=== PATIENT | female | born 1995 | race Caucasian/White ===

== ENCOUNTER 2018-07-06 22:17 | Emergency (ER) | payer OTHER ==
--- OUTSIDE RECORDS SUMMARY | 2018-07-06 22:19 | XMS REPORT ---
:1995 Author Organization [facility] Address [address] [place] [address] [address] [place] [address] Care Team Providers Name Role Phone Unavailable Unavailable Unavailable Payers Payer Name Policy Type Policy Number Effective Date Expiration Date Problems This patient has no known problems. Allergies, Adverse Reactions, Alerts Allergy Name Allergy Status Severity Reaction(s) Onset Inactive Treating Comments Type Date Date Clinician Penicillins DA Active SV 2017-12 00:00:0 0 Sulfa DA Active VT 2017-11 (Sulfonamide -12 Antibiotics) 00:00:0 0 Medications This patient has no known medications.
--- NOTE | 2018-07-07 00:24 | EDPHYS ---
Physician Documentation [facility] Name: Caitlin Sloan Age: 23 yrs Sex: Female : 1995 Arrival Date: 07/06/2018 Time: 22:22 Bed 26 Private MD: ED Physician Danilo Moralez HPI: 07/06 23:41 This 23 yrs old Female presents to ER via Ambulatory with complaints of Ear kb Pain. 23:41 The patient presents with The patient presents with pain, moderate. The complaints kb affect the right ear and left ear. Onset: The symptoms/episode began/occurred 1 week(s) ago. Modifying factors: The symptoms are alleviated by nothing, the symptoms are aggravated by nothing. Associated signs and symptoms: Pertinent positives: sore throat, rhinorrhea. Severity of symptoms: At their worst the symptoms were moderate in the emergency department the symptoms are unchanged. The patient has not experienced similar symptoms in the past. Pt reports ear pain, sinus drainage, swelling behind left ear, and sore throat. . 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 - Social history:: Smoking status: Patient/guardian denies using tobacco. - Ebola Screening: : Patient denies exposure to infectious person Patient denies travel to an Ebola-affected area in the 21 days before illness onset. ROS: 23:41 Constitutional: Negative for fever, chills, and weight loss, Neck: Negative for injury, kb pain, and swelling, Cardiovascular: Negative for chest pain, palpitations, and edema, Respiratory: Negative for shortness of breath, cough, wheezing, and pleuritic chest pain, Abdomen/GI: Negative for abdominal pain, nausea, vomiting, diarrhea, and constipation, Back: Negative for injury and pain, : Negative for injury, bleeding, discharge, and swelling, MS/Extremity: Negative for injury and deformity, Skin: Negative for injury, rash, and discoloration, Neuro: Negative for headache, weakness, numbness, tingling, and seizure. 23:41 ENT: Positive for ear pain, rhinorrhea, sinus congestion. Exam: 23:41 Constitutional: This is a well developed, well nourished patient who is awake, alert, kb and in no acute distress. Head/Face: Normocephalic, atraumatic. Chest/axilla: Normal chest wall appearance and motion. Nontender with no deformity. No lesions are appreciated. Cardiovascular: Regular rate and rhythm with a normal S1 and S2. No gallops, murmurs, or rubs. Normal PMI, no JVD. No pulse deficits. Respiratory: Lungs have equal breath sounds bilaterally, clear to auscultation and percussion. No rales, rhonchi or wheezes noted. No increased work of breathing, no retractions or nasal flaring. Abdomen/GI: Soft, non-tender, with normal bowel sounds. No distension or tympany. No guarding or rebound. No evidence of tenderness throughout. Skin: Warm, dry with normal turgor. Normal color with no rashes, no lesions, and no evidence of cellulitis. MS/ Extremity: Pulses equal, no cyanosis. Neurovascular intact. Full, normal range of motion. Neuro: Awake and alert, GCS 15, oriented to person, place, time, and situation. Cranial nerves II-XII grossly intact. Motor strength 5/5 in all extremities. Sensory grossly intact. Cerebellar exam normal. Normal gait. 23:41 ENT: External ear(s): swelling, that is moderate, of the left mastoid area, Ear canal(s): are normal, TM's: are normal, Nose: is normal, Mouth: is normal, Posterior pharynx: is normal. Vital Signs: 22:33 BP 134 / 84; Pulse 105; Resp 18; Temp 98.6; Pulse Ox 100% on R/A; Weight 110.68 kg; aa1 Height 5 ft. 5 in. (165.10 cm); Pain 7/10; 23:59 BP 90 / 54; Pulse 107; Resp 18; Pulse Ox 99% on R/A; tl3 22:33 Body Mass Index 40.60 (110.68 kg, 165.10 cm) aa1 MDM: 22:57 Patient medically screened. kb 23:43 Data reviewed: vital signs, nurses notes. Data interpreted: Pulse oximetry: on room air kb is 100 %. Interpretation: normal. 07/07 00:22 Counseling: I had a detailed discussion with the patient and/or guardian regarding: the kb historical points, exam findings, and any diagnostic results supporting the discharge/admit diagnosis, radiology results, the need for outpatient follow up, a family practitioner, to return to the emergency department if symptoms worsen or persist or if there are any questions or concerns that arise at home. 07/06 23:07 Order name: CT Head Brain wo Cont kb Administered Medications: No medications were administered Disposition: 07/07/18 00:22 Discharged to Home. Impression: Allergic rhinitis, unspecified. - Condition is Stable. - Discharge Instructions: Allergic Rhinitis, Allergies, [id number]. - Prescriptions for Prednisone 20 mg Oral Tablet - take 1 tablet by ORAL route once daily for 5 days; 5 tablet. - Medication Reconciliation Form, Thank You Letter, Antibiotic Education, Prescription Opioid Use form. - Follow up: Emergency Department; When: As needed; Reason: Worsening of condition. Follow up: Private Physician; When: 2 - 3 days; Reason: Recheck today's complaints, Continuance of care, Re-evaluation by your physician. Addendum: 07/10/2018 06:53 Co-signature as Attending Physician, Danilo Moralez MD I agree with the assessment and c ramirez plan of care. Signatures: Dispatcher [employer] EDMS Windy Torre, RENTAL CAR FERRY DRIVER-C RENTAL CAR FERRY DRIVER-Ckb Chelle Monet, RN RN aa1 Danilo Moralez MD MD cha Vicente, Ronaldo, RN RN rv Corrections: (The following items were deleted from the chart) 07/07 00:39 00:22 07/07/2018 00:22 Discharged to Home. Impression: Allergic rhinitis, unspecified. rv Condition is Stable. Forms are Medication Reconciliation Form, Thank You Letter, Antibiotic Education, Prescription Opioid Use. Follow up: Emergency Department; When: As needed; Reason: Worsening of condition. Follow up: Private Physician; When: 2 - 3 days; Reason: Recheck today's complaints, Continuance of care, Re-evaluation by your physician. kb
--- NOTE | 2018-07-07 00:24 | ER ---
Nurse's Notes [facility] Name: Caitlin Sloan Age: 23 yrs Sex: Female : 1995 Arrival Date: 07/06/2018 Time: 22:22 Bed 26 Private MD: Diagnosis: Allergic rhinitis, unspecified Presentation: 07/06 22:32 Presenting complaint: Patient states: robinson ear pain, swollen lymph nodes, and sinus aa1 drainage x 1.5 weeks. Transition of care: patient was not received from another setting of care. Onset of symptoms was June 26, 2018. Risk Assessment: Do you want to hurt yourself or someone else? Patient reports no desire to harm self or others. Initial Sepsis Screen: Does the patient meet any 2 criteria? HR > 90 bpm. Does the patient have a suspected source of infection? No. Patient's initial sepsis screen is negative. Care prior to arrival: None. 22:32 Method Of Arrival: Ambulatory aa1 22:32 Acuity: TANESHA 4 aa1 Triage Assessment: 22:33 General: Appears in no apparent distress. comfortable, Behavior is calm, cooperative, aa1 appropriate for age. 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 - Social history:: Smoking status: Patient/guardian denies using tobacco. - Ebola Screening: : Patient denies exposure to infectious person Patient denies travel to an Ebola-affected area in the 21 days before illness onset. Screenin:59 Abuse screen: Denies threats or abuse. Nutritional screening: No deficits noted. tl3 Tuberculosis screening: No symptoms or risk factors identified. Fall Risk None identified. Assessment: 23:59 General: Appears comfortable, well groomed, well developed, well nourished, Behavior is tl3 calm, cooperative, appropriate for age. Pain: Complains of pain in left mastoid area and left ear and right ear. Neuro: Level of Consciousness is awake, alert, obeys commands, Oriented to person, place, time, situation, Appropriate for age. Cardiovascular: Patient's skin is warm and dry. Respiratory: Airway is patent Respiratory effort is even, unlabored, Respiratory pattern is regular, symmetrical. GI: No signs and/or symptoms were reported involving the gastrointestinal system. : No signs and/or symptoms were reported regarding the genitourinary system. EENT: Reports pain in right ear and left ear. Derm: No signs and/or symptoms reported regarding the dermatologic system. Vital Signs: 22:33 BP 134 / 84; Pulse 105; Resp 18; Temp 98.6; Pulse Ox 100% on R/A; Weight 110.68 kg; aa1 Height 5 ft. 5 in. (165.10 cm); Pain 7/10; 23:59 BP 90 / 54; Pulse 107; Resp 18; Pulse Ox 99% on R/A; tl3 22:33 Body Mass Index 40.60 (110.68 kg, 165.10 cm) aa1 ED Course: 22:22 Patient arrived in ED. ds1 22:33 Triage completed. aa1 22:33 Arm band placed on left wrist. Patient placed in waiting room, Patient notified of wait aa1 time. 22:57 Windy Torre FNP-C is [facility]. kb 22:57 Danilo Moralez MD is Attending Physician. kb 23:[address] via wheelchair. kw1 23:39 CT Head Brain wo Cont In Process Unspecified. EDMS 23:40 CT completed. Patient tolerated procedure well. Patient moved back from CT. kw1 23:58 Araceli Proctor, RN is Primary Nurse. tl3 23:59 Patient has correct armband on for positive identification. Bed in low position. Pulse tl3 ox on. NIBP on. 23:59 No provider procedures requiring assistance completed. Patient did not have IV access tl3 during this emergency room visit. Administered Medications: No medications were administered Outcome: 07/07 00:22 Discharge ordered by . kb 00:39 Discharged to home ambulatory. rv 00:39 Condition: good 00:39 Discharge instructions given to patient, Instructed on discharge instructions, follow up and referral plans. medication usage, Demonstrated understanding of instructions, follow-up care, medications, Prescriptions given X 1. 00:39 Patient left the ED. rv Signatures: Dispatcher [employer] EDMD Windy Torre FNP-C FNP-Ckb Chelle Monet, RN RN aa1 Helena Melendez ds1 Nella Crawley kw1 Araceli Proctor, RN RN tl3 Michael Duncan, RN RN rv
--- NOTE | 2018-07-07 08:19 | RAD REPORT ---
EXAM DESCRIPTION: CT - Head Brain Wo Cont - 07/07/2018 5:48 am CLINICAL HISTORY: r/o mastroiditis Fever, headache COMPARISON: No comparisons TECHNIQUE: All CT scans are performed using dose optimization technique as appropriate and may inclu de automated exposure control or mA/KV adjustment according to patient size. FINDINGS: No intracranial hemorrhage, hydrocephalus or extra-axial fluid collection.No areas of brai n edema or evidence of midline shift. The paranasal sinuses and mastoids are clear. The calvarium is intact. IMPRESSION: No acute intracranial abnormality.
== END 2018-07-07 00:39 | disposition home or self-care (01) ==
LOC: ER 22:17
DX: J30.9 Allergic rhinitis, unspecified (principal); H92.03 Otalgia, bilateral
CPT/HCPCS: 70450; 99284

== ENCOUNTER 2018-08-21 14:25 | Emergency (ER) | payer OTHER ==
--- OUTSIDE RECORDS SUMMARY | 2018-08-21 14:27 | XMS REPORT ---
:1995 [facility] Address [address] [place] [address] [address] [place] [address] Care Team Providers Name Role Phone Unavailable Unavailable Unavailable Payers Payer Name Policy Type Policy Number Effective Date Expiration Date Problems This patient has no known problems. Allergies, Adverse Reactions, Alerts Allergy Name Allergy Status Severity Reaction(s) Onset Inactive Treating Comments Type Date Date Clinician Penicillins DA Active SV 2017-12 00:00:0 0 Sulfa DA Active [place] 2017-11 (Sulfonamide -12 Antibiotics) 00:00:0 0 Medications This patient has no known medications.
--- NOTE | 2018-08-21 15:29 | ER ---
Nurse's Notes [facility] Name: Caitlin Sloan Age: 23 yrs Sex: Female : 1995 Arrival Date: 08/21/2018 Time: 14:29 Bed 11 Private MD: Diagnosis: Acute sinusitis Presentation: 08/21 15:07 Presenting complaint: Patient states: headaches, sinus infection, fever of 101 hj yesterday, cough, pain when breathes, symptoms started at the beginning of july. Transition of care: patient was not received from another setting of care. Onset of symptoms was August 21, 2018. Risk Assessment: Do you want to hurt yourself or someone else? Patient reports no desire to harm self or others. Initial Sepsis Screen: Does the patient meet any 2 criteria? No. Patient's initial sepsis screen is negative. Does the patient have a suspected source of infection? No. Patient's initial sepsis screen is negative. Care prior to arrival: None. 15:07 Method Of Arrival: Ambulatory 15:07 Acuity: TANESHA 4 hj Triage Assessment: 15:30 General: Appears in no apparent distress. comfortable, Behavior is calm, cooperative. mg2 Pain: Complains of pain in head Pain does not radiate. Pain currently is 5 out of 10 on a pain scale. Quality of pain is described as aching, Pain began gradually, Is intermittent. EENT: Reports pain in right eye, nose and left eye. Neuro: Level of Consciousness is awake, alert, obeys commands, Oriented to person, place, time, situation. Cardiovascular: Capillary refill < 3 seconds Patient's skin is warm and dry. Respiratory: Reports cough that is non-productive, Airway is patent Respiratory effort is even, unlabored, Respiratory pattern is regular, symmetrical. GI: No signs and/or symptoms were reported involving the gastrointestinal system. : No signs and/or symptoms were reported regarding the genitourinary system. Derm: Skin is intact, is healthy with good turgor, Skin is pink, warm \T\ dry. normal. 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 - Social history:: Smoking status: Patient/guardian denies using tobacco. - Ebola Screening: : Patient negative for fever greater than or equal to 101.5 degrees Fahrenheit, and additional compatible Ebola Virus Disease symptoms Patient denies exposure to infectious person Patient denies travel to an Ebola-affected area in the 21 days before illness onset No symptoms or risks identified at this time. Screenin:53 Abuse screen: Denies threats or abuse. Denies injuries from another. Nutritional mg2 screening: No deficits noted. Tuberculosis screening: No symptoms or risk factors identified. Fall Risk None identified. Assessment: 15:35 Reassessment: No changes from previously documented assessment. mg2 Vital Signs: 15:08 BP 119 / 80; Pulse 95; Resp 18; Temp 97.5(TE); Pulse Ox 100% on R/A; Weight 108.86 kg; hj Height 5 ft. 6 in. (167.64 cm); Pain 7/10; 15:08 Body Mass Index 38.74 (108.86 kg, 167.64 cm) ED Course: 14:29 Patient arrived in ED. mr 15:08 Triage completed. hj 15:10 Arm band placed on. hj 15:11 Orville Rashid, JOSE MARIA is Primary Nurse. mg2 15:15 Primo Kennedy PA is PHCP. jr8 15:15 Mitchell Cabrera MD is Attending Physician. jr8 15:30 Patient has correct armband on for positive identification. mg2 15:52 No provider procedures requiring assistance completed. Patient did not have IV access mg2 during this emergency room visit. Administered Medications: No medications were administered Outcome: 15:29 Discharge ordered by . jr8 15:52 Discharged to home ambulatory, with family. mg2 15:52 Condition: stable 15:52 Discharge instructions given to patient, family, Instructed on discharge instructions, follow up and referral plans. medication usage, Demonstrated understanding of instructions, follow-up care, medications, Prescriptions given X 3. 15:53 Patient left the ED. mg2 Signatures: Angélica Tang mr Primo Kennedy PA PA jr8 Joel Mcgovern RN RN Gardose, Orville, RN RN mg2 Corrections: (The following items were deleted from the chart) 15:10 15:07 Presenting complaint: Patient states: headaches, sinus infection, fever of 101 hj yesterday, cough, pain when breathes hj
--- NOTE | 2018-08-21 15:29 | EDPHYS ---
Physician Documentation [facility] Name: Caitlin Sloan Age: 23 yrs Sex: Female : 1995 Arrival Date: 08/21/2018 Time: 14:29 Bed 11 Private MD: ED Physician Mitchell Cabrera HPI: 08/21 16:20 This 23 yrs old Female presents to ER via Ambulatory with complaints of Sinus jr8 Congestion. 16:20 The patient or guardian reports cough, that is intermittent, described as moderate, jr8 with no sputum, sinus congestion and pain. Onset: The symptoms/episode began/occurred gradually, 3 week(s) ago, and became persistent. Severity of symptoms: At their worst the symptoms were moderate, in the emergency department the symptoms are unchanged. Modifying factors: The symptoms are alleviated by nothing, the symptoms are aggravated by nothing. The patient has not experienced similar symptoms in the past. The patient has been recently seen by a physician:. Patient seen by provider about 3 weeks ago and was given steroids. Helped for a while but continues to have cough, sinus pressure, and sinus pain . 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 - Social history:: Smoking status: Patient/guardian denies using tobacco. - Ebola Screening: : Patient negative for fever greater than or equal to 101.5 degrees Fahrenheit, and additional compatible Ebola Virus Disease symptoms Patient denies exposure to infectious person Patient denies travel to an Ebola-affected area in the 21 days before illness onset No symptoms or risks identified at this time. ROS: 16:20 Eyes: Negative for injury, pain, redness, and discharge, Neck: Negative for injury, jr8 pain, and swelling, Cardiovascular: Negative for chest pain, palpitations, and edema, Abdomen/GI: Negative for abdominal pain, nausea, vomiting, diarrhea, and constipation, Back: Negative for injury and pain, MS/Extremity: Negative for injury and deformity, Skin: Negative for injury, rash, and discoloration, Neuro: Negative for headache, weakness, numbness, tingling, and seizure. 16:20 Constitutional: Positive for body aches, fever. 16:20 ENT: Positive for rhinorrhea, sinus congestion, sinus pain. 16:20 Respiratory: Positive for cough, Negative for dyspnea on exertion, pleurisy, shortness of breath, sputum production, wheezing. Exam: 16:20 Eyes: Pupils equal round and reactive to light, extra-ocular motions intact. Lids and jr8 lashes normal. Conjunctiva and sclera are non-icteric and not injected. Cornea within normal limits. Periorbital areas with no swelling, redness, or edema. Neck: Trachea midline, no thyromegaly or masses palpated, and no cervical lymphadenopathy. Supple, full range of motion without nuchal rigidity, or vertebral point tenderness. No Meningismus. Cardiovascular: Regular rate and rhythm with a normal S1 and S2. No gallops, murmurs, or rubs. Normal PMI, no JVD. No pulse deficits. Respiratory: Lungs have equal breath sounds bilaterally, clear to auscultation and percussion. No rales, rhonchi or wheezes noted. No increased work of breathing, no retractions or nasal flaring. Abdomen/GI: Soft, non-tender, with normal bowel sounds. No distension or tympany. No guarding or rebound. No evidence of tenderness throughout. Back: No spinal tenderness. No costovertebral tenderness. Full range of motion. Skin: Warm, dry with normal turgor. Normal color with no rashes, no lesions, and no evidence of cellulitis. MS/ Extremity: Pulses equal, no cyanosis. Neurovascular intact. Full, normal range of motion. Neuro: Awake and alert, GCS 15, oriented to person, place, time, and situation. Cranial nerves II-XII grossly intact. Motor strength 5/5 in all extremities. Sensory grossly intact. Cerebellar exam normal. Normal gait. 16:20 Head/face: Sinus tenderness, that is moderate, is located over the right frontal sinus, left frontal sinus, right ethmoid sinus, left ethmoid sinus, right maxillary sinus and left maxillary sinus. 16:20 ENT: Exam is negative for earache, ear discharge, hemotympanum, nasal discharge, pharyngitis, exudate. Vital Signs: 15:08 BP 119 / 80; Pulse 95; Resp 18; Temp 97.5(TE); Pulse Ox 100% on R/A; Weight 108.86 kg; hj Height 5 ft. 6 in. (167.64 cm); Pain 7/10; 15:08 Body Mass Index 38.74 (108.86 kg, 167.64 cm) MDM: 15:16 Patient medically screened. jr8 15:28 Data reviewed: vital signs, nurses notes, and as a result, I will discharge patient. jr8 Data interpreted: Pulse oximetry: on room air is 100 %. Interpretation: normal. Counseling: I had a detailed discussion with the patient and/or guardian regarding: the historical points, exam findings, and any diagnostic results supporting the discharge/admit diagnosis, the need for outpatient follow up, a family practitioner, to return to the emergency department if symptoms worsen or persist or if there are any questions or concerns that arise at home. Administered Medications: No medications were administered Disposition: 08/22 15:51 Co-signature as Attending Physician, Mitchell Cabrera MD I agree with the assessment and kdr plan of care. Disposition: 08/21/18 15:29 Discharged to Home. Impression: Acute sinusitis. - Condition is Stable. - Discharge Instructions: Sinusitis, Adult. - Prescriptions for Claritin- D 12 Hour 5-120 mg Oral Tablet Sustained Release 12 hr - take 1 tablet by ORAL route every 12 hours As needed to take for 7-10 days; 30 tablet. Zithromax Z- [place] 250 mg Oral Tablet - take 1 tablet by ORAL route as directed for 5 days Day 1 - take two (2) tablets one time. Day 2, 3, 4 , 5 take one (1) tablet once daily.; 6 tablet. Guaifenesin AC 10- 100 mg/5 mL Oral Liquid - take 10 milliliter by ORAL route every 4 hours As needed; 240 milliliter. - Medication Reconciliation Form, Thank You Letter, Antibiotic Education, Prescription Opioid Use form. - Follow up: Private Physician; When: 1 week; Reason: Recheck today's complaints, Continuance of care, Re-evaluation by your physician. - Problem is new. - Symptoms have improved. Signatures: Mitchell Cabrera MD MD [facility] Primo Kennedy PA PA jr8 Joel Mcgovern RN RN Gard[place], Orville, RN RN mg2 Corrections: (The following items were deleted from the chart) 08/21 15:53 15:29 08/21/2018 15:29 Discharged to Home. Impression: Acute sinusitis. Condition is mg2 Stable. Forms are Medication Reconciliation Form, Thank You Letter, Antibiotic Education, Prescription Opioid Use. Follow up: Private Physician; When: 1 week; Reason: Recheck today's complaints, Continuance of care, Re-evaluation by your physician. Problem is new. Symptoms have improved. jr8
== END 2018-08-21 15:53 | disposition home or self-care (01) ==
LOC: ER 14:25
DX: J01.90 Acute sinusitis, unspecified (principal); Z88.0 Allergy status to penicillin; Z88.2 Allergy status to sulfonamides
CPT/HCPCS: 99282

== ENCOUNTER 2018-11-17 14:31 | Emergency (ER) | payer OTHER ==
--- OUTSIDE RECORDS SUMMARY | 2018-11-17 14:35 | XMS REPORT ---
:1995 [facility] Address [address] [place] [address] [address] [place] [address] Care Team Providers Name Role Phone Unavailable Unavailable Unavailable Payers Payer Name Policy Type Policy Number Effective Date Expiration Date Problems This patient has no known problems. Allergies, Adverse Reactions, Alerts Allergy Name Allergy Status Severity Reaction(s) Onset Inactive Treating Comments Type Date Date Clinician Penicillins DA Active SV 2017-12 00:00:0 0 Sulfa DA Active [place] 2017-11 (Sulfonamide -12 Antibiotics) 00:00:0 0 Medications This patient has no known medications. Results Test Description Test Time Test Comments Text Results Atomic Results Result Comments COMPREHENSIVE METABOLIC PANEL 2018-10-14 17:15:00 Test Item Value Reference Range Comments SODIUM (test code=NA) 139 mEq/L 135-145 POTASSIUM (test code=K) 3.8 mEq/L 3.5-5.0 CHLORIDE (test code=CL) 104 mEq/L 100-115 CARBON DIOXIDE (test code=CO2) 27 mEq/L 22-31 ANION GAP (test code=GAP) 12.10 10-20 GLUCOSE (test code=GLU) 83 mg/dL 65-110 BLOOD UREA NITROGEN (test code=BUN) 15 mg/dL 7-18 GLOMERULAR FILTRATION RATE (test code=GFR) 68 ml/min >60 CREATININE (test code=CREAT) 1.0 mg/dL 0.5-1.0 TOTAL PROTEIN (test code=PROT) 7.2 gm/dL 6.3-8.2 ALBUMIN (test code=ALB) 3.2 gm/dL 3.4-4.8 CALCIUM (test code=CA) 9.1 mg/dL 8.4-10.2 BILIRUBIN TOTAL (test code=BILT) 0.2 mg/dL 0.2-1.0 SGOT/AST (test code=AST) 13 units/L 15-37 SGPT/ALT (test code=ALT) 18 units/L 12-78 ALKALINE PHOSPHATASE TOTAL (test code=ALKP) 68 units/L 46-116 [id number] 17:13:00 Test Item Value Reference Range Comments AMYLASE (test code=IVETTE) 34 units/L 30-110 [id number] 17:13:00 Test Item Value Reference Range Comments LIPASE (test code=LIP) 88 units/L 73-393 - US ABDOMEN [id number] 17:09:00 Patient Name: SIMONE MARTÍNEZ Unit No: [id number] EXAMS: CPT CODE: [id number] US ABDOMEN LTD 75904 EXAM: Right upper quadrant ultrasound. EXAM DATE: October 14, 2018. CLINICAL HISTORY: Right upper quadrant pain. Real-time imaging of the abdomen demonstrated a normal appearing liver, gallbladder, biliary ductal system and right kidney. The pancreas was obscured by overlying bowel gas. The common bile duct measures 0.1 cm. The right kidney measures 11.7 x 5.2 x 5.1 cm. The visualized portions of the IVC and aorta are within normal limits. Specifically, thereis no evidence of ascites, cholelithiasis or right hydronephrosis. IMPRESSION: No significantabnormalities identified ( nonvisualization of pancreas secondary to overlying bowel gas). at 170 Reported and signed by: Tia Boateng MD CC: Sharifa Bassett MD; Twin Flanagan Technologist: Lisbeth Calles RDMS Probe: Trnscrbd D/ ([id number])BrittnyCER Orig Print D/T: S: 10/14/2018 (4897) [facility] NAME: SIMONE MARTÍNEZ Radiology Department PHYS: WILFRED - Twin Bocanegra MD [address] : 1995 AGE: 23 SEX: F [place], [place] [address] LOC: CARRIE PHONE #: [phone] EXAM DATE: 10/14/2018 STATUS: REG ER FAX #: [phone] RAD NO: Page 1 Signed Report Patient Name: SIMONE MARTÍNEZ Unit No: [id number] EXAMS: CPT CODE: [id number] US ABDOMEN LTD 24252 <Continued> [facility] NAME: SIMONE MARTÍNEZ Radiology Department PHYS: Twin Garcia PMD [address] : 1995 AGE: 23 SEX: F [place], [place] [address] LOC: CARRIE PHONE #: [phone] EXAM DATE: 10/14/2018 STATUS: REG ER FAX #: [phone] RAD NO: Page 2 Signed ReportUA RFLX MICR CULT IF [id number] 16:48:00 Test Item Value Reference Range Comments UA COLOR (test code=COLU) YELLOW YELLOW UA APPEARANCE (test code=APPU) CLEAR CLEAR UA GLUCOSE DIPSTICK (test NEGATIVE NEGATIVE code=DGLUU) UA BILIRUBIN DIPSTICK (test NEGATIVE NEGATIVE code=BILU) UA KETONE DIPSTICK (test NEGATIVE NEGATIVE code=KETU) UA SPECIFIC GRAVITY (test 1.025 1.001-1.035 code=SGU) UA BLOOD DIPSTICK (test code=IVONNE) 3+ NEGATIVE UA PH DIPSTICK (test code=GEREMIAS) 6.0 5-9 UA PROTEIN DIPSTICK (test NEGATIVE NEGATIVE code=PROU) UA UROBILINIOGEN DIPSTICK (test 0.2 EU/dL <=1.0 code=URO) UA NITRITE DIPSTICK (test NEGATIVE NEGATIVE code=ELBA) UA LEUKOCYTE ESTERASE DIPSTICK NEG NEGATIVE (test code=LEUU) UA WBC (test code=WBCU) 0-2 #/hpf NONE SEEN UA RBC (test code=RBCU) TOO NUMEROUS TO CNT #/hpf NONE SEEN UA EPITHELIAL CELLS (test RARE #/hpf NONE SEEN code=EPIU) UA BACTERIA (test code=BACU) RARE #/hpf NONE SEEN CBC W/AUTO [id number] 16:44:00 Test Item Value Reference Range Comments WHITE BLOOD CELL (test code=WBC) 11.3 K/mm3 6.6-12.1 RED BLOOD CELL (test code=RBC) 4.57 M/mm3 3.45-5.01 HEMOGLOBIN (test code=HGB) 12.1 g/dL 10.7-13.9 HEMATOCRIT (test code=HCT) 39.3 % 32.1-42.1 MEAN CELL VOLUME (test code=MCV) 86 fL 84.1-94.8 MEAN CELL HGB (test code=MCH) 26.5 pg 27-35 MEAN CELL HGB CONCETRATION (test code=MCHC) 30.8 gm/dL 32.2-34.1 RED CELL DISTRIBUTION WIDTH (test code=RDW) 14.8 % 12.4-16.5 PLATELET COUNT (test code=PLT) 339 K/mm3 133-385 IMMATURE PLATELET FRACTION (test code=IPF) 0.0 % 0.0-10.8 MEAN PLATELET VOLUME (test code=MPV) 9.3 fl 9.1-12.7 NEUTROPHIL % (test code=NT%) 68.3 % 56.5-79.4 LYMPHOCYTE % (test code=LY%) 25.3 % 14.3-34.3 MONOCYTE % (test code=MO%) 4.5 % 5.1-10.4 EOSINOPHIL % (test code=EO%) 1.2 % 0.1-3.0 BASOPHIL % (test code=BA%) 0.3 % 0.1-1.0 NEUTROPHIL # (test code=NT#) 7.7 K/mm3 LYMPHOCYTE # (test code=LY#) 2.9 K/mm3 MONOCYTE # (test code=MO#) 0.5 K/mm3 EOSINOPHIL # (test code=EO#) 0.13 K/mm3 BASOPHIL # (test code=BA#) 0.0 K/mm3 RBC MORPHOLOGY REQUIRED (test code=RBCM) NORMAL NORMAL PLATELET MORPHOLOGY REQUIRED (test code=PLTMR) NORMAL NORMAL
[2018-11-17 15:39] LABS: Absolute Lymphocytes (CBC) 2.1 K/uL (0.7-4.9); Absolute Monocytes 0.4 K/uL (0.1-1.3); Absolute Neutrophil 2.7 K/uL (1.8-8.0); Basophils % 0.6 % (0-1.3); Eosinophils % 3.4 % (0-4.4); Hematocrit 39.4 % (36.0-45.0); Lymphocytes % 38.6 % (15.3-44.8); MPV 7.7 fL (7.6-11.3); Monocytes % 7.8 % (3.3-12.3); RBC Red Blood Cell Count 4.84 M/uL (3.86-4.86)
[2018-11-17 16:02] LABS: ALT/SGPT 47 U/L (12-78); AST/SGOT 22 U/L (15-37); Albumin 3.5 g/dL (3.4-5.0); Alkaline Phosphatase 91 U/L (45-117); BUN Blood Urea Nitrogen 12 mg/dL (7-18); Bicarbonate 26 mmol/L (21-32); Bilirubin Direct < 0.1 mg/dL (0-0.2); Bilirubin Total 0.3 mg/dL (0.2-1.0); Glucose Level 83 mg/dL (74-106); Lipase 103 U/L (73-393); Potassium 3.6 mmol/L (3.5-5.1); Protein, Total 7.3 g/dL (6.4-8.2); Sodium Level 144 mmol/L (136-145)
--- NOTE | 2018-11-17 16:54 | ER ---
Nurse's Notes [facility] Name: Caitlin Sloan Age: 23 yrs Sex: Female : 1995 Arrival Date: 11/17/2018 Time: 14:35 Bed 28 Private MD: Diagnosis: Acute sinusitis Presentation: 11/17 14:41 Presenting complaint: Patient states: Chest heaviness with a dry cough for several day, sg reports having shortness of breath with activity. Transition of care: patient was not received from another setting of care. Onset of symptoms was November 17, 2018. Risk Assessment: Do you want to hurt yourself or someone else? Patient reports no desire to harm self or others. Initial Sepsis Screen: Does the patient meet any 2 criteria? No. Patient's initial sepsis screen is negative. Does the patient have a suspected source of infection? No. Patient's initial sepsis screen is negative. Care prior to arrival: None. 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 - Social history:: Smoking status: Patient/guardian denies using tobacco. - Ebola Screening: : Patient negative for fever greater than or equal to 101.5 degrees Fahrenheit, and additional compatible Ebola Virus Disease symptoms Patient denies exposure to infectious person Patient denies travel to an Ebola-affected area in the 21 days before illness onset No symptoms or risks identified at this time. Screenin:02 Abuse screen: Denies threats or abuse. Denies injuries from another. Nutritional mg2 screening: No deficits noted. Tuberculosis screening: No symptoms or risk factors identified. Fall Risk None identified. Assessment: 15:11 General: Appears in no apparent distress. comfortable, Behavior is calm, cooperative. mg2 Pain: Complains of pain in chest, upper abdomen Pain does not radiate. Pain currently is 3 out of 10 on a pain scale. Quality of pain is described as aching, Pain began gradually, almost a week now. Neuro: Level of Consciousness is awake, alert, obeys commands, Oriented to person, place, time, situation. Cardiovascular: Capillary refill < 3 seconds Patient's skin is warm and dry. Respiratory: Airway is patent Respiratory effort is even, unlabored, Respiratory pattern is regular, symmetrical. GI: Reports nausea, bright yellowish stool. : No signs and/or symptoms were reported regarding the genitourinary system. EENT: No signs and/or symptoms were reported regarding the EENT system. Derm: Skin is intact, is healthy with good turgor, Skin is pink, warm \T\ dry. normal. Musculoskeletal: Circulation, motion, and sensation intact. Capillary refill < 3 seconds. 17:03 Reassessment: Patient states feeling better. mg2 Vital Signs: 14:40 Pulse 115; Resp 17; Temp 98.6; Pulse Ox 100% on R/A; Pain 6/10; sg 14:42 BP 136 / 76; sg 15:46 BP 104 / 75; Pulse 82; Resp 18; Pulse Ox 99% on R/A; Pain 3/10; mg2 ED Course: 14:35 Patient arrived in ED. mr 14:40 Arm band placed on. sg 14:42 Triage completed. sg 14:56 Windy Torre FNP-C [facility]. kb 14:56 Sebas Day MD is Attending Physician. kb 15:02 Orville Rashid, JOSE MARIA is Primary Nurse. mg2 15:06 EKG done, by geospatial technician. reviewed by Windy AMADOR. sm3 15:14 Patient has correct armband on for positive identification. Pulse ox on. NIBP on. Door mg2 closed. Warm blanket given. 15:14 No provider procedures requiring assistance completed. Patient maintains SpO2 mg2 saturation greater than 95% on room air. 15:32 Inserted saline lock: 22 gauge in left antecubital area, using aseptic technique. Blood mg2 collected. 16:11 X-ray completed. Patient tolerated procedure well. az 16:12 Chest Pa And Lat (2 Views) XRAY In Process Unspecified. EDMS 16:53 Basic Metabolic Panel Sent. jp3 17:03 IV discontinued, intact, bleeding controlled, No redness/swelling at site. Pressure mg2 dressing applied. Administered Medications: 17:00 Drug: predniSONE 40 mg Route: PO; mg2 17:00 Follow up: Response: No adverse reaction; Medication administered at discharge. mg2 Outcome: 16:54 Discharge ordered by . rosita 17:04 Discharged to home ambulatory. mg2 17:04 Condition: stable 17:04 Discharge instructions given to patient, Instructed on discharge instructions, follow up and referral plans. medication usage, Demonstrated understanding of instructions, follow-up care, medications, Prescriptions given X 2. 17:09 Patient left the ED. mg2 Signatures: Dispatcher [employer] EDMS Windy Torre, CHARGE COORDINATOR-C CHARGE COORDINATOR-Adebayo Mota, RN RN Angélica Tang Michele, RN RN mg2 Sydni Win 3 Lan Williamson jp3 Tawanna Duran
--- NOTE | 2018-11-17 16:54 | EDPHYS ---
Physician Documentation [facility] Name: Caitlin Sloan Age: 23 yrs Sex: Female : 1995 Arrival Date: 11/17/2018 Time: 14:35 Bed 28 Private MD: ED Physician Sebas Day HPI: 11/17 16:32 This 23 yrs old Female presents to ER via Ambulatory with complaints of Chest kb Pain, Cough, Headache. 16:33 The patient or guardian reports cough, that is intermittent, described as moderate, kb with no sputum, difficulty breathing, flu symptoms, low-grade fever, myalgias. Onset: The symptoms/episode began/occurred 6 day(s) ago. Severity of symptoms: At their worst the symptoms were moderate, in the emergency department the symptoms are unchanged. Modifying factors: The symptoms are alleviated by nothing, the symptoms are aggravated by nothing. Associated signs and symptoms: Pertinent positives: fever, Pertinent negatives: chest pain, diarrhea, ear ache, nausea, sore throat, vomiting. The patient has not experienced similar symptoms in the past. The patient has not recently seen a physician. 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 - Social history:: Smoking status: Patient/guardian denies using tobacco. - Ebola Screening: : Patient negative for fever greater than or equal to 101.5 degrees Fahrenheit, and additional compatible Ebola Virus Disease symptoms Patient denies exposure to infectious person Patient denies travel to an Ebola-affected area in the 21 days before illness onset No symptoms or risks identified at this time. ROS: 16:30 Neck: Negative for injury, pain, and swelling, Cardiovascular: Negative for chest pain, kb palpitations, and edema, Back: Negative for injury and pain, : Negative for injury, bleeding, discharge, and swelling, MS/Extremity: Negative for injury and deformity, Skin: Negative for injury, rash, and discoloration, Neuro: Negative for headache, weakness, numbness, tingling, and seizure. 16:30 Constitutional: Positive for body aches, chills, fatigue, malaise, Negative for poor PO intake, weight loss. 16:30 ENT: Positive for sinus congestion. 16:30 Respiratory: Positive for cough, Negative for dyspnea on exertion, hemoptysis, orthopnea, pleurisy, sputum production, wheezing. 16:30 Abdomen/GI: Positive for abdominal pain, diarrhea, yellow stool. Exam: 16:02 ECG was reviewed by the Attending Physician. kb 16:31 Constitutional: This is a well developed, well nourished patient who is awake, alert, kb and in no acute distress. Head/Face: Normocephalic, atraumatic. Neck: Trachea midline, no thyromegaly or masses palpated, and no cervical lymphadenopathy. Supple, full range of motion without nuchal rigidity, or vertebral point tenderness. No Meningismus. Chest/axilla: Normal chest wall appearance and motion. Nontender with no deformity. No lesions are appreciated. Cardiovascular: Regular rate and rhythm with a normal S1 and S2. No gallops, murmurs, or rubs. Normal PMI, no JVD. No pulse deficits. Respiratory: Lungs have equal breath sounds bilaterally, clear to auscultation and percussion. No rales, rhonchi or wheezes noted. No increased work of breathing, no retractions or nasal flaring. Skin: Warm, dry with normal turgor. Normal color with no rashes, no lesions, and no evidence of cellulitis. MS/ Extremity: Pulses equal, no cyanosis. Neurovascular intact. Full, normal range of motion. Neuro: Awake and alert, GCS 15, oriented to person, place, time, and situation. Cranial nerves II-XII grossly intact. Motor strength 5/5 in all extremities. Sensory grossly intact. Cerebellar exam normal. Normal gait. 16:31 ENT: External ear(s): are unremarkable, Ear canal(s): are normal, TM's: fluid levels, bilaterally, Nose: is normal, Mouth: is normal, Posterior pharynx: drainage. Vital Signs: 14:40 Pulse 115; Resp 17; Temp 98.6; Pulse Ox 100% on R/A; Pain 6/10; sg 14:42 BP 136 / 76; sg 15:46 BP 104 / 75; Pulse 82; Resp 18; Pulse Ox 99% on R/A; Pain 3/10; mg2 MDM: 14:56 Patient medically screened. kb 16:29 Data reviewed: vital signs, nurses notes. Data interpreted: Pulse oximetry: on room air kb is 99 %. Interpretation: normal. Counseling: I had a detailed discussion with the patient and/or guardian regarding: the historical points, exam findings, and any diagnostic results supporting the discharge/admit diagnosis, lab results, radiology results, the need for outpatient follow up, a family practitioner, to return to the emergency department if symptoms worsen or persist or if there are any questions or concerns that arise at home. 11/17 15:19 Order name: Basic Metabolic Panel kb 11/17 15:19 Order name: CBC with Diff; Complete Time: 15:42 kb 11/17 15:19 Order name: Hepatic Function; Complete Time: 16:03 kb 11/17 15:19 Order name: Lipase; Complete Time: 16:03 kb 11/17 15:20 Order name: Flu; Complete Time: 16:14 kb 11/17 15:20 Order name: Basic Metabolic Panel; Complete Time: 16:03 EDMS 11/17 15:19 Order name: IV Saline Lock; Complete Time: 15:31 kb 11/17 15:19 Order name: Labs collected and sent; Complete Time: 15:31 kb 11/17 15:19 Order name: Chest Pa And Lat (2 Views) XRAY; Complete Time: 17:04 kb EC:02 Rate is 74 beats/min. Rhythm is regular, Normal Sinus Rhythm with No ectopy. QRS [place] kb is Normal. LA interval is normal at 140 msec. QRS interval is normal at 92 msec. QT interval is normal at 392 msec. Clinical impression: Normal ECG. Interpreted by me. Reviewed by me. Administered Medications: 17:00 Drug: predniSONE 40 mg Route: PO; mg2 17:00 Follow up: Response: No adverse reaction; Medication administered at discharge. mg2 Disposition: 17:59 Co-signature as Attending Physician, Sebas Day MD. rn Disposition: 11/17/18 16:54 Discharged to Home. Impression: Acute sinusitis. - Condition is Stable. - Discharge Instructions: Sinusitis, Adult, Fcey-ov-Gjaj. - Prescriptions for Prednisone 20 mg Oral Tablet - take 1 tablet by ORAL route once daily for 5 days; 5 tablet. Albuterol Sulfate 90 mcg/actuation - inhale 1-2 puff by INHALATION route every 4-6 hours; 1 Inhaler. Tessalon Perles 100 mg Oral Capsule - take 1 capsule by ORAL route every 8 hours As needed; 15 capsule. - Medication Reconciliation Form, Thank You Letter, Antibiotic Education, Prescription Opioid Use form. - Follow up: Emergency Department; When: As needed; Reason: Worsening of condition. Follow up: Private Physician; When: 2 - 3 days; Reason: Recheck today's complaints, Continuance of care, Re-evaluation by your physician. Signatures: Dispatcher [employer] EDMS Windy Torre, ABDIRAHMAN-C SHOP ROUTER-Adebayo Mota RN RN sg Sebas Day MD MD rn Gardose, Michele, RN RN mg2 Corrections: (The following items were deleted from the chart) 17:09 16:54 11/17/2018 16:54 Discharged to Home. Impression: Acute sinusitis. Condition is mg2 Stable. Forms are Medication Reconciliation Form, Thank You Letter, Antibiotic Education, Prescription Opioid Use. Follow up: Emergency Department; When: As needed; Reason: Worsening of condition. Follow up: Private Physician; When: 2 - 3 days; Reason: Recheck today's complaints, Continuance of care, Re-evaluation by your physician. kb
--- NOTE | 2018-11-17 17:00 | RAD REPORT ---
EXAM DESCRIPTION: RAD - Chest Pa And Lat (2 Views) - 11/17/2018 4:18 pm CLINICAL HISTORY: Cough and congestion COMPARISON: None. TECHNIQUE: PA and lateral views of the chest were obtained. FINDINGS: The lungs are clear. Heart size is normal and central vasculature is within normal limit s. No pleural effusion or pneumothorax seen. No acute bony finding noted. No aortic abnormality. IMPRESSION: No acute cardiopulmonary process.
[2018-11-17] MEDS ORDERED: predniSONE 20 MG TAB ONE (17:07)
== END 2018-11-17 17:09 | disposition home or self-care (01) ==
LOC: ER 14:31
DX: J01.90 Acute sinusitis, unspecified (principal); Z88.0 Allergy status to penicillin; Z88.2 Allergy status to sulfonamides
CPT/HCPCS: 36415; 71046; 80048; 80076; 83690; 85025; 87804; 93005; 99284; J7512

== ENCOUNTER 2018-12-18 22:19 | Emergency (ER) | payer OTHER ==
--- OUTSIDE RECORDS SUMMARY | 2018-12-18 22:21 | XMS REPORT ---
:1995 [facility] Address [address] [place] [address] Care Team Providers Name Role Phone Unavailable Unavailable Unavailable Payers Payer Name Policy Type Policy Number Effective Date Expiration Date Problems This patient has no known problems. Allergies, Adverse Reactions, Alerts Allergy Name Allergy Status Severity Reaction(s) Onset Inactive Treating Comments Type Date Date Clinician Penicillins DA Active SV 2017-12 00:00:0 0 Sulfa DA Active [place] 2017-11 (Sulfonamide -12 Antibiotics) 00:00:0 0 Medications [...] PHOSPHATASE TOTAL (test code=ALKP) 68 units/L 46-116 [id number] 17:13:00 Test Item Value Reference Range Comments AMYLASE (test code=IVETTE) 34 units/L 30-110 [id number] 17:13:00 Test Item Value Reference Range Comments LIPASE (test code=LIP) 88 units/L 73-393 - US ABDOMEN [id number] 17:09:00 Patient Name: SIMONE MARTÍNEZ Unit No: [id number] EXAMS: CPT CODE: [id number] US ABDOMEN LTD 50310 EXAM: Right upper quadrant ultrasound. EXAM DATE: [...] pancreas secondary to overlying bowel gas). at 1708 Reported and signed by: Tia Boateng MD CC: Sharifa Bassett MD; Twin Flanagan Technologist: Libseth Calles RDMS Probe: Trnscrbd D/ ([id number])BrittnyCER Orig Print D/T: S: 10/14/2018 ([id number]) [facility] NAME: SIMONE MARTÍNEZ Radiology Department PHYS: PATSH.14 - Twin Bocanegra MD [address] : 1995 AGE: 23 SEX: F [place], [place] [address] LOC: CARRIE PHONE #: [phone] EXAM DATE: 10/14/2018 STATUS: REG ER FAX #: [phone] RAD NO: Page 1 Signed Report Patient Name: SIMONE MARTÍNEZ Unit No: [id number] EXAMS: CPT CODE: [id number] US ABDOMEN LTD 03690 <Continued> [facility] NAME: SIMONE MARTÍNEZ Radiology Department PHYS: Twin Garcia PMD [address] : 1995 AGE: 23 SEX: [place], [place] [address] LOC: CARRIE PHONE #: [phone] EXAM DATE: 10/14/2018 STATUS: REG ER FAX #: [phone] RAD NO: Page 2 Signed ReportUA RFLX MICR CULT IF [id number] 16:48:00 Test Item Value Reference Range Comments [...] code=BACU) RARE #/hpf NONE SEEN CBC W/AUTO [id number] 16:44:00 Test Item Value Reference Range Comments [...]
--- NOTE | 2018-12-18 23:26 | ER ---
Nurse's Notes [facility] Name: Caitlin Sloan Age: 23 yrs Sex: Female : 1995 Arrival Date: 12/18/2018 Time: 22:22 Bed 8 Private MD: Diagnosis: Paresthesia of skin Presentation: 12/18 22:35 Presenting complaint: Patient states: starting approx 1430 this afternoon she began aa1 having tingling in her RLE she describes as "pins \\T\\ needles" which then traveled to her LLE and then spread all over. Reports the tingling is intermittent and no relief with aspirin and Benadryl. CMS intact. Amb with steady gait. Reports she is also 4 days late on her menstrual cycle and is concerned these symptoms might be referred symptoms from an ectopic . Denies vaginal bleeding, abd pain, cramping, or suprapubic pain. Transition of care: patient was not received from another setting of care. Onset of symptoms was December 18, 2018 at 14:30. Risk Assessment: Do you want to hurt yourself or someone else? Patient reports no desire to harm self or others. Initial Sepsis Screen: Does the patient meet any 2 criteria? No. Patient's initial sepsis screen is negative. Does the patient have a suspected source of infection? No. Patient's initial sepsis screen is negative. Care prior to arrival: None. 22:35 Method Of Arrival: Ambulatory aa1 22:35 Acuity: TANESHA 3 aa1 22:35 Note Pt also reports 4 negative tests at home but she usually does not test aa1 positive until she is at least 1-2 weeks late on her menstrual cycle. 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 - Social history:: Smoking status: Patient/guardian denies using tobacco. - Ebola Screening: : Patient denies exposure to infectious person Patient denies travel to an Ebola-affected area in the 21 days before illness onset. Screenin:40 Abuse screen: Denies threats or abuse. Denies injuries from another. Nutritional aa1 screening: No deficits noted. Tuberculosis screening: No symptoms or risk factors identified. Fall Risk None identified. Assessment: 22:40 General: Appears in no apparent distress. comfortable, unkempt, Behavior is calm, aa1 cooperative, appropriate for age. Pain: Denies pain. 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 Full function Gait is steady, Speech is normal, Facial symmetry appears normal, Pupils are PERRLA, paresthesias in scalp, back, chest, right leg and left leg Denies weakness blurred vision dizziness, difficulty swallowing. Cardiovascular: Heart tones S1 S2 present. Respiratory: Airway is patent Respiratory effort is even, unlabored, Respiratory pattern is regular, symmetrical. GI: No signs and/or symptoms were reported involving the gastrointestinal system. : No signs and/or symptoms were reported regarding the genitourinary system. EENT: No signs and/or symptoms were reported regarding the EENT system. Derm: Skin is intact, is healthy with good turgor, Skin is pink, warm \\T\\ dry. Musculoskeletal: Circulation, motion, and sensation intact. Capillary refill < 3 seconds, Range of motion: intact in all extremities. 23:45 Reassessment: Patient appears in no apparent distress at this time. Patient is alert, aa1 oriented x 3, equal unlabored respirations, skin warm/dry/pink. Discussed d/c \\T\\ f/u instructions with pt \\T\\ spouse; denies questions or concerns at this time. Amb to lobby with steady gait. Vital Signs: 22:35 BP 140 / 67; Pulse 83; Resp 16; Temp 98.3; Pulse Ox 100% on R/A; Weight 106.59 kg; aa1 Height 5 ft. 6 in. (167.64 cm); Pain 0/10; 23:45 BP 125 / 73; Pulse 91; Resp 16; Temp 98.1; Pulse Ox 98% on R/A; Pain 0/10; aa1 22:35 Body Mass Index 37.93 (106.59 kg, 167.64 cm) aa1 ED Course: 22:22 Patient arrived in ED. es 22:35 Arm band placed on right wrist. aa1 22:40 Patient has correct armband on for positive identification. Bed in low position. Call aa1 light in reach. Pulse ox on. NIBP on. 22:46 Chelle Dumont, RN is Primary Nurse. aa1 22:50 Triage completed. aa1 22:59 [facility] 22:59 Vazquez Madrigal MD is Attending Physician. [facility] 23:16 Urine collected: clean catch specimen. aa1 23:45 No provider procedures requiring assistance completed. Patient did not have IV access aa1 during this emergency room visit. Administered Medications: No medications were administered Outcome: 23:25 Discharge ordered by . [facility] 23:45 Discharged to home ambulatory, with significant other. aa1 23:45 Condition: good 23:45 Discharge instructions given to patient, significant other, Instructed on discharge instructions, follow up and referral plans. Demonstrated understanding of instructions, follow-up care. 23:48 Patient left the ED. aa1 Signatures: Chelle Dumont, JOSE MARIA RN aa1 Aadm Anderson PA PA [facility] Dee Lang
--- NOTE | 2018-12-18 23:26 | EDPHYS ---
Physician Documentation [facility] Name: Caitlin Sloan Age: 23 yrs Sex: Female : 1995 Arrival Date: 12/18/2018 Time: 22:22 Bed 8 Private MD: ED Physician Vazquez Madrigal HPI: 12/18 23:00 This 23 yrs old Female presents to ER via Ambulatory with complaints of jmm Tingling All Over. 23:00 The complaints affect the left leg, right leg. Onset: The symptoms/episode jmm began/occurred gradually, today. This is a 23 year old female with a history of ADD/ADHD that presents to the ED with complaints of tingling and pins and needles sensations beginning earlier today on the way back from [place] today. patient denies swelling, denies shortness of breath, denies abdominal pain, denies chest pain. Patient states she is concerned she may be . States she is currently 4 days late on cycle. Patient also complains of tingling on the fingertips. . 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 - Social history:: Smoking status: Patient/guardian denies using tobacco. - Ebola Screening: : Patient denies exposure to infectious person Patient denies travel to an Ebola-affected area in the 21 days before illness onset. ROS: 23:00 Constitutional: Negative for fever, chills, and weight loss, Cardiovascular: Negative jmm for chest pain, palpitations, and edema, Respiratory: Negative for shortness of breath, cough, wheezing, and pleuritic chest pain, Abdomen/GI: Negative for abdominal pain, nausea, vomiting, diarrhea, and constipation. 23:00 MS/extremity: Positive for tingling. 23:00 Neuro: Positive for tingling. 23:00 All other systems are negative. Exam: 23:00 Constitutional: This is a well developed, well nourished patient who is awake, alert, jmm and in no acute distress. Head/Face: atraumatic. Eyes: EOMI, no conjunctival erythema appreciated ENT: Moist Mucus Membranes Neck: Trachea midline, Supple Chest/axilla: Normal chest wall appearance and motion. 23:00 Cardiovascular: Rate: normal, Rhythm: regular. 23:00 Respiratory: the patient does not display signs of respiratory distress, Respirations: normal, Breath sounds: are clear throughout. 23:00 Abdomen/GI: Inspection: abdomen appears normal, Bowel sounds: normal, Palpation: abdomen is soft and non-tender, in all quadrants. 23:00 Musculoskeletal/extremity: ROM: intact in all extremities, Circulation is intact in all extremities. Sensation intact. Calves: are non-tender, have equal circumference. 23:00 Skin: Appearance: Color: normal in color. 23:00 Neuro: Orientation: is normal, Mentation: is normal, Memory: is normal. 23:00 Neuro: Cerebellar function: is grossly normal, normal finger to nose testing, heel to yanes testing is normal, Motor: is normal, Sensation: is normal, Gait: is steady. 23:00 Psych: Behavior/mood is pleasant, cooperative. Vital Signs: 22:35 BP 140 / 67; Pulse 83; Resp 16; Temp 98.3; Pulse Ox 100% on R/A; Weight 106.59 kg; aa1 Height 5 ft. 6 in. (167.64 cm); Pain 0/10; 23:45 BP 125 / 73; Pulse 91; Resp 16; Temp 98.1; Pulse Ox 98% on R/A; Pain 0/10; aa1 22:35 Body Mass Index 37.93 (106.59 kg, 167.64 cm) aa1 MDM: 23:04 Patient medically screened. [facility] 23:25 Data reviewed: vital signs, nurses notes. Counseling: I had a detailed discussion with [facility] the patient and/or guardian regarding: the historical points, exam findings, and any diagnostic results supporting the discharge/admit diagnosis, the need for outpatient follow up, to return to the emergency department if symptoms worsen or persist or if there are any questions or concerns that arise at home. 23:33 ED course: No neuro deficits are appreciated on PE. Patient has concerns for ectopic. [facility] UPT negative. Patient has no abdominal pain. patient has no chest pain. I do not currently suspect DVT. No swelling is appreciated to the lower extremities. Patient is advised of the need to follow up with neuro for further evaluation of paresthesias. I do not currently suspect CVA. Patient is otherwise given strict return precautions. patient understood and agrees with the plan of care. . 12/18 23:30 Order name: Urine Dipstick--Ancillary (enter results) [facility] 12/18 23:30 Order name: Urine --Ancillary (enter results) [facility] 12/18 23:02 Order name: Urine Test (obtain specimen); Complete Time: 23:16 [facility] 12/18 23:03 Order name: Urine Dipstick-Ancillary (obtain specimen); Complete Time: 23:16 [facility] Administered Medications: No medications were administered Disposition: 12/18/18 23:25 Discharged to Home. Impression: Paresthesia of skin. - Condition is Stable. - Discharge Instructions: Paresthesia. - Medication Reconciliation Form, Thank You Letter, Antibiotic Education, Prescription Opioid Use form. - Follow up: Private Physician; When: 2 - 3 days; Reason: Recheck today's complaints, Continuance of care, Re-evaluation by your physician. Addendum: 12/20/2018 07:19 Co-signature as Attending Physician, Vazquez Madrigal MD I agree with the assessment and t w4 plan of care. Signatures: Dispatcher [employer] Chelle Medina, RN RN aa1 Adam Anderson PA PA jmm Wadley, Terrence, MD MD tw4 Corrections: (The following items were deleted from the chart) 12/18 23:48 23:25 12/18/2018 23:25 Discharged to Home. Impression: Paresthesia of skin. Condition aa1 is Stable. Forms are Medication Reconciliation Form, Thank You Letter, Antibiotic Education, Prescription Opioid Use. Follow up: Private Physician; When: 2 - 3 days; Reason: Recheck today's complaints, Continuance of care, Re-evaluation by your physician. marlen
[2018-12-19 00:04] LABS: Urine Blood TRACE (NEG); Urine Glucose NEGATIVE (NEG); Urine Protein TRACE (NEG); Urine Specific Gravity 1.025 (1.005-1.030); Urine pH 6.5 (5.0-7.0)
== END 2018-12-18 23:48 | disposition home or self-care (01) ==
LOC: ER 22:19
DX: R20.2 Paresthesia of skin (principal); F90.9 Attention-deficit hyperactivity disorder, unspecified type; Z88.0 Allergy status to penicillin; Z88.2 Allergy status to sulfonamides
CPT/HCPCS: 81003; 81025

== ENCOUNTER 2019-11-14 22:12 | Observation (INO) | payer OTHER ==
--- OUTSIDE RECORDS SUMMARY | 2019-11-14 22:16 | XMS REPORT ---
:1995 [facility] [address] [place] [address] Care Team Providers Name Role Phone Unavailable Unavailable Unavailable Payers Payer Name Policy Type Policy Number Effective Date Expiration Date Problems This patient has no known problems. Allergies, Adverse Reactions, Alerts Allergy Name Allergy Status Severity Reaction(s) Onset Inactive Treating Comments Type Date Date Clinician Penicillins DA Active 2019-10 00:00:0 0 Sulfa DA Active NE 2019-10 (Sulfonamide - Antibiotics) 00:00:0 0 morphine DA Active NE 2019-10 00:00:0 0 Penicillins DA Active 2019-10 00:00:0 0 Sulfa DA Active NE 2019-10 (Sulfonamide - Antibiotics) 00:00:0 0 morphine DA Active NE 2019-10 00:00:0 0 Penicillins DA Active 2019-07 00:00:0 0 Sulfa DA Active NE 2019-07 (Sulfonamide - Antibiotics) 00:00:0 0 morphine DA Active NE 2019-07 00:00:0 0 Penicillins DA Active 2019-06 00:00:0 0 Sulfa DA Active NE 2019-06 (Sulfonamide - Antibiotics) 00:00:0 0 morphine DA Active NE 2019-06 00:00:0 0 morphine DA Active NE 2019-06 00:00:0 0 Penicillins DA Active 2019-03 00:00:0 0 Sulfa DA Active NE 2019-03 (Sulfonamide -08 Antibiotics) 00:00:0 0 Penicillins DA Active 2019-03 00:00:0 0 Sulfa DA Active NE 2019-03 (Sulfonamide -01 Antibiotics) 00:00:0 0 Penicillins DA Active 2017-12 00:00:0 0 Sulfa DA Active NE 2017-11 (Sulfonamide -12 Antibiotics) 00:00:0 0 Medications This patient has no known medications. Results Test Description Test Time Test Comments Text Results Atomic Results Result Comments URINALYSIS COMPLETE 2019-11-11 02:43:00 Test Item Value Reference Range Comments UA COLOR (test code=COLU) YELLOW YELLOW UA APPEARANCE (test code=APPU) Slightly-Cloudy CLEAR UA GLUCOSE DIPSTICK (test code=DGLUU) NEGATIVE NEG UA BILIRUBIN DIPSTICK (test code=BILU) NEGATIVE NEG UA KETONE DIPSTICK (test code=KETU) NEGATIVE NEG UA SPECIFIC GRAVITY (test code=SGU) 1.027 1.001-1.035 UA BLOOD DIPSTICK (test code=IVONNE) 3+ NEG UA PH DIPSTICK (test code=GEREMIAS) 5.0 5-9 UA PROTEIN DIPSTICK (test code=PROU) NEGATIVE NEG UA UROBILINIOGEN DIPSTICK (test code=URO) NEGATIVE mg/dL NEG UA NITRITE DIPSTICK (test code=ELBA) NEG NEG UA LEUKOCYTE ESTERASE DIPSTICK (test 2+ NEG code=LEUU) UA WBC (test code=WBCU) TOO NUMEROUS TO CNT #/hpf NONE SEEN UA RBC (test code=RBCU) TOO NUMEROUS TO CNT #/hpf NONE SEEN UA EPITHELIAL CELLS (test code=EPIU) FEW #/HPF RARE-FEW UA CALCIUM OXALATE CRYSTALS (test code=CAOXU) 6-10 #/LPF UA MUCUS (test code=MUCU) RARE NONE SEEN URINE SAMPLE: CLEAN CATCHAG HEPATITIS B [id number] 20:05:00 Test Item Value Reference Range Comments AG HEPATITIS B SURFACE (test code=HBSAG) NONREACTIVE NONREACTIVE AB HEPATITIS C [id number] 20:05:00 Test Item Value Reference Range Comments AB HEPATITIS C (test code=HCVAB) NONREACTIVE NONREACTIVE SIGNAL TO CUTOFF (test code=CUTOFF) 0.05 <0.80 AB [id number] 20:05:00 Test Item Value Reference Range Comments AB TREPONEMA (test code=TREPAB) NONREACTIVE NONREACTIVE AG HEPATITIS B [id number] 19:45:00 Test Item Value Reference Range Comments AG HEPATITIS B SURFACE (test code=HBSAG) NONREACTIVE NONREACTIVE AB HEPATITIS C [id number] 19:45:00 Test Item Value Reference Range Comments AB HEPATITIS C (test code=HCVAB) NONREACTIVE SIGNAL TO CUTOFF (test code=CUTOFF) <0.80 AB [id number] 19:45:00 Test Item Value Reference Range Comments AB TREPONEMA (test code=TREPAB) NONREACTIVE NONREACTIVE PIH [id number] 19:03:00 Test Item Value Reference Range Comments CREATININE (test code=CREAT) 0.4 mg/dL 0.5-1.0 SGOT/AST (test code=AST) 60 units/L 15-37 SGPT/ALT (test code=ALT) 38 units/L 12-78 LACTIC DEHYDROGENASE(LDH) (test code=LDH) 537 units/L 81-234 : *CBC W/AUTO [id number] 18:45:00 Test Item Value Reference Range Comments WHITE BLOOD CELL (test code=WBC) 10.2 K/mm3 6.6-12.1 RED BLOOD CELL (test code=RBC) 3.79 M/mm3 3.45-5.01 HEMOGLOBIN (test code=HGB) 10.2 g/dL 10.7-13.9 HEMATOCRIT (test code=HCT) 32.9 % 32.1-42.1 MEAN CELL VOLUME (test code=MCV) 87 fL 84.1-94.8 MEAN CELL HGB (test code=MCH) 26.9 pg 27-35 MEAN CELL HGB CONCETRATION (test code=MCHC) 31.0 gm/dL 32.2-34.1 RED CELL DISTRIBUTION WIDTH (test code=RDW) 14.3 % 12.4-16.5 PLATELET COUNT (test code=PLT) 302 K/mm3 133-385 MEAN PLATELET VOLUME (test code=MPV) 10.4 fl 9.1-12.7 NEUTROPHIL % (test code=NT%) 73.5 % 56.5-79.4 LYMPHOCYTE % (test code=LY%) 19.9 % 14.3-34.3 MONOCYTE % (test code=MO%) 5.3 % 5.1-10.4 EOSINOPHIL % (test code=EO%) 0.8 % 0.1-3.0 BASOPHIL % (test code=BA%) 0.2 % 0.1-1.0 NEUTROPHIL # (test code=NT#) 7.5 K/mm3 LYMPHOCYTE # (test code=LY#) 2.0 K/mm3 MONOCYTE # (test code=MO#) 0.5 K/mm3 EOSINOPHIL # (test code=EO#) 0.08 K/mm3 BASOPHIL # (test code=BA#) 0.0 K/mm3 RBC MORPHOLOGY REQUIRED (test code=RBCM) NORMAL NORMAL PLATELET MORPHOLOGY REQUIRED (test code=PLTMR) NORMAL NORMAL AMNISURE (ROM) [id number] 03:20:00 Test Item Value Reference Range Comments AMNISURE (ROM) TEST (test code=AMNI) NON-RUPTURED NON-RUPTURE : *Comments to Racebook Writer: LUISA Kennedy QC OK? YES- DUP VEIN UNI [id number] 15:19:00 Patient Name: SIMONE MARTÍNEZ Unit No: [id number] EXAMS: CPT CODE: [id number] [place] [address] RIGHT LEG DUPLEX VENOUS DOPPLER ULTRASOUND, 10/09/2019 COMPARISON: None CLINICAL HISTORY: 35WKS, ASSESS FOR DVT RT LEG FINDINGS: Sonographic evaluation of the deep venous system of the right leg was performed to the level of the ankle. There is normal Doppler flow and venous compressibility throughout. No sonographic evidence of deep venous thrombosis. Incidental note is made of a few small right inguinal lymph nodes, measuring up to 2.7 cm in size. CONCLUSION: No sonographic evidence of deep venous thrombosis in the right leg. * * at 1519 Reported and signed by: Sy Conti MD CC: Olga Mora MD Technologist: Ifeanyi Parekh RDMS, RVT Probe: Trnscrbd D/ (1519) [id number] Orig Print D/T: S: 10/09/2019 (1522) [facility] NAME: SIMONE MARTÍNEZ Radiology Department PHYS: OHLOlga Queen [address] : 1994 AGE: 24 SEX: F [place], [place] [address] LOC: [facility] PHONE #: [phone] EXAM DATE: STATUS: REG CLI FAX #: [phone] RAD NO: Page 1 Signed Report Patient Name : SIMONE MARTÍNEZ Unit No: [id number] EXAMS: CPT CODE: [id number] [place] [address] <Continued> [facility] NAME: SIMONE MARTÍNEZ Radiology Department PHYS: Olga Mejía [address] : 1995 AGE: 24 SEX: F [place], [place] [address] LOC: [facility] PHONE #: [phone] EXAM DATE: 10/09/2019 STATUS: REG CLI FAX #: [phone] RAD NO: Page 2 Signed ReportURINALYSIS [id number] 03:02:00 Test Item Value Reference Range Comments UA COLOR (test code=COLU) YELLOW YELLOW UA APPEARANCE (test code=APPU) Slightly-Cloudy CLEAR UA GLUCOSE DIPSTICK (test code=DGLUU) NEGATIVE NEG UA BILIRUBIN DIPSTICK (test code=BILU) NEGATIVE NEG UA KETONE DIPSTICK (test code=KETU) NEGATIVE NEG UA SPECIFIC GRAVITY (test code=SGU) 1.031 1.001-1.035 UA BLOOD DIPSTICK (test code=IVONNE) NEG NEG UA PH DIPSTICK (test code=GEREMIAS) 5.0 5-9 UA PROTEIN DIPSTICK (test code=PROU) NEGATIVE NEG UA UROBILINIOGEN DIPSTICK (test code=URO) 2.0 mg/dL NEG UA NITRITE DIPSTICK (test code=ELBA) NEG NEG UA LEUKOCYTE ESTERASE DIPSTICK (test TRACE NEG code=LEUU) UA WBC (test code=WBCU) 6-10 #/hpf NONE SEEN UA RBC (test code=RBCU) 6-10 #/hpf NONE SEEN UA EPITHELIAL CELLS (test code=EPIU) FEW #/HPF RARE-FEW UA BACTERIA (test code=BACU) RARE /HPF RARE-FEW UA MUCUS (test code=MUCU) 4+ NONE SEEN URINE SAMPLE: CLEAN CATCHUR PROTEIN/CREATININE [id number] 03:02:00 Test Item Value Reference Range Comments UR PROTEIN RANDOM (test code=PROTU) 33.3 mg/dL UR CREATININE RANDOM (test code=CREATU) 300.2 mg/dL PROTEIN/CREATININE RATIO (test code=P/CRATIO) 110.0 mg/gcrea <200 URINE SAMPLE: CLEAN CATCHCOMPREHENSIVE METABOLIC [id number] 03:02:00 Test Item Value Reference Range Comments SODIUM (test code=NA) 140 mEq/L 135-145 POTASSIUM (test code=K) 4.1 mEq/L 3.5-5.0 CHLORIDE (test code=CL) 105 mEq/L 100-115 CARBON DIOXIDE (test code=CO2) 26 mEq/L 22-31 ANION GAP (test code=GAP) 13.50 10-20 GLUCOSE (test code=GLU) 86 mg/dL 65-110 BLOOD UREA NITROGEN (test code=BUN) 11 mg/dL 7-18 GLOMERULAR FILTRATION RATE (test code=GFR) 122 ml/min >60 CREATININE (test code=CREAT) 0.6 mg/dL 0.5-1.0 TOTAL PROTEIN (test code=PROT) 6.5 gm/dL 6.3-8.2 ALBUMIN (test code=ALB) 2.9 gm/dL 3.4-4.8 CALCIUM (test code=CA) 8.8 mg/dL 8.4-10.2 BILIRUBIN TOTAL (test code=BILT) 0.2 mg/dL 0.2-1.0 SGOT/AST (test code=AST) 42 units/L 15-37 SGPT/ALT (test code=ALT) 73 units/L 12-78 ALKALINE PHOSPHATASE TOTAL (test code=ALKP) 101 units/L 46-116 URIC [id number] 03:02:00 Test Item Value Reference Range Comments URIC ACID (test code=URIC) 3.2 mg/dL 2.6-6.0 LACTIC DEHYDROGENASE(LDH)2019-09-08 03:02:00 Test Item Value Reference Range Comments LACTIC DEHYDROGENASE(LDH) (test code=LDH) 170 units/L 81-234 URINALYSIS [id number] 02:30:00 Test Item Value Reference Range Comments UA COLOR (test code=COLU) YELLOW YELLOW UA APPEARANCE (test code=APPU) Slightly-Cloudy CLEAR UA GLUCOSE DIPSTICK (test code=DGLUU) NEGATIVE NEG UA BILIRUBIN DIPSTICK (test code=BILU) NEGATIVE NEG UA KETONE DIPSTICK (test code=KETU) NEGATIVE NEG UA SPECIFIC GRAVITY (test code=SGU) 1.031 1.001-1.035 UA BLOOD DIPSTICK (test code=IVONNE) NEG NEG UA PH DIPSTICK (test code=GEREMIAS) 5.0 5-9 UA PROTEIN DIPSTICK (test code=PROU) NEGATIVE NEG UA UROBILINIOGEN DIPSTICK (test code=URO) 2.0 mg/dL NEG UA NITRITE DIPSTICK (test code=ELBA) NEG NEG UA LEUKOCYTE ESTERASE DIPSTICK (test TRACE NEG code=LEUU) UA WBC (test code=WBCU) 6-10 #/hpf NONE SEEN UA RBC (test code=RBCU) 6-10 #/hpf NONE SEEN UA EPITHELIAL CELLS (test code=EPIU) FEW #/HPF RARE-FEW UA BACTERIA (test code=BACU) RARE /HPF RARE-FEW UA MUCUS (test code=MUCU) 4+ NONE SEEN URINE SAMPLE: CLEAN CATCHUR PROTEIN/CREATININE [id number] 02:30:00 Test Item Value Reference Range Comments UR PROTEIN RANDOM (test code=PROTU) mg/dL UR CREATININE RANDOM (test code=CREATU) mg/dL PROTEIN/CREATININE RATIO (test code=P/CRATIO) mg/gcrea <200 URINE SAMPLE: CLEAN CATCHCBC W/AUTO [id number] 02:27:00 Test Item Value Reference Range Comments WHITE BLOOD CELL (test code=WBC) 10.9 K/mm3 6.6-12.1 RED BLOOD CELL (test code=RBC) 4.03 M/mm3 3.45-5.01 HEMOGLOBIN (test code=HGB) 11.1 g/dL 10.7-13.9 HEMATOCRIT (test code=HCT) 35.8 % 32.1-42.1 MEAN CELL VOLUME (test code=MCV) 89 fL 84.1-94.8 MEAN CELL HGB (test code=MCH) 27.5 pg 27-35 MEAN CELL HGB CONCETRATION (test code=MCHC) 31.0 gm/dL 32.2-34.1 RED CELL DISTRIBUTION WIDTH (test code=RDW) 13.6 % 12.4-16.5 PLATELET COUNT (test code=PLT) 302 K/mm3 133-385 MEAN PLATELET VOLUME (test code=MPV) 9.4 fl 9.1-12.7 NEUTROPHIL % (test code=NT%) 69.8 % 56.5-79.4 LYMPHOCYTE % (test code=LY%) 23.3 % 14.3-34.3 MONOCYTE % (test code=MO%) 5.2 % 5.1-10.4 EOSINOPHIL % (test code=EO%) 1.0 % 0.1-3.0 BASOPHIL % (test code=BA%) 0.2 % 0.1-1.0 NEUTROPHIL # (test code=NT#) 7.6 K/mm3 LYMPHOCYTE # (test code=LY#) 2.5 K/mm3 MONOCYTE # (test code=MO#) 0.6 K/mm3 EOSINOPHIL # (test code=EO#) 0.11 K/mm3 BASOPHIL # (test code=BA#) 0.0 K/mm3 RBC MORPHOLOGY REQUIRED (test code=RBCM) NORMAL NORMAL PLATELET MORPHOLOGY REQUIRED (test code=PLTMR) NORMAL NORMAL [id number] 13:43:00 Test Item Value Reference Range Comments FIBRONECTIN (test NEGATIVE Among symptomatic women, code=FFN) elevated levels (>0.05 ug/mL) offFN between 24 weeks and 34 weeks, 6 days indicate increasedrisk of delivery in <=7 or <=14 days from samplecollection. Similarly, among asymptomatic women, elevated levels of fFNbetween 22 weeks and 30 weeks, 6 days indicate increasedrisk of delivery in <=34 weeks, 6 days of gestation. URINALYSIS [id number] 13:32:00 Test Item Value Reference Range Comments UA COLOR (test code=COLU) YELLOW YELLOW UA APPEARANCE (test code=APPU) Slightly-Cloudy CLEAR UA GLUCOSE DIPSTICK (test code=DGLUU) NEGATIVE NEG UA BILIRUBIN DIPSTICK (test code=BILU) NEGATIVE NEG UA KETONE DIPSTICK (test code=KETU) NEGATIVE NEG UA SPECIFIC GRAVITY (test code=SGU) 1.028 1.001-1.035 UA BLOOD DIPSTICK (test code=IVONNE) NEG NEG UA PH DIPSTICK (test code=GEREMIAS) 6.0 5-9 UA PROTEIN DIPSTICK (test code=PROU) 1+ NEG UA UROBILINIOGEN DIPSTICK (test code=URO) NEGATIVE mg/dL NEG UA NITRITE DIPSTICK (test code=ELBA) NEG NEG UA LEUKOCYTE ESTERASE DIPSTICK (test NEG NEG code=LEUU) UA WBC (test code=WBCU) 3-5 #/hpf NONE SEEN UA RBC (test code=RBCU) 3-5 #/hpf NONE SEEN UA EPITHELIAL CELLS (test code=EPIU) FEW #/HPF RARE-FEW UA BACTERIA (test code=BACU) FEW /HPF RARE-FEW UA MUCUS (test code=MUCU) 3+ NONE SEEN - NM PULM PERF [id number] 04:29:00 Patient Name: SIMONE MARTÍNEZ Unit No: [id number] EXAMS: CPT CODE: [id number] NM PULM PERF PARTIC 95348 Nuclear medicine pulmonary perfusion scan dated 07/08/2019. HISTORY: 21 weeks . Shortness of breath. After the intravenous administration of 3.5 mCi of technetium 99m MAA images of the chest were obtained in 8 projections and correlated with a chest radiograph dated 07/08/2019. The images demonstrate homogeneous distribution of the perfusion agent. No significantperfusion defects are detected. IMPRESSION: 1. Normal pulmonary perfusion. The examination is very low probability for pulmonary embolism. SL: 131 at 0429 Reported and signed by: Bernardino Wilkins MD CC: Kristen Maldonado MD ; Olga Mora MD Technologist: Matt Pearce Trnscrbd D/ (0429) Haider Orig Print D/T: S: 07/08/2019 (0433) [facility] NAME: SIMONE MARTÍNEZ Radiology Department PHYS: REGINA - Kristen Maldonado [address] : 1995 AGE: 24 SEX: F [place], [place] [address] LOC: F.ERS PHONE #: [phone] EXAM DATE: 07/08/2019 STATUS: REG ER FAX #: [phone] RAD NO: Page 1 Signed Report- XR CHEST 1 [id number] 00:45:00 Patient Name: SIMONE MARTÍNEZ Unit No: [id number] EXAMS: CPT CODE: [id number] XR CHEST 1 V 66867 Chest, single view dated 07/08/2019. HISTORY: 21 weeks . Shortness of breath. No prior studies are available for comparison. The heart is normal in size. The cardiomediastinal shadow appears within normal limits. The lungs appear clear. The pulmonary vasculature is normal in caliber. No acute pleural space abnormalities are detected. IMPRESSION: 1. No radiographic evidence of acute cardiopulmonary disease. SL: 131 at 0045 Reported and signed by: Bernardino Wilkins MD CC: Kristen Maldonado MD; Olga Mora MD Technologist: RT Janeth Trnscrbd D / (0045) t.DMM Orig Print D/T: S: (0048) [facility] NAME: SIMONE MARTÍNEZ Radiology Department PHYS: YANETHJOLANTAKristen Salazar [address] : 1994 AGE: 24 SEX: F [place], [place] [address] LOC: CARRIE PHONE#: [phone] EXAM DATE: STATUS: REG ER FAX #: [phone] RAD NO: Page 1 Signed ReportCOMPREHENSIVE METABOLIC [id number] 00:24:00 Test Item Value Reference Range Comments SODIUM (test code=NA) 138 mEq/L 135-145 POTASSIUM (test code=K) 3.5 mEq/L 3.5-5.0 CHLORIDE (test code=CL) 102 mEq/L 100-115 CARBON DIOXIDE (test code=CO2) 25 mEq/L 22-31 ANION GAP (test code=GAP) 14.80 10-20 GLUCOSE (test code=GLU) 116 mg/dL 65-110 BLOOD UREA NITROGEN (test code=BUN) 11 mg/dL 7-18 GLOMERULAR FILTRATION RATE (test code=GFR) 122 ml/min >60 CREATININE (test code=CREAT) 0.6 mg/dL 0.5-1.0 TOTAL PROTEIN (test code=PROT) 7.6 gm/dL 6.3-8.2 ALBUMIN (test code=ALB) 3.1 gm/dL 3.4-4.8 CALCIUM (test code=CA) 9.5 mg/dL 8.4-10.2 BILIRUBIN TOTAL (test code=BILT) 0.3 mg/dL 0.2-1.0 SGOT/AST (test code=AST) 142 units/L 15-37 SGPT/ALT (test code=ALT) 194 units/L 12-78 ALKALINE PHOSPHATASE TOTAL (test code=ALKP) 156 units/L 46-116 [id number] 00:24:00 Test Item Value Reference Range Comments TROPONIN-I (test code=TROPI) <0.017 ng/mL <0.056 CBC W/AUTO [id number] 00:14:00 Test Item Value Reference Range Comments WHITE BLOOD CELL (test code=WBC) 12.0 K/mm3 6.6-12.1 RED BLOOD CELL (test code=RBC) 4.14 M/mm3 3.45-5.01 HEMOGLOBIN (test code=HGB) 11.6 g/dL 10.7-13.9 HEMATOCRIT (test code=HCT) 36.7 % 32.1-42.1 MEAN CELL VOLUME (test code=MCV) 89 fL 84.1-94.8 MEAN CELL HGB (test code=MCH) 28.0 pg 27-35 MEAN CELL HGB CONCETRATION (test code=MCHC) 31.6 gm/dL 32.2-34.1 RED CELL DISTRIBUTION WIDTH (test code=RDW) 14.5 % 12.4-16.5 PLATELET COUNT (test code=PLT) 316 K/mm3 133-385 IMMATURE PLATELET FRACTION (test code=IPF) 0.0 % 0.0-10.8 MEAN PLATELET VOLUME (test code=MPV) 9.4 fl 9.1-12.7 NEUTROPHIL % (test code=NT%) 76.9 % 56.5-79.4 LYMPHOCYTE % (test code=LY%) 18.2 % 14.3-34.3 MONOCYTE % (test code=MO%) 3.5 % 5.1-10.4 EOSINOPHIL % (test code=EO%) 0.7 % 0.1-3.0 BASOPHIL % (test code=BA%) 0.3 % 0.1-1.0 NEUTROPHIL # (test code=NT#) 9.2 K/mm3 LYMPHOCYTE # (test code=LY#) 2.2 K/mm3 MONOCYTE # (test code=MO#) 0.4 K/mm3 EOSINOPHIL # (test code=EO#) 0.08 K/mm3 BASOPHIL # (test code=BA#) 0.0 K/mm3 RBC MORPHOLOGY REQUIRED (test code=RBCM) NORMAL NORMAL PLATELET MORPHOLOGY REQUIRED (test code=PLTMR) NORMAL NORMAL GALL [id number] 13:29:00 RUN DATE: 07/03/19 [facility] PAGE 1 RUN TIME: 0 Specimen Inquiry RUN USER: INTERFACE PATIENT: SIMONE MARTÍNEZ LOC: BRYCE U #: [id number] AGE/SX: 24/F ROOM: [facility] RE06/28/19KIRSTIE DR: Olga Mora : [birth year] BED: A DIS: 07/01/19 STATUS: DIS IN TLOC: SPEC #: [id number] RECD: 07/02/19 STATUS: FERNANDO AGUILAR # : [id number] JOCELYNE: 06/29/19- SUBM DR: Olga Mora MD ENTERED: 07/02/19 SP TYPE: AMMY WEAVER DR: Izaiah Rodarte MD ORDERED: LEVEL III SURGI CODES: [id number] - GALLBLADDER, NO COPIES TO: Izaiah Rodarte MD [address] [place] [address] [email or web address] Olga Mora MD [address] [place] [address] [email or web address] PROCEDURES: LEVEL III SURGI (Incomplete) TISSUES: GALLBLADDER, NOS - GALLBLADDER CLINICAL HISTORY 24 year old, biliary dyskinesia (kr) FINAL DIAGNOSIS Gallbladder, cholecystectomy: - cholesterolosis - chronic cholecystitis, mild CPT code(s): 63248 cds/kr dt: 07/03/19 GROSS DESCRIPTION ANATOMIC SOURCE OF TISSUE (per Requisition): Gallbladder The specimen is received in formalin, labeled with the patient 's name and designated "gallbladder". The specimen consists of a 6.5 x 4.0 x 2.5 cm gallbladder with an attached 0.3 cm cystic duct. The serosa is pink- purple and hyperemic. The lumen contains viscous bile. There are no choleliths within the lumen or in the CONTINUED ON NEXT PAGE RUNDATE: 07/03/19 [facility] PAGE 2 RUN TIME: 1810 Specimen Inquiry RUN USER: INTERFACE SPEC #: [id number] PATIENT: SIMONE MARTÍNEZ #[id number] (Continued) GROSS DESCRIPTION (Continued) container. The mucosa is velvety gongora , and green with diffuse bright yellow stippling. Ceramic Painter sections are submitted labeled A1. zohra 07/02/19 @ 1106 Signed Lambert Jacobsen 07/03/19 1329 END OF REPORT CBC W/AUTO [id number] 07:14:00 Test Item Value Reference Range Comments WHITE BLOOD CELL (test code=WBC) 14.0 K/mm3 6.6-12.1 RED BLOOD CELL (test code=RBC) 3.57 M/mm3 3.45-5.01 HEMOGLOBIN (test code=HGB) 10.0 g/dL 10.7-13.9 HEMATOCRIT (test code=HCT) 31.4 % 32.1-42.1 MEAN CELL VOLUME (test code=MCV) 88 fL 84.1-94.8 MEAN CELL HGB (test code=MCH) 28.0 pg 27-35 MEAN CELL HGB CONCETRATION (test code=MCHC) 31.8 gm/dL 32.2-34.1 RED CELL DISTRIBUTION WIDTH (test code=RDW) 14.1 % 12.4-16.5 PLATELET COUNT (test code=PLT) 266 K/mm3 133-385 IMMATURE PLATELET FRACTION (test code=IPF) 0.0 % 0.0-10.8 MEAN PLATELET VOLUME (test code=MPV) 10.3 fl 9.1-12.7 NEUTROPHIL % (test code=NT%) 81.1 % 56.5-79.4 LYMPHOCYTE % (test code=LY%) 14.0 % 14.3-34.3 MONOCYTE % (test code=MO%) 4.3 % 5.1-10.4 EOSINOPHIL % (test code=EO%) 0.1 % 0.1-3.0 BASOPHIL % (test code=BA%) 0.1 % 0.1-1.0 NEUTROPHIL # (test code=NT#) 11.3 K/mm3 LYMPHOCYTE # (test code=LY#) 2.0 K/mm3 MONOCYTE # (test code=MO#) 0.6 K/mm3 EOSINOPHIL # (test code=EO#) 0.01 K/mm3 BASOPHIL # (test code=BA#) 0.0 K/mm3 RBC MORPHOLOGY REQUIRED (test code=RBCM) NORMAL NORMAL PLATELET MORPHOLOGY REQUIRED (test code=PLTMR) NORMAL NORMAL COMPREHENSIVE METABOLIC [id number] 01:05:00 Test Item Value Reference Range Comments SODIUM (test code=NA) 138 mEq/L 135-145 POTASSIUM (test code=K) 3.9 mEq/L 3.5-5.0 CHLORIDE (test code=CL) 106 mEq/L 100-115 CARBON DIOXIDE (test code=CO2) 22 mEq/L 22-31 ANION GAP (test code=GAP) 13.50 10-20 GLUCOSE (test code=GLU) 89 mg/dL 65-110 BLOOD UREA NITROGEN (test code=BUN) 13 mg/dL 7-18 GLOMERULAR FILTRATION RATE (test code=GFR) 122 ml/min >60 CREATININE (test code=CREAT) 0.6 mg/dL 0.5-1.0 TOTAL PROTEIN (test code=PROT) 6.9 gm/dL 6.3-8.2 ALBUMIN (test code=ALB) 2.9 gm/dL 3.4-4.8 CALCIUM (test code=CA) 8.6 mg/dL 8.4-10.2 BILIRUBIN TOTAL (test code=BILT) 0.2 mg/dL 0.2-1.0 SGOT/AST (test code=AST) 15 units/L 15-37 SGPT/ALT (test code=ALT) 35 units/L 12-78 ALKALINE PHOSPHATASE TOTAL (test code=ALKP) 67 units/L 46-116 CBC W/AUTO [id number] 00:37:00 Test Item Value Reference Range Comments WHITE BLOOD CELL (test code=WBC) 11.4 K/mm3 6.6-12.1 RED BLOOD CELL (test code=RBC) 3.86 M/mm3 3.45-5.01 HEMOGLOBIN (test code=HGB) 10.6 g/dL 10.7-13.9 HEMATOCRIT (test code=HCT) 34.5 % 32.1-42.1 MEAN CELL VOLUME (test code=MCV) 89 fL 84.1-94.8 MEAN CELL HGB (test code=MCH) 27.5 pg 27-35 MEAN CELL HGB CONCETRATION (test code=MCHC) 30.7 gm/dL 32.2-34.1 RED CELL DISTRIBUTION WIDTH (test code=RDW) 14.3 % 12.4-16.5 PLATELET COUNT (test code=PLT) 268 K/mm3 133-385 IMMATURE PLATELET FRACTION (test code=IPF) 0.0 % 0.0-10.8 MEAN PLATELET VOLUME (test code=MPV) 9.6 fl 9.1-12.7 NEUTROPHIL % (test code=NT%) 70.9 % 56.5-79.4 LYMPHOCYTE % (test code=LY%) 22.6 % 14.3-34.3 MONOCYTE % (test code=MO%) 4.1 % 5.1-10.4 EOSINOPHIL % (test code=EO%) 1.6 % 0.1-3.0 BASOPHIL % (test code=BA%) 0.4 % 0.1-1.0 NEUTROPHIL # (test code=NT#) 8.0 K/mm3 LYMPHOCYTE # (test code=LY#) 2.6 K/mm3 MONOCYTE # (test code=MO#) 0.5 K/mm3 EOSINOPHIL # (test code=EO#) 0.18 K/mm3 BASOPHIL # (test code=BA#) 0.0 K/mm3 RBC MORPHOLOGY REQUIRED (test code=RBCM) NORMAL NORMAL PLATELET MORPHOLOGY REQUIRED (test code=PLTMR) NORMAL NORMAL UA RFLX MICR CULT IF [id number] 00:08:00 Test Item Value Reference Range Comments UA COLOR (test code=COLU) YELLOW YELLOW UA APPEARANCE (test code=APPU) CLOUDY CLEAR UA GLUCOSE DIPSTICK (test code=DGLUU) NEGATIVE NEG UA BILIRUBIN DIPSTICK (test code=BILU) NEGATIVE NEG UA KETONE DIPSTICK (test code=KETU) NEGATIVE NEG UA SPECIFIC GRAVITY (test code=SGU) 1.030 1.001-1.035 UA BLOOD DIPSTICK (test code=IVONNE) NEG NEG UA PH DIPSTICK (test code=GEREMIAS) 5.0 5-9 UA PROTEIN DIPSTICK (test code=PROU) NEGATIVE NEG UA UROBILINIOGEN DIPSTICK (test code=URO) NEGATIVE mg/dL NEG UA NITRITE DIPSTICK (test code=ELBA) NEG NEG UA LEUKOCYTE ESTERASE DIPSTICK (test NEG NEG code=LEUU) UA WBC (test code=WBCU) 0-2 #/hpf NONE SEEN UA RBC (test code=RBCU) 11-15 #/hpf NONE SEEN UA EPITHELIAL CELLS (test code=EPIU) FEW #/HPF RARE-FEW UA BACTERIA (test code=BACU) MODERATE /HPF RARE-FEW UA CALCIUM OXALATE CRYSTALS (test code=CAOXU) 15-20 #/LPF UA HYALINE CAST (test code=HYALU) 0-2 #/hpf UA MUCUS (test code=MUCU) RARE NONE SEEN UA YEAST (test code=YEASTU) RARE #/hpf NONE SEEN Indication for culture: Dysuria/Frequency- US ABDOMEN [id number] 15: 01:00 Patient Name: SIMONE MARTÍNEZ Unit No: [id number] EXAMS: CPT CODE: [id number] US ABDOMEN COMPLETE [id number] ABDOMEN ULTRASOUND COMPLETE 2018: COMPARISON: Right upper quadrant ultrasound dated March 29, 2019 CLINICAL HISTORY: RUQ PAIN FINDINGS: The liver has a normal sonographic appearance. No focal lesions are seen. The liver measures 16.8 cm in length. The gallbladder contains no calculi and the gallbladder wall is normal in thickness. The common bile duct measures 4 mm in diameter. The visualized portions of the pancreas are unremarkable. The kidneys demonstrate a normal appearance and are of normal size. No hydronephrosis, mass, or cyst is seen Theright kidney measures 11.9cm. The left kidney measures 11.7 cm. The spleen is unremarkable. It measures 12.4 cm The visualized portions of the abdominal aorta and IVC are normal in caliber. Urinary bladder appeared unremarkable. Bilateral ureteral jets were demonstrated within the urinary bladder. No free fluid noted in the abdomen. IMPRESSION: Negative abdominal sonogram. at 1501 Reported and signed by: Sy Conti MD CC: Olga Mora MD; Yuri Hewitt MD Technologist: Daya Kulkarni RDMS, KELLY; Tasha Probe: Trnscrbd D/ ( 4753) [email or web address] Orig Print D/T: S: 06/07/2019 (0604) [facility] NAME: SIMONE MARTÍNEZ Radiology Department PHYS: Yuri Ignacio MD [address] : 1995 AGE: 24 SEX: F [place], [place] [address] LOC: SASKIA PHONE #: [phone] EXAM DATE: 06/07/2019 STATUS: REG CLI FAX #: [phone] RAD NO: Page 1 Signed Report Patient Name: SIMONE MARTÍNEZ Unit No: [id number] EXAMS: CPT CODE: [id number] US ABDOMEN COMPLETE 09831 <Continued> [facility] NAME: SIMONE MARTÍNEZ Radiology Department PHYS: Yuri Ignacio MD [address] : 1995 AGE: 24 SEX: F [place], [place] [address] LOC: F.RAD PHONE #: [phone] EXAM DATE: 06/07/2019 STATUS: REG CLI FAX #: [phone] RAD NO: Page 2 Signed Report- US ABDOMEN [id number] 23:03:00 Patient Name: SIMONE MARTÍNEZ Unit No: [id number] EXAMS: CPT CODE: [id number] US ABDOMEN LTD 05985 PROCEDURE: RIGHT UPPER QUADRANT ULTRASOUND DATED 03/29/2019 INDICATION: Abdominal pain. Nausea. Diarrhea. COMPARISON: None TECHNIQUE: Sonographic evaluation of the right upper quadrant was performed with supplemental color and pulsed Doppler. FINDINGS: LIVER: The liver is normal in contour and morphology with normal parenchymal echogenicity. GALLBLADDER: The gallbladder is normally distended without evidence of gallstones. There is no evidence of gallbladder wall thickening or pericholecystic fluid to suggest acute inflammation. BILE DUCTS: The common duct is normal in caliber measuring 3 mm. PANCREAS: The pancreas is poorly visualized. RIGHT KIDNEY: The right kidney measures 13.2 cm in length. Normal renal contour and morphology with normal echogenicity. There is no hydronephrosis. Additional comments: No free intraperitoneal fluid is identified in the right upper quadrant. The inferior vena cava appears patent. The visualized abdominal aorta is normal in caliber. IMPRESSION: 1. No sonographic evidence of cholelithiasis or acute cholecystitis. SL:131 at 2303 Reported and signed by: Bernardino Wilkins MD CC: Tayla Rubi MD; Olga Mora MD Technologist: Daya Kulkarni RDMS, RVT Probe: Trnscrbd D/ (6863) CristopherM Orig Print D/T: S: 03/29/2019 (2306) [facility] NAME: SIMONE MARTÍNEZ Radiology Department PHYS: Tayla Ace MD [address] : 1995 AGE: 23 SEX: F [place] [address] LOC: VirginieERS PHONE #: [phone] EXAM DATE: 03/29/2019 STATUS: REG ER FAX #: [phone] RAD NO: Page 1 Signed Report Patient Name: SIMONE MARTÍNEZ Unit No: [id number] EXAMS: CPT CODE: [id number] US ABDOMEN LTD 93550 <Continued> [facility] NAME: SIMONE MARTÍNEZ Radiology Department PHYS: Tayla Ace MD [address] : 1995 AGE: 23 SEX: F [place] [address] LOC: VirginieERS PHONE #: [phone] EXAM DATE: 03/29/2019 STATUS: REG ER FAX #: [phone] RAD NO: Page 2 Signed ReportHCG [id number] 23:01:00 Test Item Value Reference Range Comments HCG SERUM (test code=HCG) 07665 INTERPRETATION:VALUES BETWEEN 15-20 milliInternational units/mL NEED TO BERETESTED WITHIN 48 HOURS. All units for these ranges are in milliInternationalunits/mL0-1 WK AFTER CONCEPTION 0-50 1-2 WKS AFTER CONCEPTION 40-3002-3 WKS AFTER CONCEPTION 100-1,0003-4 WKS AFTER CONCEPTION 500-6,0001-2 MONTHS AFTER CONCEPTION 5,000-200,0002-3 MONTHS AFTER CONCEPTION 10,000-100,0002ND TRIMESTER 3,000-50,0003RD TRIMESTER 1,000-50,000 SPECIMENS WITH AN HCG LEVEL FROM 0-6 milliInternationalunits/mL SHOULD BE CONSIDERED NEGATIVE CHEMISTRY 7 [id number] 22:27:00 Test Item Value Reference Range Comments SODIUM (test code=NA) 138 mEq/L 135-145 POTASSIUM (test code=K) 4.2 mEq/L 3.5-5.0 CHLORIDE (test code=CL) 104 mEq/L 100-115 CARBON DIOXIDE (test code=CO2) 27 mEq/L 22-31 ANION GAP (test code=GAP) 11.10 10-20 GLUCOSE (test code=GLU) 114 mg/dL 65-110 BLOOD UREA NITROGEN (test code=BUN) 12 mg/dL 7-18 GLOMERULAR FILTRATION RATE (test code=GFR) 88 ml/min >60 CREATININE (test code=CREAT) 0.8 mg/dL 0.5-1.0 CALCIUM (test code=CA) 9.5 mg/dL 8.4-10.2 LIVER [id number] 22:27:00 Test Item Value Reference Range Comments TOTAL PROTEIN (test code=PROT) 7.8 gm/dL 6.3-8.2 ALBUMIN (test code=ALB) 3.6 gm/dL 3.4-4.8 BILIRUBIN TOTAL (test code=BILT) 0.3 mg/dL 0.2-1.0 BILIRUBIN DIRECT (test code=BILD) <0.1 mg/dL <0.2 SGOT/AST (test code=AST) 19 units/L 15-37 SGPT/ALT (test code=ALT) 30 units/L 12-78 ALKALINE PHOSPHATASE TOTAL (test code=ALKP) 74 units/L 46-116 [id number] 22:27:00 Test Item Value Reference Range Comments LIPASE (test code=LIP) 92 units/L 73-393 UA RFLX MICR CULT IF [id number] 22:21:00 Test Item Value Reference Range Comments UA COLOR (test code=COLU) YELLOW YELLOW UA APPEARANCE (test code=APPU) TURBID CLEAR UA GLUCOSE DIPSTICK (test code=DGLUU) NEGATIVE NEG UA BILIRUBIN DIPSTICK (test code=BILU) NEGATIVE NEG UA KETONE DIPSTICK (test code=KETU) NEGATIVE NEG UA SPECIFIC GRAVITY (test code=SGU) 1.034 1.001-1.035 UA BLOOD DIPSTICK (test code=IVONNE) NEG NEG UA PH DIPSTICK (test code=GEREMIAS) 5.0 5-9 UA PROTEIN DIPSTICK (test code=PROU) 1+ NEG UA UROBILINIOGEN DIPSTICK (test code=URO) NEGATIVE mg/dL NEG UA NITRITE DIPSTICK (test code=ELBA) NEG NEG UA LEUKOCYTE ESTERASE DIPSTICK (test NEG NEG code=LEUU) UA WBC (test code=WBCU) 11-15 #/hpf NONE SEEN UA EPITHELIAL CELLS (test code=EPIU) FEW #/HPF RARE-FEW UA MUCUS (test code=MUCU) 1+ NONE SEEN UA AMORPHOUS SEDIMENT (test code=AMORU) 2+ Indication for culture: Dysuria/FrequencyUR HCG [id number] 22:21:00 Test Item Value Reference Range Comments UR HCG QUAL (test code=HCGQLU) POSITIVE Indication for culture: Dysuria/FrequencyUA RFLX MICR CULT IF [id number] 22:12:00 Test Item Value Reference Range Comments UA COLOR (test code=COLU) YELLOW YELLOW UA APPEARANCE (test code=APPU) TURBID CLEAR UA GLUCOSE DIPSTICK (test code=DGLUU) NEGATIVE NEG UA BILIRUBIN DIPSTICK (test code=BILU) NEGATIVE NEG UA KETONE DIPSTICK (test code=KETU) NEGATIVE NEG UA SPECIFIC GRAVITY (test code=SGU) 1.034 1.001-1.035 UA BLOOD DIPSTICK (test code=IVONNE) NEG NEG UA PH DIPSTICK (test code=GEREMIAS) 5.0 5-9 UA PROTEIN DIPSTICK (test code=PROU) 1+ NEG UA UROBILINIOGEN DIPSTICK (test code=URO) NEGATIVE mg/dL NEG UA NITRITE DIPSTICK (test code=ELBA) NEG NEG UA LEUKOCYTE ESTERASE DIPSTICK (test NEG NEG code=LEUU) UA WBC (test code=WBCU) 11-15 #/hpf NONE SEEN UA EPITHELIAL CELLS (test code=EPIU) FEW #/HPF RARE-FEW UA MUCUS (test code=MUCU) 1+ NONE SEEN UA AMORPHOUS SEDIMENT (test code=AMORU) 2+ Indication for culture: Dysuria/FrequencyUR HCG [id number] 22:12:00 Test Item Value Reference Range Comments UR HCG QUAL (test code=HCGQLU) Indication for culture: Dysuria/FrequencyCBC W/AUTO [id number] 22:09:00 Test Item Value Reference Range Comments WHITE BLOOD CELL (test code=WBC) 10.0 K/mm3 6.6-12.1 RED BLOOD CELL (test code=RBC) 4.63 M/mm3 3.45-5.01 HEMOGLOBIN (test code=HGB) 12.6 g/dL 10.7-13.9 HEMATOCRIT (test code=HCT) 40.5 % 32.1-42.1 MEAN CELL VOLUME (test code=MCV) 88 fL 84.1-94.8 MEAN CELL HGB (test code=MCH) 27.2 pg 27-35 MEAN CELL HGB CONCETRATION (test code=MCHC) 31.1 gm/dL 32.2-34.1 RED CELL DISTRIBUTION WIDTH (test code=RDW) 14.5 % 12.4-16.5 PLATELET COUNT (test code=PLT) 317 K/mm3 133-385 IMMATURE PLATELET FRACTION (test code=IPF) 0.0 % 0.0-10.8 MEAN PLATELET VOLUME (test code=MPV) 10.0 fl 9.1-12.7 NEUTROPHIL % (test code=NT%) 70.6 % 56.5-79.4 LYMPHOCYTE % (test code=LY%) 22.3 % 14.3-34.3 MONOCYTE % (test code=MO%) 4.8 % 5.1-10.4 EOSINOPHIL % (test code=EO%) 1.8 % 0.1-3.0 BASOPHIL % (test code=BA%) 0.3 % 0.1-1.0 NEUTROPHIL # (test code=NT#) 7.0 K/mm3 LYMPHOCYTE # (test code=LY#) 2.2 K/mm3 MONOCYTE # (test code=MO#) 0.5 K/mm3 EOSINOPHIL # (test code=EO#) 0.18 K/mm3 BASOPHIL # (test code=BA#) 0.0 K/mm3 RBC MORPHOLOGY REQUIRED (test code=RBCM) NORMAL NORMAL PLATELET MORPHOLOGY REQUIRED (test code=PLTMR) NORMAL NORMAL PROTHROMBIN [id number] 22:54:00 Test Item Value Reference Range Comments PROTHROMBIN TIME PATIENT (test code=PTP) 10.3 secs 10.4-12.4 THROMBOPLASTIN TIME [id number] 22:54:00 Test Item Value Reference Range Comments THROMBOPLASTIN TIME PARTIAL (test code=PTT) 28.3 secs 22-38 [id number] 22:54:00 Test Item Value Reference Range Comments FIBRINOGEN (test code=FIB) 332 mg/dL 309-518 - US PREG UT [id number] 21:14:00 Patient Name: SIMONE MARTÍNEZ Unit No: [id number] EXAMS: CPT CODE: [id number] US PREG UT TRANSVAGINAL 46915 PROCEDURE: FIRST TRIMESTER ULTRASOUND INDICATION: , headache, dizziness COMPARISON: No relevant comparison. TECHNIQUE: Grayscale, color and Doppler transabdominal and transvaginal imaging of the pelvis was performed with standard technique. Transvaginal ultrasound is obtained for further evaluation of the endometrium and adnexal regions. FINDINGS: UTERUS: 9.7 cm in length. There is a single intrauterine gestation. Approximate gestational age based on a 0.44 cm crown-rump length is 6 weeks 1 day. heart rate is estimated at 163bpm. No significant subchorionic blood products demonstrated. RIGHT OVARY: 3.6 x 1.9 x 2.6 cm. Normal sonographic appearance and documented arterial and venous flow by Doppler. LEFT OVARY: 3.2 x 2.0 x 2.4 cm with normal sonographic appearance and documented arterial flow by Doppler. BLADDER: Unremarkable. Comments: No adnexal masses. No free intraperitoneal fluid. IMPRESSION: 1. Single viable intrauterine gestation, approximate gestational age by crown-rump length measurement is 6 weeks 1 day. 2. Normal sonographic appearance of the ovaries. No free pelvic fluid. SL: JANINE Electronically Signed by Kendal Colón MD on 2018 at 2114 Reported and signed by: Kendal Colón MD CC: Olga Mora MD Technologist: Luisa Santoyo RDMS, T Probe: [id number] Trnscrbd D/ ( 2113) Boo Orig Print D/T: S: 03/22/2019 (2117) [facility] NAME: SIMONE MARTÍNEZ Radiology Department PHYS: NORAH Pan Izaiah Reyes [address] : 1995 AGE: 23 SEX: F [place], [place] [address] LOC: CARRIE PHONE #: EXAM DATE: 03/22/2019 STATUS: REG ER FAX #: [phone] RAD NO: Page 1 Signed Report Patient Name: SIMONE MARTÍNEZ Unit No: [id number] EXAMS : CPT CODE: [id number] US PREG UT TRANSVAGINAL 12165 <Continued> [facility] NAME: SIMONE MARTÍNEZ Radiology Department PHYS: Izaiah Zeng [address] : 1995 AGE: 23 [place]EX:[place] [address] LOC: CARRIE PHONE #: [phone] EXAM DATE: 03/22/2019 STATUS: REG ER FAX #: [phone] RAD NO: Page 2 Signed Report- US PREG EVAL 1ST [id number] 21:14:00 Patient Name : SIMONE MARTÍNEZ Unit No: [id number] EXAMS: CPT CODE: [id number] US PREG EVAL 1ST TRIMTR 64408 PROCEDURE: FIRST TRIMESTER ULTRASOUND INDICATION: , headache, dizziness COMPARISON: No relevant comparison. TECHNIQUE: Grayscale, color and Doppler transabdominal and transvaginal imaging of the pelvis was performed with standard technique. Transvaginal ultrasound is obtained for further evaluation of the endometrium and adnexal regions. FINDINGS: UTERUS: 9.7 cm in length. There is a single intrauterine gestation. Approximate gestational age based on a 0.44 cm crown-rump length is 6 weeks 1 day. heart rate is estimated at 163bpm. No significant subchorionic blood products demonstrated. RIGHT OVARY: 3.6 x 1.9 x 2.6 cm. Normal sonographic appearance and documented arterial and venous flow by Doppler. LEFT OVARY: 3.2 x 2.0 x 2.4 cm with normal sonographic appearance and documented arterial flow by Doppler. BLADDER: Unremarkable. Comments: No adnexal masses. No free intraperitoneal fluid. IMPRESSION: 1. Single viable intrauterine gestation, approximate gestational age by crown-rump length measurement is 6 weeks 1 day. 2. Normal sonographic appearance of the ovaries. No free pelvic fluid. SL: JANINE at 2114 Reported and signed by: Kendal Colón MD CC: Olga Mora MD Technologist: Luisa Santoyo RDMS, RVT Probe: Trnscrbd D/ (2113) Boo Orig Print D /T: S: 03/22/2019 (2117) [facility] NAME: SIMONE MARTÍNEZ Radiology Department PHYS: Izaiah Zeng [address] : 1995 AGE: 23 SEX: F [place] [address] LOC: CARRIE PHONE #: [phone] EXAM DATE: 03/22/2019 STATUS: REG ER FAX #: [phone] RAD NO: Page 1 Signed Report Patient Name: SIMONE MARTÍNEZ Unit No: [id number] EXAMS: CPT CODE: [id number] PREG EVAL 1ST TRIMTR 48661 <Continued&gt ; [facility] NAME: SIMONE MARTÍNEZ Radiology Department PHYS: Izaiah Zeng [address] : 1995 AGE: 23 SEX:F [place] [address] LOC: CARRIE PHONE #: [phone] EXAM DATE: 03/22/2019 STATUS: REG ER FAX #: [phone] RAD NO: Page 2 Signed ReportHCG [id number] 20:45:00 Test Item Value Reference Range Comments HCG SERUM (test code=HCG) 61414 INTERPRETATION:VALUES BETWEEN 15-20 milliInternational units/mL NEED TO BERETESTED WITHIN 48 HOURS. All units for these ranges are in milliInternationalunits/mL0-1 WK AFTER CONCEPTION 0-50 1-2 WKS AFTER CONCEPTION 40-3002-3 WKS AFTER CONCEPTION 100-1,0003-4 WKS AFTER CONCEPTION 500-6,0001-2 MONTHS AFTER CONCEPTION 5,000-200,0002-3 MONTHS AFTER CONCEPTION 10,000-100,0002ND TRIMESTER 3,000-50,0003RD TRIMESTER 1,000-50,000 SPECIMENS WITH AN HCG LEVEL FROM 0-6 milliInternationalunits/mL SHOULD BE CONSIDERED NEGATIVE COMPREHENSIVE METABOLIC [id number] 20:23:00 Test Item Value Reference Range Comments SODIUM (test code=NA) 142 mEq/L 135-145 POTASSIUM (test code=K) 3.9 mEq/L 3.5-5.0 CHLORIDE (test code=CL) 105 mEq/L 100-115 CARBON DIOXIDE (test code=CO2) 28 mEq/L 22-31 ANION GAP (test code=GAP) 12.90 10-20 GLUCOSE (test code=GLU) 97 mg/dL 65-110 BLOOD UREA NITROGEN (test code=BUN) 14 mg/dL 7-18 GLOMERULAR FILTRATION RATE (test code=GFR) 103 ml/min >60 CREATININE (test code=CREAT) 0.7 mg/dL 0.5-1.0 TOTAL PROTEIN (test code=PROT) 7.0 gm/dL 6.3-8.2 ALBUMIN (test code=ALB) 3.3 gm/dL 3.4-4.8 CALCIUM (test code=CA) 9.0 mg/dL 8.4-10.2 BILIRUBIN TOTAL (test code=BILT) 0.2 mg/dL 0.2-1.0 SGOT/AST (test code=AST) 22 units/L 15-37 SGPT/ALT (test code=ALT) 36 units/L 12-78 ALKALINE PHOSPHATASE TOTAL (test code=ALKP) 69 units/L 46-116 CBC W/AUTO [id number] 20:04:00 Test Item Value Reference Range Comments WHITE BLOOD CELL (test code=WBC) 11.1 K/mm3 6.6-12.1 RED BLOOD CELL (test code=RBC) 4.38 M/mm3 3.45-5.01 HEMOGLOBIN (test code=HGB) 11.9 g/dL 10.7-13.9 HEMATOCRIT (test code=HCT) 38.4 % 32.1-42.1 MEAN CELL VOLUME (test code=MCV) 88 fL 84.1-94.8 MEAN CELL HGB (test code=MCH) 27.2 pg 27-35 MEAN CELL HGB CONCETRATION (test code=MCHC) 31.0 gm/dL 32.2-34.1 RED CELL DISTRIBUTION WIDTH (test code=RDW) 14.7 % 12.4-16.5 PLATELET COUNT (test code=PLT) 314 K/mm3 133-385 IMMATURE PLATELET FRACTION (test code=IPF) 0.0 % 0.0-10.8 MEAN PLATELET VOLUME (test code=MPV) 9.6 fl 9.1-12.7 NEUTROPHIL % (test code=NT%) 63.7 % 56.5-79.4 LYMPHOCYTE % (test code=LY%) 27.3 % 14.3-34.3 MONOCYTE % (test code=MO%) 5.9 % 5.1-10.4 EOSINOPHIL % (test code=EO%) 2.4 % 0.1-3.0 BASOPHIL % (test code=BA%) 0.4 % 0.1-1.0 NEUTROPHIL # (test code=NT#) 7.1 K/mm3 LYMPHOCYTE # (test code=LY#) 3.0 K/mm3 MONOCYTE # (test code=MO#) 0.7 K/mm3 EOSINOPHIL # (test code=EO#) 0.27 K/mm3 BASOPHIL # (test code=BA#) 0.0 K/mm3 RBC MORPHOLOGY REQUIRED (test code=RBCM) NORMAL NORMAL PLATELET MORPHOLOGY REQUIRED (test code=PLTMR) NORMAL NORMAL UA RFLX MICR CULT IF [id number] 20:01:00 Test Item Value Reference Range Comments UA COLOR (test code=COLU) YELLOW YELLOW UA APPEARANCE (test code=APPU) Slightly-Cloudy CLEAR UA GLUCOSE DIPSTICK (test code=DGLUU) NEGATIVE NEG UA BILIRUBIN DIPSTICK (test code=BILU) NEGATIVE NEG UA KETONE DIPSTICK (test code=KETU) NEGATIVE NEG UA SPECIFIC GRAVITY (test code=SGU) 1.030 1.001-1.035 UA BLOOD DIPSTICK (test code=IVONNE) NEG NEG UA PH DIPSTICK (test code=GEREMIAS) 6.0 5-9 UA PROTEIN DIPSTICK (test code=PROU) NEGATIVE NEG UA UROBILINIOGEN DIPSTICK (test code=URO) 4.0 mg/dL NEG UA NITRITE DIPSTICK (test code=ELBA) NEG NEG UA LEUKOCYTE ESTERASE DIPSTICK (test NEG NEG code=LEUU) UA WBC (test code=WBCU) 0-2 #/hpf NONE SEEN UA RBC (test code=RBCU) NONE SEEN #/hpf NONE SEEN UA EPITHELIAL CELLS (test code=EPIU) RARE #/HPF RARE-FEW UA BACTERIA (test code=BACU) NEGATIVE /HPF RARE-FEW UA MUCUS (test code=MUCU) RARE NONE SEEN Indication for culture: Flank PainCOMPREHENSIVE METABOLIC [id number] 17 :15:00 Test Item Value Reference Range Comments SODIUM [...] PHOSPHATASE TOTAL (test code=ALKP) 68 units/L 46-116 [id number] 17:13:00 Test Item Value Reference Range Comments AMYLASE (test code=IVETTE) 34 units/L 30-110 [id number] 17:13:00 Test Item Value Reference Range Comments LIPASE (test code=LIP) 88 units/L 73-393 - US ABDOMEN [id number] 17:09:00 Patient Name: SIMONE MARTÍNEZ Unit No: [id number] EXAMS: CPT CODE: [id number] ABDOMEN LTD 47711 EXAM: Right upper quadrant ultrasound. EXAM DATE: [...] pancreas secondary to overlying bowel gas). at 1709 Reported and signed by: Tia Boateng MD CC: Sharifa Bassett MD; Twin Flanagan Technologist: Lisbeth Calles RDMS Probe: Trnscrbd D/ (5075)t.SDR.CER Orig Print D/T: S: 10/14/2018 (6766) [facility] NAME: MAURICIOEZEQUIEL ZAIDISIMONE Radiology Department PHYS: Twin Garcia MD [address] : 1995 AGE: 23 SEX: F [place] [address] LOC: VirginieERS PHONE #: [phone] EXAM DATE: 10/14/2018 STATUS: REG ER FAX #: [phone] RAD NO: Page 1 Signed Report Patient Name: SIMONE MARTÍNEZ Unit No: [id number] EXAMS: CPT CODE: [id number] ABDOMEN LTD 79754 <Continued> [facility] NAME: MAURICIOEZEQUIEL ZAIDISIMONE Radiology Department PHYS: Twin Garcia PMAziza [address] : 1995 AGE: 23 SEX: F [place] [address] LOC: VirginieERS PHONE #: [phone] EXAM DATE: 10/14/2018 STATUS: REG ER FAX #: [phone] RAD NO: Page 2 Signed ReportUA RFLX MICR CULT IF [id number] 16:48:00 Test Item Value Reference Range Comments [...] code=BACU) RARE #/hpf NONE SEEN CBC W/AUTO [id number] 16:44:00 Test Item Value Reference Range Comments [...]
[2019-11-14] MEDS ORDERED: NA CHLORIDE 0.9% 1,000 ML ONE (23:08)
[2019-11-14 23:15] LABS: Absolute Lymphocytes (CBC) 2.9 K/uL (0.7-4.9); Basophils % 0.7 % (0-1.3); Hematocrit 32.3 % (36.0-45.0); Lymphocytes % 33.3 % (15.3-44.8)
[2019-11-14 23:16] LABS: Protime INR 0.92
[2019-11-14] MEDS ORDERED: FENTANYL CITR 100 MCG/2 ML ONE (23:30)
[2019-11-14 23:33] LABS: ALT/SGPT 71 U/L (12-78); AST/SGOT 33 U/L (15-37); Albumin 2.7 g/dL (3.4-5.0); Alkaline Phosphatase 174 U/L (45-117); BUN Blood Urea Nitrogen 13 mg/dL (7-18); Bicarbonate 24 mmol/L (21-32); Bilirubin Direct < 0.1 mg/dL (0-0.2); Bilirubin Total 0.1 mg/dL (0.2-1.0); Glucose Level 80 mg/dL (74-106); Lipase 95 U/L (73-393); Magnesium 1.9 mg/dL (1.8-2.4); NT PRO-BNP 448 pg/mL (<125); Potassium 4.2 mmol/L (3.5-5.1); Protein, Total 7.3 g/dL (6.4-8.2); Sodium Level 141 mmol/L (136-145); Troponin (Emerg Dept Use Only) < 0.02 ng/mL (0.0-0.045)
[2019-11-15] MEDS ORDERED: ONDANSETRON 4 MG/2 ML VIAL ONE (00:37)
--- NOTE | 2019-11-15 00:50 | ER ---
Nurse's Notes [facility] Name: Caitlin Sloan Age: 24 yrs Sex: Female : 1995 Arrival Date: 11/14/2019 Time: 22:15 Bed 6 Private MD: Diagnosis: Dyspnea-post ;Essential (primary) hypertension;Edema, unspecified;Atelectasis;Pleural effusion in conditions classified elsewhere Presentation: 11/13 22:22 Chief complaint: Patient states: I HAVE GIVEN LAST TUESDAY AND I AM JUST MAKING rv SURE I DON'T HAVE POST ECLAMPSIA. MY BLOOD PRESSURE YESTERDAY WAS 149/84. I AM HAVING SOME CHEST PAIN WHENEVER I BREATH IN. AND II FEELS LIKE I CAN'T FILL MY LUNGS ALL THE WAY. DESCRIBED THE PAIN SHARP. Coronavirus screen: Patient denies fever greater than 100.4F, cough, shortness of breath, or difficulty breathing. Proceed with normal triage process. Ebola Screen: No symptoms or risks identified at this time. Initial Sepsis Screen: Does the patient meet any 2 criteria? No. Patient's initial sepsis screen is negative. Does the patient have a suspected source of infection? No. Patient's initial sepsis screen is negative. Risk Assessment: Do you want to hurt yourself or someone else? Patient reports no desire to harm self or others. 22:22 Method Of Arrival: Ambulatory rv 22:22 Acuity: TANESHA 3 rv 22:27 Onset of symptoms was November 14, 2019 at 19:00. rv Triage Assessment: 22:27 Respiratory: Reports shortness of breath at rest Onset: The symptoms/episode rv began/occurred 3 HOURS AGO, the patient has mild shortness of breath. 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 - Social history:: Smoking status: Patient denies any tobacco usage or history of. Screenin: Abuse screen: Denies threats or abuse. Denies injuries from another. Nutritional rv screening: No deficits noted. Tuberculosis screening: No symptoms or risk factors identified. Fall Risk None identified. Assessment: 22:26 General: Appears in no apparent distress. Behavior is calm, cooperative. Pain: rv Complains of pain in chest. Pain: Quality of pain is described as sharp. Neuro: Level of Consciousness is awake, alert, obeys commands, Oriented to person, place, time, situation. Cardiovascular: Patient's skin is warm and dry. Respiratory: Airway is patent Respiratory effort is labored. GI: No signs and/or symptoms were reported involving the gastrointestinal system. : No signs and/or symptoms were reported regarding the genitourinary system. EENT: No signs and/or symptoms were reported regarding the EENT system. Derm: Skin is intact. Musculoskeletal: No signs and/or symptoms reported regarding the musculoskeletal system. 22:30 Respiratory: Breath sounds are clear bilaterally. rv 11/14 00:08 Reassessment: Patient appears in no apparent distress at this time. Patient and/or rv family updated on plan of care and expected duration. Pain level reassessed. Patient is alert, oriented x 3, equal unlabored respirations, skin warm/dry/pink. PATIENT TAKEN TO CT SCAN. 00:36 Reassessment: PATIENT BACK FROM CT SCAN. COMPLAINING OF NAUSEA AND PAIN. rv 00:37 Cardiovascular: Rhythm is sinus bradycardia. rv 01:40 Reassessment: DR BOSCH TALKED TO THE PATIENT AND EXPLAINED THE TEST RESULTS AND PLAN rv OF CARE. PATIENT UNDERSTOOD AND AGREED. 07:25 Reassessment: Patient appears in no apparent distress at this time. Patient and/or em family updated on plan of care and expected duration. Pain level reassessed. Patient is alert, oriented x 3, equal unlabored respirations, skin warm/dry/pink. Vital Signs: 11/13 22:22 BP 147 / 92; Pulse 67; Resp 16; Temp 98.4; Pulse Ox 100% on R/A; Weight 115.67 kg; rv Height 5 ft. 5 in. (165.10 cm); 23:00 BP 136 / 84; Pulse 56; Resp 18; Pulse Ox 100% on R/A; rv 23:30 BP 115 / 79; Pulse 61; Resp 17; Pulse Ox 99% on R/A; rv 23:49 Pain 2/10; rv 11/14 00:00 BP 134 / 80; Pulse 52; Resp 21; Pulse Ox 100% on R/A; rv 00:37 BP 133 / 70; Pulse 56; Resp 16; Pulse Ox 100% on R/A; rv 08:00 BP 112 / 76; Pulse 53; Resp 16; Pulse Ox 98% on R/A; Pain 5/10; em 11/13 22:22 Body Mass Index 42.43 (115.67 kg, 165.10 cm) rv ED Course: 11/13 22:15 Patient arrived in ED. do 22:22 Michael Duncan, JOSE MARIA is Primary Nurse. rv 22:24 Danilo Bosch MD is Attending Physician. usdhir 22:25 Triage completed. rv 22:25 Arm band placed on Patient placed in the treatment room, on a stretcher, Patient rv notified of wait time. 22:27 Patient has correct armband on for positive identification. night monitor on. Pulse rv ox on. NIBP on. 22:40 Missed attempt(s): 20 gauge in right forearm. 22 gauge in left forearm. Bleeding ds4 controlled, band aid applied, catheter tip intact. 23:18 XRAY Chest (1 view) In Process Unspecified. EDMS 23:19 Basic Metabolic Panel Sent. ds4 23:19 LFT's Sent. ds4 23:19 Magnesium Sent. ds4 23:19 NT PRO-BNP Sent. ds4 23:19 Lipase Sent. ds4 23:19 Troponin (emerg Dept Use Only) Sent. ds4 11/14 00:39 Urine Culture Sent. ds4 00:42 Maria Antonia Huynh MD is Hospitalizing Provider. sudhir 01:40 No provider procedures requiring assistance completed. IV is patent, with fluids rv infusing freely, with good blood return, Patient admitted, IV remains in place. Administered Medications: 11/13 23:05 Drug: NS 0.9% 1000 ml Route: IV; Rate: 125 ml/hr; Site: left antecubital; rv 11/14 01:41 Follow up: IV Status: Infusion continued upon admission rv 11/13 23:30 Drug: fentaNYL (PF) 25 mcg {Note: RASS 0.} Route: IVP; Site: left antecubital; rv 23:49 Follow up: Pain 2/10 Adult; Response: Marked relief of symptoms; Pain is decreased rv 23:49 Follow up: Response: RASS: Alert and Calm (0) rv 03 00:36 Drug: fentaNYL (PF) 25 mcg {Note: RASS 0.} Route: IVP; Site: right antecubital; rv 01:39 Follow up: Response: No adverse reaction; Marked relief of symptoms; Pain is decreased; rv RASS: Alert and Calm (0) 00:36 Drug: Zofran (Ondansetron) 4 mg Route: IVP; Site: right antecubital; rv 01:39 Follow up: Response: No adverse reaction rv 01:39 Drug: Rocephin 1 grams Route: IV; Rate: per protocol; Site: right antecubital; rv 01:39 Follow up: IV Status: Completed infusion rv 08:27 Drug: Phenergan 12.5 mg Route: PO; em 08:31 Follow up: Response: Medication administered at discharge. em Outcome: 00:45 Decision to Hospitalize by Provider. sudhir 01:40 Admitted to ER Hold. Please see [facility] for further documentation. rv 01:40 Condition: good 01:40 Instructed on the need for admit, Demonstrated understanding of instructions. 08:50 Patient left the ED. bp Signatures: Dispatcher [employer] Danilo Rogers MD MD cha Munoz, Edgar RN RN Rock Pritchett ds4 Becca Red Brian, RN RN bp Michael Duncan RN RN rv [facility] RN RN rr5
--- NOTE | 2019-11-15 00:52 | EDPHYS ---
Physician Documentation [facility] Name: Caitlin Sloan Age: 24 yrs Sex: Female : 1995 Arrival Date: 11/14/2019 Time: 22:15 Bed 6 Private MD: ED Physician Danilo Moralez HPI: 11/13 23:01 This 24 yrs old Female presents to ER via Ambulatory with complaints of sudhir Shortness Of Breath, Edema, Headache, High Blood Pressure. 23:01 The patient has shortness of breath at rest, with light activity. Onset: The sudhir symptoms/episode began/occurred 1 day(s) ago. Duration: The symptoms are continuous, and are unchanged since they started. The patient's shortness of breath has no apparent modifying factors. Associated signs and symptoms: The patient has no apparent associated signs or symptoms. Severity of symptoms: At their worst the symptoms were mild in the emergency department the symptoms are unchanged. The patient has not experienced similar symptoms in the past. 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 - Social history:: Smoking status: Patient denies any tobacco usage or history of. ROS: 23:02 Constitutional: Negative for fever, chills, and weight loss, Eyes: Negative for injury, sudhir pain, redness, and discharge, ENT: Negative for injury, pain, and discharge, Neck: Negative for injury, pain, and swelling, Cardiovascular: Negative for chest pain, palpitations, and edema, Abdomen/GI: Negative for abdominal pain, nausea, vomiting, diarrhea, and constipation, Back: Negative for injury and pain, : Negative for injury, bleeding, discharge, and swelling, Skin: Negative for injury, rash, and discoloration, Neuro: Negative for headache, weakness, numbness, tingling, and seizure, Psych: Negative for depression, anxiety, suicide ideation, homicidal ideation, and hallucinations, Allergy/Immunology: Negative for hives, rash, and allergies, Endocrine: Negative for neck swelling, polydipsia, polyuria, polyphagia, and marked weight changes, Hematologic/Lymphatic: Negative for swollen nodes, abnormal bleeding, and unusual bruising. 23:02 Respiratory: Positive for cough, with no reported sputum, shortness of breath, at rest. 23:02 MS/extremity: Positive for swelling, tenderness, of the right leg and left leg. Exam: 23:02 Constitutional: This is a well developed, well nourished patient who is awake, alert, sudhir and in no acute distress. Head/Face: Normocephalic, atraumatic. Eyes: Pupils equal round and reactive to light, extra-ocular motions intact. Lids and lashes normal. Conjunctiva and sclera are non-icteric and not injected. Cornea within normal limits. Periorbital areas with no swelling, redness, or edema. ENT: Nares patent. No nasal discharge, no septal abnormalities noted. Tympanic membranes are normal and external auditory canals are clear. Oropharynx with no redness, swelling, or masses, exudates, or evidence of obstruction, uvula midline. Mucous membranes moist. Neck: Trachea midline, no thyromegaly or masses palpated, and no cervical lymphadenopathy. Supple, full range of motion without nuchal rigidity, or vertebral point tenderness. No Meningismus. Chest/axilla: Normal chest wall appearance and motion. Nontender with no deformity. No lesions are appreciated. Cardiovascular: Regular rate and rhythm with a normal S1 and S2. No gallops, murmurs, or rubs. Normal PMI, no JVD. No pulse deficits. Respiratory: Lungs have equal breath sounds bilaterally, clear to auscultation and percussion. No rales, rhonchi or wheezes noted. No increased work of breathing, no retractions or nasal flaring. Abdomen/GI: Soft, non-tender, with normal bowel sounds. No distension or tympany. No guarding or rebound. No evidence of tenderness throughout. Back: No spinal tenderness. No costovertebral tenderness. Full range of motion. Skin: Warm, dry with normal turgor. Normal color with no rashes, no lesions, and no evidence of cellulitis. Neuro: Awake and alert, GCS 15, oriented to person, place, time, and situation. Cranial nerves II-XII grossly intact. Motor strength 5/5 in all extremities. Sensory grossly intact. Cerebellar exam normal. Normal gait. Psych: Awake, alert, with orientation to person, place and time. Behavior, mood, and affect are within normal limits. 23:02 Musculoskeletal/extremity: Extremities: swelling, ROM: intact in all extremities, full active range of motion, full passive range of motion, Circulation is intact in all extremities. Sensation intact. Compartment Syndrome exam of affected extremity: is normal. DVT Exam: negative Homans' sign noted on exam, no appreciated bluish discoloration, no erythema, no increased warmth, pain, swelling, tenderness. 23:27 Neck: ROM/movement: limited range of motion, is not appreciated, Meningeal signs: are sudhir not present, Kernig's sign is negative, Brudzinski's sign is negative, nuchal rigidity, is not appreciated. Vital Signs: 22:22 BP 147 / 92; Pulse 67; Resp 16; Temp 98.4; Pulse Ox 100% on R/A; Weight 115.67 kg; rv Height 5 ft. 5 in. (165.10 cm); 23:00 BP 136 / 84; Pulse 56; Resp 18; Pulse Ox 100% on R/A; rv 23:30 BP 115 / 79; Pulse 61; Resp 17; Pulse Ox 99% on R/A; rv 23:49 Pain 2/10; rv 11/14 00:00 BP 134 / 80; Pulse 52; Resp 21; Pulse Ox 100% on R/A; rv 00:37 BP 133 / 70; Pulse 56; Resp 16; Pulse Ox 100% on R/A; rv 08:00 BP 112 / 76; Pulse 53; Resp 16; Pulse Ox 98% on R/A; Pain 5/10; em 11/13 22:22 Body Mass Index 42.43 (115.67 kg, 165.10 cm) rv MDM: 11/13 22:24 Patient medically screened. [facility] 23:04 Data reviewed: vital signs, nurses notes, lab test result(s), EKG, radiologic studies, sudhir plain films. 11/13 22:53 Order name: Basic Metabolic Panel; Complete Time: 23:37 11/13 22:53 Order name: CBC with Diff; Complete Time: 23:37 11/13 22:53 Order name: LFT's; Complete Time: 23:37 11/13 22:53 Order name: Magnesium; Complete Time: 23:37 11/13 22:53 Order name: NT PRO-BNP; Complete Time: 23:37 11/13 22:53 Order name: PT-INR; Complete Time: 23:37 11/13 22:53 Order name: Troponin (emerg Dept Use Only); Complete Time: 23:37 11/13 23:00 Order name: Urine Culture [facility] 11/13 23:12 Order name: Lipase; Complete Time: 23:37 [facility] 11/14 00:41 Order name: Urine Microscopic Only [facility] 11/14 00:51 Order name: Urine Dipstick--Ancillary (enter results) [facility] 11/14 01:04 Order name: Urine Dipstick-Ancillary; Complete Time: 01:28 [facility] 11/14 01:19 Order name: Urine Microscopic Only; Complete Time: 01:28 [facility] 11/13 22:53 Order name: XRAY Chest (1 view) 11/13 22:53 Order name: EKG; Complete Time: 22:54 11/13 22:53 Order name: Cardiac monitoring; Complete Time: 23:19 11/13 22:53 Order name: EKG - Nurse/Tech; Complete Time: 23:18 11/13 22:53 Order name: IV Saline Lock; Complete Time: 23:14 11/13 22:53 Order name: Labs collected and sent; Complete Time: 23:18 11/13 22:53 Order name: O2 Per Protocol; Complete Time: 23:18 11/13 23:40 Order name: CT Chest For PE Angio [facility] 11/14 01:29 Order name: INCENTIVE SPIROMETRY [facility] 11/14 06:18 Order name: Lipid Profile [facility] 11/13 22:53 Order name: O2 Sat Monitoring; Complete Time: 23:18 11/13 23:00 Order name: Urine Dipstick-Ancillary (obtain specimen); Complete Time: 00:36 [facility] Administered Medications: 23:05 Drug: NS 0.9% 1000 ml Route: IV; Rate: 125 ml/hr; Site: left antecubital; 11/14 01:41 Follow up: IV Status: Infusion continued upon admission 11/13 23:30 Drug: fentaNYL (PF) 25 mcg {Note: RASS 0.} Route: IVP; Site: left antecubital; rv 23:49 Follow up: Pain 2/10 Adult; Response: Marked relief of symptoms; Pain is decreased rv 23:49 Follow up: Response: RASS: Alert and Calm (0) rv 11/14 00:36 Drug: fentaNYL (PF) 25 mcg {Note: RASS 0.} Route: IVP; Site: right antecubital; rv 01:39 Follow up: Response: No adverse reaction; Marked relief of symptoms; Pain is decreased; rv RASS: Alert and Calm (0) 00:36 Drug: Zofran (Ondansetron) 4 mg Route: IVP; Site: right antecubital; rv 01:39 Follow up: Response: No adverse reaction rv 01:39 Drug: Rocephin 1 grams Route: IV; Rate: per protocol; Site: right antecubital; rv 01:39 Follow up: IV Status: Completed infusion rv 08:27 Drug: Phenergan 12.5 mg Route: PO; em 08:31 Follow up: Response: Medication administered at discharge. em Disposition: 11/15/19 00:45 Hospitalization ordered by Maria Antonia Huynh for Observation. Preliminary diagnosis are Dyspnea - post , Essential (primary) hypertension, Edema, unspecified, Atelectasis, Pleural effusion in conditions classified elsewhere. - Bed requested for Telemetry/MedSurg (observation). - Status is Observation. bp - Condition is Stable. - Problem is new. - Symptoms have improved. Signatures: Dispatcher [employer] [facility] Danilo Moralez MD MD cha Munoz, Edgar, RN RN em Bernice Hernandez, RN RN tl1 Rocco Braswell RN Michael Cheek, RN RN rv [facility], RN RN rr5 Corrections: (The following items were deleted from the chart) 11/13 23:12 23:02 LIPASE+C.LAB.BRZ ordered. [facility] 11/14 00:46 00:45 Hospitalization Ordered by Maria Antonia Huynh MD for Observation. Preliminary sudhir diagnosis is Dyspnea - post ; Essential (primary) hypertension. Bed requested for Telemetry/MedSurg (observation). Status is Observation. Condition is Stable. Problem is new. Symptoms have improved. sudhir 00:57 00:46 11/15/2019 00:45 Hospitalization Ordered by Maria Antonia Huynh MD for Observation. tl1 Preliminary diagnosis is Dyspnea - post ; Essential (primary) hypertension; Edema, unspecified. Bed requested for Telemetry/MedSurg (observation). Status is Observation. Condition is Stable. Problem is new. Symptoms have improved. sudhir 01:30 00:57 11/15/2019 00:45 Hospitalization Ordered by Maria Antonia Huynh MD for Observation. sudhir Preliminary diagnosis is Dyspnea - post ; Essential (primary) hypertension. Bed requested for [facility] ER HOLD. Status is Observation. Condition is Stable. Problem is new. Symptoms have improved. tl1 05:52 01:30 11/15/2019 00:45 Hospitalization Ordered by Maria Antonia Huynh MD for Observation. tl1 Preliminary diagnosis is Dyspnea - post ; Essential (primary) hypertension; Edema, unspecified; Atelectasis; Pleural effusion in conditions classified elsewhere. Bed requested for [facility] ER HOLD. Status is Observation. Condition is Stable. Problem is new. Symptoms have improved. sudhir 08:50 05:52 11/15/2019 00:45 Hospitalization Ordered by Maria Antonia Huynh MD for Observation. bp Preliminary diagnosis is Dyspnea - post ; Essential (primary) hypertension; Edema, unspecified; Atelectasis; Pleural effusion in conditions classified elsewhere. Bed requested for Telemetry/MedSurg (observation). Status is Observation. Condition is Stable. Problem is new. Symptoms have improved. tl1
[2019-11-15 01:03] LABS: Urine Blood 2+ (NEG); Urine Glucose NEGATIVE (NEG); Urine Protein TRACE (NEG); Urine pH 6.5 (5.0-7.0)
[2019-11-15 01:17] LABS: Urine Culture Reflex Order NOT NEEDED
[2019-11-15 01:19] LABS: Urine Bacteria <20 /HPF (<20); Urine RBC >50 /HPF (NONE SEEN); Urine Urothelial Cells <5 /HPF (NONE SEEN)
[2019-11-15] MEDS ORDERED: CEFTRIAXONE/SWI 1gm 1 GM/10 ML SYR ONE (01:37)
[2019-11-15 01:55] VITALS: O2SAT 100; BMI 41.5
[2019-11-15] MEDS ORDERED: FENTANYL CITR 100 MCG/2 ML IV ONE (03:11)
[2019-11-15] MEDS ORDERED: ONDANSETRON 4 MG/2 ML VIAL IV ONE (03:13)
[2019-11-15] MEDS ORDERED: FENTANYL CITR 100 MCG/2 ML ONE (05:24)
--- NOTE | 2019-11-15 07:01 | RAD REPORT ---
EXAM DESCRIPTION: RAD - Chest Single View - 11/14/2019 11:17 pm CLINICAL HISTORY: SOB COMPARISON: Two view chest October 2018 TECHNIQUE: AP portable chest image was obtained 11/14/2019 11:17 pm . FINDINGS: Lungs are underinflated. No pulmonary edema identified. Hilar regions are within normal li mits for the body habitus and shallow inspiration affects. Heart and vasculature are normal. No measu rable pleural effusion and no pneumothorax. No acute bony abnormality seen. No acute aortic findings suspected. IMPRESSION: No acute cardiopulmonary process. Heart, vasculature and lung markings are all accentuated by affects of portable imaging, body habitus and shallow inspiration.
[2019-11-15] MEDS ORDERED: ACETAMIN/CAFFEINE/BUTALB TAB PO ONE (07:54)
--- NOTE | 2019-11-15 07:59 | P.HP ---
Certification for Inpatient Patient admitted to: Observation With expected LOS: <2 Midnights Patient will require the following post-hospital care: None Practitioner: I am a practitioner with admitting privileges, knowledge of patient current condition, hospital course, and medical plan of care. Services: Services provided to patient in accordance with Admission requirements found in Title 42 Section 412.3 of the Code of Federal Regulations Patient History Date of Service: 11/15/19 Reason for admission: Shortness of breath History of Present Illness: Patient is a 24-year-old female came to the hospital with shortness of breath. Patient apparently was given penicillin for mastitis. She has been taking it for the last couple of days. She did not realize it was a penicillin. She does have a history of reactive airway disease as well. She says when she was 5 years old she had bronchospasms and she almost had anaphylactic shock. She has never taken penicillin since that time. In the ER the the emergency room physician was worried about cardiomyopathy. Patient's BNP is mildly elevated. Will get an echocardiogram but most likely this is related to a penicillin allergy. Patient is asymptomatic at this time. Will continue to monitor her. 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 If her echo is negative she should be able to go home. Allergies morphine Allergy (Verified 11/15/19 01:59) Hives/Rash Penicillins Allergy (Verified 11/15/19 01:59) Hives/Rash Sulfa (Sulfonamide Antibiotics) Allergy (Verified 11/15/19 01:59) Hives/Rash Home Medications: NK [No Home Meds] 11/15/19 - Past Medical/Surgical History Diabetic: No Past Medical History: Patient denies medical history Past Surgical History: Patient denies surgical history - Family History Father Family History: Reviewed- Non-Contributory - Social History Smoking Status: Never smoker Place of Residence: Home Review of Systems 10-point ROS is otherwise unremarkable Physical Examination - Vital Signs Temperature: 98.5 F Blood Pressure: 133/70 Pulse: 56 Respirations: 14 Pulse Ox (%): 98 - Physical Exam General: Alert, In no apparent distress, Oriented x3 HEENT: Atraumatic, PERRLA, Mucous membr. moist/pink, EOMI, Sclerae nonicteric Neck: Supple, 2+ carotid pulse no bruit, No LAD, Without JVD or thyroid abnormality Respiratory: Clear to auscultation bilaterally, Normal air movement Cardiovascular: Regular rate/rhythm, Normal S1 S2, No murmurs Gastrointestinal: Normal bowel sounds, Soft and benign, Non-distended, No tenderness Musculoskeletal: No clubbing, No swelling, No tenderness Integumentary: No rashes Neurological: Normal gait, Normal speech, Normal strength at 5/5 x4 extr, Normal tone, Sensation intact, Cranial nerves 3-12 intact, Normal affect Lymphatics: No axilla or inguinal lymphadenopathy - Studies Laboratory Data (last 24 hrs) 11/14/19 23:03: PT 10.9, INR 0.92 11/14/19 23:03: WBC 8.6, Hgb 10.6 L, Hct 32.3 L, Plt Count 331 11/14/19 23:03: Sodium 141, Potassium 4.2, BUN 13, Creatinine 0.79, Glucose 80, Magnesium 1.9, Total Bilirubin 0.1 L, AST 33, ALT 71, Alkaline Phosphatase 174 H , Lipase 95 11/14/19 23:00: Lipase Cancelled Assessment & Plan - Problems (Diagnosis) (1) Shortness of breath Current Visit: Yes Status: Acute (2) Penicillin allergy Current Visit: Yes Status: Acute (3) cardiomyopathy Current Visit: Yes Status: Acute - Plan Plan: 1. Monitor volume status closely 2. Echocardiogram 3. Pain control as needed 4. Advice to pump her breast milk for the next 24-48 hr to clear the narcotics that were given to her in the ER. She normally takes Fioricet for headache which she is advised to continue as needed. She has talked or Ob at discharge. We will wait for echocardiogram results and if this is negative she should be able to go home. She will take Benadryl if she starts feeling like she is having shortness of breath and she is advised to refrain from the penicillin medication. Discharge Plan: Home Plan to discharge in: 24 Hours - Advance Directives Does patient have a Living Will: No Does patient have a Durable POA for Healthcare: No - Code Status/Comfort Care Code Status Assessed: Yes Code Status: Full Code Critical Care: No Time Spent Managing PTS Care (In Minutes): 40
[2019-11-15] MEDS ORDERED: PROMETHAZINE 25 MG TABLET ONE (08:24)
[2019-11-15] MEDS ORDERED: ENOXAPARIN 40 MG/0.4 ML SQ SCH (09:00)
--- NOTE | 2019-11-15 10:03 | EKG ---
Test Date: 2019-11-14 Test Time: 23:10:36 Scientific Photographer: CARROL MEASUREMENT RESULTS: Intervals: Rate: 57 VT: 128 QRSD: 86 QT: 424 QTc: 412 [place]: P: 46 VT: 128 QRS: 31 T: 17 INTERPRETIVE STATEMENTS: Sinus bradycardia Otherwise normal ECG Compared to ECG 11/17/2018 15:01:08 Sinus rhythm no longer present Electronically Signed On 11-15-19 10:02:53 CDT by Shree Camacho
--- NOTE | 2019-11-15 10:28 | RAD REPORT ---
EXAM DESCRIPTION: CT - Chest For Pe Angio - 11/15/2019 6:34 am CLINICAL HISTORY: The patient is 24 years old and is Female; DYSPNEA TECHNIQUE: Axial computed tomographic angiography images of the chest with intravenous contrast. S agittal and coronal reformatted images were created and reviewed. This CT exam was performed using one or more of the following dose reduction techniques: automated exposure control, adjustment of t he mA and/or kV according to patient size, and/or use of iterative reconstruction technique. MIP reconstructed images were created and reviewed. COMPARISON: No relevant prior studies available. FINDINGS: ARTIFACTS: The exam is suboptimal secondary to motion artifact. PULMONARY ARTERIES: There are no obvious filling defects identified within the pulmonary arterie s to suggest pulmonary embolism. AORTA: No acute findings. No thoracic aortic aneurysm. LUNGS: Minimal linear atelectasis within the right lung base is present. The lungs are otherwise clear. No mass. PLEURAL SPACE: Trace pleural effusions are present. No pneumothorax. HEART: Unremarkable. No cardiomegaly. No significant pericardial effusion. No evidence of RV dysfunction. BONES/JOINTS: No acute fracture. No dislocation. SOFT TISSUES: Unremarkable. LYMPH NODES: Unremarkable. No enlarged lymph nodes. IMPRESSION: 1. No evidence of pulmonary embolism. 2. Trace pleural effusions with right basilar atelectasis. Electronically signed by: Estefanía Hale MD 11/15/2019 12:37 AM CDT Due to temporary technical issues with the PACS/Fluency reporting system, reports are being signed by the in house radiologist as a courtesy to ensure prompt reporting. The interpreting radiologist is f ully responsible for the content of the report.
--- NOTE | 2019-11-15 11:44 | ECHO ---
HEIGHT: 5 ft 5 in WEIGHT: 250 lb 0 oz DATE OF STUDY: 11/15/[address]: Maria Antonia Huynh MD 2-DIMENSIONAL: YES M.MODE: YES DOPPLER: YES COLOR FLOW: YES TDS: NO PORTABLE: NO DEFINITY: NO BUBBLE STUDY: NO DIAGNOSIS: CARDIAC HISTORY: CATHERIZATION: NO SURGERY: NO PROSTHETIC VALVE: NO PACEMAKER: NO MEASUREMENTS (cm) DIASTOLIC (NORMALS) SYSTOLIC (NORMALS) IVSd 1.0 (0.6-1.2) LA Diam 3.2 (1.9-4.0) LVEF 77% LVIDd 3.9 (3.5-5.7) LVIDs 2.1 (2.0-3.5) %FS 45% LVPWd 1.0 (0.6-1.2) Ao Diam 2.2 (2.0-3.7) 2 DIMENSIONAL ASSESSMENT: RIGHT ATRIUM: NORMAL LEFT ATRIUM: NORMAL RIGHT VENTRICLE: NORMAL LEFT VENTRICLE: NORMAL TRICUSPID VALVE: NORMAL MITRAL VALVE: NORMAL PULMONIC VALVE: NORMAL AORTIC VALVE: NORMAL PERICARDIAL EFFUSION: NONE AORTIC ROOT: NORMAL LEFT VENTRICULAR WALL MOTION: NORMAL. DOPPLER/COLOR FLOW: MILD TRICUSPID REGURGITATION NORMAL RIGHT VENTRICULAR SYSTOLIC PRESSURE. COMMENTS: NORMAL 2D ECHO. MILD TRICUSPID REGURGITATION NORMAL RIGHT VENTRICULAR SYSTOLIC PRESSURE. NO WALL MOTION ABNORMALITY. NO CARDIOMYOPATHY. TECHNOLOGIST: MANUEL GARCIA
--- NOTE | 2019-11-15 12:38 | P.DS ---
Discharge Date: 11/15/19 Disposition: ROUTINE DISCHARGE Discharge Condition: GOOD Reason for Admission: Shortness of breath - Problems (1) Shortness of breath Current Visit: Yes Status: Acute (2) Penicillin allergy Current Visit: Yes Status: Acute (3) cardiomyopathy Current Visit: Yes Status: Acute Brief History of Present Illness: Patient is a 24-year-old female came to the hospital with shortness of breath. Patient apparently was given penicillin for mastitis. She has been taking it for the last couple of days. She did not realize it was a penicillin. She does have a history of reactive airway disease as well. She says when she was 5 years old she had bronchospasms and she almost had anaphylactic shock. She has never taken penicillin since that time. In the ER the the emergency room physician was worried about cardiomyopathy. Patient's BNP is mildly elevated. Will get an echocardiogram but most likely this is related to a penicillin allergy. Patient is asymptomatic at this time. Will continue to monitor her. Will consultant luxury and auto. 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 If her echo is negative she should be able to go home. Hospital Course: patient's echocardiogram was negative. Patient was having a migraine headache and she was getting a lot of pain medication. In the ER to give her 2 doses of 25 micro g of fentanyl. She also got an additional 12.5 micro around the fentanyl when she was on my service. She wanted medication for migraine as well. She takes Fioricet. I did talk to her that because she is he needs to be really cautious about taking the narcotics. And she also needs to be careful taking any oral medications. But we did rule out for cardiomyopathy. She still has mastitis and a possible UTI. She received Kef[facility] from [facility] which I have advised her to keep taking for 10 days. Follow up with her digital media analyst in 1 week. Vital Signs/Physical Exam: Temp Pulse Resp BP Pulse Ox 97.4 F 52 18 135/68 96 11/15/19 09:20 11/15/19 09:20 11/15/19 09:20 11/15/19 09:20 11/15/19 09:20 General: Alert, In no apparent distress, Oriented x3 Laboratory Data at Discharge: WBC 8.6 K/uL (4.3-10.9) 11/14/19 23:03 Hgb 10.6 g/dL (12.0-15.0) L 11/14/19 23:03 Hct 32.3 % (36.0-45.0) L 11/14/19 23:03 Plt Count 331 K/uL (152-406) 11/14/19 23:03 PT 10.9 SECONDS (9.5-12.5) 11/14/19 23:03 INR 0.92 11/14/19 23:03 Sodium 141 mmol/L (136-145) 11/14/19 23:03 Potassium 4.2 mmol/L (3.5-5.1) 11/14/19 23:03 BUN 13 mg/dL (7-18) 11/14/19 23:03 Creatinine 0.79 mg/dL (0.55-1.3) 11/14/19 23:03 Glucose 80 mg/dL (74-106) 11/14/19 23:03 Magnesium 1.9 mg/dL (1.8-2.4) 11/14/19 23:03 Total Bilirubin 0.1 mg/dL (0.2-1.0) L 11/14/19 23:03 AST 33 U/L (15-37) 11/14/19 23:03 ALT 71 U/L (12-78) 11/14/19 23:03 Alkaline Phosphatase 174 U/L (45-117) H 11/14/19 23:03 Triglycerides 128 mg/dL (<150) 11/15/19 05:44 Cholesterol 188 mg/dL (<200) 11/15/19 05:44 HDL Cholesterol 47 mg/dL (40-60) 11/15/19 05:44 Cholesterol/HDL Ratio 4.00 11/15/19 05:44 Lipase 95 U/L (73-393) 11/14/19 23:03 Home Medications: NK [No Home Meds] 11/15/19 Patient Discharge Instructions: OK TO DC IV AND DC HOME. FOLLOW-UP WITH PRIMARY CARE PROVIDER IN 1-2 WEEKS. FOLLOW-UP WITH DENTAL EQUIPMENT INSTALLER AND SERVICER IN 1-2 WEEKS. RETURN TO THE ER IF symptoms worsen. CALL or TEXT DR. GAYTAN AT [phone] IF ANY QUESTIONS REGARDING HOSPITAL STAY. PLEASE CALL THE FLOOR AT [phone] IF ANY MEDICATION OR NURSING QUESTIONS. Refrain from using penicillin. Continue Keflex x 7-10 days Diet: Regular Activity: Fall precautions Time spent managing pt's care (in minutes): 20
[2019-11-15] MEDS ORDERED: ACETAMIN/CAFFEINE/BUTALB TAB PO PRN (14:00)
[2019-11-15 15:30] VITALS: BP 149/73; TEMP 98.7
== END 2019-11-15 15:03 | disposition home or self-care (01) ==
LOC: ER 22:12 → ERHOLD 11-15 00:48 → 2ND 11-15 08:15
PROVIDERS: ADMIT Hospitalist; ATTEND Hospitalist
DX: O99.89 Other specified diseases and conditions complicating pregnancy, childbirth and the puerperium (principal); R06.02 Shortness of breath; N61.0 Mastitis without abscess; G43.909 Migraine, unspecified, not intractable, without status migrainosus; T36.0X5A Adverse effect of penicillins, initial encounter; X58.XXXA Exposure to other specified factors, initial encounter; J90 Pleural effusion, not elsewhere classified; J98.11 Atelectasis; R00.1 Bradycardia, unspecified; I07.1 Rheumatic tricuspid insufficiency; O16.5 Unspecified maternal hypertension, complicating the puerperium
CPT/HCPCS: 96361; 93005; 93306; 87088; 85025; 87086; 80048; 36415; 83735; 85610; 80061; 80076; 87077; 87186; 84484; 83690; 83880; 71275; 71045; 96375; 96374; 99285; Q9967; Q0169; J1650; J3010 ×2; J0696; J7030; J2405 ×2; G0378 ×2; 81003; 81015

== ENCOUNTER 2021-06-03 13:12 | Emergency (ER) | payer OTHER ==
[2021-06-03] MEDS ORDERED: HYDROCODONE/APAP 10/325 TAB ONE (14:52)
[2021-06-03] MEDS ORDERED: BUPIVACAINE 0.5% PF 10 ML VIAL ONE (14:52)
--- NOTE | 2021-06-03 16:32 | ER ---
Nurse's Notes [facility] Name: Caitlin Sloan Age: 26 yrs Sex: Female : 1995 Arrival Date: 06/03/2021 Time: 13:16 Bed 16 Private MD: Diagnosis: Pilonidal cyst with abscess Presentation: 06/03 13:41 Chief complaint: Patient states: i have a pilonidal cyst. this one started on Tuesday. tw2 i have had them before in 2014. at first i thought i had bruised my tailbone. it just gradually got worse and worse to where now i cant sleep. i also had one in 2016. Coronavirus screen: At this time, the client does not indicate any symptoms associated with coronavirus-19. Ebola Screen: Patient denies travel to an Ebola-affected area in the 21 days before illness onset. Initial Sepsis Screen: Does the patient meet any 2 criteria? No. Patient's initial sepsis screen is negative. Does the patient have a suspected source of infection? No. Patient's initial sepsis screen is negative. Risk Assessment: Do you want to hurt yourself or someone else? Patient reports no desire to harm self or others. Onset of symptoms was June 03, 2021. 13:41 Method Of Arrival: Ambulatory tw2 13:41 Acuity: TANESHA 4 tw2 Triage Assessment: 13:43 General: Appears in no apparent distress. uncomfortable, obese, well groomed, Behavior tw2 is calm, cooperative, appropriate for age. Pain: Complains of pain in coccyx. Historical: - Allergies: 13:44 Morphine; tw2 13:44 PENICILLINS; tw2 13:44 Sulfa (Sulfonamide Antibiotics); tw2 - Home Meds: 13:44 Zoloft 25 mg Oral tab 1 tab once daily [Active]; tw2 - PMHx: 13:44 ADD/ADHD; Asthma; tw2 - PSHx: 13:44 Cholecystectomy; D\T\C; tw2 - Immunization history:: Adult Immunizations up to date. - Social history:: Smoking status: Patient denies any tobacco usage or history of. Screenin:24 Abuse screen: Denies threats or abuse. Denies injuries from another. Nutritional es2 screening: No deficits noted. Nutritional screening: No deficits noted. Tuberculosis screening: No symptoms or risk factors identified. Fall Risk Gait- Normal/Bed Rest/Wheelchair (0 pts) Mental Status- Oriented to own ability (0 pts). Assessment: 14:23 General: Appears obese, well developed, Behavior is calm, cooperative, appropriate for es2 age. Pain: Complains of pain in buttocks Pain currently is 9 out of 10 on a pain scale. Neuro: Level of Consciousness is awake, alert, obeys commands, Oriented to person, place, time, situation, Appropriate for age Gait is steady, Speech is normal. Cardiovascular: Capillary refill < 3 seconds Patient's skin is warm and dry. Respiratory: Airway is patent Trachea midline Respiratory effort is even, Respiratory pattern is regular. GI: No signs and/or symptoms were reported involving the gastrointestinal system. : No signs and/or symptoms were reported regarding the genitourinary system. EENT: No signs and/or symptoms were reported regarding the EENT system. Vital Signs: 13:41 BP 142 / 86; Pulse 84; Resp 17; Temp 98.0(TE); Pulse Ox 100% on R/A; Weight 117.93 kg; tw2 Height 5 ft. 5 in. (165.10 cm) (R); Pain 7/10; 13:41 Body Mass Index 43.27 (117.93 kg, 165.10 cm) tw2 ED Course: 13:16 Patient arrived in ED. mr 13:43 Triage completed. tw2 13:43 Arm band placed on. tw2 13:47 [facility] 13:47 Mitchell Cabrera MD is Attending Physician. [facility] 13:47 Tiffany Corea, JOSE MARIA is Primary Nurse. es2 14:24 Patient has correct armband on for positive identification. Call light in reach. es2 16:31 Joel De Souza MD is Referral Physician. [facility] Administered Medications: 14:28 Drug: [place] (HYDROcodone-acetaminophen) 10 mg-325 mg 1 tabs {Note: Rass 0.} Route: PO; es2 14:29 Follow up: Response: No adverse reaction es2 15:47 Drug: Marcaine (bupivacaine) (0.5 %) 20 ml Volume: 10 ml; Route: Infiltration; es2 15:47 Follow up: Response: No adverse reaction es2 Outcome: 16:31 Discharge ordered by . marlen 16:57 Patient left the ED. es2 Signatures: Adam Anedrson PA PA jmm Rivera, Mary mr Ghazala Lucas, RN RN tw2 Tiffany Corea RN RN es2
--- NOTE | 2021-06-03 16:32 | EDPHYS ---
Physician Documentation [facility] Name: Ciatlin Sloan Age: 26 yrs Sex: Female : 1995 Arrival Date: 06/03/2021 Time: 13:16 Bed 16 Private MD: ED Physician Mitchell Cabrera HPI: 06/03 14:25 This 26 yrs old Female presents to ER via Ambulatory with complaints of Cyst. jmm 14:25 the patient presents with a swollen area of the buttocks. Onset: The symptoms/episode jmm began/occurred gradually, 4 day(s) ago. Possible cause(s): unknown. Associated signs and symptoms: Pertinent positives: swelling. Is a 26-year-old female with a history of asthma, ADHD that presents emerged part with complaints of pain in her buttocks. This is similar to a previous pilonidal cyst she had had in 2014. Denies fever but states she has had increased pain that also radiates down the right leg.. Historical: - Allergies: 13:44 Morphine; tw2 13:44 PENICILLINS; tw2 13:44 Sulfa (Sulfonamide Antibiotics); tw2 - Home Meds: 13:44 Zoloft 25 mg Oral tab 1 tab once daily [Active]; tw2 - PMHx: 13:44 ADD/ADHD; Asthma; tw2 - PSHx: 13:44 Cholecystectomy; D\T\C; tw2 - Immunization history:: Adult Immunizations up to date. - Social history:: Smoking status: Patient denies any tobacco usage or history of. ROS: 14:25 Constitutional: Negative for fever, chills, and weight loss, Cardiovascular: Negative jmm for chest pain, palpitations, and edema, Respiratory: Negative for shortness of breath, cough, wheezing, and pleuritic chest pain. 14:25 Skin: Positive for swelling. 14:25 All other systems are negative. Exam: 14:25 Constitutional: This is a well developed, well nourished patient who is awake, alert, jmm and in no acute distress. Head/Face: atraumatic. Eyes: EOMI, no conjunctival erythema appreciated ENT: Moist Mucus Membranes Neck: Trachea midline, Supple Chest/axilla: Normal chest wall appearance and motion. Cardiovascular: Regular rate and rhythm. No edema appreciated Respiratory: Normal respirations, no respiratory distress appreciated Abdomen/GI: Non distended, soft Back: Normal ROM 14:25 Skin: Induration noted to the superior portion of the gluteal cleft more so right midline.. 14:25 Neuro: Orientation: is normal, Mentation: is normal, Memory: is normal. 14:25 Psych: Behavior/mood is pleasant, cooperative. Vital Signs: 13:41 BP 142 / 86; Pulse 84; Resp 17; Temp 98.0(TE); Pulse Ox 100% on R/A; Weight 117.93 kg; tw2 Height 5 ft. 5 in. (165.10 cm) (R); Pain 7/10; 13:41 Body Mass Index 43.27 (117.93 kg, 165.10 cm) tw2 Procedures: 16:27 I \T\ D: Incision and drainage was performed for an abscess of the buttocks Prepped with [facility] Betadine, Anesthetized with 0.5% marcaine. Incised with #11 blade. Drained moderate amount purulent fluid. Packed with iodoform gauze, Dressing: sterile 4x4 gauze, the patient tolerated the procedure well. MDM: 14:19 Patient medically screened. [facility] 16:28 Data reviewed: vital signs, nurses notes. Counseling: I had a detailed discussion with [facility] the patient and/or guardian regarding: the historical points, exam findings, and any diagnostic results supporting the discharge/admit diagnosis, the need for outpatient follow up, to return to the emergency department if symptoms worsen or persist or if there are any questions or concerns that arise at home. Administered Medications: 14:28 Drug: [place] (HYDROcodone-acetaminophen) 10 mg-325 mg 1 tabs {Note: Rass 0.} Route: PO; es2 14:29 Follow up: Response: No adverse reaction es2 15:47 Drug: Marcaine (bupivacaine) (0.5 %) 20 ml Volume: 10 ml; Route: Infiltration; es2 15:47 Follow up: Response: No adverse reaction es2 Disposition: 23:46 Co-signature as Attending Physician, Mitchell Cabrera MD I agree with the assessment and kdr plan of care. Disposition Summary: 06/03/21 16:31 Discharge Ordered Location: Home [facility] Condition: Stable [facility] Diagnosis - Pilonidal cyst with abscess [facility] Followup: [facility] - With: Joel De Souza MD - When: 2 - 3 days - Reason: Recheck today's complaints, Continuance of care, Re-evaluation by your physician Discharge Instructions: - Discharge Summary Sheet jmm - Incision and Drainage jmm - Pilonidal Cyst jmm - Incision and Drainage, Care After jmm Forms: - Medication Reconciliation Form jmm - Thank You Letter jmm - Antibiotic Education jmm - Prescription Opioid Use jmm - Work release form es2 Prescriptions: - Clindamycin HCl 300 mg Oral Capsule - take 1 capsule by ORAL route every 6 hours for 10 days; 40 capsule; Refills: 0, jmm Product Selection Permitted - Ultracet 37.5-325 mg Oral Tablet - take 1 tablet by ORAL route every 6 hours - for up to 5 days; do not exceed 8 jmm tablets per day.; 12 tablet; Refills: 0, Product Selection Permitted Signatures: Mitchell Cabrera MD MD [facility] Adam Anderson PA PA jmm Wise, Tara, RN RN tw2 Tiffany Corea RN RN es2
[2021-06-03 17:09] VITALS: BP 142/86; TEMP 98; O2SAT 100
== END 2021-06-03 16:57 | disposition home or self-care (01) ==
LOC: ER 13:12
PROC: 0H98XZZ Drainage of Buttock Skin, External Approach (ICD-10-PCS; principal; 2021-06-03)
DX: L05.01 Pilonidal cyst with abscess (principal); Z88.0 Allergy status to penicillin; Z88.2 Allergy status to sulfonamides; Z88.5 Allergy status to narcotic agent
CPT/HCPCS: 99282

== ENCOUNTER 2021-07-04 03:15 | Emergency (ER) | payer OTHER ==
[2021-07-04] MEDS ORDERED: HYDROCODONE/APAP 7.5/325 MG TAB ONE (03:45)
--- NOTE | 2021-07-04 03:52 | EDPHYS ---
Physician Documentation [facility] [place] [place] Name: Caitlin Sloan Age: 26 yrs Sex: Female : 1995 Arrival Date: 07/04/2021 Time: 03:20 Bed 12 Private MD: ED Physician Irvin Short HPI: 07/04 03:45 This 26 yrs old Female presents to ER via Ambulatory with complaints of pkl Toothache. 03:45 The patient presents with pain. The problem is located in the . Onset: The pkl symptoms/episode began/occurred 3 week(s) ago, and became worse today. Associated signs and symptoms: Pertinent positives: swelling, mandibular. 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 - Social history:: Smoking status: Patient denies any tobacco usage or history of. ROS: 03:45 Eyes: Negative for injury, pain, redness, and discharge. pkl 03:45 ENT: Positive for dental pain, Teeth pain 03:45 Neck: Negative for stiffness. 03:45 Cardiovascular: Negative for chest pain. 03:45 Respiratory: Negative for cough, shortness of breath. 03:45 Abdomen/GI: Negative for abdominal pain, nausea, vomiting, and diarrhea. 03:45 Back: Negative for acute changes. 03:45 : Negative for urinary symptoms. 03:45 MS/extremity: Negative for acute changes. 03:45 Skin: Negative for rash. 03:45 Neuro: Negative for altered mental status, loss of consciousness. Exam: 03:45 Eyes: Pupils equal round and reactive to light, extra-ocular motions intact. Lids and pkl lashes normal. Conjunctiva and sclera are non-icteric and not injected. Cornea within normal limits. Periorbital areas with no swelling, redness, or edema. 03:45 Head/face: Noted is swelling, that is mild, of the right jaw. 03:45 ENT: Dental exam: dental caries, that is moderate, gum swelling, specifically in the right jaw. 03:45 Neck: Exam negative for nuchal rigidity. 03:45 Chest/axilla: Exam negative for acute changes. 03:45 Cardiovascular: Rate: normal, Rhythm: regular. 03:45 Respiratory: Exam negative for acute changes, the patient does not display signs of respiratory distress, Respirations: normal, Breath sounds: are clear throughout. 03:45 Abdomen/GI: Bowel sounds: normal, Palpation: abdomen is soft and non-tender, in all quadrants. 03:45 Back: Exam negative for acute changes. 03:45 : Exam negative for acute changes. 03:45 Musculoskeletal/extremity: Exam is negative for acute changes. 03:45 Skin: Exam negative for rash. 03:45 Neuro: Orientation: is normal, Mentation: is normal, Cranial nerves: grossly normal, Motor: is normal. Vital Signs: 03:31 Weight 115.67 kg (R); Height 5 ft. 5 in. (165.10 cm); Pain 9/10; lp1 03:33 BP 128 / 63; Pulse 78; Resp 20; Temp 98.1(O); Pulse Ox 100% on R/A; cc4 03:31 Body Mass Index 42.43 (115.67 kg, 165.10 cm) lp1 MDM: 03:22 Patient medically screened. pkl 03:50 Data reviewed: vital signs, nurses notes. ED course: Advised to see Dentist in 2 to 3 pkl days. Patient understood instruction. Administered Medications: 03:44 Drug: [place] (HYDROcodone-acetaminophen) (7.5 mg-325 mg) 1 tabs Route: PO; cc4 03:55 Follow up: Response: No adverse reaction cc4 03:44 Drug: Clindamycin 300 mg Route: PO; cc4 03:55 Follow up: Response: No adverse reaction cc4 Disposition Summary: 07/04/21 03:52 Discharge Ordered Location: Home pkl Problem: new pkl Symptoms: are unchanged pkl Condition: Stable pkl Diagnosis - Dental abscess pkl Followup: pkl - With: Private Physician - When: 2 - 3 days - Reason: Re-evaluation by your physician Discharge Instructions: - Discharge Summary Sheet pkl Forms: - Medication Reconciliation Form pkl - Thank You Letter pkl - Antibiotic Education pkl - Prescription Opioid Use pkl Prescriptions: - Clindamycin HCl 300 mg Oral Capsule - take 1 capsule by ORAL route every 6 hours for 7 days; 28 capsule; Refills: 0, pkl Product Selection Permitted - Diclofenac Sodium 75 mg Oral tablet,delayed release (DR/EC) - take 1 tablet by ORAL route 2 times per day; 20 tablet; Refills: 0, Product pkl Selection Permitted Signatures: Irvin Short MD MD pkl Marisela Hernandez RN RN lp1 Polly Morrison RN RN cc4
--- NOTE | 2021-07-04 03:52 | ER ---
Nurse's Notes [facility] Name: Caitlin Sloan Age: 26 yrs Sex: Female : 1995 Arrival Date: 07/04/2021 Time: 03:20 Bed 12 Private MD: Diagnosis: Dental abscess Presentation: 07/04 03:31 Chief complaint: Patient states: Pain to right upper and lower jaw that has been lp1 progressing over 3 weeks, reports multiple dental caries; pain is radiating to right ear and right side of neck. Coronavirus screen: At this time, the client does not indicate any symptoms associated with coronavirus-19. Ebola Screen: No symptoms or risks identified at this time. Initial Sepsis Screen: Does the patient meet any 2 criteria? No. Patient's initial sepsis screen is negative. Does the patient have a suspected source of infection? No. Patient's initial sepsis screen is negative. Risk Assessment: Do you want to hurt yourself or someone else? Patient reports no desire to harm self or others. Onset of symptoms was July 04, 2021. 03:31 Method Of Arrival: Ambulatory lp1 03:31 Acuity: TANESHA 4 lp1 Triage Assessment: 03:33 EENT: Reports right tooth pain with radiation into right jaw.. 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 - Social history:: Smoking status: Patient denies any tobacco usage or history of. Screenin:35 Abuse screen: Denies threats or abuse. Denies injuries from another. Nutritional lp1 screening: No deficits noted. Tuberculosis screening: No symptoms or risk factors identified. Fall Risk None identified. Assessment: 03:33 General: Appears uncomfortable, Behavior is calm, cooperative. Pain: Complains of pain cc4 in toothache multiple right upper molars \T\ 1 right lower molar pain radiating into right jaw. Pain: Pain currently is 9 out of 10 on a pain scale. Quality of pain is described as throbbing, Pain began 3 weeks ago; reports pain increasing. Is continuous, Alleviated by nothing. Aggravated by eating, drinking. Neuro: No deficits noted. Level of Consciousness is awake, alert, obeys commands, Oriented to person, place, time, situation. Cardiovascular: No deficits noted. Heart tones S1 S2. Respiratory: No deficits noted. Airway is patent. GI: No signs and/or symptoms were reported involving the gastrointestinal system. : No signs and/or symptoms were reported regarding the genitourinary system. EENT: No signs and/or symptoms were reported regarding the EENT system. Derm: No deficits noted. Skin is intact. Musculoskeletal: No signs and/or symptoms reported regarding the musculoskeletal system. Capillary refill < 3 seconds, Range of motion: intact in all extremities. 03:40 Reassessment: No changes from previously documented assessment. Dr. Short in to see. cc4 03:44 Reassessment: medicated as ordered, boyd. well. cc4 Vital Signs: 03:31 Weight 115.67 kg (R); Height 5 ft. 5 in. (165.10 cm); Pain 9/10; lp1 03:33 BP 128 / 63; Pulse 78; Resp 20; Temp 98.1(O); Pulse Ox 100% on R/A; cc4 03:31 Body Mass Index 42.43 (115.67 kg, 165.10 cm) lp1 ED Course: 03:20 Patient arrived in ED. bp1 03:22 Irvin Short MD is Attending Physician. pkl 03:26 Polly Morrison, RN is Primary Nurse. cc4 03:33 Triage completed. lp1 03:33 Arm band placed on. lp1 03:35 Patient has correct armband on for positive identification. lp1 03:55 No provider procedures requiring assistance completed. cc4 03:55 Patient did not have IV access during this emergency room visit. cc4 Administered Medications: 03:44 Drug: [place] (HYDROcodone-acetaminophen) (7.5 mg-325 mg) 1 tabs Route: PO; cc4 03:55 Follow up: Response: No adverse reaction cc4 03:44 Drug: Clindamycin 300 mg Route: PO; cc4 03:55 Follow up: Response: No adverse reaction cc4 Outcome: 03:52 Discharge ordered by . franco 03:55 Discharged to home ambulatory. cc4 03:55 Condition: stable 03:55 Discharge instructions given to patient, Instructed on discharge instructions, follow up and referral plans. medication usage, Demonstrated understanding of instructions, follow-up care, medications, Prescriptions given X 2. Signatures: Irvin Short MD MD pkl Pena, Laura RN RN lp1 Caitlin Thompson Christie, RN RN cc4 Corrections: (The following items were deleted from the chart) 04:01 03:59 Patient left the ED. cc4 cc4
[2021-07-04 05:05] VITALS: BP 128/63; TEMP 98.1; O2SAT 100
--- OUTSIDE RECORDS SUMMARY | 2021-07-04 23:30 | XMS REPORT | Continuity of Care Document ---
:1995 Author Organization [facility] t Address [address] [place] [address] Care Team Providers Name Role Phone Catherine Mora Attending Clinician Unavailable Silvano Motneiro Attending Clinician Unavailable Catherine Mora Admitting Clinician Unavailable Payers Payer Name Policy Type Policy Number Effective Date Expiration Date S ource Problems This patient has no known problems. Allergies, Adverse Reactions, Alerts Allergy Allergy Status Severity Reaction(s) Onset Inactive Treating Comm ents Source Name Type Date Date Clinician Penicill DA Active SV 2020-0 [facility] [place] S[facility] DA Active SD 2020-0 [facility] (Sulfona 3 [facility] 00:[facility]: [facility] Antibiot [facility] [facility] [place] morphine DA Active SD 2020-0 [facility] 3-19 [facility] [place] Penic[facility] DA Active SV ANAPHYLACTIC 2020-0 HC A ins SHOCK 3- [facility]: [facility] [place] Sulf[facility] DA Active SD RASH 2020-0 [facility] (Sulfona - [facility] 00:[facility]: [facility] Antibiot 00 l of ics[facility] [place] morphine DA Active SD Redness near 2020-0 HC A injection 3- [facility] site. 00:[facility]: [facility] [place] Penicill DA Active SV 2020-0 [facility] ins [facility]- [facility] [place] Sulf[facility] DA Active SD 2020-0 [facility] (Sulfona 3- [facility] 00:00: [facility] Antibiot 00 l of ics[facility] [place] morphine DA Active SD 2020-0 [facility] 3- [facility] [place] Penicill DA Active SV ANAPHYLACTIC 2020-0 HC A ins SHOCK 3- [facility] 00:[facility]: [facility] [place] Sulf[facility] DA Active SD RASH 2020-0 [facility] (Sulfona 3 [facility] 00:00: [facility] Antibiot 00 l of ics) [place] morphine DA Active SD Redness near 2020-0 HC A injection - [facility] site. 00:00: [facility] [place] Penicill DA Active SV 2019-1 [facility] ins 2 [facility] 00:[facility]: [facility] [place] Sulfa DA Active SD 2019-1 [facility] (Sulfona - [facility] 00:00: [facility] Antibiot 00 l of ics) [place] morphine DA Active SD 2019-1 [facility] 2- [facility]: [facility] [place] Penicill DA Active SV ANAPHYLACTIC 2019- HC A ins SHOCK 10-12 [facility] 00:[facility]: [facility] [place] Sulfa DA Active SD RASH 2019-1 [facility] (Sulfona 10-12 [facility] 00:00: [facility] Antibiot 00 l of ics) [place] morphine DA Active SD Redness near 2019-1 HC A injection - [facility] site. 00:00: [facility] [place] Penicill DA Active SV 2019-1 [facility] ins 1- [facility] 00:[facility]: [facility] [place] Sulfa DA Active SD 2019-1 [facility] (Sulfona 09-07 [facility] 00[facility]00: [facility] Antibiot 00 l of ics) [place] morphine DA Active SD 2019-1 [facility] 1-17 [facility] 00:[facility]: [facility] [place] morphine DA Active SD 2019-1 [facility] 1-07 [facility]: [facility] [place] Penicill DA Active SV 2019-0 [facility] ins 8 [facility]: [facility] [place] Sulfa DA Active SD 2019-0 [facility] (Sulfona 03-29 [facility] 00:00: [facility] Antibiot 00 l of ics) [place] Penicill DA Active SV 2019-0 [facility] ins 8-01 [facility] 00[facility]: [facility] [place] Sulfa DA Active SD 2018-0 [facility] (Sulfona 8-01 [facility] 00:00: [facility] Antibiot 00 l of ics) [place] Penicill DA Active SV 2018-0 [facility] ins 5-17 [facility] 00:[facility]: [facility] [place] Sulfa DA Active SD 2017-0 [facility] (Sulfona 4-12 [facility] 00:00: [facility] Antibiot 00 l of ics) [place] Medications This patient has no known medications. Procedures Procedure Date / Time Performed Performing Clinician [facility] e [id number] 2020-10-03 00:00:[address] [facility] [id number] 2020-10-03 00:00:[address] [id number] 2019-11-09 00:00:00 [facility] [id number] 2019-11-08 00:00:00 [facility] [id number] 2019-11-08 00:00:00 [facility] Encounters Start End Encounter Admission Attending Care Care Encounter Source Date/Time Date/Time Type Type Clinicians Facility Department ID 2020-10-15 Inpatient EL Ohlemacher, [facility] LD [id number] [facility] 11:43:00 Olga [id number] [facility] [place] 2020-10-07 Inpatient EL Ohlemacher, [facility] LD [id number] -20 [facility] 11:30:00 Olga [id number] [facility] [place] 2020-10-02 Inpatient Ohlemacher, [facility] BERNIE [id number] -20 [facility] 11:50:00 Olga [id number] [facility] [place] 2020-09-29 Inpatient Ohlemacher, [facility] BERNIE [id number] [facility] 11:10:00 [facility] [place] 2020-08-15 Inpatient Ohlemacher, [facility] BERNIE [id number] -20 [facility] 19:40:00 Olga [id number] [facility] [place] 2020-04-22 Inpatient [facility] LARRY [id number] [facility] 21:42:00 [facility] [place] 2019-11-14 Inpatient EL Ohlemacher, [facility] LD [id number] [facility] 12:51:00 Olga [id number] [facility] [place] 2019-11-08 Inpatient EL Ohlemacher, [facility] LD [id number] -20 [facility] 18:09:00 Olga [id number] [facility] [place] 2019-10-22 Inpatient Ohlemacher, [facility] BERNIE [id number] -20 [facility] 22:39:00 [facility] [place] 2019-09-08 Inpatient Ohlemacher, [facility] BERNIE [id number] [facility] 01:48:00 Olga [id number] [facility] [place] 2019-10-09 2019-10-09 Outpatient EL Ohlemacher, [facility] RADI [id number] [facility] 13:51:00 13:51:00 Olga [id number] [facility] [place] 2019-09-06 2019-09-06 Outpatient Monteiro, [facility] [id number] -20 [facility] 13:32:00 13:32:00 Kamila [id number] [facility] Results Test Description Test Time Test Comments Results Result [facility] e Comments - DUP VEIN UNI RT 2020-10-05 14:06:00 [facility] : 1995 Sex: F Patient Name: SIMONE MARTÍNEZ Unit No: [id number] EXAMS: CPT CODE: [id number] [address] Exam: RIGHT lower extremity venous Doppler ultrasound, unilateral Indication: Right lower extremity swelling. Comparison: Right lower extremity venous Doppler 10/09/2019. Technique: Sonographic evaluation of the right lower extremity veins was performed using high resolution B-mode, pulse and color Doppler imaging. FINDINGS: The common femoral, femoral, popliteal and visualized calf veins are patent. Normal venous waveforms. The saphenofemoral junction is unremarkable. IMPRESSION: No right lower extremity deep venous thrombus. at 1406 Reported and signed by: Hadley Anthony MD CC: Olga Mora MD; Duane Carey MD Technologist: Lisbeth Calles RDMS Probe: Trnscrbd D/ (1406) [id number] Orig Print D/T: S: 10/05/2020 (1416) [facility] NAME: SIMONE MARTÍNEZ Radiology Department PHYS: Duane Klein [address] : 1995 AGE: 25 SEX: F [place] [address] LOC: F.4668 A PHONE #: [phone] EXAM DATE: 10/05/2020 STATUS: ADM IN FAX #: [phone] RAD NO: Page 1 Signed Report Patient Name: SIMONE MARTÍNEZ Unit No: [id number] EXAMS: CPT CODE: [id number] [id number] <Continued> [facility] NAME: [facility] Radiology Department PHYS: RICARDO Maxim Duane Carey [address] : 1995 AGE: 25 SEX: F [place], [place] [address] LOC: F.4668 A PHONE #: [phone] EXAM DATE: 10/05/2020 STATUS: ADM IN FAX #: [phone] RAD NO: Page 2 Signed Report URINALYSIS COMPLETE 2020-10-02 18:42:00 Test Item Value Reference Range Interpretation Comme nts UA COLOR (test code = COLU) YELLOW YELLOW UA APPEARANCE (test code = APPU) Slightly-Cloudy CLEAR UA GLUCOSE DIPSTICK (test code = DGLUU) NEGATIVE NEG UA BILIRUBIN DIPSTICK (test code = BILU) NEGATIVE NEG UA KETONE DIPSTICK (test code = KETU) TRACE NEG A UA SPECIFIC GRAVITY (test code = SGU) 1.026 1.001-1.035 N UA BLOOD DIPSTICK (test code = IVONNE) NEG NEG UA PH DIPSTICK (test code = GEREMIAS) 6.0 5-9 UA PROTEIN DIPSTICK (test code = PROU) NEGATIVE NEG UA UROBILINIOGEN DIPSTICK (test code = URO) 4.0 mg/dL NEG A UA NITRITE DIPSTICK (test code = ELBA) NEG NEG UA LEUKOCYTE ESTERASE DIPSTICK (test code = LEUU) TRACE NEG A UA WBC (test code = WBCU) 3-5 #/hpf NONE SEEN A UA RBC (test code = RBCU) 0-2 #/hpf NONE SEEN UA EPITHELIAL CELLS (test code = EPIU) FEW #/HPF RARE-FEW UA BACTERIA (test code = BACU) FEW /HPF RARE-FEW UA MUCUS (test code = MUCU) 1+ NONE SEEN URINE SAMPLE: CLEAN CATCHAG HEPATITIS B [id number] 17:08:00 Test Item Value Reference Range Interpretation Comments AG HEPATITIS B SURFACE (test code NONREACTIVE NONREACTIVE = HBSAG) IS CONSENT FORM SIGNED FOR HIV TESTING? YAB HEPATITIS C [id number] 17:08:00 Test Item Value Reference Range Interpretation Comments AB HEPATITIS C (test code = NONREACTIVE NONREACTIVE HCVAB) SIGNAL TO CUTOFF (test code = <0.02 <0.80 N CUTOFF) IS CONSENT FORM SIGNED FOR HIV TESTING? YAB [id number] 17:08:00 Test Item Value Reference Range Interpretation Comments AB TREPONEMA (test code = TREPAB) NONREACTIVE NONREACTIVE IS CONSENT FORM SIGNED FOR HIV TESTING? YAB HIV 1 17:08:00 Test Item Value Reference Range Interpretation Comments AB HIV 1 2 (test NONREACTIVE NONREACTIVE Done by Hilda Strickland code = [id number]) 4th Gen HIV Ag/Ab Combo Screen IS CONSENT FORM SIGNED FOR HIV TESTING? YAG HEPATITIS B [id number] 15:58:00 Test Item Value Reference Range Interpretation Comments AG HEPATITIS B SURFACE (test code NONREACTIVE NONREACTIVE = HBSAG) IS CONSENT FORM SIGNED FOR HIV TESTING? YAB HEPATITIS C [id number] 15:58:00 Test Item Value Reference Range Interpretation Comments AB HEPATITIS C (test code = HCVAB) NONREACTIVE SIGNAL TO CUTOFF (test code = CUTOFF) <0.80 IS CONSENT FORM SIGNED FOR HIV TESTING? YAB [id number] 15:58:00 Test Item Value Reference Range Interpretation Comments AB TREPONEMA (test code = TREPAB) NONREACTIVE NONREACTIVE IS CONSENT FORM SIGNED FOR HIV TESTING? YAB HIV 1 15:58:00 Test Item Value Reference Range Interpretation Comments AB HIV 1 2 (test code = [id number]) NONREACTIVE IS CONSENT FORM SIGNED FOR HIV TESTING? YCBC W/AUTO [id number] 15:34:00 Test Item Value Reference Range Interpretation Comments WHITE BLOOD CELL (test code = WBC) 10.5 K/mm3 6.5-12.3 N RED BLOOD CELL (test code = RBC) 3.93 M/mm3 3.51-4.69 N HEMOGLOBIN (test code = HGB) 10.5 g/dL 10.1-13.8 N HEMATOCRIT (test code = HCT) 33.7 % 32.5-41.8 N MEAN CELL VOLUME (test code = MCV) 85.8 fL 84.6-96.6 N MEAN CELL HGB (test code = MCH) 26.7 pg 27.3-33.9 L MEAN CELL HGB CONCETRATION (test 31.2 gm/dL 32.0-34.2 L code = MCHC) RED CELL DISTRIBUTION WIDTH (test 13.8 % 12.2-16.3 N code = RDW) PLATELET COUNT (test code = PLT) 325 K/mm3 134-363 N MEAN PLATELET VOLUME (test code = 10.1 fL 9.2-12.7 N MPV) NEUTROPHIL % (test code = NT%) 76.8 % 57.9-77.3 N LYMPHOCYTE % (test code = LY%) 17.3 % 14.5-29.7 N MONOCYTE % (test code = MO%) 4.5 % 3.6-10.2 N EOSINOPHIL % (test code = EO%) 0.7 % 0.0-3.0 N BASOPHIL % (test code = BA%) 0.3 % 0.1-0.9 N NEUTROPHIL # (test code = NT#) 8.0 K/mm3 LYMPHOCYTE # (test code = LY#) 1.8 K/mm3 MONOCYTE # (test code = MO#) 0.5 K/mm3 EOSINOPHIL # (test code = EO#) 0.07 K/mm3 BASOPHIL # (test code = BA#) 0.0 K/mm3 RBC MORPHOLOGY REQUIRED (test code NORMAL NORMAL = RBCM) PLATELET MORPHOLOGY REQUIRED (test NORMAL NORMAL code = PLTMR) COVID 19 Asymptomatic IH [id number] 14:42:00 Test Item Value Reference Range Interpretation Comments COVID 19 NEGATIVE NEGATIVE This test has b een Asymptomatic IH AG authorize d only for the (test code = detection ofpro teins from COVNONPUIAG) SARS-CoV-2, not for any other viruses orpathogens. N egative results should be treated as presumptive andconfirmed wi th a molecular assay , if necessary for patientmanageme nt. Negative result s do not rule out COVID- 19 andshould not b e used as the sole basis for treatment orpat ient management deci sions, including infec tion controldecision s. Negative result s should be considered i n thecontext of a patient's recent exposure s, history and thepresence of clinical signs and symptoms consis tent withCOVID-19. T his test has not been FD A cleared or approved; th e test hasbeen authori zed by FDA under an Emerge ncy Use Authorization(E UA) for use by laborato poly certified under the CLIA thatmeet the re quirements to perform mode rate, high or waivedcomple xity tests. This efraín t is authorized for use at thePoint of Car e (POC), i.e., in patien t care settingsoperati ng under a CLIA Certificat e of Waiver, Certifi love ofCompliance, o r Certificate of Accreditation. This test is only authori zed for the duration of thedeclaration that circumstances e xist justifying theauthorizatio n of emergency use o f in vitro diagnostic test sfor detection and/o r diagnosis of CO VID-19 under Bfpofdv30 4(b)(1) of the Act, 21 U.S .C. 360bbb-3(b)(1), unless theauthorizatio n is terminated or r evoked sooner. RUPTURE OF [id number] 11:50:00 Test Item Value Reference Range Interpretation Comments RUPTURE OF MEMBRANES (test code NON-RUPTURED = ROM) CBC W/AUTO [id number] 20:47:00 Test Item Value Reference Range Interpretation Comments WHITE BLOOD CELL (test code = WBC) 10.1 K/mm3 6.6-12.1 N RED BLOOD CELL (test code = RBC) 3.92 M/mm3 3.45-5.01 N HEMOGLOBIN (test code = HGB) 10.7 g/dL 10.7-13.9 N HEMATOCRIT (test code = HCT) 34.0 % 32.1-42.1 N MEAN CELL VOLUME (test code = MCV) 87 fL 84.1-94.8 N MEAN CELL HGB (test code = MCH) 27.3 pg 27-35 N MEAN CELL HGB CONCETRATION (test 31.5 gm/dL 32.2-34.1 L code = MCHC) RED CELL DISTRIBUTION WIDTH (test 13.5 % 12.4-16.5 N code = RDW) PLATELET COUNT (test code = PLT) 311 K/mm3 133-385 N MEAN PLATELET VOLUME (test code = 9.4 fl 9.1-12.7 N MPV) NEUTROPHIL % (test code = NT%) 72.2 % 56.5-79.4 N LYMPHOCYTE % (test code = LY%) 21.7 % 14.3-34.3 N MONOCYTE % (test code = MO%) 4.5 % 5.1-10.4 L EOSINOPHIL % (test code = EO%) 1.1 % 0.1-3.0 N BASOPHIL % (test code = BA%) 0.2 % 0.1-1.0 N NEUTROPHIL # (test code = NT#) 7.3 K/mm3 LYMPHOCYTE # (test code = LY#) 2.2 K/mm3 MONOCYTE # (test code = MO#) 0.5 K/mm3 EOSINOPHIL # (test code = EO#) 0.11 K/mm3 BASOPHIL # (test code = BA#) 0.0 K/mm3 RBC MORPHOLOGY REQUIRED (test code NORMAL NORMAL = RBCM) PLATELET MORPHOLOGY REQUIRED (test NORMAL NORMAL code = PLTMR) UA RFLX MICR CULT IF [id number] 20:36:00 Test Item Value Reference Range Interpretation Comments UA COLOR (test code = COLU) YELLOW YELLOW UA APPEARANCE (test code = Slightly-Cloudy CLEAR APPU) UA GLUCOSE DIPSTICK (test NEGATIVE NEG code = DGLUU) UA BILIRUBIN DIPSTICK (test NEGATIVE NEG code = BILU) UA KETONE DIPSTICK (test code TRACE NEG A = KETU) UA SPECIFIC GRAVITY (test 1.027 1.001-1.035 N code = SGU) UA BLOOD DIPSTICK (test code NEG NEG = IVONNE) UA PH DIPSTICK (test code = 6.0 5-9 GEREMIAS) UA PROTEIN DIPSTICK (test 1+ NEG A code = PROU) UA UROBILINIOGEN DIPSTICK NEGATIVE mg/dL NEG (test code = URO) UA NITRITE DIPSTICK (test NEG NEG code = ELBA) UA LEUKOCYTE ESTERASE NEG NEG DIPSTICK (test code = LEUU) UA WBC (test code = WBCU) 0-2 #/hpf NONE SEEN UA RBC (test code = RBCU) 3-5 #/hpf NONE SEEN A UA EPITHELIAL CELLS (test MODERATE #/HPF RARE-FEW A code = EPIU) UA BACTERIA (test code = MODERATE /HPF RARE-FEW A BACU) UA MUCUS (test code = MUCU) 2+ NONE SEEN Indication for culture: Suprapubic PainSpecimen Description: CLEAN CATCHUA RFLX MICR CULT IF [id number] 23:00:00 Test Item Value Reference Range Interpretation Comments UA COLOR (test code = COLU) YELLOW YELLOW UA APPEARANCE (test code = Slightly-Cloudy CLEAR APPU) UA GLUCOSE DIPSTICK (test NEGATIVE NEG code = DGLUU) UA BILIRUBIN DIPSTICK (test NEGATIVE NEG code = BILU) UA KETONE DIPSTICK (test code NEGATIVE NEG = KETU) UA SPECIFIC GRAVITY (test 1.029 1.001-1.035 N code = SGU) UA BLOOD DIPSTICK (test code NEG NEG = IVONNE) UA PH DIPSTICK (test code = 5.0 5-9 GEREMIAS) UA PROTEIN DIPSTICK (test NEGATIVE NEG code = PROU) UA UROBILINIOGEN DIPSTICK NEGATIVE mg/dL NEG (test code = URO) UA NITRITE DIPSTICK (test NEG NEG code = ELBA) UA LEUKOCYTE ESTERASE NEG NEG DIPSTICK (test code = LEUU) UA WBC (test code = WBCU) 3-5 #/hpf NONE SEEN A UA RBC (test code = RBCU) 6-10 #/hpf NONE SEEN A UA EPITHELIAL CELLS (test RARE #/HPF RARE-FEW code = EPIU) UA BACTERIA (test code = RARE /HPF RARE-FEW BACU) UA HYALINE CAST (test code = NONE SEEN #/hpf HYALU) UA MUCUS (test code = MUCU) 4+ NONE SEEN Indication for culture: Suprapubic PainCOMPREHENSIVE METABOLIC PANEL 2020-04-22 22:47:00 Test Item Value Reference Range Interpretation Comments SODIUM (test code = NA) 138 mEq/L 135-145 N POTASSIUM (test code = K) 3.8 mEq/L 3.5-5.0 N CHLORIDE (test code = CL) 103 mEq/L 100-115 N CARBON DIOXIDE (test code = CO2) 27 mEq/L 22-31 N ANION GAP (test code = GAP) 12.30 10-20 N GLUCOSE (test code = GLU) 109 mg/dL 65-110 N BLOOD UREA NITROGEN (test code = 10 mg/dL 7-18 N BUN) GLOMERULAR FILTRATION RATE (test 87 ml/min >60 N code = GFR) CREATININE (test code = CREAT) 0.8 mg/dL 0.5-1.0 N TOTAL PROTEIN (test code = PROT) 6.9 gm/dL 6.3-8.2 N ALBUMIN (test code = ALB) 3.0 gm/dL 3.4-4.8 L CALCIUM (test code = CA) 9.0 mg/dL 8.4-10.2 N BILIRUBIN TOTAL (test code = BILT) 0.4 mg/dL 0.2-1.0 N SGOT/AST (test code = AST) 25 units/L 15-37 N SGPT/ALT (test code = ALT) 30 units/L 12-78 N ALKALINE PHOSPHATASE TOTAL (test 66 units/L 46-116 N code = ALKP) CBC W/AUTO [id number] 22:22:00 Test Item Value Reference Range Interpretation Comments WHITE BLOOD CELL (test code = WBC) 9.6 K/mm3 6.6-12.1 N RED BLOOD CELL (test code = RBC) 4.14 M/mm3 3.45-5.01 N HEMOGLOBIN (test code = HGB) 11.3 g/dL 10.7-13.9 N HEMATOCRIT (test code = HCT) 35.5 % 32.1-42.1 N MEAN CELL VOLUME (test code = MCV) 86 fL 84.1-94.8 N MEAN CELL HGB (test code = MCH) 27.3 pg 27-35 N MEAN CELL HGB CONCETRATION (test 31.8 gm/dL 32.2-34.1 L code = MCHC) RED CELL DISTRIBUTION WIDTH (test 14.5 % 12.4-16.5 N code = RDW) PLATELET COUNT (test code = PLT) 289 K/mm3 133-385 N MEAN PLATELET VOLUME (test code = 9.9 fl 9.1-12.7 N MPV) NEUTROPHIL % (test code = NT%) 67.2 % 56.5-79.4 N LYMPHOCYTE % (test code = LY%) 26.2 % 14.3-34.3 N MONOCYTE % (test code = MO%) 4.2 % 5.1-10.4 L EOSINOPHIL % (test code = EO%) 1.9 % 0.1-3.0 N BASOPHIL % (test code = BA%) 0.2 % 0.1-1.0 N NEUTROPHIL # (test code = NT#) 6.4 K/mm3 LYMPHOCYTE # (test code = LY#) 2.5 K/mm3 MONOCYTE # (test code = MO#) 0.4 K/mm3 EOSINOPHIL # (test code = EO#) 0.18 K/mm3 BASOPHIL # (test code = BA#) 0.0 K/mm3 RBC MORPHOLOGY REQUIRED (test code NORMAL NORMAL = RBCM) PLATELET MORPHOLOGY REQUIRED (test NORMAL NORMAL code = PLTMR) URINALYSIS [id number] 02:43:00 Test Item Value Reference Range Interpretation Comments UA COLOR (test code = YELLOW YELLOW COLU) UA APPEARANCE (test code Slightly-Cloudy CLEAR = APPU) UA GLUCOSE DIPSTICK (test NEGATIVE NEG code = DGLUU) UA BILIRUBIN DIPSTICK NEGATIVE NEG (test code = BILU) UA KETONE DIPSTICK (test NEGATIVE NEG code = KETU) UA SPECIFIC GRAVITY (test 1.027 1.001-1.035 N code = SGU) UA BLOOD DIPSTICK (test 3+ NEG A code = IVONNE) UA PH DIPSTICK (test code 5.0 5-9 = GEREMIAS) UA PROTEIN DIPSTICK (test NEGATIVE NEG code = PROU) UA UROBILINIOGEN DIPSTICK NEGATIVE mg/dL NEG (test code = URO) UA NITRITE DIPSTICK (test NEG NEG code = ELBA) UA LEUKOCYTE ESTERASE 2+ NEG A DIPSTICK (test code = LEUU) UA WBC (test code = WBCU) TOO NUMEROUS TO CNT NONE SEEN A #/hpf UA RBC (test code = RBCU) TOO NUMEROUS TO CNT NONE SEEN A #/hpf UA EPITHELIAL CELLS (test FEW #/HPF RARE-FEW code = EPIU) UA CALCIUM OXALATE 6-10 #/LPF CRYSTALS (test code = CAOXU) UA MUCUS (test code = RARE NONE SEEN MUCU) URINE SAMPLE: CLEAN CATCHAG HEPATITIS B [id number] 20:05:00 Test Item Value Reference Range Interpretation Comments AG HEPATITIS B SURFACE (test code NONREACTIVE NONREACTIVE = HBSAG) AB HEPATITIS C [id number] 20:05:00 Test Item Value Reference Range Interpretation Comments AB HEPATITIS C (test code = NONREACTIVE NONREACTIVE HCVAB) SIGNAL TO CUTOFF (test code = 0.05 <0.80 N CUTOFF) AB [id number] 20:05:00 Test Item Value Reference Range Interpretation Comments AB TREPONEMA (test code = TREPAB) NONREACTIVE NONREACTIVE AG HEPATITIS B [id number] 19:45:00 Test Item Value Reference Range Interpretation Comments AG HEPATITIS B SURFACE (test code NONREACTIVE NONREACTIVE = HBSAG) AB HEPATITIS C [id number] 19:45:00 Test Item Value Reference Range Interpretation Comments AB HEPATITIS C (test code = HCVAB) NONREACTIVE SIGNAL TO CUTOFF (test code = CUTOFF) <0.80 AB [id number] 19:45:00 Test Item Value Reference Range Interpretation Comments AB TREPONEMA (test code = TREPAB) NONREACTIVE NONREACTIVE PIH [id number] 19:03:00 Test Item Value Reference Range Interpretation Comments CREATININE (test code = CREAT) 0.4 mg/dL 0.5-1.0 L SGOT/AST (test code = AST) 60 units/L 15-37 H SGPT/ALT (test code = ALT) 38 units/L 12-78 N LACTIC DEHYDROGENASE(LDH) (test 537 units/L 81-234 H code = LDH) : *CBC W/AUTO [id number] 18:45:00 Test Item Value Reference Range Interpretation Comments WHITE BLOOD CELL (test code = WBC) 10.2 K/mm3 6.6-12.1 N RED BLOOD CELL (test code = RBC) 3.79 M/mm3 3.45-5.01 N HEMOGLOBIN (test code = HGB) 10.2 g/dL 10.7-13.9 L HEMATOCRIT (test code = HCT) 32.9 % 32.1-42.1 N MEAN CELL VOLUME (test code = MCV) 87 fL 84.1-94.8 N MEAN CELL HGB (test code = MCH) 26.9 pg 27-35 L MEAN CELL HGB CONCETRATION (test 31.0 gm/dL 32.2-34.1 L code = MCHC) RED CELL DISTRIBUTION WIDTH (test 14.3 % 12.4-16.5 N code = RDW) PLATELET COUNT (test code = PLT) 302 K/mm3 133-385 N MEAN PLATELET VOLUME (test code = 10.4 fl 9.1-12.7 N MPV) NEUTROPHIL % (test code = NT%) 73.5 % 56.5-79.4 N LYMPHOCYTE % (test code = LY%) 19.9 % 14.3-34.3 N MONOCYTE % (test code = MO%) 5.3 % 5.1-10.4 N EOSINOPHIL % (test code = EO%) 0.8 % 0.1-3.0 N BASOPHIL % (test code = BA%) 0.2 % 0.1-1.0 N NEUTROPHIL # (test code = NT#) 7.5 K/mm3 LYMPHOCYTE # (test code = LY#) 2.0 K/mm3 MONOCYTE # (test code = MO#) 0.5 K/mm3 EOSINOPHIL # (test code = EO#) 0.08 K/mm3 BASOPHIL # (test code = BA#) 0.0 K/mm3 RBC MORPHOLOGY REQUIRED (test code NORMAL NORMAL = RBCM) PLATELET MORPHOLOGY REQUIRED (test NORMAL NORMAL code = PLTMR) AMNISURE (ROM) [id number] 03:20:00 Test Item Value Reference Range Interpretation Comments AMNISURE (ROM) TEST (test code = NON-RUPTURED NON-RUPTURE AMNI) : *Comments to Ophthalmic Aide: LUISA Kennedy QC OK? YES- DUP VEIN UNI [id number] 15:19:00 Patient Name: SIMONE MARTÍNEZ Unit No: [id number] EXAMS: CPT CODE: [id number] [address] RIGHT LEG DUPLEX VENOUS DOPPLER ULTRASOUND, 10/09/2019 COMPARISON: None CLINICAL HISTORY: 35WKS, ASSESS FOR DVT RT LEG FINDINGS: Sonographic evaluation of the deep venous s ystem of the right leg was performed to the level of the ankle. There is normal Doppler flow and venous compressibility throughout. No sonographic evidence of deep venous thrombosis. Incidental note is made of a few small right inguinal lymph nodes, measuring up to 2.7 cm in size. CONCLUSION: No sonographic evidence of deep venous thrombosis in the right leg. at 1519 Reported and signed by: Sy Conti MD CC: Olga Mora MD Technologist: Ifeanyi Parekh RDMS, RVT Probe: Trnscrbd D/ (1519) [id number] Orig Print D/T: S: 10/09/2019 (7612) [facility] NAME: JOSEPH MARTÍNEZY Radiology Department PHYS: Olga Mejía [address] : 1995 AGE: 24 SEX: F [place] [address] LOC: F.RAD PHONE #: [phone] EXAM DATE: 10/09/2019 STATUS: REG CLI FAX #: [phone] RAD NO: Page 1 Signed Report Patient Name: SIMONE MARTÍNEZ Unit No: [id number] EXAMS: CPT CODE: [id number] [place] [address] <Continued> [facility] NAME: SIMONE MARTÍNEZ Radiology Department PHYS: Olga Mejía [address] : 1995 AGE: 24 SEX: F [place] [address] LOC: SASKIA PHONE #: [phone] EXAM DATE: 10/09/2019 STATUS: REG LUCIO FAX #: [phone] RAD NO: Page 2 Signed ReportURINALYSIS COMPLETE 2019-09-08 03:02:00 Test Item Value Reference Range Interpretation Comments UA COLOR (test code = COLU) YELLOW YELLOW UA APPEARANCE (test code = Slightly-Cloudy CLEAR APPU) UA GLUCOSE DIPSTICK (test NEGATIVE NEG code = DGLUU) UA BILIRUBIN DIPSTICK (test NEGATIVE NEG code = BILU) UA KETONE DIPSTICK (test code NEGATIVE NEG = KETU) UA SPECIFIC GRAVITY (test 1.031 1.001-1.035 N code = SGU) UA BLOOD DIPSTICK (test code NEG NEG = IVONNE) UA PH DIPSTICK (test code = 5.0 5-9 GEREMIAS) UA PROTEIN DIPSTICK (test NEGATIVE NEG code = PROU) UA UROBILINIOGEN DIPSTICK 2.0 mg/dL NEG (test code = URO) UA NITRITE DIPSTICK (test NEG NEG code = ELBA) UA LEUKOCYTE ESTERASE TRACE NEG A DIPSTICK (test code = LEUU) UA WBC (test code = WBCU) 6-10 #/hpf NONE SEEN A UA RBC (test code = RBCU) 6-10 #/hpf NONE SEEN A UA EPITHELIAL CELLS (test FEW #/HPF RARE-FEW code = EPIU) UA BACTERIA (test code = RARE /HPF RARE-FEW BACU) UA MUCUS (test code = MUCU) 4+ NONE SEEN URINE SAMPLE: CLEAN CATCHUR PROTEIN/CREATININE [id number] 03:02:00 Test Item Value Reference Range Interpretation Comments UR PROTEIN RANDOM (test code = 33.3 mg/dL PROTU) UR CREATININE RANDOM (test 300.2 mg/dL code = CREATU) PROTEIN/CREATININE RATIO (test 110.0 mg/gcrea <200 code = P/CRATIO) URINE SAMPLE: CLEAN CATCHCOMPREHENSIVE METABOLIC [id number] 03:02:00 Test Item Value Reference Range Interpretation Comments SODIUM (test code = NA) 140 mEq/L 135-145 N POTASSIUM (test code = K) 4.1 mEq/L 3.5-5.0 N CHLORIDE (test code = CL) 105 mEq/L 100-115 N CARBON DIOXIDE (test code = CO2) 26 mEq/L 22-31 N ANION GAP (test code = GAP) 13.50 10-20 N GLUCOSE (test code = GLU) 86 mg/dL 65-110 N BLOOD UREA NITROGEN (test code = 11 mg/dL 7-18 N BUN) GLOMERULAR FILTRATION RATE (test 122 ml/min >60 N code = GFR) CREATININE (test code = CREAT) 0.6 mg/dL 0.5-1.0 N TOTAL PROTEIN (test code = PROT) 6.5 gm/dL 6.3-8.2 N ALBUMIN (test code = ALB) 2.9 gm/dL 3.4-4.8 L CALCIUM (test code = CA) 8.8 mg/dL 8.4-10.2 N BILIRUBIN TOTAL (test code = 0.2 mg/dL 0.2-1.0 N BILT) SGOT/AST (test code = AST) 42 units/L 15-37 H SGPT/ALT (test code = ALT) 73 units/L 12-78 N ALKALINE PHOSPHATASE TOTAL (test 101 units/L 46-116 N code = ALKP) URIC [id number] 03:02:00 Test Item Value Reference Range Interpretation Comments URIC ACID (test code = URIC) 3.2 mg/dL 2.6-6.0 N LACTIC DEHYDROGENASE(LDH)2019-09-08 03:02:00 Test Item Value Reference Range Interpretation Comments LACTIC DEHYDROGENASE(LDH) (test 170 units/L 81-234 N code = LDH) URINALYSIS [id number] 02:30:00 Test Item Value Reference Range Interpretation Comments UA COLOR (test code = COLU) YELLOW YELLOW UA APPEARANCE (test code = Slightly-Cloudy CLEAR APPU) UA GLUCOSE DIPSTICK (test NEGATIVE NEG code = DGLUU) UA BILIRUBIN DIPSTICK (test NEGATIVE NEG code = BILU) UA KETONE DIPSTICK (test code NEGATIVE NEG = KETU) UA SPECIFIC GRAVITY (test 1.031 1.001-1.035 N code = SGU) UA BLOOD DIPSTICK (test code NEG NEG = IVONEN) UA PH DIPSTICK (test code = 5.0 5-9 GEREMIAS) UA PROTEIN DIPSTICK (test NEGATIVE NEG code = PROU) UA UROBILINIOGEN DIPSTICK 2.0 mg/dL NEG (test code = URO) UA NITRITE DIPSTICK (test NEG NEG code = ELBA) UA LEUKOCYTE ESTERASE TRACE NEG A DIPSTICK (test code = LEUU) UA WBC (test code = WBCU) 6-10 #/hpf NONE SEEN A UA RBC (test code = RBCU) 6-10 #/hpf NONE SEEN A UA EPITHELIAL CELLS (test FEW #/HPF RARE-FEW code = EPIU) UA BACTERIA (test code = RARE /HPF RARE-FEW BACU) UA MUCUS (test code = MUCU) 4+ NONE SEEN URINE SAMPLE: CLEAN CATCHUR PROTEIN/CREATININE [id number] 02:30:00 Test Item Value Reference Range Interpretation Comments UR PROTEIN RANDOM (test code = mg/dL PROTU) UR CREATININE RANDOM (test code = mg/dL CREATU) PROTEIN/CREATININE RATIO (test code mg/gcrea <200 = P/CRATIO) URINE SAMPLE: CLEAN CATCHCBC W/AUTO [id number] 02:27:00 Test Item Value Reference Range Interpretation Comments WHITE BLOOD CELL (test code = WBC) 10.9 K/mm3 6.6-12.1 N RED BLOOD CELL (test code = RBC) 4.03 M/mm3 3.45-5.01 N HEMOGLOBIN (test code = HGB) 11.1 g/dL 10.7-13.9 N HEMATOCRIT (test code = HCT) 35.8 % 32.1-42.1 N MEAN CELL VOLUME (test code = MCV) 89 fL 84.1-94.8 N MEAN CELL HGB (test code = MCH) 27.5 pg 27-35 N MEAN CELL HGB CONCETRATION (test 31.0 gm/dL 32.2-34.1 L code = MCHC) RED CELL DISTRIBUTION WIDTH (test 13.6 % 12.4-16.5 N code = RDW) PLATELET COUNT (test code = PLT) 302 K/mm3 133-385 N MEAN PLATELET VOLUME (test code = 9.4 fl 9.1-12.7 N MPV) NEUTROPHIL % (test code = NT%) 69.8 % 56.5-79.4 N LYMPHOCYTE % (test code = LY%) 23.3 % 14.3-34.3 N MONOCYTE % (test code = MO%) 5.2 % 5.1-10.4 N EOSINOPHIL % (test code = EO%) 1.0 % 0.1-3.0 N BASOPHIL % (test code = BA%) 0.2 % 0.1-1.0 N NEUTROPHIL # (test code = NT#) 7.6 K/mm3 LYMPHOCYTE # (test code = LY#) 2.5 K/mm3 MONOCYTE # (test code = MO#) 0.6 K/mm3 EOSINOPHIL # (test code = EO#) 0.11 K/mm3 BASOPHIL # (test code = BA#) 0.0 K/mm3 RBC MORPHOLOGY REQUIRED (test code NORMAL NORMAL = RBCM) PLATELET MORPHOLOGY REQUIRED (test NORMAL NORMAL code = PLTMR) [id number] 14:03:00 Test Item Value Reference Range Interpretation Comments FIBRONECTIN NEGATIVE Among symp tomatic (test code = FFN) women, juan vated levels (>0.05 ug/mL) o ffFN between 24 week s and 34 weeks, 6 days i ndicate increasedrisk o f delivery in <= 7 or <= 14 days from samplecollectio n. Similarly, charlette g asymptomatic wo men, elevated levels of fFNbetween 22 w eeks and 30 weeks, 6 day s indicate increa sedrisk of delivery in <= 34 weeks, 6 days o f gestation. FAX:[phone] [id number] 13:43:00 Test Item Value Reference Range Interpretation Comments FIBRONECTIN NEGATIVE Among symp tomatic (test code = FFN) women, juan vated levels (>0.05 ug/mL) o ffFN between 24 week s and 34 weeks, 6 days i ndicate increasedrisk o f delivery in <= 7 or <= 14 days from samplecollectio n. Similarly, charlette g asymptomatic wo men, elevated levels of fFNbetween 22 w eeks and 30 weeks, 6 day s indicate increa sedrisk of delivery in <= 34 weeks, 6 days o f gestation. URINALYSIS [id number] 13:32:00 Test Item Value Reference Range Interpretation Comments UA COLOR (test code = COLU) YELLOW YELLOW UA APPEARANCE (test code = Slightly-Cloudy CLEAR APPU) UA GLUCOSE DIPSTICK (test NEGATIVE NEG code = DGLUU) UA BILIRUBIN DIPSTICK (test NEGATIVE NEG code = BILU) UA KETONE DIPSTICK (test code NEGATIVE NEG = KETU) UA SPECIFIC GRAVITY (test 1.028 1.001-1.035 N code = SGU) UA BLOOD DIPSTICK (test code NEG NEG = IVONNE) UA PH DIPSTICK (test code = 6.0 5-9 GEREMIAS) UA PROTEIN DIPSTICK (test 1+ NEG A code = PROU) UA UROBILINIOGEN DIPSTICK NEGATIVE mg/dL NEG (test code = URO) UA NITRITE DIPSTICK (test NEG NEG code = ELBA) UA LEUKOCYTE ESTERASE NEG NEG DIPSTICK (test code = LEUU) UA WBC (test code = WBCU) 3-5 #/hpf NONE SEEN A UA RBC (test code = RBCU) 3-5 #/hpf NONE SEEN A UA EPITHELIAL CELLS (test FEW #/HPF RARE-FEW code = EPIU) UA BACTERIA (test code = FEW /HPF RARE-FEW BACU) UA MUCUS (test code = MUCU) 3+ NONE SEEN - NM PULM PERF [id number] 04:29:00 Patient Name: SIMONE MARTÍNEZ Unit No: [id number] EXAMS: CPT CODE: [id number] NM PULM PERF PARTIC 72340 Nuclear medicine pulmonary perfusion scan dated 07/08/2019. [...] Kristen Maldonado MD; Olga Mora MD Technologist: Matt Pearce Trnscrbd D/ (0429) [place]ider Orig Print D/T: S: 07/08/2019 (0433) [facility] NAME: SIMONE MARTÍNEZ Radiology Department PHYS: BRODY.01 - Kristen Maldonado [address] : 1995 AGE: 24 SEX: F [place], [place] [address] LOC: VirginieERS PHONE #: [phone] EXAM DATE: 07/08/2019 STATUS: REG ER FAX #: [phone] RAD NO: Page 1 Signed Report- XR CHEST 1 [id number] 00:45:00 Patient Name: SIMONE MARTÍNEZ Unit No: [id number] EXAMS: CPT CODE: [id number] XR CHEST 1 V 13873 Chest, single view dated 07/08/2019. HISTORY: 21 weeks . Shortness of breath. No prior studies are available for comparison. The heart is normal in size. The cardi omediastinal shadow appears within normal limits. The lungs appear clear. The pulmonary vasculature is normal in caliber. No acute pleural space abnormalities are detected. IMPRESSION: 1. No radiographic evidence of acute cardiopulmonary disease. SL: 131 at 0045 Reported and signed by: Bernardino Wilkins MD CC: Kristen Maldonado MD; Olga Mora MD Technologist: RT Janeth Trnscrbd D/ (0045) Haider Orig Print D/T: S: 07/08/2019 (0048) [facility] [place] [facility] NAME: SIMONE MARTÍNEZ Radiology Department PHYS: GUTAL.01 - Kristen Maldonado [address] : 1995 AGE: 24 SEX: F [place], [place] [address] LOC: VirginieERS PHONE#: [phone] EXAM DATE: 07/08/2019 STATUS: REG ER FAX #: [phone] RAD NO: Page 1 Signed Report COMPREHENSIVE METABOLIC [id number] 00:24:00 Test Item Value Reference Range Interpretation Comments SODIUM (test code = NA) 138 mEq/L 135-145 N POTASSIUM (test code = K) 3.5 mEq/L 3.5-5.0 N CHLORIDE (test code = CL) 102 mEq/L 100-115 N CARBON DIOXIDE (test code = CO2) 25 mEq/L 22-31 N ANION GAP (test code = GAP) 14.80 10-20 N GLUCOSE (test code = GLU) 116 mg/dL 65-110 H BLOOD UREA NITROGEN (test code = 11 mg/dL 7-18 N BUN) GLOMERULAR FILTRATION RATE (test 122 ml/min >60 N code = GFR) CREATININE (test code = CREAT) 0.6 mg/dL 0.5-1.0 N TOTAL PROTEIN (test code = PROT) 7.6 gm/dL 6.3-8.2 N ALBUMIN (test code = ALB) 3.1 gm/dL 3.4-4.8 L CALCIUM (test code = CA) 9.5 mg/dL 8.4-10.2 N BILIRUBIN TOTAL (test code = 0.3 mg/dL 0.2-1.0 N BILT) SGOT/AST (test code = AST) 142 units/L 15-37 H SGPT/ALT (test code = ALT) 194 units/L 12-78 H ALKALINE PHOSPHATASE TOTAL (test 156 units/L 46-116 H code = ALKP) [id number] 00:24:00 Test Item Value Reference Range Interpretation Comments TROPONIN-I (test code = TROPI) <0.017 ng/mL <0.056 N CBC W/AUTO [id number] 00:14:00 Test Item Value Reference Range Interpretation Comments WHITE BLOOD CELL (test code = WBC) 12.0 K/mm3 6.6-12.1 N RED BLOOD CELL (test code = RBC) 4.14 M/mm3 3.45-5.01 N HEMOGLOBIN (test code = HGB) 11.6 g/dL 10.7-13.9 N HEMATOCRIT (test code = HCT) 36.7 % 32.1-42.1 N MEAN CELL VOLUME (test code = MCV) 89 fL 84.1-94.8 N MEAN CELL HGB (test code = MCH) 28.0 pg 27-35 N MEAN CELL HGB CONCETRATION (test 31.6 gm/dL 32.2-34.1 L code = MCHC) RED CELL DISTRIBUTION WIDTH (test 14.5 % 12.4-16.5 N code = RDW) PLATELET COUNT (test code = PLT) 316 K/mm3 133-385 N IMMATURE PLATELET FRACTION (test 0.0 % 0.0-10.8 N code = IPF) MEAN PLATELET VOLUME (test code = 9.4 fl 9.1-12.7 N MPV) NEUTROPHIL % (test code = NT%) 76.9 % 56.5-79.4 N LYMPHOCYTE % (test code = LY%) 18.2 % 14.3-34.3 N MONOCYTE % (test code = MO%) 3.5 % 5.1-10.4 L EOSINOPHIL % (test code = EO%) 0.7 % 0.1-3.0 N BASOPHIL % (test code = BA%) 0.3 % 0.1-1.0 N NEUTROPHIL # (test code = NT#) 9.2 K/mm3 LYMPHOCYTE # (test code = LY#) 2.2 K/mm3 MONOCYTE # (test code = MO#) 0.4 K/mm3 EOSINOPHIL # (test code = EO#) 0.08 K/mm3 BASOPHIL # (test code = BA#) 0.0 K/mm3 RBC MORPHOLOGY REQUIRED (test code NORMAL NORMAL = RBCM) PLATELET MORPHOLOGY REQUIRED (test NORMAL NORMAL code = PLTMR) GALL [id number] 13:29:00 RUN DATE: 07/03/19 [facility] PAGE 1 RUN TIME: 1809 Specimen Inquiry RUN USER: INTERFACE PATIENT: SIMONE MARTÍNEZ LOC: BRYCE Hart #: [id number] AGE/SX: 24/F ROOM: [facility] RE06/28/19REG DR: Olga Mora : [birth year] BED: A DIS: 07/01/19 STATUS: DIS IN TLOC: SPEC #: [id number] RECD: 07/02/19 STATUS: FERNANDO AGUILAR #: [id number] JOCELYNE: 06/29/19- SUBM DR: Olga Mora MD ENTERED: 07/02/19 SP TYPE: GALMONET WEAVER DR: Izaiah Rodarte MD ORDERED: LEVEL III SURGI CODES: [id number] - GALLBLADDER, NO COPIES TO: Izaiah Rodarte MD [address] [facility] [address] [place] [address] [email or web address] Olga Mora MD [address] [place] [address] [email or web address] PROCEDURES: LEVEL III SURGI (Incomplete) TISSUES: GALLBLADDER, NOS - GALLBLADDER CLINICAL HISTORY 24 year old, biliary dyskinesia (kr) FINAL DIAGNOSIS Gallbladder, cholecystectomy: - cholesterolosis - chronic cholecystitis, mild CPT code(s): 68662 cds/kr dt: 07/03/19 GROSS DESCRIPTION ANATOMIC SOURCE OF TISSUE (per Requisition): Gallbladder The specimen is received in formalin, labeled with the patient's name and designated "gallbladder". The specimen consists of a 6.5 x 4.0 x 2.5 cm gallbladder with an attached 0.3 cm cystic duct. The serosa is pink-purple and hyperemic. The lumen contains viscous bile. There are no choleliths within the lumen or in the CONTINUED ON NEXT PAGE RUNDATE: 07/03/19 [facility] PAGE 2 RUN TIME: 1810 Specimen Inquiry RUN USER: INTERFACE SPEC #: [id number] PATIENT: SIMONE MARTÍNEZ #[id number] (Continued) GROSS DESCRIPTION (Continued) container. The mucosa is velvety gongora, and green with diffuse bright yellow stippling. Social Services sections are submitted labeled A1. zohra 07/02/19 @ 1106 Signed Lambert Jacobsen Burak 07/03/19 1329 - END OF REPORT CBC W/AUTO [id number] 07:14:00 Test Item Value Reference Range Interpretation Comments WHITE BLOOD CELL (test code = WBC) 14.0 K/mm3 6.6-12.1 H RED BLOOD CELL (test code = RBC) 3.57 M/mm3 3.45-5.01 N HEMOGLOBIN (test code = HGB) 10.0 g/dL 10.7-13.9 L HEMATOCRIT (test code = HCT) 31.4 % 32.1-42.1 L MEAN CELL VOLUME (test code = MCV) 88 fL 84.1-94.8 N MEAN CELL HGB (test code = MCH) 28.0 pg 27-35 N MEAN CELL HGB CONCETRATION (test 31.8 gm/dL 32.2-34.1 L code = MCHC) RED CELL DISTRIBUTION WIDTH (test 14.1 % 12.4-16.5 N code = RDW) PLATELET COUNT (test code = PLT) 266 K/mm3 133-385 N IMMATURE PLATELET FRACTION (test 0.0 % 0.0-10.8 N code = IPF) MEAN PLATELET VOLUME (test code = 10.3 fl 9.1-12.7 N MPV) NEUTROPHIL % (test code = NT%) 81.1 % 56.5-79.4 H LYMPHOCYTE % (test code = LY%) 14.0 % 14.3-34.3 L MONOCYTE % (test code = MO%) 4.3 % 5.1-10.4 L EOSINOPHIL % (test code = EO%) 0.1 % 0.1-3.0 N BASOPHIL % (test code = BA%) 0.1 % 0.1-1.0 N NEUTROPHIL # (test code = NT#) 11.3 K/mm3 LYMPHOCYTE # (test code = LY#) 2.0 K/mm3 MONOCYTE # (test code = MO#) 0.6 K/mm3 EOSINOPHIL # (test code = EO#) 0.01 K/mm3 BASOPHIL # (test code = BA#) 0.0 K/mm3 RBC MORPHOLOGY REQUIRED (test code NORMAL NORMAL = RBCM) PLATELET MORPHOLOGY REQUIRED (test NORMAL NORMAL code = PLTMR) COMPREHENSIVE METABOLIC [id number] 01:05:00 Test Item Value Reference Range Interpretation Comments SODIUM (test code = NA) 138 mEq/L 135-145 N POTASSIUM (test code = K) 3.9 mEq/L 3.5-5.0 N CHLORIDE (test code = CL) 106 mEq/L 100-115 N CARBON DIOXIDE (test code = CO2) 22 mEq/L 22-31 N ANION GAP (test code = GAP) 13.50 10-20 N GLUCOSE (test code = GLU) 89 mg/dL 65-110 N BLOOD UREA NITROGEN (test code = 13 mg/dL 7-18 N BUN) GLOMERULAR FILTRATION RATE (test 122 ml/min >60 N code = GFR) CREATININE (test code = CREAT) 0.6 mg/dL 0.5-1.0 N TOTAL PROTEIN (test code = PROT) 6.9 gm/dL 6.3-8.2 N ALBUMIN (test code = ALB) 2.9 gm/dL 3.4-4.8 L CALCIUM (test code = CA) 8.6 mg/dL 8.4-10.2 N BILIRUBIN TOTAL (test code = BILT) 0.2 mg/dL 0.2-1.0 N SGOT/AST (test code = AST) 15 units/L 15-37 N SGPT/ALT (test code = ALT) 35 units/L 12-78 N ALKALINE PHOSPHATASE TOTAL (test 67 units/L 46-116 N code = ALKP) CBC W/AUTO [id number] 00:37:00 Test Item Value Reference Range Interpretation Comments WHITE BLOOD CELL (test code = WBC) 11.4 K/mm3 6.6-12.1 N RED BLOOD CELL (test code = RBC) 3.86 M/mm3 3.45-5.01 N HEMOGLOBIN (test code = HGB) 10.6 g/dL 10.7-13.9 L HEMATOCRIT (test code = HCT) 34.5 % 32.1-42.1 N MEAN CELL VOLUME (test code = MCV) 89 fL 84.1-94.8 N MEAN CELL HGB (test code = MCH) 27.5 pg 27-35 N MEAN CELL HGB CONCETRATION (test 30.7 gm/dL 32.2-34.1 L code = MCHC) RED CELL DISTRIBUTION WIDTH (test 14.3 % 12.4-16.5 N code = RDW) PLATELET COUNT (test code = PLT) 268 K/mm3 133-385 N IMMATURE PLATELET FRACTION (test 0.0 % 0.0-10.8 N code = IPF) MEAN PLATELET VOLUME (test code = 9.6 fl 9.1-12.7 N MPV) NEUTROPHIL % (test code = NT%) 70.9 % 56.5-79.4 N LYMPHOCYTE % (test code = LY%) 22.6 % 14.3-34.3 N MONOCYTE % (test code = MO%) 4.1 % 5.1-10.4 L EOSINOPHIL % (test code = EO%) 1.6 % 0.1-3.0 N BASOPHIL % (test code = BA%) 0.4 % 0.1-1.0 N NEUTROPHIL # (test code = NT#) 8.0 K/mm3 LYMPHOCYTE # (test code = LY#) 2.6 K/mm3 MONOCYTE # (test code = MO#) 0.5 K/mm3 EOSINOPHIL # (test code = EO#) 0.18 K/mm3 BASOPHIL # (test code = BA#) 0.0 K/mm3 RBC MORPHOLOGY REQUIRED (test code NORMAL NORMAL = RBCM) PLATELET MORPHOLOGY REQUIRED (test NORMAL NORMAL code = PLTMR) UA RFLX MICR CULT IF [id number] 00:08:00 Test Item Value Reference Range Interpretation Comments UA COLOR (test code = COLU) YELLOW YELLOW UA APPEARANCE (test code = CLOUDY CLEAR A APPU) UA GLUCOSE DIPSTICK (test code NEGATIVE NEG = DGLUU) UA BILIRUBIN DIPSTICK (test NEGATIVE NEG code = BILU) UA KETONE DIPSTICK (test code NEGATIVE NEG = KETU) UA SPECIFIC GRAVITY (test code 1.030 1.001-1.035 N = SGU) UA BLOOD DIPSTICK (test code = NEG NEG IVONNE) UA PH DIPSTICK (test code = 5.0 5-9 GEREMIAS) UA PROTEIN DIPSTICK (test code NEGATIVE NEG = PROU) UA UROBILINIOGEN DIPSTICK NEGATIVE mg/dL NEG (test code = URO) UA NITRITE DIPSTICK (test code NEG NEG = ELBA) UA LEUKOCYTE ESTERASE DIPSTICK NEG NEG (test code = LEUU) UA WBC (test code = WBCU) 0-2 #/hpf NONE SEEN UA RBC (test code = RBCU) 11-15 #/hpf NONE SEEN A UA EPITHELIAL CELLS (test code FEW #/HPF RARE-FEW = EPIU) UA BACTERIA (test code = BACU) MODERATE /HPF RARE-FEW UA CALCIUM OXALATE CRYSTALS 15-20 #/LPF (test code = CAOXU) UA HYALINE CAST (test code = 0-2 #/hpf A HYALU) UA MUCUS (test code = MUCU) RARE NONE SEEN UA YEAST (test code = YEASTU) RARE #/hpf NONE SEEN A Indication for culture: Dysuria/Frequency- US ABDOMEN [id number] 15:01:00 Patient Name: SIMONE MARTÍNEZ Unit No: [id number] EXAMS: CPT CODE: [id number] US ABDOMEN COMPLETE 71802 ABDOMEN ULTRASOUND COMPLETE 06/07/2019: COMPARISON: Right upper quadrant ultrasound dated March 29, 2019 CLINICAL HISTORY: RUQ PAIN FINDINGS: The liver has a normal sonog raphic appearance. No focal lesions are seen. The liver measures 16.8 cm in length. The gallbladder contains no calculi and the gallbladder wall is normal in thickness. The common bile duct measures 4 mm in diameter. The visualized portions of the pancreas are unremarkable. The kidneys d emonstrate a normal appearance and are of normal [...] Yuri Hewitt MD Technologist: Daya Kulkarni RDMS, RVT; Tasha Probe: Trnscrbd D/ (1505) [email or web address] Orig Print D/T: S: 06/07/2019 (150) [facility] NAME: SIMONE MARTÍNEZ Radiology Department PHYS: Yuri Ignacio MD [address] : 1995 AGE: 24 SEX: F [place] [address] LOC: Valerie.RAD PHONE #: [phone] EXAM DATE: 06/07/2019 STATUS: REG CLI FAX #: [phone] RAD NO: Page 1 Signed Report Patient Name: SIMONE MARTÍNEZ Unit No: [id number] EXAMS: CPT CODE: [id number] US ABDOMEN COMPLETE 88548 <Continued> [facility] NAME: EZEQUIEL MARTÍNEZTANY Radiology Department PHYS: Yuri Ignacio MD [address] : 1995 AGE: 24 SEX: F [place] [address] LOC: VirginieRAD PHONE #: [phone] EXAM DATE: 06/07/2019 STATUS: REG CLI FAX #: [phone] RAD NO: Page 2 Signed Report- US ABDOMEN [id number] 23:03:00 Patient Name: SIMONE MARTÍNEZ Unit No: [id number] EXAMS: CPT CODE: [id number] US ABDOMEN LTD 05565 PROCEDURE: RIGHT UPPER QUADRANT ULTRASOUND DATED 03/29/2019 [...] Additional comments: No free intraperitoneal fluid is i dentified in the right upper quadrant. The inferior vena cava appears patent. The visualized abdominal aorta is normal in caliber. IMPRESSION: 1. No sonographic evidence of cholelithiasis or acute cholecystitis. SL:131 at 2303 Reported and signed by: Bernardino Wilkins MD CC: Tayla Rubi MD; Olga Mora MD Technologist: Daya Kulkarni RDMS, RVT Probe: Trnscrbd D/ (2303) [email or web address] Orig Print D/T: S: (2306) [facility] NAME: SIMONE MARTÍNEZ Radiology Department PHYS: DIONYLiliaTayla Santana MD [address] : 1995 AGE: 23 SEX: F [place] [address] LOC: Valerie.ERS PHONE #: [phone] EXAM DATE: 03/29/2019 STATUS: REG ER FAX #: [phone] RAD NO: Page 1 Signed Report Patient Name: SIMONE MARTÍNEZ Unit No: [id number] EXAMS: CPT CODE: [id number] ABDOMEN LTD 08696 <Continued> [facility] NAME: MAURICIOEZEQUIEL ZAIDISIMONE Radiology Department PHYS: Tayla Ace MD [address] : 1995 AGE: 23 SEX: F [place] [address] LOC: F.ERS PH ONE #: [phone] EXAM DATE: 03/29/2019 STATUS: REG ER FAX #: [phone] RAD NO: Page 2 Signed ReportHCG [id number] 23:01:00 Test Item Value Reference Range Interpretation Comments HCG SERUM (test 46171 INTERPRETATI ON:VALUES BETWEEN code = HCG) 15-20 milliInte rnational units/mL NEED T O BERETESTED WITHIN 48 HOURS . All units for these ranges ar e in milliInternatio nalunits/mL0-1 WK AFTER CONCEP TION 0-50 1-2 W KS AFTER CONCEPTION 40-3002-3 WKS A FTER CONCEPTION 100-1 ,0003-4 WKS AFTER CONCEPTIO N 500-6,0001-2 MO NTHS AFTER CONCEPTION 5,000-200,0002- 3 MONTHS AFTER CONCEPTION 10,000-100,0002 ND TRIMESTER 3,000-50,0003RD TRIMESTER 1 ,000-50,000 SPECIMENS WITH AN HCG LEVEL FROM 0-6 milliInternatio nalunits/mL SHOULD BE CONSI DERED NEGATIVE CHEMISTRY 7 [id number] 22:27:00 Test Item Value Reference Range Interpretation Comments SODIUM (test code = NA) 138 mEq/L 135-145 N POTASSIUM (test code = K) 4.2 mEq/L 3.5-5.0 N CHLORIDE (test code = CL) 104 mEq/L 100-115 N CARBON DIOXIDE (test code = CO2) 27 mEq/L 22-31 N ANION GAP (test code = GAP) 11.10 10-20 N GLUCOSE (test code = GLU) 114 mg/dL 65-110 H BLOOD UREA NITROGEN (test code = 12 mg/dL 7-18 N BUN) GLOMERULAR FILTRATION RATE (test 88 ml/min >60 N code = GFR) CREATININE (test code = CREAT) 0.8 mg/dL 0.5-1.0 N CALCIUM (test code = CA) 9.5 mg/dL 8.4-10.2 N LIVER [id number] 22:27:00 Test Item Value Reference Range Interpretation Comments TOTAL PROTEIN (test code = PROT) 7.8 gm/dL 6.3-8.2 N ALBUMIN (test code = ALB) 3.6 gm/dL 3.4-4.8 N BILIRUBIN TOTAL (test code = BILT) 0.3 mg/dL 0.2-1.0 N BILIRUBIN DIRECT (test code = <0.1 mg/dL <0.2 N BILD) SGOT/AST (test code = AST) 19 units/L 15-37 N SGPT/ALT (test code = ALT) 30 units/L 12-78 N ALKALINE PHOSPHATASE TOTAL (test 74 units/L 46-116 N code = ALKP) [id number] 22:27:00 Test Item Value Reference Range Interpretation Comments LIPASE (test code = LIP) 92 units/L 73-393 N UA RFLX MICR CULT IF [id number] 22:21:00 Test Item Value Reference Range Interpretation Comments UA COLOR (test code = COLU) YELLOW YELLOW UA APPEARANCE (test code = TURBID CLEAR A APPU) UA GLUCOSE DIPSTICK (test code NEGATIVE NEG = DGLUU) UA BILIRUBIN DIPSTICK (test NEGATIVE NEG code = BILU) UA KETONE DIPSTICK (test code NEGATIVE NEG = KETU) UA SPECIFIC GRAVITY (test code 1.034 1.001-1.035 N = SGU) UA BLOOD DIPSTICK (test code = NEG NEG IVONNE) UA PH DIPSTICK (test code = 5.0 5-9 GEREMIAS) UA PROTEIN DIPSTICK (test code 1+ NEG A = PROU) UA UROBILINIOGEN DIPSTICK NEGATIVE mg/dL NEG (test code = URO) UA NITRITE DIPSTICK (test code NEG NEG = ELBA) UA LEUKOCYTE ESTERASE DIPSTICK NEG NEG (test code = LEUU) UA WBC (test code = WBCU) 11-15 #/hpf NONE SEEN A UA EPITHELIAL CELLS (test code FEW #/HPF RARE-FEW = EPIU) UA MUCUS (test code = MUCU) 1+ NONE SEEN UA AMORPHOUS SEDIMENT (test 2+ code = AMORU) Indication for culture: Dysuria/FrequencyUR HCG [id number] 22:21:00 Test Item Value Reference Range Interpretation Comments UR HCG QUAL (test code = HCGQLU) POSITIVE Indication for culture: Dysuria/FrequencyUA RFLX MICR CULT IF INDICATED 2019-03-29 22:12:00 Test Item Value Reference Range Interpretation Comments UA COLOR (test code = COLU) YELLOW YELLOW UA APPEARANCE (test code = TURBID CLEAR A APPU) UA GLUCOSE DIPSTICK (test code NEGATIVE NEG = DGLUU) UA BILIRUBIN DIPSTICK (test NEGATIVE NEG code = BILU) UA KETONE DIPSTICK (test code NEGATIVE NEG = KETU) UA SPECIFIC GRAVITY (test code 1.034 1.001-1.035 N = SGU) UA BLOOD DIPSTICK (test code = NEG NEG IVONNE) UA PH DIPSTICK (test code = 5.0 5-9 GEREMIAS) UA PROTEIN DIPSTICK (test code 1+ NEG A = PROU) UA UROBILINIOGEN DIPSTICK NEGATIVE mg/dL NEG (test code = URO) UA NITRITE DIPSTICK (test code NEG NEG = ELBA) UA LEUKOCYTE ESTERASE DIPSTICK NEG NEG (test code = LEUU) UA WBC (test code = WBCU) 11-15 #/hpf NONE SEEN A UA EPITHELIAL CELLS (test code FEW #/HPF RARE-FEW = EPIU) UA MUCUS (test code = MUCU) 1+ NONE SEEN UA AMORPHOUS SEDIMENT (test 2+ code = AMORU) Indication for culture: Dysuria/FrequencyUR HCG [id number] 22:12:00 Test Item Value Reference Range Interpretation Comments UR HCG QUAL (test code = HCGQLU) Indication for culture: Dysuria/FrequencyCBC W/AUTO [id number] 22:09:00 Test Item Value Reference Range Interpretation Comments WHITE BLOOD CELL (test code = WBC) 10.0 K/mm3 6.6-12.1 N RED BLOOD CELL (test code = RBC) 4.63 M/mm3 3.45-5.01 N HEMOGLOBIN (test code = HGB) 12.6 g/dL 10.7-13.9 N HEMATOCRIT (test code = HCT) 40.5 % 32.1-42.1 N MEAN CELL VOLUME (test code = MCV) 88 fL 84.1-94.8 N MEAN CELL HGB (test code = MCH) 27.2 pg 27-35 N MEAN CELL HGB CONCETRATION (test 31.1 gm/dL 32.2-34.1 L code = MCHC) RED CELL DISTRIBUTION WIDTH (test 14.5 % 12.4-16.5 N code = RDW) PLATELET COUNT (test code = PLT) 317 K/mm3 133-385 N IMMATURE PLATELET FRACTION (test 0.0 % 0.0-10.8 N code = IPF) MEAN PLATELET VOLUME (test code = 10.0 fl 9.1-12.7 N MPV) NEUTROPHIL % (test code = NT%) 70.6 % 56.5-79.4 N LYMPHOCYTE % (test code = LY%) 22.3 % 14.3-34.3 N MONOCYTE % (test code = MO%) 4.8 % 5.1-10.4 L EOSINOPHIL % (test code = EO%) 1.8 % 0.1-3.0 N BASOPHIL % (test code = BA%) 0.3 % 0.1-1.0 N NEUTROPHIL # (test code = NT#) 7.0 K/mm3 LYMPHOCYTE # (test code = LY#) 2.2 K/mm3 MONOCYTE # (test code = MO#) 0.5 K/mm3 EOSINOPHIL # (test code = EO#) 0.18 K/mm3 BASOPHIL # (test code = BA#) 0.0 K/mm3 RBC MORPHOLOGY REQUIRED (test code NORMAL NORMAL = RBCM) PLATELET MORPHOLOGY REQUIRED (test NORMAL NORMAL code = PLTMR) PROTHROMBIN [id number] 22:54:00 Test Item Value Reference Range Interpretation Comments PROTHROMBIN TIME PATIENT (test code 10.3 secs 10.4-12.4 L = PTP) THROMBOPLASTIN TIME [id number] 22:54:00 Test Item Value Reference Range Interpretation Comments THROMBOPLASTIN TIME PARTIAL (test 28.3 secs 22-38 N code = PTT) [id number] 22:54:00 Test Item Value Reference Range Interpretation Comments FIBRINOGEN (test code = FIB) 332 mg/dL 309-518 N - US PREG UT [id number] 21:14:00 Patient Name: SIMONE MARTÍNEZ Unit No: [id number] EXAMS: CPT CODE: [id number] US PREG UT TRANSVAGINAL 16763 PROCEDURE: FIRST TRIMESTER ULTRASOUND INDICATION: , headache, [...] No free pelvic fluid. SL: JANINE at 2113 Reported and signed by: Kendal Colón MD CC: Olga Mora MD Technologist: Luisa Santoyo [facility], T Probe: [id number] Trnscrbd D/ (2113) [email or web address] Orig Print D/T: S: 03/22/2019 (2117) [facility] Rad[facility] Department PHYS: Izaiah Zeng [address] : 1995 AGE: 23 SEX: F [place] [address] LOC: [place] PHONE #: [phone] EXAM DATE: 03/22/2019 STATUS: REG ER FAX #: [phone] RAD NO: Page 1 Signed Report Patient Name: SIMONE MARTÍNEZ Unit No: [id number] EXAMS: CPT CODE: [id number] US PREG UT TRANSVAGINAL 17301 <Continued> [facility] Rad[facility] Department PHYS: Izaiah Zeng [address] : 1995 AGE: 23 SEX:F [place] [address] LOC: [place] PHONE #: [phone] EXAM DATE: 03/22/2019 STATUS: REG ER FAX #: [phone] RAD NO: Page 2 Signed Report- US PREG EVAL 1ST [id number] 21:14:00 Patient Name: SIMONE MARTÍNEZ Unit No: [id number] EXAMS: CPT CODE: [id number] US PREG EVAL 1ST TRIMTR 26795 PROCEDURE: FIRST TRIMESTER ULTRASOUND INDICATION: , headache, [...] sonographic appearance of the ovaries. No free pelvi c fluid. SL: JANINE at 2113 Reported and signed by: Kendal Colón MD CC: Olga Mora MD Technologist: Luias Santoyo RDMS, T Probe: Trnscrbd D/ (2113) Boo Orig Print D/T: S: 03/22/2019 (2117) [facility] NAME: [facility] Radiology Department PHYS: Izaiah Zeng [address] : 1994 AGE: 23 SEX: F [place], [place] [address] LOC: [place] PHONE #: [phone] EXAM DATE: 03/22/2019 STATUS: REG ER FAX #: [phone] RAD NO: Page 1 Signed Report Patient Name: SIMONE MARTÍNEZ Unit No: [id number] EXAMS: CPT CODE: [id number] US PREG EVAL 1ST TRIMTR 08963 <Continued> [facility] NAME: [facility] Radiology Department PHYS: Izaiah Zeng [address] : 1995 AGE: 23 SEX:F [place], [place] [address] LOC: [place]E PHONE #: [phone] EXAM DATE: 03/22/2019 STATUS: KIRSTIE ELIZONDO FAX #: [phone] RAD NO: Page 2 Signed ReportHCG [id number] 20:45:00 Test Item Value Reference Range Interpretation Comments HCG SERUM (test 87197 INTERPRETATI ON:VALUES BETWEEN code = HCG) 15-20 milliInte rnational units/mL NEED T O BERETESTED WITHIN 48 HOURS . All units for these ranges ar e in milliInternatio nalunits/mL0-1 WK AFTER CONCEP TION 0-50 1-2 W KS AFTER CONCEPTION 40-3002-3 WKS A FTER CONCEPTION 100-1 ,0003-4 WKS AFTER CONCEPTIO N 500-6,0001-2 MO NTHS AFTER CONCEPTION 5,000-200,0002- 3 MONTHS AFTER CONCEPTION 10,000-100,0002 ND TRIMESTER 3,000-50,0003RD TRIMESTER 1 ,000-50,000 SPECIMENS WITH AN HCG LEVEL FROM 0-6 milliInternatio nalunits/mL SHOULD BE CONSI DERED NEGATIVE COMPREHENSIVE METABOLIC [id number] 20:23:00 Test Item Value Reference Range Interpretation Comments SODIUM (test code = NA) 142 mEq/L 135-145 N POTASSIUM (test code = K) 3.9 mEq/L 3.5-5.0 N CHLORIDE (test code = CL) 105 mEq/L 100-115 N CARBON DIOXIDE (test code = CO2) 28 mEq/L 22-31 N ANION GAP (test code = GAP) 12.90 10-20 N GLUCOSE (test code = GLU) 97 mg/dL 65-110 N BLOOD UREA NITROGEN (test code = 14 mg/dL 7-18 N BUN) GLOMERULAR FILTRATION RATE (test 103 ml/min >60 N code = GFR) CREATININE (test code = CREAT) 0.7 mg/dL 0.5-1.0 N TOTAL PROTEIN (test code = PROT) 7.0 gm/dL 6.3-8.2 N ALBUMIN (test code = ALB) 3.3 gm/dL 3.4-4.8 L CALCIUM (test code = CA) 9.0 mg/dL 8.4-10.2 N BILIRUBIN TOTAL (test code = BILT) 0.2 mg/dL 0.2-1.0 N SGOT/AST (test code = AST) 22 units/L 15-37 N SGPT/ALT (test code = ALT) 36 units/L 12-78 N ALKALINE PHOSPHATASE TOTAL (test 69 units/L 46-116 N code = ALKP) CBC W/AUTO [id number] 20:04:00 Test Item Value Reference Range Interpretation Comments WHITE BLOOD CELL (test code = WBC) 11.1 K/mm3 6.6-12.1 N RED BLOOD CELL (test code = RBC) 4.38 M/mm3 3.45-5.01 N HEMOGLOBIN (test code = HGB) 11.9 g/dL 10.7-13.9 N HEMATOCRIT (test code = HCT) 38.4 % 32.1-42.1 N MEAN CELL VOLUME (test code = MCV) 88 fL 84.1-94.8 N MEAN CELL HGB (test code = MCH) 27.2 pg 27-35 N MEAN CELL HGB CONCETRATION (test 31.0 gm/dL 32.2-34.1 L code = MCHC) RED CELL DISTRIBUTION WIDTH (test 14.7 % 12.4-16.5 N code = RDW) PLATELET COUNT (test code = PLT) 314 K/mm3 133-385 N IMMATURE PLATELET FRACTION (test 0.0 % 0.0-10.8 N code = IPF) MEAN PLATELET VOLUME (test code = 9.6 fl 9.1-12.7 N MPV) NEUTROPHIL % (test code = NT%) 63.7 % 56.5-79.4 N LYMPHOCYTE % (test code = LY%) 27.3 % 14.3-34.3 N MONOCYTE % (test code = MO%) 5.9 % 5.1-10.4 N EOSINOPHIL % (test code = EO%) 2.4 % 0.1-3.0 N BASOPHIL % (test code = BA%) 0.4 % 0.1-1.0 N NEUTROPHIL # (test code = NT#) 7.1 K/mm3 LYMPHOCYTE # (test code = LY#) 3.0 K/mm3 MONOCYTE # (test code = MO#) 0.7 K/mm3 EOSINOPHIL # (test code = EO#) 0.27 K/mm3 BASOPHIL # (test code = BA#) 0.0 K/mm3 RBC MORPHOLOGY REQUIRED (test code NORMAL NORMAL = RBCM) PLATELET MORPHOLOGY REQUIRED (test NORMAL NORMAL code = PLTMR) UA RFLX MICR CULT IF [id number] 20:01:00 Test Item Value Reference Range Interpretation Comments UA COLOR (test code = COLU) YELLOW YELLOW UA APPEARANCE (test code = Slightly-Cloudy CLEAR APPU) UA GLUCOSE DIPSTICK (test NEGATIVE NEG code = DGLUU) UA BILIRUBIN DIPSTICK (test NEGATIVE NEG code = BILU) UA KETONE DIPSTICK (test code NEGATIVE NEG = KETU) UA SPECIFIC GRAVITY (test 1.030 1.001-1.035 N code = SGU) UA BLOOD DIPSTICK (test code NEG NEG = IVONNE) UA PH DIPSTICK (test code = 6.0 5-9 GEREMIAS) UA PROTEIN DIPSTICK (test NEGATIVE NEG code = PROU) UA UROBILINIOGEN DIPSTICK 4.0 mg/dL NEG A (test code = URO) UA NITRITE DIPSTICK (test NEG NEG code = ELBA) UA LEUKOCYTE ESTERASE NEG NEG DIPSTICK (test code = LEUU) UA WBC (test code = WBCU) 0-2 #/hpf NONE SEEN UA RBC (test code = RBCU) NONE SEEN #/hpf NONE SEEN UA EPITHELIAL CELLS (test RARE #/HPF RARE-FEW code = EPIU) UA BACTERIA (test code = NEGATIVE /HPF RARE-FEW BACU) UA MUCUS (test code = MUCU) RARE NONE SEEN Indication for culture: Flank PainCOMPREHENSIVE METABOLIC [id number] 17:15:00 Test Item Value Reference Range Interpretation Comments SODIUM (test code = NA) 139 mEq/L 135-145 N POTASSIUM (test code = K) 3.8 mEq/L 3.5-5.0 N CHLORIDE (test code = CL) 104 mEq/L 100-115 N CARBON DIOXIDE (test code = CO2) 27 mEq/L 22-31 N ANION GAP (test code = GAP) 12.10 10-20 N GLUCOSE (test code = GLU) 83 mg/dL 65-110 N BLOOD UREA NITROGEN (test code = 15 mg/dL 7-18 N BUN) GLOMERULAR FILTRATION RATE (test 68 ml/min >60 N code = GFR) CREATININE (test code = CREAT) 1.0 mg/dL 0.5-1.0 N TOTAL PROTEIN (test code = PROT) 7.2 gm/dL 6.3-8.2 N ALBUMIN (test code = ALB) 3.2 gm/dL 3.4-4.8 L CALCIUM (test code = CA) 9.1 mg/dL 8.4-10.2 N BILIRUBIN TOTAL (test code = BILT) 0.2 mg/dL 0.2-1.0 N SGOT/AST (test code = AST) 13 units/L 15-37 L SGPT/ALT (test code = ALT) 18 units/L 12-78 N ALKALINE PHOSPHATASE TOTAL (test 68 units/L 46-116 N code = ALKP) [id number] 17:13:00 Test Item Value Reference Range Interpretation Comments AMYLASE (test code = IVETTE) 34 units/L 30-110 N [id number] 17:13:00 Test Item Value Reference Range Interpretation Comments LIPASE (test code = LIP) 88 units/L 73-393 N - US ABDOMEN [id number] 17:09:00 Patient Name: SIMONE MARTÍNEZ Unit No: [id number] EXAMS: CPT CODE: [id number] US ABDOMEN LTD 46459 EXAM: Right upper quadrant ultrasound. EXAM DATE: [...] or right hydronephrosis. IMPRESSION: No significantabnormalities identified (nonvisualization of pancreas secondary to overlying bowel gas). at 2105 Reported and signed by: Tia Boateng MD CC: Sharifa Bassett MD; Twin Flanagan Technologist: Lisbeth Calles RDMS Probe: Trnscrbd D/ (2676)[email or web address] Orig Print D/T: S: 10/14/2018 (2344) [facility] NAME: SIMONE MARTÍNEZ Radiology Department PHYS: Twin Garcia MD [address] : 1995 AGE: 23 SEX: F [place] [address] LOC: [place] PHONE #: [phone] EXAM DATE: 10/14/2018 STATUS: REG ER FAX #: [phone] RAD NO: Page 1 Signed Report Patient Name: SIMONE MARTÍNEZ Unit No: [id number] EXAMS: CPT CODE: [id number] US ABDOMEN LTD 41807 <Continued> [facility] NAME: SIMONE MARTÍNEZ Radiology Department PHYS: Twin Garcia [address] : 1995 AGE: 23 SEX: F [place] [address] LOC: [place] PHONE #: [phone] EXAM DATE: 10/14/2018 STATUS: REG ER FAX #: [phone] RAD NO: Page 2 Signed ReportUA RFLX MICR CULT IF INDICATED 2018-10-14 16:48:00 Test Item Value Reference Range Interpretation Comments UA COLOR (test code = YELLOW YELLOW COLU) UA APPEARANCE (test code CLEAR CLEAR = APPU) UA GLUCOSE DIPSTICK (test NEGATIVE NEGATIVE code = DGLUU) UA BILIRUBIN DIPSTICK NEGATIVE NEGATIVE (test code = BILU) UA KETONE DIPSTICK (test NEGATIVE NEGATIVE code = KETU) UA SPECIFIC GRAVITY (test 1.025 1.001-1.035 N code = SGU) UA BLOOD DIPSTICK (test 3+ NEGATIVE A code = IVONNE) UA PH DIPSTICK (test code 6.0 5-9 = GEREMIAS) UA PROTEIN DIPSTICK (test NEGATIVE NEGATIVE code = PROU) UA UROBILINIOGEN DIPSTICK 0.2 EU/dL <=1.0 (test code = URO) UA NITRITE DIPSTICK (test NEGATIVE NEGATIVE code = ELBA) UA LEUKOCYTE ESTERASE NEG NEGATIVE DIPSTICK (test code = LEUU) UA WBC (test code = WBCU) 0-2 #/hpf NONE SEEN UA RBC (test code = RBCU) TOO NUMEROUS TO CNT NONE SEEN A #/hpf UA EPITHELIAL CELLS (test RARE #/hpf NONE SEEN code = EPIU) UA BACTERIA (test code = RARE #/hpf NONE SEEN BACU) CBC W/AUTO [id number] 16:44:00 Test Item Value Reference Range Interpretation Comments WHITE BLOOD CELL (test code = WBC) 11.3 K/mm3 6.6-12.1 N RED BLOOD CELL (test code = RBC) 4.57 M/mm3 3.45-5.01 N HEMOGLOBIN (test code = HGB) 12.1 g/dL 10.7-13.9 N HEMATOCRIT (test code = HCT) 39.3 % 32.1-42.1 N MEAN CELL VOLUME (test code = MCV) 86 fL 84.1-94.8 N MEAN CELL HGB (test code = MCH) 26.5 pg 27-35 L MEAN CELL HGB CONCETRATION (test 30.8 gm/dL 32.2-34.1 L code = MCHC) RED CELL DISTRIBUTION WIDTH (test 14.8 % 12.4-16.5 N code = RDW) PLATELET COUNT (test code = PLT) 339 K/mm3 133-385 N IMMATURE PLATELET FRACTION (test 0.0 % 0.0-10.8 N code = IPF) MEAN PLATELET VOLUME (test code = 9.3 fl 9.1-12.7 N MPV) NEUTROPHIL % (test code = NT%) 68.3 % 56.5-79.4 N LYMPHOCYTE % (test code = LY%) 25.3 % 14.3-34.3 N MONOCYTE % (test code = MO%) 4.5 % 5.1-10.4 L EOSINOPHIL % (test code = EO%) 1.2 % 0.1-3.0 N BASOPHIL % (test code = BA%) 0.3 % 0.1-1.0 N NEUTROPHIL # (test code = NT#) 7.7 K/mm3 LYMPHOCYTE # (test code = LY#) 2.9 K/mm3 MONOCYTE # (test code = MO#) 0.5 K/mm3 EOSINOPHIL # (test code = EO#) 0.13 K/mm3 BASOPHIL # (test code = BA#) 0.0 K/mm3 RBC MORPHOLOGY REQUIRED (test code NORMAL NORMAL = RBCM) PLATELET MORPHOLOGY REQUIRED (test NORMAL NORMAL code = PLTMR)
== END 2021-07-04 03:59 | disposition home or self-care (01) ==
LOC: ER 03:15
DX: K04.7 Periapical abscess without sinus (principal); Z88.6 Allergy status to analgesic agent; Z88.0 Allergy status to penicillin; Z88.2 Allergy status to sulfonamides
CPT/HCPCS: 99283

== ENCOUNTER 2021-09-28 08:28 | Emergency (ER) | payer OTHER ==
--- OUTSIDE RECORDS SUMMARY | 2021-09-28 08:35 | XMS REPORT | Continuity of Care Document ---
:1995 Author Organization [facility] t Address [address] [place] [address] Care Team Providers Name Role Phone Catherine Mora Attending Clinician Unavailable Silvano Monteiro Attending Clinician Unavailable Catherine Mora Admitting Clinician [...] [facility] [place] Sulf[place] DA Active [place] 2020-0 [facility] ([facility] 3 [facility] 00:00: [facility]osp[facility] Antibiot 00 l of ics[place] morphine DA Active [place] 2020-0 [facility] 3-19 [facility] 00:[facility]: [facility] [place] Penicill DA Active SV ANAPHYLACTIC 2020-0 HC A ins SHOCK 3- [facility] 00:[facility]: [facility] [place] RASH 2020-0 [facility] (Sulfona - [facility] 00:00: [facility]ospita Antibiot 00 l of ics[place] morphine DA Active [place] Redness near 2020-0 HC A injection 3- Woman[facility] site. 00:00: [facility]ospita Itching. [facility] [place] Penicill DA Active SV 2020-0 [facility] ins 3- [facility] 00:[facility]: [facility] [place] Sulfa DA Active [place] 2020-0 [facility] (Sulfona 3- [facility] mide 00:00: Hospita Antibiot 00 l of ics) [place] morphine DA Active [place] 2020-0 [facility] 3- [facility] 00:[facility]: [facility] [place] Penicill DA Active SV ANAPHYLACTIC 2020-0 HC A ins SHOCK 3- [facility] 00:00: [facility] [place] Sulfa DA Active [place] RASH 2020-0 [facility] (Sulfona 3 [facility] m[facility] 00:00: Hospita Antibiot 00 l of ics) [place] morphine DA Active [place] Redness near 2020-0 HC A injection - [facility] site. 00:00: [facility]ospita Itching. [facility] [place] Penicill DA Active SV 2019-1 [facility] ins 2 [facility] 00:[facility]: [facility] [place] Sulfa DA Active [place] 2019-1 [facility] (Sulfona - [facility] 00:00: Hospita Antibiot 00 l of ics) [place] morphine DA Active [place] 2019-1 [facility] 2- [facility] 00:00: [facility] [place] Penicill DA Active SV ANAPHYLACTIC 2019- HC A ins SHOCK 10-12 [facility] 00:00: [facility] [place] Sulfa DA Active [place] RASH 2019-1 [facility] (Sulfona 10-12 [facility] mide 00:00: Hospita Antibiot 00 l of ics) [place] morphine DA Active [place] Redness near 2019-1 HC A injection - [facility] site. 00:00: [facility]ospita Itching. 00 [facility] [place] Penicill DA Active SV 2019-1 [facility] ins 1- [facility] 00:[facility]: [facility] [place] Sulfa DA Active [place] 2019-1 [facility] (Sulfona 09-07 [facility] m[facility] 00:00: Hospita Antibiot 00 l of ics) [place] morphine DA Active [place] 2019-1 [facility] 1-17 [facility] 00:[facility]: [facility] [place] morphine DA Active [place] 2019-1 [facility] 1-07 [facility] 00:00: [facility] [place] Penicill DA Active SV 2019-0 [facility] ins 8 [facility] 00:00: [facility] [place] Sulfa DA Active [place] 2019-0 [facility] (Sulfona 03-29 [facility] mide 00:00: Hospita Antibiot 00 l of ics) [place] Penicill DA Active SV 2019-0 [facility] ins 8-01 [facility] 00:00: [facility] [place] Sulfa DA Active [place] 2018-0 [facility] (Sulfona 8-01 [facility] mide 00:00: Hospita Antibiot 00 l of ics) [place] Penicill DA Active SV 2018-0 [facility] ins 5-17 [facility] 00:00: [facility] [place] Sulfa DA Active [place] 2017-0 [facility] ([facility]ulf[place] 4-12 [facility] mide 00:00: Hospita Antibiot 00 l of ics) [place] Medications This patient has no known medications. Procedures Procedure Date / Time Performed Performing Clinician [facility] e [id number] 2020-10-03 00:00:00 10 [facility] [id number] 2020-10-03 [facility]00 [facility] [id number] 2019-11-09 00:00:00 [facility] [id number] 2019-11-08 00:00:00 [facility] [id number] 2019-11-08 00:00:00 [facility] Encounters Start End Encounter Admission Attending Care Care Encounter Source Date/Time Date/Time Type Type Clinicians Facility Department ID 2020-10-15 Inpatient EL Ohlemacher, [facility] LD [id number] [facility] 11:43:00 Olga [id number] [facility] [place] 2020-10-07 Inpatient EL Ohlemacher, [facility] LD [id number] [facility] 11:30:00 Olga [id number] [facility] [place] 2020-10-02 Inpatient Ohlemacher, [facility] BERNIE [id number] [facility] 11:50:00 Olga [id number] [facility] [place] 2020-09-29 Inpatient Ohlemacher, [facility] BERNIE [id number] [facility] 11:10:00 Ol[facility] [place] 2020-08-15 Inpatient Ohlemacher, [facility] BERNIE [id number] [facility] 19:40:00 Olga [id number] [facility] [place] 2020-04-22 Inpatient [facility] LARRY [id number] [facility] 21:42:00 [facility] [place] 2019-11-14 Inpatient EL Ohlemacher, [facility] LD [id number] -[id number] [facility] 12:51:00 Olga [id number] [facility] [place] 2019-11-08 Inpatient EL Ohlemacher, [facility] LD [id number] -[id number] [facility] 18:09:00 Olga [id number] [facility] [place] 2019-10-22 Inpatient Ohlemacher, [facility] BERNIE [id number] -[id number] [facility] 22:39:00 Ol[facility] [place] 2019-09-08 Inpatient Ohlemacher, [facility] BERNIE [id number] [facility] 01:48:00 Olga [id number] [facility] [place] 2019-10-09 2019-10-09 Outpatient EL Ohlemacher, [facility] RADI [id number] [facility] 13:51:00 13:51:00 Olga [id number] [facility] [place] 2019-09-06 2019-09-06 Outpatient Monteiro, [facility] [id number] -20 [facility] 13:32:00 13:32:00 Kamila [id number] [facility] Results Test Description Test Time Test Comments Results Result [facility] e Comments - DUP VEIN UNI RT 2020-10-05 14:06:00 [facility] : 1995 Sex: F Patient Name: SIMONE MARTÍNEZ Unit No: [id number] EXAMS: CPT CODE: [id number] [place] [address] Exam: RIGHT lower extremity venous Doppler ultrasound, [...] t.SDR.BF11 Orig Print D/T: S: 10/05/2020 (1416) [facility] NAME: SIMONE MARTÍNEZ Radiology Department PHYS: Duane Klein [address] : 1995 AGE: 25 SEX: F [place] [address] LOC: F.4668 A PHONE #: [phone] EXAM DATE: 10/05/2020 STATUS: ADM IN FAX #: [phone] RAD NO: Page 1 Signed Report Patient Name: SIMONE MARTÍNEZ Unit No: [id number] EXAMS: CPT CODE: [id number] [place] [address] <Continued> [facility] NAME: MAURICIO,[facility] Radiology Department PHYS: RICARDO Maxim Duane Carey [address] : 1995 AGE: 25 SEX: F [place], [place] [address] LOC: F.4668 A PHONE #: [phone] EXAM DATE: 10/05/2020 STATUS: ADM IN FAX #: [phone] RAD NO: Page 2 Signed Report URINALYSIS [...] SEEN URINE SAMPLE: CLEAN CATCHAG HEPATITIS B [id number] 17:08:00 Test Item Value Reference Range Interpretation Comments AG HEPATITIS B SURFACE (test code NONREACTIVE NONREACTIVE = HBSAG) IS CONSENT FORM SIGNED FOR HIV TESTING? YAB HEPATITIS C [id number] 17:08:00 Test Item Value Reference Range Interpretation Comments AB HEPATITIS C (test code = NONREACTIVE NONREACTIVE HCVAB) SIGNAL TO CUTOFF (test code = <0.02 <0.80 N CUTOFF) IS CONSENT FORM SIGNED FOR HIV TESTING? YAB [id number] 17:08:00 Test Item Value Reference Range Interpretation Comments AB TREPONEMA (test code = TREPAB) NONREACTIVE NONREACTIVE IS CONSENT FORM SIGNED FOR HIV TESTING? YAB HIV 1 17:08:00 Test Item Value Reference Range Interpretation Comments AB HIV 1 2 (test NONREACTIVE NONREACTIVE Done by Hilda Strickland code = [id number]) 4th Gen HIV Ag/Ab Combo Screen IS CONSENT FORM SIGNED FOR HIV TESTING? YAG HEPATITIS B [id number] 15:58:00 Test Item Value Reference Range Interpretation Comments AG HEPATITIS B SURFACE (test code NONREACTIVE NONREACTIVE = HBSAG) IS CONSENT FORM SIGNED FOR HIV TESTING? YAB HEPATITIS C [id number] 15:58:00 Test Item Value Reference Range Interpretation Comments AB HEPATITIS C (test code = HCVAB) NONREACTIVE SIGNAL TO CUTOFF (test code = CUTOFF) <0.80 IS CONSENT FORM SIGNED FOR HIV TESTING? YAB [id number] 15:58:00 Test Item Value Reference Range Interpretation Comments AB TREPONEMA (test code = TREPAB) NONREACTIVE NONREACTIVE IS CONSENT FORM SIGNED FOR HIV TESTING? YAB HIV 1 15:58:00 Test Item Value Reference Range Interpretation Comments AB HIV 1 2 (test code = [id number]) NONREACTIVE IS CONSENT FORM SIGNED FOR HIV TESTING? YCBC W/AUTO [id number] 15:34:00 Test Item Value Reference Range Interpretation [...] code = PLTMR) COVID 19 Asymptomatic IH [id number] 14:42:00 Test Item Value Reference Range Interpretation [...] and/o r diagnosis of CO VID-19 under Vajtfsg84 4(b)(1) of the Act, 21 U.S .C. 360bbb-3(b)(1), unless theauthorizatio n is terminated or r evoked sooner. RUPTURE OF [id number] 11:50:00 Test Item Value Reference Range Interpretation Comments RUPTURE OF MEMBRANES (test code NON-RUPTURED = ROM) CBC W/AUTO [id number] 20:47:00 Test Item Value Reference Range Interpretation [...] = PLTMR) UA RFLX MICR CULT IF [id number] 20:36:00 Test Item Value Reference Range Interpretation [...] Description: CLEAN CATCHUA RFLX MICR CULT IF [id number] 23:00:00 Test Item Value Reference Range Interpretation [...] 46-116 N code = ALKP) CBC W/AUTO [id number] 22:22:00 Test Item Value Reference Range Interpretation [...] (test NORMAL NORMAL code = PLTMR) URINALYSIS [id number] 02:43:00 Test Item Value Reference Range Interpretation [...] MUCU) URINE SAMPLE: CLEAN CATCHAG HEPATITIS B [id number] 20:05:00 Test Item Value Reference Range Interpretation Comments AG HEPATITIS B SURFACE (test code NONREACTIVE NONREACTIVE = HBSAG) AB HEPATITIS C [id number] 20:05:00 Test Item Value Reference Range Interpretation Comments AB HEPATITIS C (test code = NONREACTIVE NONREACTIVE HCVAB) SIGNAL TO CUTOFF (test code = 0.05 <0.80 N CUTOFF) AB [id number] 20:05:00 Test Item Value Reference Range Interpretation Comments AB TREPONEMA (test code = TREPAB) NONREACTIVE NONREACTIVE AG HEPATITIS B [id number] 19:45:00 Test Item Value Reference Range Interpretation Comments AG HEPATITIS B SURFACE (test code NONREACTIVE NONREACTIVE = HBSAG) AB HEPATITIS C [id number] 19:45:00 Test Item Value Reference Range Interpretation Comments AB HEPATITIS C (test code = HCVAB) NONREACTIVE SIGNAL TO CUTOFF (test code = CUTOFF) <0.80 AB [id number] 19:45:00 Test Item Value Reference Range Interpretation Comments AB TREPONEMA (test code = TREPAB) NONREACTIVE NONREACTIVE PIH [id number] 19:03:00 Test Item Value Reference Range Interpretation Comments CREATININE (test code = CREAT) 0.4 mg/dL 0.5-1.0 L SGOT/AST (test code = AST) 60 units/L 15-37 H SGPT/ALT (test code = ALT) 38 units/L 12-78 N LACTIC DEHYDROGENASE(LDH) (test 537 units/L 81-234 H code = LDH) : *CBC W/AUTO [id number] 18:45:00 Test Item Value Reference Range Interpretation [...] NORMAL NORMAL code = PLTMR) AMNISURE (ROM) [id number] 03:20:00 Test Item Value Reference Range Interpretation Comments AMNISURE (ROM) TEST (test code = NON-RUPTURED NON-RUPTURE AMNI) : *Comments to Dam Worker: LUISA Kennedy QC OK? YES- DUP VEIN UNI [id number] 15:19:00 Patient Name: SIMONE MARTÍNEZ Unit No: [id number] EXAMS: CPT CODE: [id number] [address] RIGHT LEG DUPLEX VENOUS DOPPLER ULTRASOUND, 10/09/2019 [...] (1519) t.SDR.AJ13 Orig Print D/T: S: 10/09/2019 (6653) [facility] NAME: JOSEPH MARTÍNEZY Radiology Department PHYS: Olga Mejía [address] : 1995 AGE: 24 SEX: F [place] [address] LOC: F.RAD PHONE #: [phone] EXAM DATE: 10/09/2019 STATUS: REG CLI FAX #: [phone] RAD NO: Page 1 Signed Report Patient Name: SIMONE MARTÍNEZ Unit No: [id number] EXAMS: CPT CODE: [id number] [place] [address] <Continued> [facility] NAME: SIMONE MARTÍNEZ Radiology Department PHYS: Olga Mejía [address] : 1995 AGE: 24 SEX: F [place] [address] LOC: SASKIA PHONE #: [phone] EXAM DATE: 10/09/2019 STATUS: REG LUCIO FAX #: [phone] RAD NO: Page 2 Signed ReportURINALYSIS COMPLETE [...] NONE SEEN URINE SAMPLE: CLEAN CATCHUR PROTEIN/CREATININE [id number] 03:02:00 Test Item Value Reference Range Interpretation Comments UR PROTEIN RANDOM (test code = 33.3 mg/dL PROTU) UR CREATININE RANDOM (test 300.2 mg/dL code = CREATU) PROTEIN/CREATININE RATIO (test 110.0 mg/gcrea <200 code = P/CRATIO) URINE SAMPLE: CLEAN CATCHCOMPREHENSIVE METABOLIC [id number] 03:02:00 Test Item Value Reference Range Interpretation [...] units/L 46-116 N code = ALKP) URIC [id number] 03:02:00 Test Item Value Reference Range Interpretation Comments URIC ACID (test code = URIC) 3.2 mg/dL 2.6-6.0 N LACTIC DEHYDROGENASE(LDH)2019-09-08 03:02:00 Test Item Value Reference Range Interpretation Comments LACTIC DEHYDROGENASE(LDH) (test 170 units/L 81-234 N code = LDH) URINALYSIS [id number] 02:30:00 Test Item Value Reference Range Interpretation [...] NONE SEEN URINE SAMPLE: CLEAN CATCHUR PROTEIN/CREATININE [id number] 02:30:00 Test Item Value Reference Range Interpretation Comments UR PROTEIN RANDOM (test code = mg/dL PROTU) UR CREATININE RANDOM (test code = mg/dL CREATU) PROTEIN/CREATININE RATIO (test code mg/gcrea <200 = P/CRATIO) URINE SAMPLE: CLEAN CATCHCBC W/AUTO [id number] 02:27:00 Test Item Value Reference Range Interpretation [...] REQUIRED (test NORMAL NORMAL code = PLTMR) [id number] 14:03:00 Test Item Value Reference Range Interpretation [...] 34 weeks, 6 days o f gestation. FAX:[phone] [id number] 13:43:00 Test Item Value Reference Range Interpretation [...] weeks, 6 days o f gestation. URINALYSIS [id number] 13:32:00 Test Item Value Reference Range Interpretation [...] 3+ NONE SEEN - NM PULM PERF [id number] 04:29:00 Patient Name: SIMONE MARTÍNEZ Unit No: [id number] EXAMS: CPT CODE: [id number] NM PULM PERF PARTIC 45310 Nuclear medicine pulmonary perfusion scan dated 07/08/2019. [...] Orig Print D/T: S: 07/08/2019 (0433) [facility]: SIMONE MARTÍNEZ Radiology Department PHYS: BRODY.01 - Kristen Maldonado [address] : 1995 AGE: 24 SEX: F [place], [place] [address] LOC: VirginieERS PHONE #: [phone] EXAM DATE: 07/08/2019 STATUS: REG ER FAX #: [phone] RAD NO: Page 1 Signed Report- XR CHEST 1 [id number] 00:45:00 Patient Name: SIMONE MARTÍNEZ Unit No: [id number] EXAMS: CPT CODE: [id number] XR CHEST 1 V 38876 Chest, single view dated 07/08/2019. HISTORY: 21 [...] Orig Print D/T: S: 07/08/2019 (0048) [facility] NAME: SIMONE MARTÍNEZ Radiology Department PHYS: GUTAL.01 - Kristen Maldonado [address] : 1995 AGE: 24 SEX: F [place], [place] [address] LOC: VirginieERS PHONE#: [phone] EXAM DATE: 07/08/2019 STATUS: REG ER FAX #: [phone] RAD NO: Page 1 Signed Report COMPREHENSIVE METABOLIC [id number] 00:24:00 Test Item Value Reference Range Interpretation [...] 156 units/L 46-116 H code = ALKP) [id number] 00:24:00 Test Item Value Reference Range Interpretation Comments TROPONIN-I (test code = TROPI) <0.017 ng/mL <0.056 N CBC W/AUTO [id number] 00:14:00 Test Item Value Reference Range Interpretation [...] (test NORMAL NORMAL code = PLTMR) GALL [id number] 13:29:00 RUN DATE: 07/03/19 [facility] PAGE 1 RUN TIME: 1809 Specimen Inquiry RUN USER: INTERFACE PATIENT: SIMONE MARTÍNEZ LOC: BRYCE Hart #: [id number] AGE/SX: 24/F ROOM: [facility] RE06/28/19REG DR: Olga Mora : [birth year] BED: A DIS: 07/01/19 STATUS: DIS IN TLOC: SPEC #: [id number] RECD: 07/02/19 STATUS: FERNANDO AGUILAR #: [id number] JOCELYNE: 06/29/19- SUBM DR: Olga Mora MD ENTERED: 07/02/19 SP TYPE: GALMONET WEAVER DR: Izaiah Rodarte MD ORDERED: LEVEL III SURGI CODES: [id number] - GALLBLADDER, NO COPIES TO: Izaiah Rodarte MD [address] [facility] [address] [place] [address] [email or web address] Olga Mora MD [address] [place] [address] [email or web address] PROCEDURES: LEVEL III SURGI (Incomplete) TISSUES: GALLBLADDER, NOS - GALLBLADDER CLINICAL HISTORY 24 year old, biliary dyskinesia (kr) FINAL DIAGNOSIS Gallbladder, cholecystectomy: - cholesterolosis - chronic cholecystitis, mild CPT code(s): 16934 cds/kr dt: 07/03/19 GROSS DESCRIPTION ANATOMIC SOURCE [...] Specimen Inquiry RUN USER: INTERFACE SPEC #: [id number] PATIENT: SIMONE MARTÍNEZ #[id number] (Continued) GROSS DESCRIPTION (Continued) container. The mucosa is velvety gongora, and green with diffuse bright yellow stippling. Time Signal Wirer sections are submitted labeled A1. zohra 07/02/19 @ 1106 Signed Lambert Jacobsen Burak 07/03/19 1329 - END OF REPORT CBC W/AUTO [id number] 07:14:00 Test Item Value Reference Range Interpretation [...] NORMAL NORMAL code = PLTMR) COMPREHENSIVE METABOLIC [id number] 01:05:00 Test Item Value Reference Range Interpretation [...] 46-116 N code = ALKP) CBC W/AUTO [id number] 00:37:00 Test Item Value Reference Range Interpretation [...] = PLTMR) UA RFLX MICR CULT IF [id number] 00:08:00 Test Item Value Reference Range Interpretation [...] A Indication for culture: Dysuria/Frequency- US ABDOMEN [id number] 15:01:00 Patient Name: SIMONE MARTÍNEZ Unit No: [id number] EXAMS: CPT CODE: [id number] US ABDOMEN COMPLETE 64097 ABDOMEN ULTRASOUND COMPLETE 06/07/2019: COMPARISON: Right upper [...] (1505) ofeliaJUANR.AJ13 Orig Print D/T: S: 06/07/2019 (1507) [facility] NAME: SIMONE MARTÍNEZ Radiology Department PHYS: Yuri Ignacio MD [address] : 1995 AGE: 24 SEX: F [place] [address] LOC: Valerie.RAD PHONE #: [phone] EXAM DATE: 06/07/2019 STATUS: REG CLI FAX #: [phone] RAD NO: Page 1 Signed Report Patient Name: SIMONE MARTÍNEZ Unit No: [id number] EXAMS: CPT CODE: [id number] US ABDOMEN COMPLETE 02653 <Continued> [facility] NAME: EZEQUIEL MARTÍNEZTANY Radiology Department PHYS: Yuri Ignacio MD [address] : 1995 AGE: 24 SEX: F [place] [address] LOC: VirginieRAD PHONE #: [phone] EXAM DATE: 06/07/2019 STATUS: REG CLI FAX #: [phone] RAD NO: Page 2 Signed Report- US ABDOMEN [id number] 23:03:00 Patient Name: SIMONE MARTÍNEZ Unit No: [id number] EXAMS: CPT CODE: [id number] US ABDOMEN LTD 90943 PROCEDURE: RIGHT UPPER QUADRANT ULTRASOUND DATED 03/29/2019 [...] t.SDR.DMM Orig Print D/T: S: (2306) [facility] NAME: SIMONE MARTÍNEZ Radiology Department PHYS: DIONYLiliaTayla Santana MD [address] : 1995 AGE: 23 SEX: F [place] [address] LOC: Valerie.ERS PHONE #: [phone] EXAM DATE: 03/29/2019 STATUS: REG ER FAX #: [phone] RAD NO: Page 1 Signed Report Patient Name: SIMONE MARTÍNEZ Unit No: [id number] EXAMS: CPT CODE: [id number] ABDOMEN LTD 27663 <Continued> [facility] NAME: MAURICIOEZEQUIEL ZAIDISIMONE Radiology Department PHYS: Tayla Ace MD [address] : 1995 AGE: 23 SEX: F [place] [address] LOC: F.ERS PH ONE #: [phone] EXAM DATE: 03/29/2019 STATUS: REG ER FAX #: [phone] RAD NO: Page 2 Signed ReportHCG [id number] 23:01:00 Test Item Value Reference Range Interpretation Comments HCG SERUM (test 81832 INTERPRETATI ON:VALUES BETWEEN code = HCG) 15-20 [...] SHOULD BE CONSI DERED NEGATIVE CHEMISTRY 7 [id number] 22:27:00 Test Item Value Reference Range Interpretation [...] = CA) 9.5 mg/dL 8.4-10.2 N LIVER [id number] 22:27:00 Test Item Value Reference Range Interpretation [...] 74 units/L 46-116 N code = ALKP) [id number] 22:27:00 Test Item Value Reference Range Interpretation Comments LIPASE (test code = LIP) 92 units/L 73-393 N UA RFLX MICR CULT IF [id number] 22:21:00 Test Item Value Reference Range Interpretation [...] = AMORU) Indication for culture: Dysuria/FrequencyUR HCG [id number] 22:21:00 Test Item Value Reference Range Interpretation [...] = AMORU) Indication for culture: Dysuria/FrequencyUR HCG [id number] 22:12:00 Test Item Value Reference Range Interpretation Comments UR HCG QUAL (test code = HCGQLU) Indication for culture: Dysuria/FrequencyCBC W/AUTO [id number] 22:09:00 Test Item Value Reference Range Interpretation [...] (test NORMAL NORMAL code = PLTMR) PROTHROMBIN [id number] 22:54:00 Test Item Value Reference Range Interpretation Comments PROTHROMBIN TIME PATIENT (test code 10.3 secs 10.4-12.4 L = PTP) THROMBOPLASTIN TIME [id number] 22:54:00 Test Item Value Reference Range Interpretation Comments THROMBOPLASTIN TIME PARTIAL (test 28.3 secs 22-38 N code = PTT) [id number] 22:54:00 Test Item Value Reference Range Interpretation Comments FIBRINOGEN (test code = FIB) 332 mg/dL 309-518 N - US PREG UT [id number] 21:14:00 Patient Name: SIMONE MARTÍNEZ Unit No: [id number] EXAMS: CPT CODE: [id number] US PREG UT TRANSVAGINAL 52685 PROCEDURE: FIRST TRIMESTER ULTRASOUND INDICATION: , headache, [...] CC: Olga Mora MD Technologist: Luisa Santoyo [facility], T Probe: [id number] Trnscrbd D/ (2113) jerzy.MARIAN Orig Print D/T: S: 03/22/2019 (2117) [facility] Rad[facility] Department PHYS: Izaiah Zeng [address] : 1995 AGE: 23 SEX: F [place] [address] LOC: VirginieERS PHONE #: [phone] EXAM DATE: 03/22/2019 STATUS: REG ER FAX #: [phone] RAD NO: Page 1 Signed Report Patient Name: SIMONE MARTÍNEZ Unit No: [id number] EXAMS: CPT CODE: [id number] US PREG UT TRANSVAGINAL 24470 <Continued> [facility] Radiology Department PHYS: Izaiah Zeng [address] : 1995 AGE: 23 SEX:F [place] [address] LOC: VirginieERS PHONE #: [phone] EXAM DATE: 03/22/2019 STATUS: REG ER FAX #: [phone] RAD NO: Page 2 Signed Report- US PREG EVAL 1ST [id number] 21:14:00 Patient Name: SIMONE MARTÍNEZ Unit No: [id number] EXAMS: CPT CODE: [id number] US PREG EVAL 1ST TRIMTR 87171 PROCEDURE: FIRST TRIMESTER ULTRASOUND INDICATION: , headache, [...] MD Technologist: Luisa Santoyo RDMS, T Probe: Trnscrbd D/ (2113) Boo Orig Print D/T: S: 03/22/2019 (2117) [facility] NAME: MAURICIOSIMONE Radiology Department PHYS: Izaiah Zeng [address] : 1994 AGE: 23 SEX: F [place], [place] [address] LOC: CARRIE PHONE #: [phone] EXAM DATE: 03/22/2019 STATUS: REG ER FAX #: [phone] RAD NO: Page 1 Signed Report Patient Name: SIMONE MARTÍNEZ Unit No: [id number] EXAMS: CPT CODE: [id number] US PREG EVAL 1ST TRIMTR 11812 <Continued> [facility] NAME: MAURICIOEZEQUIEL ZAIDISIMONE Radiology Department PHYS: Izaiah Zeng [address] : 1995 AGE: 23 SEX:F [place], [place] [address] LOC: CARRIE PHONE #: [phone] EXAM DATE: 03/22/2019 STATUS: KIRSTIE ELIZONDO FAX #: [phone] RAD NO: Page 2 Signed ReportHCG [id number] 20:45:00 Test Item Value Reference Range Interpretation Comments HCG SERUM (test 21071 INTERPRETATI ON:VALUES BETWEEN code = HCG) 15-20 [...] SHOULD BE CONSI DERED NEGATIVE COMPREHENSIVE METABOLIC [id number] 20:23:00 Test Item Value Reference Range Interpretation [...] 46-116 N code = ALKP) CBC W/AUTO [id number] 20:04:00 Test Item Value Reference Range Interpretation [...] = PLTMR) UA RFLX MICR CULT IF [id number] 20:01:00 Test Item Value Reference Range Interpretation [...] SEEN Indication for culture: Flank PainCOMPREHENSIVE METABOLIC [id number] 17:15:00 Test Item Value Reference Range Interpretation [...] 68 units/L 46-116 N code = ALKP) [id number] 17:13:00 Test Item Value Reference Range Interpretation Comments AMYLASE (test code = IVETTE) 34 units/L 30-110 N [id number] 17:13:00 Test Item Value Reference Range Interpretation Comments LIPASE (test code = LIP) 88 units/L 73-393 N - US ABDOMEN [id number] 17:09:00 Patient Name: SIMONE MARTÍNEZ Unit No: [id number] EXAMS: CPT CODE: [id number] US ABDOMEN LTD 14980 EXAM: Right upper quadrant ultrasound. EXAM DATE: [...] pancreas secondary to overlying bowel gas). at 1308 Reported and signed by: Tia Boateng MD CC: Sharifa Bassett MD; Twin Flanagan Technologist: Lisbeth Calles RDMS Probe: Trnscrbd D/ ([id number])t.SDR.CER Orig Print D/T: S: 10/14/2018 (0980) [facility] NAME: SIMONE MARTÍNEZ Radiology Department PHYS: Twin Garcia MD [address] : 1995 AGE: 23 SEX: F [place] [address] LOC: [facility] PHONE #: [phone] EXAM DATE: 10/14/2018 STATUS: REG ER FAX #: [phone] RAD NO: Page 1 Signed Report Patient Name: SIMONE MARTÍNEZ Unit No: [id number] EXAMS: CPT CODE: [id number] US ABDOMEN LTD 22464 <Continued> [facility] NAME: SIMONE MARTÍNEZ Radiology Department PHYS: [address] : 1995 AGE: 23 SEX: F [place] [address] LOC: [place] PHONE #: [phone] EXAM DATE: 10/14/2018 STATUS: REG ER FAX #: [phone] RAD NO: Page 2 Signed ReportUA RFLX [...] RARE #/hpf NONE SEEN BACU) CBC W/AUTO [id number] 16:44:00 Test Item Value Reference Range Interpretation [...]
[2021-09-28 09:22] LABS: Urine Blood Negative (Negative); Urine Glucose Negative (Negative); Urine Protein 1+ (Negative); Urine Specific Gravity >=1.030 (1.005-1.030); Urine pH 5.5 (5.0-7.0)
[2021-09-28 09:33] LABS: Urine Specific Gravity/Preg >1.030 (1.005-1.030)
[2021-09-28 09:40] LABS: Hematocrit 44.4 % (36.0-45.0); Lymphocytes % 8.5 % (15.3-44.8); MPV 7.5 fL (7.6-11.3); RBC Red Blood Cell Count 5.46 M/uL (3.86-4.86)
[2021-09-28] MEDS ORDERED: NA CHLORIDE 0.9% 1,000 ML ONE (09:42)
[2021-09-28] MEDS ORDERED: ONDANSETRON 4 MG/2 ML VIAL ONE ×2 (09:42→13:38)
[2021-09-28 09:57] LABS: Albumin 3.8 g/dL (3.4-5.0); Bilirubin Direct 0.1 mg/dL (0-0.2); Bilirubin Total 0.7 mg/dL (0.2-1.0)
[2021-09-28 10:18] LABS: Blood Morphology Comment NOT SEEN (NOT SEEN); Platelet Estimate ADEQ; White Blood Cell Scan OK (OK)
[2021-09-28] MEDS ORDERED: PROMETHAZINE INJ 25 MG/ML AMP ONE (10:56)
--- NOTE | 2021-09-28 13:17 | RAD REPORT ---
EXAM DESCRIPTION: CT - Abdomen Pelvis W Contrast - 09/28/2021 1:01 pm CLINICAL HISTORY: Abdominal pain COMPARISON: none. TECHNIQUE: Computed axial tomography of the abdomen pelvis was obtained. 100 cc Isovue-300 was admin istered intravenously. Oral contrast was not requested which limits evaluation of bowel. All CT scans are performed using dose optimization technique as appropriate and may include automated exposure control or mA/KV adjustment according to patient size. FINDINGS: The liver is mildly enlarged. . Fatty infiltration liver is present. Cholecystectomy. Spleen, pancreas, adrenals and kidneys are unremarkable. There is no evidence of diverticulitis. Normal appendix. No adnexal mass Small umbilical hernia IMPRESSION: Hepatomegaly with fatty infiltration
--- NOTE | 2021-09-28 13:58 | ER ---
Nurse's Notes [facility] Name: Caitlin Sloan Age: 26 yrs Sex: Female : 1995 Arrival Date: 09/28/2021 Time: 08:32 Bed 6 Private MD: Willem Willingham Diagnosis: Nausea with vomiting, unspecified;Diarrhea, unspecified Presentation: 09/28 09:07 Chief complaint: Patient states: N/V/D since yesterday around 1800, might have eaten jl7 something bad from the fridge around 1300. Also might be . Coronavirus screen: diarrhea, nausea, vomiting. Client presents with at least one sign or symptom that may indicate coronavirus-19. Standard/surgical mask placed on the client. Provider contacted for isolation considerations. Ebola Screen: No symptoms or risks identified at this time. Initial Sepsis Screen: Does the patient meet any 2 criteria? No. Patient's initial sepsis screen is negative. Does the patient have a suspected source of infection? No. Patient's initial sepsis screen is negative. Risk Assessment: Do you want to hurt yourself or someone else? Patient reports no desire to harm self or others. Onset of symptoms was September 27, 2021. 09:07 Method Of Arrival: Ambulatory jl7 09:07 Acuity: TANESHA 3 jl7 Triage Assessment: 09:09 General: Appears in no apparent distress. uncomfortable, Behavior is calm, cooperative, jl7 appropriate for age. Pain: Complains of pain in abdomen diffusely. GI: Reports diarrhea, nausea, vomiting. 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 - Social history:: Smoking status: Patient denies any tobacco usage or history of. Screenin: Abuse screen: Denies threats or abuse. Denies injuries from another. Nutritional jg9 screening: No deficits noted. Tuberculosis screening: No symptoms or risk factors identified. Fall Risk None identified. Assessment: 09:25 General: Appears in no apparent distress. Behavior is calm. Pain: Complains of pain in jg9 abdomen Pain currently is 5 out of 10 on a pain scale. Respiratory: No deficits noted. Reports. GI: Abdomen is round Pt is actively vomiting Reports diarrhea, nausea, vomiting. Vital Signs: 09:07 BP 134 / 92; Pulse 106; Resp 17; Temp 99.2; Pulse Ox 100% on R/A; Weight 113.4 kg (R); jl7 Height 5 ft. 5 in. (165.10 cm) (R); Pain 6/10; 10:30 BP 132 / 80; Pulse 106; Resp 14 S; Pulse Ox 98% ; jg9 11:00 BP 122 / 90; Pulse 86; Resp 14 S; Pulse Ox 94% on R/A; jg9 12:30 BP 136 / 83; Pulse 83; Resp 14 S; Pulse Ox 100% on R/A; jg9 13:15 BP 133 / 72; Pulse 80; Resp 16 S; Pulse Ox 96% on R/A; jg9 13:30 BP 144 / 80; Pulse 82; Resp 14 S; Pulse Ox 99% on R/A; jg9 09:07 Body Mass Index 41.60 (113.40 kg, 165.10 cm) jl7 ED Course: 08:32 Patient arrived in ED. mr 08:32 Willem Willingham MD is Private Physician. mr 08:52 Mitchell Cabrera MD is Attending Physician. kdr 09:09 Triage completed. jl7 09:09 Arm band placed on right wrist. jl7 09:14 Brooke Shafer, JOSE MARIA is Primary Nurse. ph 09:25 Inserted saline lock: 22 gauge in right antecubital area, using aseptic technique. jg9 Blood collected. 09:26 Patient has correct armband on for positive identification. Bed in low position. Call jg9 light in reach. Side rails up X 1. 12:43 No apparent distress. Resting quietly. Awaiting disposition. jg9 13:01 CT Abd/Pelvis - IV Contrast Only In Process Unspecified. EDMS 13:10 Patient up ambulating to bathroom. jg9 13:19 additional anti-emetic, and she reports she has had 2 diarrhea with mucous BM today. jg9 13:57 Willem Willingham MD is Referral Physician. kdr 14:05 No provider procedures requiring assistance completed. jg9 14:05 IV discontinued. jg9 Administered Medications: 09:45 Drug: Zofran (Ondansetron) 4 mg Route: IVP; Site: right antecubital; jg9 11:08 Follow up: Response: No adverse reaction; Nausea unchanged jg9 09:47 Drug: NS 0.9% 1000 ml Route: IV; Rate: 1 bolus; Site: right antecubital; jg9 12:44 Follow up: IV Status: Completed infusion; IV Intake: 1000ml jg9 10:57 Drug: Phenergan (promethazine) 12.5 mg Route: IVP; Site: right antecubital; ph 11:35 Follow up: Response: Marked relief of symptoms; Nausea is decreased jg9 13:41 Drug: Zofran (Ondansetron) 4 mg Route: IVP; Infused Over: 2 mins; Site: right jg9 antecubital; 13:53 Follow up: Response: No adverse reaction; Nausea is decreased jg9 Intake: 12:44 IV: 1000ml; Total: 1000ml. jg9 Outcome: 13:58 Discharge ordered by . kdr 14:05 Discharged to home ambulatory. jg9 14:05 Condition: stable 14:05 Discharge instructions given to patient, Instructed on discharge instructions, follow up and referral plans. Demonstrated understanding of instructions, follow-up care. 14:14 Patient left the ED. ph Signatures: Dispatcher [employer] EDMS Mitchell Cabrera MD MD kdr Rivera, Brokoe Dawson RN RN ph Jeff Corona RN RN jl7 Niru Barajas RN RN jg9 Corrections: (The following items were deleted from the chart) 09:12 09:07 Chief complaint: Patient states: N/V/D since yesterday around 1800, might have jl7 eaten something bad from the fridge around 1300 jl7 11:08 10:51 Response: No adverse reaction; Nausea is decreased jg9 jg9
--- NOTE | 2021-09-28 13:59 | EDPHYS ---
Physician Documentation [facility] Name: Caitlin Sloan Age: 26 yrs Sex: Female : 1995 Arrival Date: 09/28/2021 Time: 08:32 Bed 6 Private MD: Willem Willingham ED Physician Mitchell Cabrera HPI: 09/28 09:38 This 26 yrs old Female presents to ER via Ambulatory with complaints of kdr Nausea/Vomiting/Diarrhea, Dizziness. 09:38 Patient started having nausea vomiting diarrhea yesterday around 6 PM. She is concerned kdr that she may have eaten something that has initiated this. She had eaten something out of her refrigerator at around 1 PM in the afternoon. She is also concerned that she may be . She did do a home test which was faintly positive. 09:39 The patient presents to the emergency department with nausea, that is mild, that is kdr moderate, vomiting, that is intermittent, diarrhea, that is intermittent, abdominal pain, of the umbilical area, right upper quadrant and left upper quadrant, described as achy, vague,\E\. Onset: The symptoms/episode began/occurred yesterday, last night. Possible causes: unknown, bad food exposure. The symptoms are aggravated by nothing. pressure, food , The symptoms are alleviated by remaining still. Associated signs and symptoms: Pertinent negatives: abdominal pain, diarrhea, nausea, vomiting. Severity of symptoms: At their worst the symptoms were mild moderate just prior to arrival, in the emergency department the symptoms are unchanged. The patient has not experienced similar symptoms in the past. The patient has not recently seen a physician. 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 - Social history:: Smoking status: Patient denies any tobacco usage or history of. ROS: 09:39 Constitutional: Negative for fever, chills, and weight loss, Eyes: Negative for injury, kdr pain, redness, and discharge, Neck: Negative for injury, pain, and swelling, Cardiovascular: Negative for chest pain, palpitations, and edema, Respiratory: Negative for shortness of breath, cough, wheezing, and pleuritic chest pain, Back: Negative for injury and pain, : Negative for injury, bleeding, discharge, and swelling, MS/Extremity: Negative for injury and deformity, Skin: Negative for injury, rash, and discoloration, Neuro: Negative for headache, weakness, numbness, tingling, and seizure activity. Psych: Negative for depression, anxiety, suicide ideation, homicidal ideation, and hallucinations, Allergy/Immunology: Negative for hives, rash, and allergies, Endocrine: Negative for neck swelling, polydipsia, polyuria, polyphagia, and marked weight changes, Hematologic/Lymphatic: Negative for swollen nodes, abnormal bleeding, and unusual bruising. 09:39 Abdomen/GI: Positive for abdominal pain, nausea, vomiting, and diarrhea, Negative for constipation, abdominal cramps, abdominal distension, rectal pain, rectal bleeding, bowel incontinence. Exam: 09:39 Constitutional: This is a well developed, well nourished patient who is awake, alert, kdr and in no acute distress. Head/Face: Normocephalic, atraumatic. Eyes: Pupils equal round and reactive to light, extra-ocular motions intact. Lids and lashes normal. Conjunctiva and sclera are non-icteric and not injected. Cornea within normal limits. Periorbital areas with no swelling, redness, or edema. Neck: Trachea midline, no thyromegaly or masses palpated, and no cervical lymphadenopathy. Supple, full range of motion without nuchal rigidity, or vertebral point tenderness. No Meningismus. Chest/axilla: Normal chest wall appearance and motion. Nontender with no deformity. No lesions are appreciated. Cardiovascular: Regular rate and rhythm with a normal S1 and S2. No gallops, murmurs, or rubs. Normal PMI, no JVD. No pulse deficits. Respiratory: Lungs have equal breath sounds bilaterally, clear to auscultation and percussion. No rales, rhonchi or wheezes noted. No increased work of breathing, no retractions or nasal flaring. Abdomen/GI: Soft, non-tender, with normal bowel sounds. No distension or tympany. No guarding or rebound. No evidence of tenderness throughout. Back: No spinal tenderness. No costovertebral tenderness. Full range of motion. Pelvic Exam: Normal external genitalia. Speculum exam with closed cervical os, no discharge or bleeding noted. Bimanual exam with normal adnexa, no adnexal or cervical motion tenderness. Normal uterus. Female : Normal external genitalia. Skin: Warm, dry with normal turgor. Normal color with no rashes, no lesions, and no evidence of cellulitis. MS/ Extremity: Pulses equal, no cyanosis. Neurovascular intact. Full, normal range of motion. Neuro: Awake and alert, GCS 15, oriented to person, place, time, and situation. Cranial nerves II-XII grossly intact. Motor strength 5/5 in all extremities. Sensory grossly intact. Cerebellar exam normal. Normal gait. Psych: Awake, alert, with orientation to person, place and time. Behavior, mood, and affect are within normal limits. Vital Signs: 09:07 BP 134 / 92; Pulse 106; Resp 17; Temp 99.2; Pulse Ox 100% on R/A; Weight 113.4 kg (R); jl7 Height 5 ft. 5 in. (165.10 cm) (R); Pain 6/10; 10:30 BP 132 / 80; Pulse 106; Resp 14 S; Pulse Ox 98% ; jg9 11:00 BP 122 / 90; Pulse 86; Resp 14 S; Pulse Ox 94% on R/A; jg9 12:30 BP 136 / 83; Pulse 83; Resp 14 S; Pulse Ox 100% on R/A; jg9 13:15 BP 133 / 72; Pulse 80; Resp 16 S; Pulse Ox 96% on R/A; jg9 13:30 BP 144 / 80; Pulse 82; Resp 14 S; Pulse Ox 99% on R/A; jg9 09:07 Body Mass Index 41.60 (113.40 kg, 165.10 cm) 7 MDM: 13:58 Patient medically screened. kdr 14:00 Data reviewed: vital signs, nurses notes. Counseling: I had a detailed discussion with kdr the patient and/or guardian regarding: the historical points, exam findings, and any diagnostic results supporting the discharge/admit diagnosis, lab results, radiology results, the need for outpatient follow up. ED course: On reevaluation the patient was comfortable though she still had some slight nausea. Her abdomen exam overall with fairly negative except for some very mild right lower quadrant pain based on his exam and findings, her abdomen was scanned to make sure there is not a appendicitis brewing. The scan revealed a negative appendix and no other acute pathology seen. Patient was discharged in good condition she was happy with the care provided and the plan for discharge and follow-up. 09/28 09:22 Order name: Urine Dipstick-Ancillary EDCO 09/28 09:24 Order name: Urine --Ancillary (enter results); Complete Time: 09:36 bd 09/28 09:27 Order name: Basic Metabolic Panel; Complete Time: 10:34 9 09/28 09:27 Order name: CBC with Diff; Complete Time: 10:34 9 09/28 09:27 Order name: Hepatic Function; Complete Time: 10:34 9 09/28 09:27 Order name: Lipase; Complete Time: 10:34 9 09/28 09:27 Order name: IV Saline Lock; Complete Time: 09:27 9 09/28 09:37 Order name: Quantitative Hcg; Complete Time: 10:34 kdr 09/28 10:18 Order name: CBC Smear Scan; Complete Time: 10:34 EDMS 09/28 12:43 Order name: CT Abd/Pelvis - IV Contrast Only; Complete Time: 13:56 kdr 09/28 09:27 Order name: Labs collected and sent; Complete Time: 09:30 9 09/28 11:30 Order name: PO challenge; Complete Time: 11:34 kdr Administered Medications: 09:45 Drug: Zofran (Ondansetron) 4 mg Route: IVP; Site: right antecubital; jg9 11:08 Follow up: Response: No adverse reaction; Nausea unchanged jg9 09:47 Drug: NS 0.9% 1000 ml Route: IV; Rate: 1 bolus; Site: right antecubital; jg9 12:44 Follow up: IV Status: Completed infusion; IV Intake: 1000ml jg9 10:57 Drug: Phenergan (promethazine) 12.5 mg Route: IVP; Site: right antecubital; ph 11:35 Follow up: Response: Marked relief of symptoms; Nausea is decreased jg9 13:41 Drug: Zofran (Ondansetron) 4 mg Route: IVP; Infused Over: 2 mins; Site: right jg9 antecubital; 13:53 Follow up: Response: No adverse reaction; Nausea is decreased jg9 Disposition Summary: 09/28/21 13:58 Discharge Ordered Location: Home kdr Problem: new kdr Symptoms: have improved kdr Condition: Stable kdr Diagnosis - Nausea with vomiting, unspecified kdr - Diarrhea, unspecified kdr Followup: kdr - With: Willem Willingham MD - When: 2 - 3 days - Reason: If symptoms return, Further diagnostic work-up, Recheck today's complaints, Continuance of care, Re-evaluation by your physician Discharge Instructions: - Discharge Summary Sheet kdr - Nausea and Vomiting, Adult kdr - Diarrhea, Adult, [id number] kdr Forms: - Medication Reconciliation Form kdr - Thank You Letter kdr - Work release form ph Prescriptions: - Zofran 4 mg Oral Tablet - take 1 tablet by ORAL route every 4-6 hours As needed; 12 tablet; Refills: 0, kdr Product Selection Permitted - Lomotil 2.5-0.025 mg Oral Tablet - take 1 tablet by ORAL route every 6 hours As needed; 20 tablet; Refills: 0, kdr Product Selection Permitted - Pepcid 20 mg Oral Tablet - take 1 tablet by ORAL route once daily for 10 days; 10 tablet; Refills: 0, kdr Product Selection Permitted Signatures: Dispatcher [employer] Mitchell Oliva MD MD kdr Hall, Patricia RN RN Jeff Bravo RN RN jl7 Niru Barajas RN RN jg9
[2021-09-28 14:28] VITALS: TEMP 99.2
[2021-09-28 14:34] VITALS: BP 144/80; O2SAT 99
== END 2021-09-28 14:14 | disposition home or self-care (01) ==
LOC: ER 08:28
DX: R19.7 Diarrhea, unspecified (principal); F32.A Depression, unspecified; Z88.2 Allergy status to sulfonamides; Z88.5 Allergy status to narcotic agent; Z91.010 Allergy to peanuts
CPT/HCPCS: 96361; 85025; 80048; 36415; 81025; 80076; 84702; 81003; 83690; 74177; 96375; 96374; 99284; Q9967; J2550; J7030; J2405 ×2

== ENCOUNTER 2022-05-15 11:29 | Emergency (ER) | payer OTHER ==
--- OUTSIDE RECORDS SUMMARY | 2022-05-15 11:34 | XMS REPORT | Continuity of Care Document ---
:1995 Author Organization [facility] t Address [address] [place] [address] [address]. [address] [place] [address] Care Team Providers Name Role Phone LUZMA PIERRE Attending Clinician Unavailable Latoya Amato Attending Clinician Unavailable LJ ROMERO Attending Clinician Unavailable Olga Mora Attending Clinician Unavailable Kamila Monteiro Attending Clinician Unavailable LUZMA PIERRE Admitting Clinician Unavailable Olga Mora Admitting Clinician Unavailable Payers Payer Name Policy Type Policy Number Effective Date Expiration Date S ource Problems This patient has no known problems. Allergies, Adverse Reactions, Alerts Allergy Allergy Status Severity Reaction(s) Onset Inactive Treating Comm ents Source Name Type Date Date Clinician Penicill DA Active SV 2020-0 [facility] ins [facility] [place] Sulfa DA Active ME 2020-0 [facility] (Sulfona 11-07 [facility]: [facility] Antibiot 00 l of ics[place] morphine DA Active ME 2020-0 [facility] 3-19 [facility] [place] Penicill DA Active SV ANAPHYLACTIC 2020-0 HC A ins SHOCK 11-07 [facility]: [facility] [place] Sulf[facility] DA Active ME RASH 2020-0 [facility] (Sulfona 11-07 [facility] 00:00: [facility] Antibiot 00 l of ics) [place] morphine DA Active ME Redness near 2020-0 HC A injection 3-19 [facility] site. 00:00: [facility] Itching. [facility] [place] Penicill DA Active SV 2020-0 [facility] ins 3- [facility] [place] Sulfa DA Active ME 2020-0 [facility] (Sulfona 3- [facility] m[facility] 00:00: [facility]osp[facility] Antibiot 00 l of ics) [place] morphine DA Active ME 2020-0 [facility] 3- [facility] [place] Penicill DA Active SV ANAPHYLACTIC 2020-0 HC A ins SHOCK 3 [facility] 00:[facility]: [facility] [place] Sulfa DA Active ME RASH 2020-0 [facility] (Sulfona 3- [facility] mide 00:00: [facility]ospita Antibiot 00 l of ics) [place] morphine DA Active ME Redness near 2020-0 HC A injection - [facility] site. 00:00: [facility] [place] Penicill DA Active SV 2019-1 [facility] ins 2 [facility]: [facility] [place] Sulfa DA Active ME 2019-1 [facility] (Sulfona - [facility] mide 00:00: [facility]ospita Antibiot 00 l of ics) [place] morphine DA Active ME 2019-1 [facility] 2-21 [facility]: [facility] [place] Penicill DA Active SV ANAPHYLACTIC 2018-1 HC A ins SHOCK - [facility] 00:[facility]: [facility] [place] Sulfa DA Active ME RASH 2018-1 [facility] (Sulfona - [facility] mide 00:00: [facility]ospita Antibiot 00 l of ics) [place] morphine DA Active ME Redness near 2019- HC A injection 2- [facility] site. 00:00: [facility] Itching. [facility] [place] Penicill DA Active SV 2019-1 [facility] ins -17 [facility]: [facility] [place] Sulfa DA Active ME 2019-1 [facility] (Sulfona - [facility] mide 00:00: [facility]osp[facility] Antibiot 00 l of ics) [place] morphine DA Active ME 2019-1 [facility] 1-17 [facility] 00:[facility]: [facility] [place] morphine DA Active ME 2019-1 [facility] 1-07 [facility] 00:[facility]: [facility] [place] Penicill DA Active SV 2019-0 [facility] ins 8-08 [facility] 00:[facility]: [facility] [place] Sulfa DA Active ME 2019-0 [facility] (Sulfona 8-08 [facility] mide 00:00: [facility]osp[facility] Antibiot 00 l of ics) [place] Penicill DA Active SV 2019-0 [facility] ins 8- [facility]: [facility] [place] Sulfa DA Active ME 2019-0 [facility] (Sulfona 8- [facility] mide 00:00: [facility]ospita Antibiot 00 l of ics) [place] Penicill DA Active SV 2018-0 [facility] ins 5-17 [facility] 00:[facility]: [facility] [place] Sulfa DA Active ME 2018-0 [facility] (Sulfona 4-12 [facility] mide 00:00: [facility]ospita Antibiot 00 l of ics) [place] Medications This patient has no known medications. Procedures Procedure Date / Time Performed Performing Clinician [facility] e [id number] 2020-10-03 00:00:[address] [facility] [id number] 2020-10-03 00:00:00 [facility] [id number] 2019-11-09 00:00:00 [facility] [id number] 2019-11-08 00:00:00 [facility] [id number] 2019-11-08 00:00:00 [facility] Encounters Start End Encounter Admission Attending Care Care Encounter Source Date/Time Date/Time Type Type Clinicians Facility Department ID 2022-02-04 2022-03-05 Outpatient G[facility] [id number] [facility] 09:41:00 23:59:00 [facility] 2022-01-20 2022-01-22 Inpatient E [facility] [id number] [facility] 17:46:00 13:49:00 [facility] 2022-01-20 2022-01-20 Emergency EM Aamto, [facility] [id number] [facility] 04:58:00 14:18:00 Analysa 76 [facility] 2022-01-20 2022-01-20 [id number] 04:58:00 04:58:00 Analysa [id number] [facility] [place] 2022-01-19 2022-01-20 Emergency E HEATHER, [facility] [id number] [facility] 23:29:00 04:52:00 LJ 2020-10-05 2020-10-05 Inpatient Ohlemacher, [facility] F000 [id number] [facility] 05:48:08 05:48:08 Olga 77 [facility] [place] 2020-10-03 2020-10-03 Inpatient EL Ohlemacher, [facility] F000 [id number] [facility] 14:25:47 14:25:47 Olga 11 [facility] [place] 2020-09-30 2020-09-30 Inpatient Ohlemacher, [facility] F000 [id number] [facility] 15:01:31 15:01:31 Olga 99 [facility] [place] 2020-08-15 2020-08-16 Inpatient Ohlemacher, [facility] BERNIE F000 [id number] [facility] 19:40:00 23:52:32 Olga 16 [facility] [place] 2020-04-22 2020-04-25 Inpatient [facility] LARRY [id number] [facility] 21:42:00 01:08:45 94 [facility] [place] 2019-11-08 2019-11-17 Inpatient EL Ohlemacher, [facility] LD F000 [id number] [facility] 18:09:00 13:12:51 Olga 68 [facility] [place] 2019-10-22 2019-11-15 Inpatient Ohlemacher, [facility] BERNIE F000 [id number] [facility] 22:39:00 10:43:35 Olga 18 [facility] [place] 2019-10-09 2019-10-09 Outpatient EL Ohlemacher, [facility] RADI F00 [id number] [facility] 13:51:00 13:51:00 Olga 82 [facility] [place] 2019-09-08 2019-09-10 Inpatient Ohlemacher, [facility] BERNIE F000 [id number] [facility] 01:48:00 02:38:37 Olga 01 [facility] [place] 2019-09-06 2019-09-06 Outpatient Monteiro, [facility] [id number] [facility] 13:32:00 13:32:00 Kamila 01 [facility] Results Test Description Test Time Test Comments Results Result Comments Source COVID 19 Asymptomatic IH AG 2022-01-20 09:04:00 Test Item Value Reference Range Interpretation Comme nts COVID 19 Asymptomatic IH AG NEGATIVE NEGATIVE This test has been authorized only (test code = COVNONPUIAG) fo r the detection ofproteins from SARS-CoV-2, not for any other viruses orpatho gens. Negative results should be treated as presumptive and confirmed with a molecular assay , if necessary for patientmanageme nt. Negative results do not rule out COVID-19 andshould not be used as the sole basis for treatment orpat ient management decisions, incl uding infection controldecision s. Negative results should be consi dered in thecontext of a patient's recent exposures, history and the presence of clinical signs and sympt oms consistent withCOVID-19. T his test has not been FDA cleare d or approved; the test hasbeen au thorized by FDA under an Emerge ncy Use Authorization(E UA) for use by laboratories ce rtified under the CLIA thatmeet t he requirements to perform moderat e, high or waivedcomplexit y tests. This test is authorized f or use at thePoint of Care (POC), i.e., in patient care settingsop erating under a CLIA Certificate of Waiver, Certificate ofCompliance, o r Certificate of Accreditation. This test is only authorized for the duration of thedeclaration that circumstances exist justifyin g theauthorization of emergency us e of in vitro diagnostic test sfor detection and/or diagnosi s of COVID-19 under Lupyakb904(b)(1 ) of the Act, 21 U.S.C. 360bbb-3 (b)(1), unless theauthorizatio n is terminated or revoked sooner. BASIC METABOLIC [id number] 06:32:00 Test Item Value Reference Range Interpretation Comments SODIUM (test code = NA) 142 mEq/L 135-145 N POTASSIUM (test code = K) 3.4 mEq/L 3.5-5.0 L CHLORIDE (test code = CL) 105 mEq/L 100-115 N CARBON DIOXIDE (test code = CO2) 28 mEq/L 22-31 N ANION GAP (test code = GAP) 12.50 10-20 N GLUCOSE (test code = GLU) 100 mg/dL 65-110 N BLOOD UREA NITROGEN (test code = 7 mg/dL 7-18 N BUN) GLOMERULAR FILTRATION RATE (test 75 ml/min >60 N code = GFR) CREATININE (test code = CREAT) 0.9 mg/dL 0.5-1.0 N CALCIUM (test code = CA) 8.7 mg/dL 8.4-10.2 N CBC W/AUTO [id number] 06:11:00 Test Item Value Reference Range Interpretation Comments WHITE BLOOD CELL (test code = WBC) 6.9 K/mm3 6.5-12.3 N RED BLOOD CELL (test code = RBC) 4.85 M/mm3 3.51-4.69 H HEMOGLOBIN (test code = HGB) 12.8 g/dL 10.1-13.8 N HEMATOCRIT (test code = HCT) 40.6 % 32.5-41.8 N MEAN CELL VOLUME (test code = MCV) 83.7 fL 84.6-96.6 L MEAN CELL HGB (test code = MCH) 26.4 pg 27.3-33.9 L MEAN CELL HGB CONCETRATION (test 31.5 gm/dL 32.0-34.2 L code = MCHC) RED CELL DISTRIBUTION WIDTH (test 13.7 % 12.2-16.3 N code = RDW) PLATELET COUNT (test code = PLT) 285 K/mm3 134-363 N MEAN PLATELET VOLUME (test code = 9.5 fL 9.2-12.7 N MPV) NEUTROPHIL % (test code = NT%) 59.2 % 57.9-77.3 N LYMPHOCYTE % (test code = LY%) 32.5 % 14.5-29.7 H MONOCYTE % (test code = MO%) 6.0 % 3.6-10.2 N EOSINOPHIL % (test code = EO%) 1.9 % 0.0-3.0 N BASOPHIL % (test code = BA%) 0.3 % 0.1-0.9 N NEUTROPHIL # (test code = NT#) 4.1 K/mm3 LYMPHOCYTE # (test code = LY#) 2.2 K/mm3 MONOCYTE # (test code = MO#) 0.4 K/mm3 EOSINOPHIL # (test code = EO#) 0.13 K/mm3 BASOPHIL # (test code = BA#) 0.0 K/mm3 RBC MORPHOLOGY REQUIRED (test code NORMAL NORMAL = RBCM) PLATELET MORPHOLOGY REQUIRED (test NORMAL NORMAL code = PLTMR) - XR CHEST 1 [id number] 00:00:00 [facility] 1995 Sex: F Patient Name: SIMONE MARTÍNEZ Unit No: [id number] EXAMS: CPT CODE: [id number] XR CHEST 1 V 52146 PROCEDURE INFORMATION: Exam: XR Chest Exam date and time: 01/20/2022 7:31 AM Age: 26 years old Clinical indication: Other: Pneumomediastinum; Patient HX: [place] teeth removed yesterday TECHNIQUE: Imaging protocol: XR of the chest. Views: 1 view. COMPARISON: OT XR CHEST 1V 07/08/2019 12:17 AM FINDINGS: Lungs: See "Pleural spaces" finding. Pleural spaces: No gross active pleural, parenchymal, or mediastinal abnormalities noted. Heart/Mediastinum: See "Pleural spaces" finding. Bones/joints: The visualized bonesof the thorax are grossly unremarkable. IMPRESSION: No acute abnormality in the chest. at 0746 Reported and signed by: Celso Mullen MD CC: Latoya Amato MD; Olga Mora MD Technologist: Saray Singh RT; Consuelo Jacobson RT Trnscrbd D/ (0746) GCD.CPS Orig Print D/T: S: 01/20/2022 (0746) [facility] NAME: SIMONE MARTÍNEZ Radiology Department PHYS: Latoya Rosa MD [address] : 1995 AGE: 26 SEX: F [place], [place] [address] LOC: VirginieERS PHONE #: [phone] EXAM DATE: 01/20/2022 STATUS: REG ER FAX #: [phone] RAD NO: Page 1 Signed Report- CT NECK [id number] 00:00:00 [facility] : 1995 Sex: F Patient Name: SIMONE MARTÍNEZ Unit No: [id number] EXAMS: CPT CODE: [id number] CT NECK W/CONTRAST 40641 Radiation Dose CTDIVOL = 14.63 (mGy): DLP = 453.07 (mGy-cm) PROCEDURE INFORMATION: Exam: CT Neck WithContrast Exam date and time: 01/20/2022 6:03 AM Age: 26 years old Clinical indication: Mass, lump, or swelling in neck; Prior surgery; Surgery date: Post-operative (0-2 days); Surgery type: Right lower wisdom tooth removal 01/19/2022; Additional info: Neck pain and swelling post dental p TECHNIQUE: Imaging protocol: Computed tomography images of the neck with contrast. Radiation optimization: All CT scans at this facility use at least one of these dose optimization techniques: automated exposure control; mA and/or kV adjustment per patient size (includes targeted exams where dose is matched to clinical indication); or iterative reconstruction. Contrast material: ISOVUE 300; Contrast volume: 100 ml; Contrast route: INTRAVENOUS (IV); COMPARISON: OT NM PULM PERF PARTIC 07/08/2019 3:47 AM RADIATION DOSE METRICS: CTDI volume (mGy): 14.63 Total DLP (mGy-cm): 453.07 FINDINGS: Paranasal sinuses: Complete opacification of the left maxillary sinus, ethmoid sinus, left frontal sinus consistent with chronic sinusitis. An obstructing process is suspected at the left ostiomeatal unit. Dental: Moderate dental disease associated with several missing teeth dental fillings. Empty right mandibular tooth socket con taining low-attenuation and a tiny focus of gas posteriorly in the right side of the mandible consistent with reported recent wisdom tooth resection. Mild low- attenuation thickening of the soft tissuesmedially and inferiorly to the empty right mandibular wisdom tooth socket suggests inflammation or infection. No definite low-attenuation collection is seen to suggest an abscess with certainty. [facility] NAME: SIMONE MARTÍNEZ Radiology Department PHYS: Liss Benito MD [address] : 1995 AGE: 26 SEX: F [place], [place] [address] LOC: CARRIE PHONE #: [phone] EXAM DATE: 01/20/2022 STATUS: REG ER FAX #: [phone] RAD NO: Page 1 Signed Report 1 Patient Name: SIMONE MARTÍNEZ Unit No: [id number] EXAMS: CPT CODE: [id number] CT NECK W/CONTRAST 73925 (Continued) Pharynx: Mild tonsillar and adenoidal hypertrophy. Larynx: Unremarkable. Epiglottis is normal. Prevertebral and retropharyngeal spaces: See dental section and soft tissue section. Parotid and submandibular glands: Normal. Glands are normal in size. Thyroid: Normal. No enlarged or calcified nodules. Lymph nodes: Multiple scattered small to mildly enlarged bilateral cervical lymph nodes are likely reactive in nature. Trachea: Visualized trachea is unremarkable. Lungs: Unremarkable as visualized. 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 Soft tissues: Extensive soft tissue gas is seen extending from the periorbital and facial soft tissues along both sides the neckand submandibular/submental regions contiguous with incompletely visualized pneumomediastinum. IMPRESSION: 1. Empty right mandibular tooth socket containing low-attenuation and a tiny focus of gas posteriorly in the right side of the mandible consistent with reported recent wisdom tooth resection. Mild low- attenuation thickening of the soft tissues medially and inferiorly to the empty right mandibular wisdom tooth socket suggests inflammation or infection. No definite low-attenuation collection is seen to suggest an abscess with certainty. 2. Extensive subcutaneous emphysema extending from the periorbital and facial soft tissues along both sides the neck and submandibular/submental regions contiguous with incompletely visualized pneumomediastinum. Clinical correlation and follow-up are required as findings may represent infection and mediastinitis. 3. Multiple scattered small to mildly enlarged bilateral cervical lymph nodes are likely reactive in nature. 4. Complete opacification of the left maxillary sinus, ethmoid sinus, left frontal sinus consistent with chronic sinusitis. An obstructing process is suspected at the left ostiomeatal unit. Follow-up ENT consultation and direct visualizationmay be helpful. THIS REPORT CONTAINS FINDINGS THAT MAY BE CRITICAL TO PATIENT CARE. The findings were verbally communicated via telephone conference with Dr. Amato at 6:57 AM CDT on 01/20/2022. The findings were acknowledged and understood. [facility] NAME: SIMONE MARTÍNEZ Radiology Department PHYS: Liss Benito MD [address] : 1995 AGE: 26 SEX: F [place], [place] [address] LOC: CARRIE PHONE #: [phone] EXAM DATE: 01/20/2022 STATUS: REG ER FAX #: [phone] RAD NO: Page 2 Signed Report 1 Patient Name: SIMONE MARTÍNEZ Unit No: [id number] EXAMS: CPT CODE: [id number] CT NECK W/CONTRAST 82269 (Continued) at 0658 Reported and signed by: Ankush Vega MD CC: Liss Macias MD; Olga Mora MD Technologist: RT Evette CTDI: DLP: Trnscrbd D/ (0658) GCD.CPS [facility] NAME: SIMONE MARTÍNEZ Radiology Department PHYS:Liss Benito MD [address] : 1995 AGE: 26 SEX: F [place], [place] [address] LOC: Valerie.ERS PHONE #: [phone] EXAM DATE: 01/20/2022 STATUS: REG ER FAX #: [phone] RAD NO: Page 3 Signed Report 1 Patient Name: SIMONE MARTÍNEZ Unit No: [id number] EXAMS: CPT CODE: [id number] CT NECK W/CONTRAST 47476 (Continued) Orig Print D/T: S: 01/20/2022 (657) [place] [facility] NAME: SIMONE MARTÍNEZ Radiology Department PHYS: Liss [facility]ito [facility] 1995 AGE: 26 SEX: F [place], [place] [address] LOC: F.ERS PHONE #: [phone] EXAM DATE: 01/20/2022 STATUS: REG ER FAX #: [phone] RAD NO: Page 4 Signed Report 1- DUP VEIN UNI [id number] 14:06:00 [facility] 1995 Sex: F Patient Name: SIMONE MARTÍNEZ Unit No: [id number] EXAMS: CPT CODE: [id number] [address] Exam: RIGHT lower extremity venous Doppler ultrasound, unilateral Indication: Right lower extremity swelling. Comparison: Right lower extremity venous Doppler 10/09/2019. Technique: Sonographic evaluation ofthe right lower extremity veins was performed using high resolution B-mode, pulse and color Doppler imaging. FINDINGS: The common femoral, femoral, popliteal and visualized calf veins are patent. Normal venous waveforms. The saphenofemoral junction is unremarkable. IMPRESSION: No right lower extremitydeep venous thrombus. at 1406 Reportedand signed by: Hadley Anthony MD CC: Olga Mora MD; Duane Carey MD Technologist:Lisbeth Calles RDMS Probe: Trnscrbd D/ (1406) [id number] Orig Print D/T: S: 10/05/2020 (1416) [facility] NAME: [facility] Radiology Department PHYS: Duane Klein [address] : 1995 AGE: 25 SEX: F [place] [address] LOC: F.4668 A PHONE #: [phone] EXAM DATE: 10/05/2020 STATUS: ADM IN FAX #: [phone] RAD NO: Page 1 Signed Report Patient Name: SIMONE MARTÍNEZ Unit No: [id number] EXAMS: CPT CODE: [id number] [address] (Continued) [facility] NAME: [facility] Radiology Department PHYS: RICARDO Maxim Duane Carey [address] : 1995 AGE: 25 SEX: F [place] [address] LOC: F.4668 A PHONE #: [phone] EXAM DATE: 10/05/2020 STATUS: ADM INFAX #: [phone] RAD NO: Page 2 Signed ReportURINALYSIS [id number] 18:42:00 Test Item Value Reference Range Interpretation Comments UA COLOR (test code = COLU) YELLOW YELLOW UA APPEARANCE (test code = Slightly-Cloudy CLEAR APPU) UA GLUCOSE DIPSTICK (test NEGATIVE NEG code = DGLUU) UA BILIRUBIN DIPSTICK (test NEGATIVE NEG code = BILU) UA KETONE DIPSTICK (test code TRACE NEG A = KETU) UA SPECIFIC GRAVITY (test 1.026 1.001-1.035 N code = SGU) UA BLOOD [...] #/hpf NONE SEEN UA EPITHELIAL CELLS (test FEW #/HPF RARE-FEW code = EPIU) UA BACTERIA (test code = FEW /HPF RARE-FEW BACU) UA MUCUS (test code = MUCU) 1+ NONE SEEN URINE SAMPLE: CLEAN CATCHAG HEPATITIS B [id number] 17:08:00 Test Item Value Reference Range Interpretation Comments AG HEPATITIS B SURFACE (test code NONREACTIVE NONREACTIVE = HBSAG) IS CONSENT FORM SIGNED FOR HIV TESTING? YAB HEPATITIS C [id number] 17:08:00 Test Item Value Reference Range Interpretation Comments AB HEPATITIS C (test code = NONREACTIVE NONREACTIVE HCVAB) SIGNAL TO CUTOFF (test code = <0.02 <0.80 N CUTOFF) IS CONSENT FORM SIGNED FOR HIV TESTING? YAB [id number] 17:08:00 Test Item Value Reference Range Interpretation Comments AB TREPONEMA (test code = TREPAB) NONREACTIVE NONREACTIVE IS CONSENT FORM SIGNED FOR HIV TESTING? YAB HIV 1 17:08:00 Test Item Value Reference Range Interpretation Comments AB HIV 1 2 (test NONREACTIVE NONREACTIVE [facility] code = [id number]) 4th Gen HIV Ag/Ab Combo Screen IS CONSENT FORM SIGNED FOR HIV TESTING? YAG HEPATITIS B [id number] 15:58:00 Test Item Value Reference Range Interpretation Comments AG HEPATITIS B SURFACE (test code NONREACTIVE NONREACTIVE = HBSAG) IS CONSENT FORM SIGNED FOR HIV TESTING? YAB HEPATITIS C [id number] 15:58:00 Test Item Value Reference Range Interpretation Comments AB HEPATITIS C (test code = HCVAB) NONREACTIVE SIGNAL TO CUTOFF (test code = CUTOFF) <0.80 IS CONSENT FORM SIGNED FOR HIV TESTING? YAB [id number] 15:58:00 Test Item Value Reference Range Interpretation Comments AB TREPONEMA (test code = TREPAB) NONREACTIVE NONREACTIVE IS CONSENT FORM SIGNED FOR HIV TESTING? YAB HIV 1 15:58:00 Test Item Value Reference Range Interpretation Comments AB HIV 1 2 (test code = [id number]) NONREACTIVE IS CONSENT FORM SIGNED FOR HIV TESTING? YCBC W/AUTO [id number] 15:34:00 Test Item Value Reference Range Interpretation [...] code = PLTMR) COVID 19 Asymptomatic IH [id number] 14:42:00 Test Item Value Reference Range Interpretation Comments COVID 19 NEGATIVE NEGATIVE This test has b een Asymptomatic IH AG authorize d only for the (test code = detection ofpro teins from COVNONPUIAG) SARS-CoV-2, not for any other viruses orpathogens. Ne gative results should be treated as presumptive andconfirmed [...] or approved; th e test hasbeen authori jessica by FDA under an Emerge ncy Use [...] and/o r diagnosis of CO VID-19 under Vtascpd66 4(b)(1) of the Act, 21 U.S .C. 360bbb-3(b)(1), unless theauthorizatio n is terminated or r evoked sooner. RUPTURE OF [id number] 11:50:00 Test Item Value Reference Range Interpretation Comments RUPTURE OF MEMBRANES (test code NON-RUPTURED = ROM) CBC W/AUTO [id number] 20:47:00 Test Item Value Reference Range Interpretation [...] = PLTMR) UA RFLX MICR CULT IF [id number] 20:36:00 Test Item Value Reference Range Interpretation [...] Description: CLEAN CATCHUA RFLX MICR CULT IF [id number] 23:00:00 Test Item Value Reference Range Interpretation [...] SEEN Indication for culture: Suprapubic PainCOMPREHENSIVE METABOLIC [id number] 22:47:00 Test Item Value Reference Range Interpretation [...] 46-116 N code = ALKP) CBC W/AUTO [id number] 22:22:00 Test Item Value Reference Range Interpretation [...] (test NORMAL NORMAL code = PLTMR) URINALYSIS [id number] 02:43:00 Test Item Value Reference Range Interpretation [...] MUCU) URINE SAMPLE: CLEAN CATCHAG HEPATITIS B [id number] 20:05:00 Test Item Value Reference Range Interpretation Comments AG HEPATITIS B SURFACE (test code NONREACTIVE NONREACTIVE = HBSAG) AB HEPATITIS C [id number] 20:05:00 Test Item Value Reference Range Interpretation Comments AB HEPATITIS C (test code = NONREACTIVE NONREACTIVE HCVAB) SIGNAL TO CUTOFF (test code = 0.05 <0.80 N CUTOFF) AB [id number] 20:05:00 Test Item Value Reference Range Interpretation Comments AB TREPONEMA (test code = TREPAB) NONREACTIVE NONREACTIVE AG HEPATITIS B [id number] 19:45:00 Test Item Value Reference Range Interpretation Comments AG HEPATITIS B SURFACE (test code NONREACTIVE NONREACTIVE = HBSAG) AB HEPATITIS C [id number] 19:45:00 Test Item Value Reference Range Interpretation Comments AB HEPATITIS C (test code = HCVAB) NONREACTIVE SIGNAL TO CUTOFF (test code = CUTOFF) <0.80 AB [id number] 19:45:00 Test Item Value Reference Range Interpretation Comments AB TREPONEMA (test code = TREPAB) NONREACTIVE NONREACTIVE PIH [id number] 19:03:00 Test Item Value Reference Range Interpretation Comments CREATININE (test code = CREAT) 0.4 mg/dL 0.5-1.0 L SGOT/AST (test code = AST) 60 units/L 15-37 H SGPT/ALT (test code = ALT) 38 units/L 12-78 N LACTIC DEHYDROGENASE(LDH) (test 537 units/L 81-234 H code = LDH) : *CBC W/AUTO [id number] 18:45:00 Test Item Value Reference Range Interpretation [...] NORMAL NORMAL code = PLTMR) AMNISURE (ROM) [id number] 03:20:00 Test Item Value Reference Range Interpretation Comments AMNISURE (ROM) TEST (test code = NON-RUPTURED NON-RUPTURE AMNI) : *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 YES- DUP VEIN UNI [id number] 15:19:00 Patient Name: SIMONE MARTÍNEZ Unit No: [id number] EXAMS: CPT CODE: [id number] [place] UNI RT [id number] LEG DUPLEX VENOUS DOPPLER ULTRASOUND, 10/09/2019 COMPARISON: None CLINICAL HISTORY: 35WKS, ASSESS FOR DVT RT LEG FINDINGS: Sonographic evaluation of the deep venous system of the right leg was performed to the level of the ankle. There is normal Doppler flow and venous compressibility throughout.No sonographic evidence of deep venous thrombosis. Incidental [...] (1519) t.SDR.AJ13 Orig Print D/T: S: 10/09/2019 (1522) [facility] NAME: [facility] Radiology Department PHYS: Olga Mejía [address] : 1995 AGE: 24 SEX: F [place] [address] LOC: F.RADPHONE #: [phone] EXAM DATE: 10/09/2019 STATUS: REG CLI FAX #: [phone] RAD NO: Page 1 Signed Report Patient Name: SIMONE MARTÍNEZ Unit No: [id number] EXAMS: CPT CODE: [id number] [address] (Continued) [facility] NAME: [facility] Radiology Department PHYS: Olga Mejía [address] : 1995 AGE: 24 SEX: F [place] [address] LOC: SASKIA PHONE #: [phone] EXAM DATE: 10/09/2019 STATUS: REG LUCIO FAX #: [phone] RAD NO: Page 2 Signed ReportURINALYSIS [id number] 03:02:00 Test Item Value Reference Range Interpretation [...] NONE SEEN URINE SAMPLE: CLEAN CATCHUR PROTEIN/CREATININE [id number] 03:02:00 Test Item Value Reference Range Interpretation Comments UR PROTEIN RANDOM (test code = 33.3 mg/dL PROTU) UR CREATININE RANDOM (test 300.2 mg/dL code = CREATU) PROTEIN/CREATININE RATIO (test 110.0 mg/gcrea <200 code = P/CRATIO) URINE SAMPLE: CLEAN CATCHCOMPREHENSIVE METABOLIC [id number] 03:02:00 Test Item Value Reference Range Interpretation [...] units/L 46-116 N code = ALKP) URIC [id number] 03:02:00 Test Item Value Reference Range Interpretation Comments URIC ACID (test code = URIC) 3.2 mg/dL 2.6-6.0 N LACTIC DEHYDROGENASE(LDH)2019-09-08 03:02:00 Test Item Value Reference Range Interpretation Comments LACTIC DEHYDROGENASE(LDH) (test 170 units/L 81-234 N code = LDH) URINALYSIS [id number] 02:30:00 Test Item Value Reference Range Interpretation [...] NONE SEEN URINE SAMPLE: CLEAN CATCHUR PROTEIN/CREATININE [id number] 02:30:00 Test Item Value Reference Range Interpretation Comments UR PROTEIN RANDOM (test code = mg/dL PROTU) UR CREATININE RANDOM (test code = mg/dL CREATU) PROTEIN/CREATININE RATIO (test code mg/gcrea <200 = P/CRATIO) URINE SAMPLE: CLEAN CATCHCBC W/AUTO [id number] 02:27:00 Test Item Value Reference Range Interpretation [...] REQUIRED (test NORMAL NORMAL code = PLTMR) [id number] 14:03:00 Test Item Value Reference Range Interpretation [...] 34 weeks, 6 days o f gestation. FAX:[phone] [id number] 13:43:00 Test Item Value Reference Range Interpretation [...] weeks, 6 days o f gestation. URINALYSIS [id number] 13:32:00 Test Item Value Reference Range Interpretation [...] 3+ NONE SEEN - NM PULM PERF [id number] 04:29:00 Patient Name: SIMONE MARTÍNEZ Unit No: [id number] EXAMS: CPT CODE: [id number] NM PULM PERF PARTIC 81924 Nuclear medicine pulmonary perfusion scan dated 07/08/2019. HISTORY: 21 weeks . Shortness of breath. After the intravenous administration of 3.5 mCi of technetium 99m MAA images of the chest were obtained in 8 projections and correlated with a chest radiograph dated 07/08/2019. The images demonstrate homogeneous distribution of the perfusion agent. No significant perfusion defects are detected. IMPRESSION: 1. Normal pulmonary perfusion. The examination is very low probability for pulmonary embolism. SL: 131 at 0429 Reported and signed by: Bernardino Wilkins MD CC: Kristen Maldonado MD; Olga Mora MD Technologist: Matt Pearce Trnscrbd D/ (0429) [place] Orig Print D/T: S: 07/08/2019 (0433) [facility] NAME: SIMONE MARTÍNEZ Radiology Department PHYS: GUTAL.01 - Kristen Maldonado [address] : 1995 AGE: 24 SEX: F [place], [place] [address] LOC: VirginieERS PHONE #: [phone] EXAM DATE: 07/08/2019 STATUS: REG ER FAX #: [phone] RAD NO: Page 1 Signed Report- XR CHEST 1 [id number] 00:45:00 Patient Name: SIMONE MARTÍNEZ Unit No: [id number] EXAMS: CPT CODE: [id number] XR CHEST 1 V 87465 Chest, single view dated 07/08/2019. HISTORY: 21 weeks . Shortness of breath. No prior studies are available for comparison. The heart is normal in size. The cardiomediastinal shadow appears withinnormal limits. The lungs appear clear. The pulmonary vasculature is normal in caliber. No acute pleural space abnormalities are detected. IMPRESSION: 1. No radiographic evidence of acute cardiopulmonary disease. SL: 131 at 0045 Reported and signed by: Bernardino Wilkins MD CC: Kristen Maldonado MD; Olga Mora MD Technologist: RT Janeth Trnscrbd D/ (0045) [place]ider Orig Print D/T: S: 07/08/2019 (0048) [facility] NAME: SIMONE MARTÍNEZ Radiology Department PHYS: REGINA - Kristen Maldonado [address] : 1995 AGE: 24 SEX: F [place] [address] LOC: VirginieERS PHONE #: [phone] EXAM DATE: 07/08/2019 STATUS: REG ER FAX #: [phone] RAD NO: Page 1 Signed ReportCOMPREHENSIVE METABOLIC [id number] 00:24:00 Test Item Value Reference Range Interpretation [...] 156 units/L 46-116 H code = ALKP) [id number] 00:24:00 Test Item Value Reference Range Interpretation Comments TROPONIN-I (test code = TROPI) <0.017 ng/mL <0.056 N CBC W/AUTO [id number] 00:14:00 Test Item Value Reference Range Interpretation [...] (test NORMAL NORMAL code = PLTMR) GALL [id number] 13:29:00 RUN DATE: 07/03/19 [facility] PAGE 1 RUN TIME: 1809 Specimen Inquiry RUN USER: INTERFACE --PATIENT: SIMONE MARTÍNEZ LOC: BRYCE U #: [id number] AGE/SX: 24/F ROOM: [facility] RE06/28/19REG DR: Olga Mora : [birth year] BED: A DIS: 07/01/19 STATUS: DIS IN TLOC: SPEC #: [id number] RECD: 07/02/19 STATUS: FERNANDO AGUILAR #: [id number] JOCELYNE: 06/29/19- SUBM DR: Olga Mora MD ENTERED: 07/02/19 SP TYPE: GALBLAD MEG DR: Izaiah Rodarte MD ORDERED: LEVEL III SURGI CODES: [id number] - GALLBLADDER, NO COPIES TO: Izaiah Rodarte MD [address] [facility] [address] [place] [address] [email or web address] Olga Mora MD [address] [place] [address] [email or web address] PROCEDURES: LEVEL III SURGI (Incomplete) TISSUES: GALLBLADDER, NOS - GALLBLADDER CLINICAL HISTORY 24 year old, biliary dyskinesia (kr) FINAL DIAGNOSIS Gallbladder, cholecystectomy: - cholesterolosis - chronic cholecystitis, mild CPT code(s): 21131qoo/kr dt: 07/03/19 GROSS DESCRIPTION ANATOMIC SOURCE OF [...] or in the CONTINUED ON NEXT PAGE RUN DATE: 07/03/19 [facility] PAGE 2 RUN TIME: 1809 Specimen Inquiry RUN USER: INTERFACE SPEC #: [id number] PATIENT: SIMONE MARTÍNEZ #[id number] (Continued)------ ------ GROSS DESCRIPTION (Continued) container. The mucosa is velvety gongora, and green with diffuse bright yellow stippling. [employer] sections are submitted labeled A1. zohra 07/02/19 @ 1106 Signed Lambert Jacobsen Burak 07/03/19 1329 END OF REPORT CBC W/AUTO [id number] 07:14:00 Test Item Value Reference Range Interpretation [...] NORMAL NORMAL code = PLTMR) COMPREHENSIVE METABOLIC [id number] 01:05:00 Test Item Value Reference Range Interpretation [...] 46-116 N code = ALKP) CBC W/AUTO [id number] 00:37:00 Test Item Value Reference Range Interpretation [...] = PLTMR) UA RFLX MICR CULT IF [id number] 00:08:00 Test Item Value Reference Range Interpretation [...] A Indication for culture: Dysuria/Frequency- US ABDOMEN [id number] 15:01:00 Patient Name: SIMONE MARTÍNEZ Unit No: [id number] EXAMS: CPT CODE: [id number] US ABDOMEN COMPLETE 12878 ABDOMEN ULTRASOUND COMPLETE 06/07/2019: COMPARISON: Right upper quadrant ultrasound dated 2018 CLINICAL HISTORY: RUQ PAIN FINDINGS: The liver has a normal sonographic appearance. No focallesions are seen. The liver measures 16.8 cm in length. The gallbladder contains no calculi and the gallbladder wall is normal in thickness. The common bile duct measures 4 mm in diameter. The visualized portions of the pancreas are unremarkable. The kidneys demonstrate a normal appearance and are of normal size. No hydronephrosis, mass, or cyst is seen The right kidney measures 11.9cm. The left kidney measures [...] Yuri Hewitt MD Technologist: Daya Kulkarni RDMS, RVTatiana Cordova Probe: Trnscrbd D/ (1508) BlayneR.AJ13 Orig Print D/T: S: 06/07/2019 (1500) [facility] NAME: SIMONE MARTÍNEZ Radiology Department PHYS: Yuri Ignacio MD [address] : 1995 AGE: 24 SEX: F [place] [address] LOC: Valerie.RAD PHONE #: [phone] EXAM DATE: 06/07/2019 STATUS: REG CLI FAX #: [phone] RAD NO: Page 1 Signed Report Patient Name: SIMONE MARTÍNEZ Unit No: [id number] EXAMS: CPT CODE: [id number] US ABDOMEN COMPLETE 41555 (Continued) [facility] NAME: SIMONE MARTÍNEZ Radiology Department PHYS: Yuri Ignacio MD [address] : 1995 AGE: 24 SEX: F [place] [address] LOC: Valerie.RAD PHONE #: [phone] EXAM DATE: 06/07/2019 STATUS: REG CLI FAX #: RAD NO: Page 2 Signed Report- US ABDOMEN [id number] 23:03:00 Patient Name: SIMONE MARTÍNEZ Unit No: [id number] EXAMS: CPT CODE: [id number] US ABDOMEN LTD 72144 PROCEDURE: RIGHT UPPER QUADRANT ULTRASOUND DATED 03/29/2019 [...] D/ (2303) t.SDR.DMM Orig Print D/T: S: 03/29/2019 (2306) [facility] NAME: SIMONE MARTÍNEZ Radiology Department PHYS: Tayla Ace MD [address] : 1995 AGE: 23 SEX: F [place] [address] LOC: VirginieERS PHONE #: [phone] EXAM DATE: 03/29/2019 STATUS: REG ER FAX #: [phone] RAD NO: Page 1 Signed Report Patient Name: SIMONE MARTÍNEZ Unit No: [id number] EXAMS: CPT CODE: [id number] ABDOMEN LTD 28445 (Continued) [facility] NAME[facility] Radiology Department PHYS: Tayla Ace MD [address] : 1995 AGE: 23 SEX: F [place] [address] LOC: Valerie.ERS PHONE #: [phone] EXAM DATE:03/29/2019 STATUS: REG ER FAX #: [phone] RAD NO: Page 2 Signed ReportHCG [id number] 23:01:00 Test Item Value Reference Range Interpretation Comments HCG SERUM (test 18431 INTERPRETATI ON:VALUES BETWEEN code = HCG) 15-20 milliInte rnational units/mL NEED T O BERETESTED WITHIN 48 HOURS . All units for these ranges ar e in milliInternatio nalunits/mL0-1 WK AFTER CONCEP TION 0-50 1-2 WKS AFTER ERICKSON PTION 40-3002-3 WKS AFTER ERICKSON PTION 100-1,0003-4 WK S AFTER CONCEPTION 500- 6,0001-2 MONTHS AFTER CONCEPTIO N 5,000-200,0002- 3 MONTHS AFTER CONCEPTION 10,0 00-100,0002ND TRIMESTER 3,000 -50,0003RD TRIMESTER 1,000 -50,000 SPECIMENS WITH AN HCG LEVEL FROM 0-6 milliInternatio nalunits/mL SHOULD BE CONSI DERED NEGATIVE CHEMISTRY 7 [id number] 22:27:00 Test Item Value Reference Range Interpretation [...] = CA) 9.5 mg/dL 8.4-10.2 N LIVER [id number] 22:27:00 Test Item Value Reference Range Interpretation [...] 74 units/L 46-116 N code = ALKP) [id number] 22:27:00 Test Item Value Reference Range Interpretation Comments LIPASE (test code = LIP) 92 units/L 73-393 N UA RFLX MICR CULT IF [id number] 22:21:00 Test Item Value Reference Range Interpretation [...] = AMORU) Indication for culture: Dysuria/FrequencyUR HCG [id number] 22:21:00 Test Item Value Reference Range Interpretation [...] = AMORU) Indication for culture: Dysuria/FrequencyUR HCG [id number] 22:12:00 Test Item Value Reference Range Interpretation Comments UR HCG QUAL (test code = HCGQLU) Indication for culture: Dysuria/FrequencyCBC W/AUTO [id number] 22:09:00 Test Item Value Reference Range Interpretation [...] (test NORMAL NORMAL code = PLTMR) PROTHROMBIN [id number] 22:54:00 Test Item Value Reference Range Interpretation Comments PROTHROMBIN TIME PATIENT (test code 10.3 secs 10.4-12.4 L = PTP) THROMBOPLASTIN TIME [id number] 22:54:00 Test Item Value Reference Range Interpretation Comments THROMBOPLASTIN TIME PARTIAL (test 28.3 secs 22-38 N code = PTT) [id number] 22:54:00 Test Item Value Reference Range Interpretation Comments FIBRINOGEN (test code = FIB) 332 mg/dL 309-518 N - US PREG UT [id number] 21:14:00 Patient Name: SIMONE MARTÍNEZ Unit No: [id number] EXAMS: CPT CODE: [id number] US PREG UT TRANSVAGINAL 42092 PROCEDURE: FIRST TRIMESTER ULTRASOUND INDICATION: , headache, dizziness COMPARISON: No relevant comparison. TECHNIQUE: Grayscale, color and Doppler transabdominal and transvaginal imaging of the pelvis was performed with standard technique. Transvaginal ultrasound is obtainedfor further evaluation of the endometrium and adnexal regions. FINDINGS: UTERUS: 9.7 cm in length. There is a single intrauterine gestation. Approximate gestational age based on a 0.44 cm crown-rump length is 6 weeks 1 day. heart rate is estimated at 163 bpm. No significant subchorionic blood products demonstrated. RIGHT OVARY: 3.6 x 1.9 x 2.6 cm. Normal sonographic appearance and documented arterial and venous flow by Doppler. LEFT OVARY: 3.2 x 2.0 x 2.4 cm with normal sonographic appearance and documented arterial flow by Doppler. BLADDER: Unremarkable. Comments: No adnexal masses. Nofree intraperitoneal fluid. IMPRESSION: 1. Single viable intrauterine gestation, approximate gestational age by crown-rump length measurement is 6 weeks 1 day. 2. Normal sonographic appearance of the ovaries. No free pelvic fluid. SL: JANINE at 2113 Reported and signed by: Kendal Colón MD CC: Olga Mora MD Technologist: Luisa Santoyo RDPA, T Probe: [id number] Trnscrbd D/ (2113) Boo Orig Print D/T: S: 03/22/2019 (2117) [facility] NAME: [facility] Radiology Department PHYS: Izaiah Zeng [address] : 1995 AGE: 23 SEX: F [place] [address] LOC: CARRIE PHONE #: [phone] EXAM DATE: 03/22/2019 STATUS: REG ER FAX #: [phone] RAD NO: Page 1 Signed Report Patient Name: SIMONE MARTÍNEZ Unit No: [id number] EXAMS: CPT CODE: [id number] US PREG UT TRANSVAGINAL 02842 (Continued) [facility] NAME: [facility] Radiology Department PHYS: Izaiah Zeng [address] : 1995 AGE: 23 SEX:F [place] [address] LOC: VirginieERS PHONE #: [phone] EXAM DATE: 03/22/2019STATUS: REG ER FAX #: [phone] RAD NO: Page 2 Signed Report- US PREG EVAL 1ST [id number] 21:14:00 Patient Name: SIMONE MARTÍNEZ Unit No: [id number] EXAMS: CPT CODE: [id number] US PREG EVAL 1ST TRIMTR 43232 PROCEDURE: FIRST TRIMESTER ULTRASOUND INDICATION: , headache, dizziness COMPARISON: No relevant comparison. TECHNIQUE: Grayscale, color and Doppler transabdominal and transvagi nal imaging of the pelvis was performed with standard technique. Transvaginal ultrasound is obtainedfor further evaluation of the endometrium and adnexal regions. FINDINGS: UTERUS: 9.7 cm in length. There is a single intrauterine gestation. Approximate gestational age based on a 0.44 cm crown-rump length is 6 weeks 1 day. heart rate is estimated at 163 bpm. No significant subchorionic blood products demonstrated. RIGHT OVARY: 3.6 x 1.9 x 2.6 cm. Normal sonographic appearance and documented arterial and venous flow by Doppler. LEFT OVARY: 3.2 x 2.0 x 2.4 cm with normal sonographic appearance and documented arterial flow by Doppler. BLADDER: Unremarkable. Comments: No adnexal masses. Nofree intraperitoneal fluid. IMPRESSION: 1. Single viable intrauterine gestation, approximate gestational age by crown-rump length measurement is 6 weeks 1 day. 2. Normal sonographic appearance of the ovaries. No free pelvic fluid. SL: JANINE at 2113 Reported and signed by: Kendal Colón MD CC: Olga Moar MD Technologist: Luisa Santoyo RDMS, T Probe: Trnscrbd D/ (2113) Boo Orig Print D/T: S: 03/22/2019 (2117) [facility] NAME: SIMONE MARTÍNEZ Radiology Department PHYS: Izaiah Zeng [address] : 1995 AGE: 23 SEX: [place] [address] LOC: CARRIE PHONE #: [phone] EXAM DATE: 03/22/2019 STATUS: REG ER FAX #: [phone] RAD NO:Page 1 Signed Report Patient Name: SIMONE MARTÍNEZ Unit No: [id number] EXAMS: CPT CODE: [id number] US PREG EVAL 1ST TRIMTR 52388 (Continued) [facility] NAME: JOSEPH MARTÍNEZY Radiology Department PHYS: Izaiah Zeng [address] : 1995 AGE: 23 SEX: [place] [address] LOC: CARRIE PHONE #: [phone] EXAM DATE: 03/22/2019 STATUS: KIRSTIE ELIZONDO FAX #: [phone] RAD NO: Page 2 Signed ReportHCG [id number] 20:45:00 Test Item Value Reference Range Interpretation Comments HCG SERUM (test 32562 INTERPRETATI ON:VALUES BETWEEN code = HCG) 15-20 milliInte rnational units/mL NEED T O BERETESTED WITHIN 48 HOURS . All units for these ranges ar e in milliInternatio nalunits/mL0-1 WK AFTER CONCEP TION 0-50 1-2 WKS AFTER ERICKSON PTION 40-3002-3 WKS AFTER ERICKSON PTION 100-1,0003-4 WK S AFTER CONCEPTION 500- 6,0001-2 MONTHS AFTER CONCEPTIO N 5,000-200,0002- 3 MONTHS AFTER CONCEPTION 10,0 00-100,0002ND TRIMESTER 3,000 -50,0003RD TRIMESTER 1,00 0-50,000 SPECIMENS WITH AN HCG LEVEL FROM 0-6 milliInternatio nalunits/mL SHOULD BE CONSI DERED NEGATIVE COMPREHENSIVE METABOLIC [id number] 20:23:00 Test Item Value Reference Range Interpretation [...] 46-116 N code = ALKP) CBC W/AUTO [id number] 20:04:00 Test Item Value Reference Range Interpretation [...] = PLTMR) UA RFLX MICR CULT IF [id number] 20:01:00 Test Item Value Reference Range Interpretation [...] SEEN Indication for culture: Flank PainCOMPREHENSIVE METABOLIC [id number] 17:15:00 Test Item Value Reference Range Interpretation [...] 68 units/L 46-116 N code = ALKP) [id number] 17:13:00 Test Item Value Reference Range Interpretation Comments AMYLASE (test code = IVETTE) 34 units/L 30-110 N [id number] 17:13:00 Test Item Value Reference Range Interpretation Comments LIPASE (test code = LIP) 88 units/L 73-393 N - US ABDOMEN [id number] 17:09:00 Patient Name: SIMONE MARTÍNEZ Unit No: [id number] EXAMS: CPT CODE: [id number] US ABDOMEN LTD 59451 EXAM: Right upper quadrant ultrasound. EXAM DATE: October 14, 2018. CLINICAL HISTORY: Right upper quadrant pain. Real-time imaging of the abdomen demonstrated a normal appearing liver, gallbladder, biliary ductal system and right kidney. The pancreas was obscured by overlying bowel gas. The common bileduct measures 0.1 cm. The right kidney measures 11.7 x 5.2 x 5.1 cm. The visualized portions of the IVC and aorta are within normal limits. Specifically, there is no evidence of ascites, cholelithiasisor right hydronephrosis. IMPRESSION: No significant abnormalities identified (nonvisualization of pancreas secondary to overlying bowel gas). at 5624 Reported and signed by: Tia Boateng MD CC: Sharifa Bassett MD; Twin Rey echnologist: Lisbeth Calles RDMS Probe: Trnscrbd D/ (8605) t.SDR.CER Orig Print D/T:S: 10/14/2018 (4375) [facility] NAME: SIMONE MARTÍNEZ Radiology Department PHYS: JOSEPHLiliawTin Spicer MD [address] : 1995 AGE: 23 SEX: F [place] [address] LOC: CARRIE PHONE #: [phone] EXAM DATE: 10/14/2018 STATUS: REG ER FAX #: [phone] RAD NO: Page 1 Signed Report Patient Name: SIMONE MARTÍNEZ Unit No: [id number] EXAMS: CPT CODE: [id number] US ABDOMEN LTD 54102 (Continued) [facility] NAME: SIOMNE MARTÍNEZ Radiology Department PHYS: JOSEPHLiliaHardy Maxim Twin Bocanegra MD [address] : 1995 AGE: 23 SEX: F [place] [address] LOC: CARRIE PHONE #: [phone] EXAM DATE: 10/14/2018 STATUS: REG ER FAX #: [phone] RAD NO: Page 2 Signed ReportUA RFLX MICR CULT IF [id number] 16:48:00 Test Item Value Reference Range Interpretation [...] RARE #/hpf NONE SEEN BACU) CBC W/AUTO [id number] 16:44:00 Test Item Value Reference Range Interpretation [...]
[2022-05-15] MEDS ORDERED: HYDROCODONE/APAP 10/325 TAB ONE (12:26)
[2022-05-15] MEDS ORDERED: CYCLOBENZAPRINE 10 MG TAB ONE (12:26)
--- NOTE | 2022-05-15 12:52 | ER ---
Nurse's Notes [facility] Name: Caitlin Sloan Age: 27 yrs Sex: Female : 1995 Arrival Date: 05/15/2022 Time: 11:31 Bed 10 Private MD: Diagnosis: Sciatica, right side Presentation: 05/15 11:46 Chief complaint: Patient states: I was trying to fix my bed and I pushed and pulled at bm7 the same time and I felt a pop in my back and I am in severe pain. Coronavirus screen: At this time, the client does not indicate any symptoms associated with coronavirus-19. Ebola Screen: No symptoms or risks identified at this time. Initial Sepsis Screen: Does the patient meet any 2 criteria? No. Patient's initial sepsis screen is negative. Does the patient have a suspected source of infection? No. Patient's initial sepsis screen is negative. Risk Assessment: Do you want to hurt yourself or someone else? Patient reports no desire to harm self or others. Onset of symptoms was May 15, 2022. Care prior to arrival: Medication(s) given: Tylenol. 11:46 Method Of Arrival: Wheelchair bm7 11:46 Acuity: TANESHA 3 bm7 Triage Assessment: 11:47 General: Appears in no apparent distress. uncomfortable, Behavior is calm, cooperative, bm7 appropriate for age. Pain: Complains of pain in back. EENT: No deficits noted. No signs and/or symptoms were reported regarding the EENT system. Neuro: No deficits noted. Cardiovascular: No deficits noted. Respiratory: No deficits noted. GI: No deficits noted. No signs and/or symptoms were reported involving the gastrointestinal system. : No deficits noted. No signs and/or symptoms were reported regarding the genitourinary system. Derm: No deficits noted. No signs and/or symptoms reported regarding the dermatologic system. Musculoskeletal: Range of motion: intact in all extremities, Reports numbness in right leg pain in back. 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 - Social history:: Smoking status: Patient denies any tobacco usage or history of. Screenin:00 Abuse screen: Denies threats or abuse. Nutritional screening: No deficits noted. bm7 Tuberculosis screening: No symptoms or risk factors identified. Fall Risk None identified. Assessment: 13:00 Reassessment: No changes from previously documented assessment. bm7 Vital Signs: 11:50 BP 118 / 70; Pulse 95; Resp 16; Temp 97.1(TE); Pulse Ox 100% on R/A; Weight 120.2 kg bm7 (R); Height 5 ft. 5 in. (165.10 cm); Pain 10/10; 11:50 Body Mass Index 44.10 (120.20 kg, 165.10 cm) bm7 ED Course: 11:31 Patient arrived in ED. rg4 11:46 Adam Anderson PA is PHCP. [facility] 11:46 Sebas Day MD is Attending Physician. [facility] 11:47 Triage completed. bm7 11:47 Arm band placed on right wrist. bm7 13:00 Patient has correct armband on for positive identification. bm7 13:00 No provider procedures requiring assistance completed. Patient did not have IV access bm7 during this emergency room visit. Administered Medications: 12:19 Drug: [place] (HYDROcodone-acetaminophen) 10 mg-325 mg 1 tabs Route: PO; bm7 13:02 Follow up: Response: Pain is decreased bm7 12:19 Drug: Flexeril (cyclobenzaprine) 10 mg Route: PO; bm7 13:02 Follow up: Response: No adverse reaction bm7 Medication: 13:00 VIS not applicable for this client. bm7 Outcome: 12:52 Discharge ordered by . [facility] 13:00 Discharged to home via wheelchair. bm7 13:00 Condition: good 13:00 Discharge instructions given to patient, family, Instructed on discharge instructions, follow up and referral plans. medication usage, Demonstrated understanding of instructions, follow-up care, medications, Prescriptions given X 1. 13:02 Patient left the ED. bm7 Signatures: Adam Anderson PA PA jmm Garcia, Rubi rg4 Caitlin Morgan, RN RN bm7 Corrections: (The following items were deleted from the chart) 11:48 11:47 Home Meds: Zoloft Oral; bm7 bm7
--- NOTE | 2022-05-15 12:52 | EDPHYS ---
Physician Documentation [facility] Name: Caitlin Sloan Age: 27 yrs Sex: Female : 1995 Arrival Date: 05/15/2022 Time: 11:31 Bed 10 Private MD: ED Physician Sebas Day HPI: 05/15 12:03 This 27 yrs old Female presents to ER via Wheelchair with complaints of Back Pain, jmm Numbness Of Leg. 12:03 The patient presents with pain that is acute. Onset: The symptoms/episode jmm began/occurred acutely, just prior to arrival, this morning, 1.5 hour(s) ago. The pain radiates to the right leg. Associated signs and symptoms: Pertinent negatives: abdominal pain, dysuria, fever, hematuria, incontinence, nausea, vomiting, weakness. Modifying factors: The patient symptoms are alleviated by nothing, the patient symptoms are aggravated by any movement. The patient has experienced similar episodes in the past. 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 - Social history:: Smoking status: Patient denies any tobacco usage or history of. ROS: 12:03 Constitutional: Negative for fever, chills, and weight loss, Cardiovascular: Negative jmm for chest pain, palpitations, and edema, Respiratory: Negative for shortness of breath, cough, wheezing, and pleuritic chest pain. 12:03 Back: Positive for pain with movement. 12:03 MS/extremity: Positive for pain. 12:03 All other systems are negative. Exam: 12:03 Constitutional: This is a well developed, well nourished patient who is awake, alert, jmm and in no acute distress. Head/Face: atraumatic. Eyes: EOMI, no conjunctival erythema appreciated ENT: Moist Mucus Membranes Neck: Trachea midline, Supple Chest/axilla: Normal chest wall appearance and motion. Cardiovascular: Regular rate and rhythm. No edema appreciated Respiratory: Normal respirations, no respiratory distress appreciated Abdomen/GI: Non distended 12:03 Skin: General appearance color normal MS/ Extremity: Moves all extremities, no obvious deformities appreciated, no edema noted to the lower extremities 12:03 Back: pain, that is moderate, of the right low back. 12:03 Neuro: extensor hallucis longus intact. 12:03 Psych: Behavior/mood is pleasant, cooperative. Vital Signs: 11:50 BP 118 / 70; Pulse 95; Resp 16; Temp 97.1(TE); Pulse Ox 100% on R/A; Weight 120.2 kg bm7 (R); Height 5 ft. 5 in. (165.10 cm); Pain 10/10; 11:50 Body Mass Index 44.10 (120.20 kg, 165.10 cm) bm7 MDM: 12:03 Patient medically screened. [facility] 12:51 Data reviewed: vital signs, nurses notes. Counseling: I had a detailed discussion with marlen the patient and/or guardian regarding: the historical points, exam findings, and any diagnostic results supporting the discharge/admit diagnosis, the need for outpatient follow up, to return to the emergency department if symptoms worsen or persist or if there are any questions or concerns that arise at home. 12:51 ED course: Patient states being approx 5 weeks . Elected to not get imaging. I marlen discussed supportive measures with the patient along with the need to follow up with her OBGYN for further care. Patient otherwise given strict return precautions. Patient understood and agrees with the plan of care. . Administered Medications: 12:19 Drug: [place] (HYDROcodone-acetaminophen) 10 mg-325 mg 1 tabs Route: PO; bm7 13:02 Follow up: Response: Pain is decreased bm7 12:19 Drug: Flexeril (cyclobenzaprine) 10 mg Route: PO; bm7 13:02 Follow up: Response: No adverse reaction bm7 Disposition: 15:37 Co-signature as Attending Physician, Sebas Day MD. rn Disposition Summary: 05/15/22 12:52 Discharge Ordered Location: Home [facility] Condition: Stable [facility] Diagnosis - Sciatica, right side jm Followup: marlen - With: Private Physician - When: 2 - 3 days - Reason: Recheck today's complaints, Continuance of care, Re-evaluation by your physician Discharge Instructions: - Discharge Summary Sheet marlen - Sciatica marlen Forms: - Medication Reconciliation Form [email or web address] - Thank You Letter marlen - Antibiotic Education marlen - Prescription Opioid Use baltazar Prescriptions: - Cyclobenzaprine 10 mg Oral Tablet - take 1 tablet by ORAL route every 8 hours As needed; 30 tablet; Refills: 0, [facility] Product Selection Permitted Signatures: Adam Anderson PA PA jmm Nieto, Roman, MD MD rn Caitlin Morgan RN RN bm7 Corrections: (The following items were deleted from the chart) 11:48 11:47 Home Meds: Zoloft Oral; bm7 bm7
[2022-05-16 21:45] VITALS: BP 118/70; TEMP 97.1; O2SAT 100
== END 2022-05-15 13:02 | disposition home or self-care (01) ==
LOC: ER 11:29
DX: O26.891 Other specified pregnancy related conditions, first trimester (principal); M54.31 Sciatica, right side; Z3A.01 Less than 8 weeks gestation of pregnancy; Z88.0 Allergy status to penicillin; Z88.2 Allergy status to sulfonamides; Z88.5 Allergy status to narcotic agent
CPT/HCPCS: 99283

== ENCOUNTER 2023-01-19 08:36 | Emergency (ER) | payer OTHER ==
--- OUTSIDE RECORDS SUMMARY | 2023-01-19 08:42 | XMS REPORT | Continuity of Care Document ---
:1995 Author Organization [facility] t Address [address] [facility] [address] [place] [address] Care Team Providers Name Role Phone WELLINGTON HOFF Attending Clinician Unavailable Simone Nolasco Attending Clinician Unavailable LUZMA PIERRE Attending Clinician Unavailable Latoya Amato Attending Clinician Unavailable LJ ROMERO Attending Clinician Unavailable Olga Mora Attending Clinician Unavailable Olga Mora Admitting Clinician Unavailable LUZMA PIERRE Admitting Clinician Unavailable Payers Payer Name Policy Type Policy Number Effective Date Expiration Date S ourpollo PPO/EPO - BCBS [id number] Problems This patient has no known problems. Allergies, Adverse Reactions, Alerts Allergy Allergy Status Severity Reaction(s) Onset Inactive Treating Comm ents Source Name Type Date Date Clinician Penicill DA Active SV 2020-0 [facility] ins 3-19 [facility] [place] Sulfa DA Active OK 2020-0 [facility] (Sulfona 3- [facility] 00:00: [facility] Antibiot 00 l of ics[place] morphine DA Active OK 2020-0 [facility] 3-19 [facility] [place] Penicill DA Active SV ANAPHYLACTIC 2020-0 HC A ins SHOCK 3-19 [facility] 00:[facility]: [facility] [place] Sulfa DA Active OK RASH 2020-0 [facility] (Sulfona 3- [facility] mide 00:00: [facility]ospita Antibiot 00 l of ics) [place] morphine DA Active OK Redness near 2020-0 HC A injection 3-19 [facility] site. 00:00: [facility] Itching. [facility] [place] Penicill DA Active SV 2020-0 [facility] ins 3- [facility]: [facility] [place] Sulfa DA Active OK 2020-0 [facility] (Sulfona 3- [facility] mide 00:00: [facility]ospita Antibiot 00 l of ics) [place] morphine DA Active OK 2020-0 [facility] 3- [facility] 00:[facility]: [facility] [place] Penicill DA Active SV ANAPHYLACTIC 2020-0 HC A ins SHOCK 10-21 [facility] 00:00: [facility] [place] Sulfa DA Active OK RASH 2019-0 [facility] (Sulfona 10-21 Woman[facility] mide 00:00: [facility]ospita Antibiot 00 l of ics) [place] morphine DA Active OK Redness near 2020-0 HC A injection 10-21 [facility] site. 00:00: [facility] [place] Penicill DA Active SV 2019-1 [facility] ins 2- [facility] 00:[facility]: [facility] [place] Sulfa DA Active OK 2019-1 [facility] (Sulfona - [facility] mide 00:00: [facility]ospita Antibiot 00 l of ics) [place] morphine DA Active OK 2018-1 [facility] 2- [facility] 00:[facility]: [facility] [place] Penicill DA Active SV ANAPHYLACTIC 2018- HC A ins SHOCK - [facility] 00:00: [facility] [place] Sulfa DA Active OK RASH 2018-1 [facility] (Sulfona - Woman[facility] mide 00:00: [facility]ospita Antibiot 00 l of ics) [place] morphine DA Active OK Redness near 2019- HC A injection - Woman's site. 00:00: [facility] Itching. [facility] [place] Penicill DA Active SV 2019-1 [facility] ins -17 [facility] 00:[facility]: [facility] [place] Sulfa DA Active OK 2019-1 [facility] (Sulfona -17 Woman[facility] mide 00:00: [facility]ospita Antibiot 00 l of ics) [place] morphine DA Active OK 2019-1 [facility] 1-17 [facility] 00:00: [facility] [place] morphine DA Active OK 2019-1 [facility] 1-07 [facility] 00:[facility]: [facility] [place] Penicill DA Active SV 2019-0 [facility] ins 8-08 [facility] 00:[facility]: [facility] [place] Sulfa DA Active OK 2019-0 [facility] (Sulfona 8-08 Woman's mide 00:00: [facility]ospita Antibiot 00 l of ics) [place] Penicill DA Active SV 2019-0 [facility] ins 8- [facility] 00:[facility]: [facility] [place] Sulfa DA Active OK 2019-0 [facility] (Sulfona 8- Woman's mide 00:00: Hospita Antibiot 00 l of ics) [place] Penicill DA Active SV 2018-0 [facility] ins 5-17 [facility] 00:[facility]: [facility] [place] Sulfa DA Active OK 2018-0 [facility] (Sulfona 4-12 Woman's mide 00:00: Hospita Antibiot 00 l of ics) [place] Medications This patient has no known medications. Procedures Procedure Date / Time Performed Performing Clinician [facility] e [id number] 2020-10-03 00:00:00 10 [facility] [id number] 2020-10-03 00:00:00 [facility] [id number] 2019-11-09 00:00:00 [facility] [id number] 2019-11-08 00:00:00 [facility] [id number] 2019-11-08 00:00:00 [facility] Encounters Start End Encounter Admission Attending Care Care Encounter Source Date/Time Date/Time Type Type Clinicians Facility Department ID 2023-02-23 2023-02-23 Outpatient JAMESON HOFF [facility] [id number] [facility] 00:00:00 00:00:00 WELLINGTON bhatia of Medicin e 2022-05-15 2022-05-15 Emergency EM APPLE Nolasco [id number] [facility] 21:01:00 23:30:00 Simone [facility] 2022-02-04 2022-03-05 Outpatient GABBY [facility] [address] [facility] 09:41:00 23:59:00 LUZMA 2022-01-20 2022-01-22 Inpatient E GABBY, [facility] [address] [facility] 17:46:00 13:49:00 LUZMA 2022-01-20 2022-01-20 Emergency EM Lm, [facility] LARRY [id number] [facility] 04:58:00 14:18:00 Analysa 76 [facility] [place] 2022-01-20 2022-01-20 Emergency EM Lm, [facility] [id number] 1-20 [facility] 04:58:00 04:58:00 Analysa [id number] [facility] [place] 2022-01-19 2022-01-20 Emergency E HEATHER, [facility] [address] [facility] 23:29:00 04:52:00 LJ 2020-10-05 2020-10-05 Inpatient Ohlemacher, [facility] F000 [id number] [facility] 05:48:08 05:48:08 Olga 77 [facility] [place] 2020-10-03 2020-10-03 Inpatient EL Ohlemacher, [facility] F000 [id number] [facility] 14:25:47 14:25:47 Olga 11 [facility] [place] 2020-09-30 2020-09-30 Inpatient Ohlemacher, [facility] F000 [id number] [facility] 15:01:31 15:01:31 Olga 99 [facility] [place] 2020-08-15 2020-08-16 Inpatient Ohlemacher, [facility] BERNIE F000 [id number] [facility] 19:40:00 23:52:32 Olga 16 [facility] [place] 2020-04-22 2020-04-25 Inpatient [facility] LARRY [id number] [facility] 21:42:00 01:08:45 94 [facility] [place] 2019-11-08 2019-11-17 Inpatient EL Ohlemacher, [facility] LD F000 [id number] [facility] 18:09:00 13:12:51 Olga 68 [facility] [place] 2019-10-22 2019-11-15 Inpatient Ohlemacher, [facility] BERNIE F000 [id number] [facility] 22:39:00 10:43:35 Olga 18 [facility] [place] 2019-10-09 2019-10-09 Outpatient EL Abby, APPLE RADI [id number] [facility] 13:51:00 13:51:00 Olga 82 [facility] 2019-09-08 2019-09-10 Inpatient Ohlehernando, APPLE BERNIE F000 [id number] [facility] 01:48:00 02:38:37 Olga 01 [facility] Results Test Description Test Time Test Comments Results Result Comments Source HCG SERUM 2022-05-15 22:35:00 Test Item Value Reference Range Interpretation Comme nts HCG SERUM (test code = HCG) 237 INTERPRETATION:VALUES BETWEEN 15-20 milliInternatio nal units/mL NEED TO BERETESTED WITHIN 48 HOURS . All units for these ranges are in milliInternatio nalunits/mL0-1 WK AFTER CONCEPTION 0-50 1-[address] CONCEPTION 40-3002-3 WKS AFTER CONCEPTION 100- 1,0003-4 WKS AFTER CONCEPTION 500-6,0001-2 MO NTHS AFTER CONCEPTION 5,000-200,0002- 3 MONTHS AFTER CONCEPTION 10,000-100,0002 ND TRIMESTER 3,000-50,0003RD TRIMESTER 1,000 -50,000 SPECIMENS WITH AN HCG LEVEL FROM 0-6 milliI nternationalunits/mL SHOULD BE CONSIDERED NEGA TIVE - DUP AB/PEL/SC/[id number] 00:00:00 [facility] : 1995 Sex: F Patient Name: SIMONE MARTÍNEZ Unit No: [id number] EXAMS: CPT CODE: [id number] DUP AB/PEL/SC/LTD 46654 PROCEDURE INFORMATION: Exam: US First Trimester (Transabdominal), (Transvaginal), and US Duplex Artery or Vein (Ovaries) Limited Exam date and time: 05/15/2022 10:27 PM Age: 27 years old Clinical indication: Other: Back pain; Gestational age or lmp: 5w0; ; Prior surgery; Surgery date: 6+ months; Surgery type: S/P cholecystectomy 2018 TECHNIQUE: Imaging protocol: Real-time transabdominal and transvaginal obstetrical ultrasound of the maternal pelvis and a first trimester , less than 14 weeks 0 days, with image documentation. Transvaginal imaging was used for better evaluation of the endometrium, adnexa, and/or cervix. Real-time duplex ultrasound scan of the arterial or venous flow of the ovaries with B- mode, color Doppler flow and spectral waveform analysis. Complete obstetrical exam, limited duplex. ADDITIONAL STUDY INFORMATION: Left adnexa: Left ovary measures 2.8 cm x 2.8 cm x 1.7 cm. Left adnexa: Left ovarian volume is 7.2 mL. Right adnexa: Right ovary measures 2.6 cm x 2.9 cm x 1.9 cm. Right adnexa: Right ovarian volume is 7.5 ml. Estimated due date (Established): 01/15/2023 Last menstrual period start date: 04/10/2022 COMPARISON: US PREG 1ST TRIMTR 03/22/2019 7:50 PM The uterus measures approximately 8.1 x 4.2 x 6.0 cm and has a normal contour. No abnormalities of the myometrium are identified. The endometrium is within normal limits with an AP thickness of 5 mm. There is no sonographic evidence of an intrauterine . The right ovary measures 2.6 x 1.9 x 2.9 cm and the left ovary measures 2.8 x 1.7 x 2.9 cm. The ovaries maintain normal echotexture. Ovarian blood flow was documented bilaterally using color Doppler ultrasound. No adnexal masses are detected. Trace free intraperitoneal fluid was identified in the left adnexa adjacent to the left ovary. IMPRESSION: 1. There is no sonographic evidence of an intrauterine . In the setting ofa positive test, the absence of an intrauterine gestation could be explained by too early to visualize sonographically, miscarriage or ectopic . Close correlation with clinical findings and quantitative serum beta HCG level is recommended with follow-up ultrasound as needed. 2. No sonographic abnormalities of the ovaries or adnexa are detected. [facility] NAME: MAURICIOEZEQUIEL ZAIDISIMONE Radiology Department PHYS: Simone Bell DO [address] : 1995 AGE: 27 SEX: F [place] [address] LOC: VirginieERS PHONE #: [phone] EXAM DATE: 05/15/2022 STATUS: REG ER FAX #: [phone] RAD NO: Page 1 Signed Report (CONTINUED) Patient Name: SIMONE MARTÍNEZ Unit No: [id number] EXAMS: CPT CODE: [id number] DUP AB/PEL/SC/LTD 47762 (Continued) SL: 131. at 2313 Reported andsigned by: Bernardino Wilkins MD CC: Simone Nolasco DO; Olga Mora MD Technologist: Lisbeth Calles RDMS Probe: Trnscrbd D/ (2313) GCD.CPS Orig Print D/T: S: 05/15/2022 (2313)[facility] NAME: [facility] Radiology Department PHYS: Simone Bell DO [address] : 1995 AGE: 27 SEX: F [place] [address] LOC: VirginieERSPHONE #: [phone] EXAM DATE: 05/15/2022 STATUS: REG ER FAX #: [phone] RAD NO: Page 2 SignedReport Patient Name: SIMONE MARTÍNEZ Unit No: [id number] EXAMS: CPT CODE: [id number] DUP AB/PEL/SC/LTD 24703 (Continued) [facility] NAME: [facility] Radiology Department PHYS: Simone Bell DO [address] : 1995 AGE: 27 SEX: F [place] [address] LOC: CARRIE PHONE #: [phone] EXAM DATE: 05/15/2022 STATUS: KIRSTIE ER FAX #: [phone] RADNO: Page 3 Signed Report- US PREG UT [id number] 00:00:00[facility] : 1995 Sex: F Patient Name: SIMONE MARTÍNEZ Unit No: [id number] EXAMS: CPT CODE: [id number] US PREG UT TRANSVAGINAL 70969 PROCEDURE INFORMATION: Exam: US First Trimester (Transabdominal), (Transvaginal), and US Duplex Artery or Vein (Ovaries) Limited Exam date and time: 05/15/2022 10:27 PM Age: 27 years old Clinical indication: Other: Back pain; Gestational age or lmp: 5w0; ; Prior surgery; Surgery date: 6+ months; Surgery type: S/P cholecystectomy 2019 TECHNIQUE: Imaging protocol: Real-time transabdominal and transvaginal obstetrical ultrasound of the maternal pelvis and a first trimesterpregnancy, less than 14 weeks 0 days, with image documentation. Transvaginal imaging was used for better evaluation of the endometrium, adnexa, and/or cervix. Real-time duplex ultrasound scan of the arterial or venous flow of the ovaries with B- mode, color Doppler flow and spectral waveform analysis. Complete obstetrical exam, limited duplex. ADDITIONAL STUDY INFORMATION: Left adnexa: Left ovary measures 2.8 cm x 2.8 cm x 1.7 cm. Left adnexa: Left ovarian volume is 7.2 mL. Right adnexa: Right ovary measures 2.6 cm x 2.9 cm x 1.9 cm. Right adnexa: Right ovarian volume is 7.5 ml. Estimated due date (Established): 01/15/2023 Last menstrual period start date: 04/10/2022 COMPARISON: US PREG 1ST TRIMTR 03/22/2019 7:50 PM The uterus measures approximately 8.1 x 4.2 x 6.0 cm and has a normal contour. No abnormalities of the myometrium are identified. The endometrium is within normal limits with an AP thickness of 5 mm. There is no sonographic evidence of an intrauterine . The right ovary measures2.6 x 1.9 x 2.9 cm and the left ovary measures 2.8 x 1.7 x 2.9 cm. The ovaries maintain normal echotexture. Ovarian blood flow was documented bilaterally using color Doppler ultrasound. No adnexal masses are detected. Trace free intraperitoneal fluid was identified in the left adnexa adjacent to the left ovary. IMPRESSION: 1. There is no sonographic evidence of an intrauterine . In the setting of a positive test, the absence of an intrauterine gestation could be explained by too early to visualize sonographically, miscarriage or ectopic . Close correlation with clinical findings and quantitative serum beta HCG level is recommended with follow-up ultrasound asneeded. 2. No sonographic abnormalities of the ovaries or adnexa are detected. [facility] NAME: SIMONE MARTÍNEZ Radiology Department PHYS: Simone Bell DO [address] : 1995 AGE: 27 SEX: F [place], [place] [address] LOC: CARRIE PHONE #: [phone] DATE: 05/15/2022 STATUS: REG ER FAX #: [phone] RAD NO: Page 1 Signed Report (CONTINUED) Patient Name: SIMONE MARTÍNEZ Unit No: [id number] EXAMS: CPT CODE: [id number] US PREG UT TRANSVAGINAL 38127 (Continued) SL: 131. at 2313 Reported and signed by: Bernardino Wilkins MD CC: Simone Nolasco DO; Olga Mora MD Technolo gist: Lisbeth Calles RDMS Probe: [id number] Trnscrbd D/ (2312) GCD.CPS Orig Print D/T:S: 05/15/2022 (2312) [facility] NAME: MAURICIOSIMONE ZAIDI Radiology Department PHYS:Simone Bell DO [address] : 1995 AGE: 27 SEX: F [place] [address] LOC: Valerie.ERS PHONE #: [phone] EXAM DATE: 05/15/2022 STATUS: REG ER FAX #: [phone] RAD NO: Page 2 Signed Report Patient Name: SIMONE MARTÍNEZ Unit No: [id number] EXAMS: CPT CODE: [id number] US PREG UT TRANSVAGINAL 53497 (Continued) [facility] PHYS: Simone Bell DO [address] : 1995 AGE: 27 SEX: F [place] [address] LOC: Valerie.ERS PHONE #: [phone] EXAM DATE: 05/15/2022 STATUS: REG ER FAX #: [phone] RAD NO: Page 3 Signed Report- US PREG EVAL 1ST [id number] 00:00:00 [facility] : 1995 Sex: F Patient Name: SIMONE MARTÍNEZ Unit No: [id number] EXAMS: CPT CODE: [id number] US PREG EVAL 1ST TRIMTR 14101 PROCEDURE INFORMATION: Exam: US First Trimester (Transabdominal), (Transvaginal), and US Duplex Artery or Vein (Ovaries) Limited Exam date and time: 05/15/2022 10:27 PM Age: 27 years old Clinical indication: Other: Back pain; Gestational age or lmp: 5w0; ; Prior surgery; Surgery date: 6+ months; Surgery type: S/P cholecystectomy 2018 TECHNIQUE: Imaging protocol: Real-time transabdominal and transvaginal obstetrical ultrasound of the maternal pelvis and a first trimesterpregnancy, less than 14 weeks 0 days, with image documentation. Transvaginal imaging was used for better evaluation of the endometrium, adnexa, and/or cervix. Real-time duplex ultrasound scan of the arterial or venous flow of the ovaries with B- mode, color Doppler flow and spectral waveform analysis. Complete obstetrical exam, limited duplex. ADDITIONAL STUDY INFORMATION: Left adnexa: Left ovary measures 2.8 cm x 2.8 cm x 1.7 cm. Left adnexa: Left ovarian volume is 7.2 mL. Right adnexa: Right ovary measures 2.6 cm x 2.9 cm x 1.9 cm. Right adnexa: Right ovarian volume is 7.5 ml. Estimated due date (Established): 01/15/2023 Last menstrual period start date: 04/10/2022 COMPARISON: US PREG 1ST TRIMTR 03/22/2019 7:50 PM The uterus measures approximately 8.1 x 4.2 x 6.0 cm and has a normal contour. No abnormalities of the myometrium are identified. The endometrium is within normal limits with an AP thickness of 5 mm. There is no sonographic evidence of an intrauterine . The right ovary measures 2.6 x 1.9 x 2.9 cm and the left ovary measures 2.8 x 1.7 x 2.9 cm. The ovaries maintain normal echotexture. Ovarian blood flow was documented bilaterally using color Doppler ultrasound. No adnexal masses are detected. Trace free intraperitoneal fluid was identified in the left adnexa adjacent to the left ovary. IMPRESSION: 1. There is no sonographic evidence of an intrauterine . In the setting of a positive test, the absence of an intrauterine gestation could be explained by too early to visualize sonographically, miscarriage or ectopic . Close correlation withclinical findings and quantitative serum beta HCG level is recommended with follow-up ultrasound as needed. 2. No sonographic abnormalities of the ovaries or adnexa are detected. [facility] NAME: [facility] Radiology Department PHYS: Simone Bell DO [address] : 1995 AGE: 27 SEX: F [place] [address] LOC: VirginieERS PHONE #: [phone] EXAM DATE: 05/15/2022 STATUS: REG ER FAX #: [phone] RAD NO: Page 1 Signed Report (CONTINUED) Patient Name: SIMONE MARTÍNEZ Unit No: [id number] EXAMS: CPT CODE: [id number] US PREG EVAL 1ST TRIMTR 36643 (Continued) SL: 131. at 2313 Reported and signed by: Bernardino Wilkins MD CC: Simone Nolasco DO; Olga Mora MD Technologist: Lisbeth Calles RDMS Probe: Trnscrbd D/ (2313) GCD.CPS Orig Print D/T: S: 05/15/2022 (2313) [facility] NAME: [facility] Radiology Department PHYS: Simone Bell DO [address] : 1995 AGE: 27 SEX: F [place] [address] LOC: VirginieERS PHONE #: [phone] EXAM DATE: 05/15/2022 STATUS: REG ER FAX #: [phone] RAD NO: Page 2 Signed Report Patient Name: SIMONE MARTÍNEZ Unit No: [id number] EXAMS: CPT CODE: [id number] US PREG EVAL 1ST TRIMTR 76972 (Continued) [facility] NAME: [facility] Radiology Department PHYS: Simone Bell DO [address] : 1995 AGE: 27 SEX: F [place] [address] LOC: CARRIE PHONE #: [phone] EXAM DATE: 05/15/2022 STATUS: REG ER FAX #: [phone] RAD NO: Page 3 Signed ReportCOVID 19 Asymptomatic IH [id number] 09:04:00 Test Item Value Reference Range Interpretation Comments [...] of Accreditation. This test is only authori zeaziza for the duration of thedeclaration that circumstances e xist justifying theauthorizatio n of emergency use o f in vitro diagnostic test sfor detection and/o r diagnosis of CO VID-19 under Fcccxmu58 4(b)(1) of the Act, 21 U.S .C. 360bbb-3(b)(1), unless theauthorizatio n is terminated or r evoked sooner. BASIC METABOLIC [id number] 06:32:00 Test Item Value Reference Range Interpretation [...] CA) 8.7 mg/dL 8.4-10.2 N CBC W/AUTO [id number] 06:11:00 Test Item Value Reference Range Interpretation [...] code = PLTMR) - XR CHEST 1 [id number] 00:00:00 [facility] : 1995 Sex: F Patient Name: SIMONE MARTÍNEZ Unit No: [id number] EXAMS: CPT CODE: [id number] XR CHEST 1 V 45064 PROCEDURE INFORMATION: Exam: XR Chest Exam date and time: 01/20/2022 7:31 AM Age: 26 years old Clinical indication: Other: Pneumomediastinum; Patient HX: [place] teeth removed yesterday TECHNIQUE: Imaging protocol: XR [...] Amato MD; Olga Mora MD Technologist: Saray Singh, RT; Consuelo Jacobson RT Trnscrbd D/ (0746) GCAziza.CPS Orig Print D/T: S: 01/20/2022 (0746) [facility] NAME: SIMONE MARTÍNEZ Radiology Department PHYS: Latoya Rosa MD [address] : 1995 AGE: 26 SEX: F [place], [place] [address] LOC: VirginieERS PHONE #: [phone] EXAM DATE: 01/20/2022 STATUS: REG ER FAX #: [phone] RAD NO: Page 1 Signed Report- CT NECK W/CONTRAST 2022-01-20 00:00:00 [facility] : 1995 Sex: F Patient Name: SIMONE MARTÍNEZ Unit No: [id number] EXAMS: CPT CODE: [id number] CT NECK W/CONTRAST 15758 Radiation Dose CTDIVOL = 14.63 (mGy): DLP = 453.07 (mGy-cm) PROCEDURE INFORMATION: Exam: CT Neck With Contrast Exam date and time: 01/20/2022 6:03 AM Age: 26 years old Clinical indication: Mass, lump, orswelling in neck; Prior surgery; Surgery date: Post-operative [...] Contrast material: ISOVUE 300; Contrast volume: 100 ml;Contrast route: INTRAVENOUS (IV); COMPARISON: OT NM PULM PERF PARTIC 07/08/2019 3:47 AM RADIATION DOSE METRICS: CTDI volume (mGy): 14.63 Total DLP (mGy-cm): 453.07 FINDINGS: Paranasal sinuses: Completeopacification of the left maxillary sinus, ethmoid sinus, left frontal sinus consistent with chronicsinusitis. An obstructing process is suspected at the left ostiomeatal unit. Dental: Moderate dentaldisease associated with several missing teeth dental fillings. Empty right mandibular tooth socket co ntaining low-attenuation and a tiny focus of gas posteriorly in the right side of the mandible consistent with reported recent wisdom tooth resection. Mild low-attenuation thickening of the soft tissues medially and inferiorly to the empty right mandibular wisdom tooth socket suggests inflammation or infection. No definite low-attenuation collection is seen to suggest an abscess with certainty. [facility] NAME: SIMONE MARTÍNEZ Radiology Department PHYS: Liss Benito MMAziza [address] : 1995 AGE: 26 SEX: F [place], [place] [address] LOC: CARRIE PHONE #: [phone] EXAM DATE: 01/20/2022 STATUS: REG ER FAX #: [phone] RAD NO: Page 1 SignedReport 1 Patient Name: SIMONE MARTÍNEZ Unit No: [id number] EXAMS: CPT CODE: [id number] CT NECK W/CONTRAST 17683 (Continued) Pharynx: Mild tonsillar and adenoidal hypertrophy. [...] of the posterior C1 arch. Soft tissues: Extensivesoft tissue gas is seen extending from the periorbital and facial soft tissues along both sides the neck and submandibular/submental regions contiguous with incompletely visualized pneumomediastinum. IMPRESSION: 1. Empty right mandibular tooth socket containing low-attenuation and a tiny focus of gas posteriorly in the right side of the mandible consistent with reported recent wisdom tooth resection.Mild low- attenuation thickening of the soft tissues [...] ostiomeatal unit. Follow-up ENT consultation and direct visualization may be helpful. THIS REPORT CONTAINS FINDINGS THAT MAY BE CRITICAL TO PATIENT CARE. The findingswere verbally communicated via telephone conference with Dr. Amato at 6:57 AM CDT on 01/20/2022. The findings were acknowledged and understood. [facility] NAME: SIMONE MARTÍNEZ Radiology Department PHYS: Liss Benito MD [address] : 1995 AGE: 26 SEX: F [place], [place] [address] LOC: CARRIE PHONE #: [phone] EXAM DATE: 01/20/2022 STATUS: REG ER FAX #: [phone] RAD NO: Page 2 Signed Report 1 Patient Name: SIMONE MARTÍNEZ Unit No: [id number] EXAMS: CPT CODE: [id number] CT NECK W/CONTRAST 65071 (Continued) at 0658 Reported and signed by: Ankush Vega MD CC: Liss Macias MD; Olga Mora MD Technologist: RT Evette CTDI: DLP: Trnscrbd D/ (657) CPS [facility] NAME: MAURICIOEZEQUIEL ZAIDISIMONE Radiology Department PHYS: Liss Benito MD [address] : 1995 AGE: 26 SEX: F [place] [address] LOC: Valerie.ERS PHONE #: [phone] EXAM DATE: 01/20/2022 STATUS: REG ER FAX #: [phone] RAD NO: Page 3 Signed Report 1 Patient Name: SIMONE MARTÍNEZ Unit No: [id number] EXAMS: CPT CODE: [id number] CT NECK W/CONTRAST 87888 (Continued) Orig Print D/T: S: 01/20/2022 (0658) [facility] NAME: [facility] Radiology Department PHYS: Liss Benito MD [address] : 1995 AGE: 26 SEX: F [place] [address] LOC: VirginieERS PHONE #: [phone] EXAM DATE: 01/20/2022 STATUS: REG ER FAX #: [phone] RAD NO: Page 4 Signed Report 1- DUP VEIN [facility] [id number] 14:06:00 [facility] : 1995 Sex: F Patient Name: SIMONE MARTÍNEZ Unit No: [id number] EXAMS: CPT CODE: [id number] [address] Exam: RIGHT lower extremity venous Doppler ultrasound, unilateral Indication: Right lower extremity swelling. Comparison: Right lower extremity venous Doppler 10/09/2019. Technique: Sonographic evaluation of the right lower extremity veins was performed using high resolution B-mode, pulse and color Dopplerimaging. FINDINGS: The common femoral, femoral, popliteal and visualized calf veins are patent. Normal venous waveforms. The saphenofemoral junction is unremarkable. IMPRESSION: No right lower extremity deep venous thrombus. at 1406 Reported and signed by: Hadley Anthony MD CC: Olga Mora MD; Duane Carey MD Technologist: Lisbeth Calles RDMS Probe: Trnscrbd D/ (1406) t.SDR.BF11 Orig Print D/T: S: 10/05/2020 (1416) [facility] NAME: SIMONE MARTÍNEZ Radiology Department PHYS: Duane Klein [address] : 1995 AGE: 25 SEX: F [place] [address] LOC: F.4668 A PHONE #: [phone] EXAM DATE: 10/05/2020 STATUS: ADM IN FAX #: [phone] RAD NO: Page 1 Signed Report Patient Name: SIMONE MARTÍNEZ Unit No: [id number] EXAMS: CPT CODE: [id number] [place] [address] (Continued) [facility] NAME: SIMONE MARTÍNEZ Radiology Department PHYS: Duane Klein [address] : 1995 AGE: 25 SEX: F [place] [address] LOC: F.4668 A PHONE #: [phone] EXAM DATE: 10/05/2020 STATUS: ADM IN FAX #: [phone] RAD NO: Page 2 Signed ReportURINALYSIS [id number] 18:42:00 Test Item Value Reference Range Interpretation [...] SEEN URINE SAMPLE: CLEAN CATCHAG HEPATITIS B [id number] 17:08:00 Test Item Value Reference Range Interpretation Comments AG HEPATITIS B SURFACE (test code NONREACTIVE NONREACTIVE = HBSAG) IS CONSENT FORM SIGNED FOR HIV TESTING? B HEPATITIS C [id number] 17:08:00 Test Item Value Reference Range Interpretation Comments AB HEPATITIS C (test code = NONREACTIVE NONREACTIVE HCVAB) SIGNAL TO CUTOFF (test code = <0.02 <0.80 N CUTOFF) IS CONSENT FORM SIGNED FOR HIV TESTING? YAB [id number] 17:08:00 Test Item Value Reference Range Interpretation Comments AB TREPONEMA (test code = TREPAB) NONREACTIVE NONREACTIVE IS CONSENT FORM SIGNED FOR HIV TESTING? YAB HIV 1 17:08:00 Test Item Value Reference Range Interpretation Comments AB HIV 1 2 (test NONREACTIVE NONREACTIVE Done by [employer] code = ONU69SF) 4th Gen HIV Ag/Ab Combo Screen IS CONSENT FORM SIGNED FOR HIV TESTING? YAG HEPATITIS B [id number] 15:58:00 Test Item Value Reference Range Interpretation Comments AG HEPATITIS B SURFACE (test code NONREACTIVE NONREACTIVE = HBSAG) IS CONSENT FORM SIGNED FOR HIV TESTING? YAB HEPATITIS C [id number] 15:58:00 Test Item Value Reference Range Interpretation Comments AB HEPATITIS C (test code = HCVAB) NONREACTIVE SIGNAL TO CUTOFF (test code = CUTOFF) <0.80 IS CONSENT FORM SIGNED FOR HIV TESTING? YAB [id number] 15:58:00 Test Item Value Reference Range Interpretation Comments AB TREPONEMA (test code = TREPAB) NONREACTIVE NONREACTIVE IS CONSENT FORM SIGNED FOR HIV TESTING? YAB HIV 1 15:58:00 Test Item Value Reference Range Interpretation Comments AB HIV 1 2 (test code = GHQ37EU) NONREACTIVE IS CONSENT FORM SIGNED FOR HIV TESTING? YCBC W/AUTO [id number] 15:34:00 Test Item Value Reference Range Interpretation [...] code = PLTMR) COVID 19 Asymptomatic IH [id number] 14:42:00 Test Item Value Reference Range Interpretation [...] and/o r diagnosis of CO VID-19 under Cpywqxm04 4(b)(1) of the Act, 21 U.S .C. 360bbb-3(b)(1), unless theauthorizatio n is terminated or r evoked sooner. RUPTURE OF [id number] 11:50:00 Test Item Value Reference Range Interpretation Comments RUPTURE OF MEMBRANES (test code NON-RUPTURED = ROM) CBC W/AUTO [id number] 20:47:00 Test Item Value Reference Range Interpretation [...] = PLTMR) UA RFLX MICR CULT IF [id number] 20:36:00 Test Item Value Reference Range Interpretation [...] Description: CLEAN CATCHUA RFLX MICR CULT IF [id number] 23:00:00 Test Item Value Reference Range Interpretation [...] SEEN Indication for culture: Suprapubic PainCOMPREHENSIVE METABOLIC [id number] 22:47:00 Test Item Value Reference Range Interpretation [...] 46-116 N code = ALKP) CBC W/AUTO [id number] 22:22:00 Test Item Value Reference Range Interpretation [...] (test NORMAL NORMAL code = PLTMR) URINALYSIS [id number] 02:43:00 Test Item Value Reference Range Interpretation [...] MUCU) URINE SAMPLE: CLEAN CATCHAG HEPATITIS B [id number] 20:05:00 Test Item Value Reference Range Interpretation Comments AG HEPATITIS B SURFACE (test code NONREACTIVE NONREACTIVE = HBSAG) AB HEPATITIS C [id number] 20:05:00 Test Item Value Reference Range Interpretation Comments AB HEPATITIS C (test code = NONREACTIVE NONREACTIVE HCVAB) SIGNAL TO CUTOFF (test code = 0.05 <0.80 N CUTOFF) AB [id number] 20:05:00 Test Item Value Reference Range Interpretation Comments AB TREPONEMA (test code = TREPAB) NONREACTIVE NONREACTIVE AG HEPATITIS B [id number] 19:45:00 Test Item Value Reference Range Interpretation Comments AG HEPATITIS B SURFACE (test code NONREACTIVE NONREACTIVE = HBSAG) AB HEPATITIS C [id number] 19:45:00 Test Item Value Reference Range Interpretation Comments AB HEPATITIS C (test code = HCVAB) NONREACTIVE SIGNAL TO CUTOFF (test code = CUTOFF) <0.80 AB [id number] 19:45:00 Test Item Value Reference Range Interpretation Comments AB TREPONEMA (test code = TREPAB) NONREACTIVE NONREACTIVE PIH [id number] 19:03:00 Test Item Value Reference Range Interpretation Comments CREATININE (test code = CREAT) 0.4 mg/dL 0.5-1.0 L SGOT/AST (test code = AST) 60 units/L 15-37 H SGPT/ALT (test code = ALT) 38 units/L 12-78 N LACTIC DEHYDROGENASE(LDH) (test 537 units/L 81-234 H code = LDH) : *CBC W/AUTO [id number] 18:45:00 Test Item Value Reference Range Interpretation [...] NORMAL NORMAL code = PLTMR) AMNISURE (ROM) [id number] 03:20:00 Test Item Value Reference Range Interpretation Comments AMNISURE (ROM) TEST (test code = NON-RUPTURED NON-RUPTURE AMNI) : *Comments to Patient Accounting Representative: LUISA Kennedy QC OK? YES- DUP VEIN UNI [id number] 15:19:00 Patient Name: SIMONE MARTÍNEZ Unit No: [id number] EXAMS: CPT CODE: [id number] [place] [address]LOPLO LEG DUPLEX VENOUS DOPPLER ULTRASOUND, 10/09/2019 COMPARISON: [...] Olga Mora MD Technologist: Ifeanyi Parekh RDMS, T Probe: Trnscrbd D/ (1519) t.SDR.AJ13 Orig Print D/T: S: 10/09/2019 (1522) [facility] NAME: SIMONE MARTÍNEZ Radiology Department PHYS: Olga Mejía [address] : 1995 AGE: 24 SEX: F [place], [place] [address] LOC: [facility] PHONE #: [phone] EXAM DATE: 10/09/2019 STATUS: REG CLI FAX #: [phone] RAD NO: Page 1 SignedReport Patient Name: SIMONE MARTÍNEZ Unit No: [id number] EXAMS: CPT CODE: [id number] [place] [address] (Continued) [facility] NAME: SIMONE MARTÍNEZ Radiology Department PHYS: Olga Mejía [address] : 1995 AGE: 24 SEX: F [place], [place] [address] LOC: [facility] PHONE #: [phone] EXAM DATE: 10/09/2019 STATUS: REG CLI FAX #: [phone] RAD NO: Page 2 Signed ReportURINALYSIS [id number] 03:02:00 Test Item Value Reference Range Interpretation [...] NONE SEEN URINE SAMPLE: CLEAN CATCHUR PROTEIN/CREATININE [id number] 03:02:00 Test Item Value Reference Range Interpretation Comments UR PROTEIN RANDOM (test code = 33.3 mg/dL PROTU) UR CREATININE RANDOM (test 300.2 mg/dL code = CREATU) PROTEIN/CREATININE RATIO (test 110.0 mg/gcrea <200 code = P/CRATIO) URINE SAMPLE: CLEAN CATCHCOMPREHENSIVE METABOLIC [id number] 03:02:00 Test Item Value Reference Range Interpretation [...] units/L 46-116 N code = ALKP) URIC [id number] 03:02:00 Test Item Value Reference Range Interpretation Comments URIC ACID (test code = URIC) 3.2 mg/dL 2.6-6.0 N LACTIC DEHYDROGENASE(LDH)2019-09-08 03:02:00 Test Item Value Reference Range Interpretation Comments LACTIC DEHYDROGENASE(LDH) (test 170 units/L 81-234 N code = LDH) URINALYSIS [id number] 02:30:00 Test Item Value Reference Range Interpretation [...] NONE SEEN URINE SAMPLE: CLEAN CATCHUR PROTEIN/CREATININE [id number] 02:30:00 Test Item Value Reference Range Interpretation Comments UR PROTEIN RANDOM (test code = mg/dL PROTU) UR CREATININE RANDOM (test code = mg/dL CREATU) PROTEIN/CREATININE RATIO (test code mg/gcrea <200 = P/CRATIO) URINE SAMPLE: CLEAN CATCHCBC W/AUTO [id number] 02:27:00 Test Item Value Reference Range Interpretation [...] REQUIRED (test NORMAL NORMAL code = PLTMR) [id number] 13:43:00 Test Item Value Reference Range Interpretation [...] weeks, 6 days o f gestation. URINALYSIS [id number] 13:32:00 Test Item Value Reference Range Interpretation [...] 3+ NONE SEEN - NM PULM PERF [id number] 04:29:00 Patient Name: SIMONE MARTÍNEZ Unit No: [id number] EXAMS: CPT CODE: [id number] NM PULM PERF PARTIC 71645 Nuclear medicine pulmonary perfusion scan dated 07/08/2019. [...] Orig Print D/T: S: 07/08/2019 (0433) [facility] NAME: SIMONE MARTÍNEZ Radiology Department PHYS: Kristen Ho [address] : 1995 AGE: 24 SEX: F [place], [place] [address] LOC: [facility] PHONE #: [phone] EXAM DATE: 07/08/2019 STATUS: REG ER FAX #: [phone] RAD NO: Page 1 Signed Report- XR CHEST 1 [id number] 00:45:00 Patient Name: SIMONE MARTÍNEZ Unit No: [id number] EXAMS: CPT CODE: [id number] XR CHEST 1 V 86260 Chest, single view dated 07/08/2019. HISTORY: 21 [...] MD Technologist: RT Janeth Trnscrbd D/ (0045) tDESMONDDMM Orig Print D/T: S: 07/08/2019 (0048) [facility] NAME: SIMONE MARTÍNEZ Radiology Department PHYS: BRODY.Mandy - Kristen Maldonado [address] : 1995 AGE: 24 SEX: F [place], [place] [address] LOC: CARRIE PHONE #: [phone] EXAM DATE: 07/08/2019 STATUS: REG ER FAX #: [phone] RAD NO: Page 1 Signed ReportCOMPREHENSIVE METABOLIC [id number] 00:24:00 Test Item Value Reference Range Interpretation [...] 156 units/L 46-116 H code = ALKP) [id number] 00:24:00 Test Item Value Reference Range Interpretation Comments TROPONIN-I (test code = TROPI) <0.017 ng/mL <0.056 N CBC W/AUTO [id number] 00:14:00 Test Item Value Reference Range Interpretation [...] (test NORMAL NORMAL code = PLTMR) GALL [id number] 13:29:00 RUN DATE: 07/03/19 [facility] PAGE 1 RUN TIME: 1810 Specimen Inquiry RUN USER: INTERFACE -PATIENT: SIMONE MARTÍNEZ LOC: ValerieLiliaBLAINE U #: [id number] AGE/SX: 24/F ROOM: [facility] RE06/28/19REG DR:Olga Mora : [birth year] BED: A DIS: 07/01/19 STATUS: DIS IN TLOC: SPEC #: [id number] RECD:07/02/19 STATUS: FERNANDO AGUILAR #: [id number] JOCELYNE: 06/29/19- SUBM DR: Olga Mora MD ENTERED: 07/02/19 SP TYPE: GALBLAD OTHR DR: Izaiah Rodarte MD ORDERED: LEVEL III SURGI CODES:[id number] - GALLBLADDER, NO COPIES TO: Izaiah Rodarte MD [address] [place] [address] [email or web address] Olga Mora MD [address] [place] [address] [email or web address] PROCEDURES: LEVEL III SURGI (Incomplete) TISSUES: GALLBLADDER, NOS - GALLBLADDER CLINICAL HISTORY 24 year old, biliary dyskinesia (kr) FINAL DIAGNOSIS Gallbladder, cholecystectomy: - cholesterolosis - chronic cholecystitis, mild CPT code(s): 67803 cds/kr dt: 07/03/19 GROSS DESCRIPTION ANATOMIC SOURCE [...] Specimen Inquiry RUN USER: INTERFACE SPEC #: [id number] PATIENT: SIMONE MARTÍNEZ #[id number] (Continued) - GROSS DESCRIPTION (Continued) container. The mucosa is velvety gongora, and green with diffuse bright yellow stippling. Signal Timer sections are submitted labeled A1. zohra 07/02/19 @ 1106 Signed Lambert Jacobsen 07/03/19 1329 END OF REPORT CBC W/AUTO [id number] 07:14:00 Test Item Value Reference Range Interpretation [...] NORMAL NORMAL code = PLTMR) COMPREHENSIVE METABOLIC [id number] 01:05:00 Test Item Value Reference Range Interpretation [...] 46-116 N code = ALKP) CBC W/AUTO [id number] 00:37:00 Test Item Value Reference Range Interpretation [...] = PLTMR) UA RFLX MICR CULT IF [id number] 00:08:00 Test Item Value Reference Range Interpretation [...] A Indication for culture: Dysuria/Frequency- US ABDOMEN [id number] 15:01:00 Patient Name: SIMONE MARTÍNEZ Unit No: [id number] EXAMS: CPT CODE: [id number] US ABDOMEN COMPLETE 51017 ABDOMEN ULTRASOUND COMPLETE 06/07/2019: COMPARISON: Right upper [...] kidneys demonstrate a normal appearance and are ofnormal size. No hydronephrosis, mass, or cyst is [...] Yuri Hewitt MD Technologist: Daya Kulkarni RDMS, SHANNANT; Tasha Probe: Trnscrbd D/ (1501) BrittnyAJ13 Orig Print D/T: S: 06/07/2019 (0708) [facility] NAME: SIMONE MARTÍNEZ Radiology Department PHYS: Yuri Valdes MD [address] : 1995 AGE: 24 SEX: F [place], [place] [address] : [facility] PHONE #: [phone] EXAM DATE: 06/07/2019 STATUS: REG CLI FAX #: [phone] RAD NO: Page 1 Signed Report Patient Name: SIMONE MARTÍNEZ Unit No: [id number] EXAMS: CPT CODE: [id number] US ABDOMEN COMPLETE 28021 (Continued) [facility] NAME: SIMONE MARTÍNEZ Radiology Department PHYS: Yuri Ignacio MD [address] : 1995 AGE: 24 SEX: F [place] [address] LOC: [facility] PHONE #: [phone] EXAM DATE: 06/07/2019 STATUS: REG CLI FAX #: RAD NO: Page 2 Signed Report- US ABDOMEN [id number] 23:03:00 Patient Name: SIMONE MARTÍNEZ Unit No: [id number] EXAMS: CPT CODE: [id number] US ABDOMEN LTD 46839 PROCEDURE: RIGHT UPPER QUADRANT ULTRASOUND DATED 03/29/2019 INDICATION: Abdominal pain. Nausea. Diarrhea. COMPARISON: None TECHNIQUE: Sonographic evaluation of the right upper quadrant was performed with astorga pplemental color and pulsed Doppler. FINDINGS: LIVER: The liver is normal in contour and morphology with normal parenchymal echogenicity. GALLBLADDER: The gallbladder is normally distended without evidence of gallstones. There is no evidence of gallbladder wall thickening or pericholecystic fluid to suggest acute inflammation. BILE DUCTS: The common duct is normal in caliber measuring 3 mm. PANCREAS:The pancreas is poorly visualized. RIGHT KIDNEY: The right kidney measures 13.2 cm in length. Normalrenal contour and morphology with normal echogenicity. There [...] Rubi MD; Olga Mora MD Technologist: Daya Kulkarni, BELÉNMS, RVT Probe: Trnscrbd D/ (2303) tDESMONDDMM Orig Print D/T: S: 03/29/2019 (2306) [facility] NAME: SIMONE MARTÍNEZ Radiology Department PHYS: Tayla Ace MD [address] : 1995 AGE: 23 SEX: F [place] [address] LOC: [facility] PHONE #: [phone] EXAM DATE: 03/29/2019 STATUS: REG ER FAX #: [phone] RAD NO: Page 1 Signed Report Patient Name: SIMONE MARTÍNEZ Unit No: [id number] EXAMS: CPT CODE: [id number] ABDOMEN LTD 86657 (Continued) [facility] NAME: MAURICIOEZEQUIEL ZAIDISIMONE Radiology Department PHYS: Tayla Ace MD [address] : 1995 AGE: 23 SEX: F [place] [address] LOC: [facility] PHONE #: [phone] EXAM DATE:03/29/2019 STATUS: REG ER FAX #: [phone] RAD NO: Page 2 Signed ReportHCG [id number] 23:01:00 Test Item Value Reference Range Interpretation Comments HCG SERUM (test 23479 INTERPRETATI ON:VALUES BETWEEN code = HCG) 15-20 [...] SHOULD BE CONSI DERED NEGATIVE CHEMISTRY 7 [id number] 22:27:00 Test Item Value Reference Range Interpretation [...] = CA) 9.5 mg/dL 8.4-10.2 N LIVER [id number] 22:27:00 Test Item Value Reference Range Interpretation [...] 74 units/L 46-116 N code = ALKP) [id number] 22:27:00 Test Item Value Reference Range Interpretation Comments LIPASE (test code = LIP) 92 units/L 73-393 N UA RFLX MICR CULT IF [id number] 22:21:00 Test Item Value Reference Range Interpretation [...] = AMORU) Indication for culture: Dysuria/FrequencyUR HCG [id number] 22:21:00 Test Item Value Reference Range Interpretation [...] = AMORU) Indication for culture: Dysuria/FrequencyUR HCG [id number] 22:12:00 Test Item Value Reference Range Interpretation Comments UR HCG QUAL (test code = HCGQLU) Indication for culture: Dysuria/FrequencyCBC W/AUTO [id number] 22:09:00 Test Item Value Reference Range Interpretation [...] (test NORMAL NORMAL code = PLTMR) PROTHROMBIN [id number] 22:54:00 Test Item Value Reference Range Interpretation Comments PROTHROMBIN TIME PATIENT (test code 10.3 secs 10.4-12.4 L = PTP) THROMBOPLASTIN TIME [id number] 22:54:00 Test Item Value Reference Range Interpretation Comments THROMBOPLASTIN TIME PARTIAL (test 28.3 secs 22-38 N code = PTT) [id number] 22:54:00 Test Item Value Reference Range Interpretation Comments FIBRINOGEN (test code = FIB) 332 mg/dL 309-518 N - US PREG UT [id number] 21:14:00 Patient Name: SIMONE MARTÍNEZ Unit No: [id number] EXAMS: CPT CODE: [id number] US PREG UT TRANSVAGINAL 48554 PROCEDURE: FIRST TRIMESTER ULTRASOUND INDICATION: , headache, [...] MD Technologist: Luisa Santoyo RDMS, RVT Probe: [id number] Trnscrbd D/ (2113) Boo Orig Print D/T: S: 03/22/2019 (2117) [facility] NAME: EZEQUIEL MARTÍNEZTANY Radiology Department PHYS: Izaiah Zeng [address] : 1995 AGE: 23 SEX: F [place] [address] LOC: [facility] PHONE #: [phone] EXAM DATE: 03/22/2019 STATUS: REG ER FAX #: [phone] RAD NO: Page 1 Signed Report Patient Name: SIMONE MARTÍNEZ Unit No: [id number] EXAMS: CPT CODE: [id number] US PREG UT TRANSVAGINAL 17416 (Continued) [facility] Department PHYS: Izaiah Zeng [address] : 1995 AGE: 23 SEX: F [place] [address] LOC: [facility] PHONE #: [phone] EXAM DATE: 03/22/2019 STATUS: REG ER FAX #: [phone] RAD NO: Page 2 Signed Report- US PREG EVAL 1ST [id number] 21:14:00 Patient Name: SIMONE MARTÍNEZ Unit No: [id number] EXAMS: CPT CODE: [id number] US PREG EVAL 1ST TRIMTR 45703 PROCEDURE: FIRST TRIMESTER ULTRASOUND INDICATION: , headache, dizziness COMP ARISON: No relevant comparison. TECHNIQUE: Grayscale, color and Doppler transabdominal and transvaginal imaging of the pelvis was performed with standard technique. Transvaginal ultrasound is obtained for further evaluation of the endometrium and adnexal regions. FINDINGS: UTERUS: 9.7 cm in length. The re is a single intrauterine gestation. Approximate gestational [...] Santoyo RDMS, RVT Probe: Trnscrbd D/ (2113) tLAUREN Orig Print D/T: S: 03/22/2019(2117) [facility] NAME: [facility] Radiology Department PHYS: Izaiah Zeng [address] : 1995 AGE: 23 SEX: F [place] [address] LOC: [facility] PHONE #: [phone] EXAM DATE: 03/22/2019 STATUS: REG ER FAX #: [phone] RAD NO: P age 1 Signed Report Patient Name: SIMONE MARTÍNEZ Unit No: [id number] EXAMS: CPT CODE: [id number] US PREG EVAL 1ST TRIMTR 43689 (Continued) [facility] NAME: MAURICIOEZEQUIEL ZAIDISIMONE RadiologyDepartment PHYS: Izaiah Zeng [address] : 1995 AGE: 23 SEX: F [place] [address] LOC: [facility] PHONE #: [phone] EXAM DATE: 03/22/2019 STATUS: REG ER FAX #: [phone] RAD NO: Page 2 Signed ReportHCG [id number] 20:45:00 Test Item Value Reference Range Interpretation Comments HCG SERUM (test 58331 INTERPRETATI ON:VALUES BETWEEN code = HCG) 15-20 [...] SHOULD BE CONSI DERED NEGATIVE COMPREHENSIVE METABOLIC [id number] 20:23:00 Test Item Value Reference Range Interpretation [...] 46-116 N code = ALKP) CBC W/AUTO [id number] 20:04:00 Test Item Value Reference Range Interpretation [...] = PLTMR) UA RFLX MICR CULT IF [id number] 20:01:00 Test Item Value Reference Range Interpretation [...] SEEN Indication for culture: Flank PainCOMPREHENSIVE METABOLIC [id number] 17:15:00 Test Item Value Reference Range Interpretation [...] 68 units/L 46-116 N code = ALKP) [id number] 17:13:00 Test Item Value Reference Range Interpretation Comments AMYLASE (test code = MARIA C) 34 units/L 30-110 N [id number] 17:13:00 Test Item Value Reference Range Interpretation Comments LIPASE (test code = LIP) 88 units/L 73-393 N - US ABDOMEN [id number] 17:09:00 Patient Name: SIMONE MARÍTNEZ Unit No: [id number] EXAMS: CPT CODE: [id number] US ABDOMEN LTD 95696 EXAM: Right upper quadrant ultrasound. EXAM DATE: October 14, 2018. CLINICAL HISTORY: Right upper quadrant pain. Real-time imaging of the abdomen demonstrated a normal appearing liver, gallbladder, biliary ductal system and right kidney. The pancreas was obscured by overlying bowel gas. The common bile duct measures 0.1 cm. The right kidney measures 11.7 x 5.2 x 5.1 cm. The visualized portions of theIVC and aorta are within normal limits. Specifically, there is no evidence of ascites, cholelithiasis or right hydronephrosis. IMPRESSION: No significant abnormalities identified (nonvisualization of pancreas secondary to overlying bowel gas). at 1709 Reported and signed by: Tia Boateng MD CC: Sharifa Bassett MD; Twin Rey echnologist: Lisbeth Calles RDMS Probe: Trnscrbd D/ (1709) t.JUANR.CER Orig Print D/T: S: 10/14/2018 (5441) [facility] NAME: SIMONE MARTÍNEZ Radiology Department PHYS: Twin Garcia MD [address] : 1995 AGE: 23 SEX: F [place], [place] [address] LOC: [facility] PHONE #: [phone] EXAM DATE: 10/14/2018 STATUS: REG ER FAX #: [phone] RAD NO: Page 1 Signed Report Patient Name: SIMONE MARTÍNEZ Unit No: [id number] EXAMS: CPT CODE: [id number] US ABDOMEN LTD 08129 (Continued) [facility] NAME: SIMONE MARTÍNEZ Radiology Department PHYS: Twin Garcia MD [address] : 1995 AGE: 23 SEX: F [place], [place] [address] LOC: CARRIE PHONE #: [phone] EXAM DATE: 10/14/2018 STATUS: REGER FAX #: [phone] RAD NO: Page 2 Signed ReportUA RFLX MICR CULT IF [id number] 16:48:00 Test Item Value Reference Range Interpretation [...] RARE #/hpf NONE SEEN BACU) CBC W/AUTO [id number] 16:44:00 Test Item Value Reference Range Interpretation [...] REQUIRED (test NORMAL NORMAL code = PLTMR) Notes Date/Time Note Provider Source 2022-05-15 21:21:00-00:00 [facility] EMERGENCY PROVIDER REPORT REPORT#:[id number] REPORT STATUS: Signed DATE:05/15/22 TIME: 2120 PATIENT: SIMONE MARTÍNEZ UNIT #: [id number] ROOM/BED: AGE: 27 SEX: F PCP PHYS: Olga Mora MD SERVICE AUTHOR: Simone Nolasco DO * ALL edits or amendments must be made on the Leap/computer document * HPI-General Illness Free Text HPI Notes Free Text HPI Notes Onset 1 day ago at its worst pain is 9 o ut of 10 currently pain is 5 out of 10 it does not radiate its dull crampy, not sudden onset, nothing makes better or worse General Initial Greet Date/Time 05/15/222105 Presentation Chief Complaint Back pain Associated with Denies: Aura. Associated Other Pt denies other symptoms Review of Systems ROS Statements All systems rev neg except as marked. Complete sys rev neg except as marked. Review of Systems Constitutional Denies: Chills, Fatigue, Fever, Lethargy, Malais e, Recent wt loss, Weakness - generalized. Past Medical History - Adult Stated Complaint HURT BACK LIFTING OBJECT,5 WKS Allergies Coded Allergies: Penicillins (Severe, ANAPHYLACTIC SHOCK 11/08/19 ) PT UNSURE OF REACTION; STATES SWELLING/RASH OCCURED NOW Sulfa (Sulfonamide Antibiotics) (Mild, RASH 10/20 05/11) morphine (Mild, Redness near injection site. Itc gene. 11/08/19) Home Medications Active Scripts NITROFURANTOIN/NITROFURAN MAC (MACROBID) 100 MG PO Q12HR NITROFURANTOIN/NITROFURAN MAC (MACROBID) 100 MG PO Q12HR #8 CAP Prov: 10/05/20 CYCLOBENZAPRINE HCL (FLEXERIL) 5 MG PO TID PRN P RN MUSCLE SPASMS CYCLOBENZAPRINE HCL (FLEXERIL) 5 MG PO TID PRN PRN MUSCLE SPASMS #12 TAB Prov: 10/05/20 IBUPROFEN (MOTRIN) 600 MG PO Q6H PRN PRN MILD PA IN (SCALE 1-3) IBUPROFEN (MOTRIN) 600 MG PO Q6H PRN PRN MILD P AIN (SCALE 1-3) #30 TAB Prov: 10/05/20 DOCUSATE SODIUM (COLACE) 200 MG PO BEDTIME DOCUSATE SODIUM (COLACE) 200 MG PO BEDTIME #60 CAP Prov: 10/05/20 ONDANSETRON (ZOFRAN) 4 MG PO Q8H PRN PRN NAUSEA+ VOMITING ONDANSETRON (ZOFRAN) 4 MG PO Q8H PRN PRN NAUSEA +VOMITING #12 TAB Prov: 10/05/20 Reported Medications PNV WITH FE FUMARATE/FA () 1 TAB PO EDWARDO Y FERROUS SULFATE (FEOSOL) Pt reports no significant: P ast medical history, Family history, Social history Past Surgical History: Reports: D C. Physical Exam Vital Signs Vital Signs First Documented: Result Date Time Pulse Ox 100 05/15 2126 B/P 141/64 05/15 2126 B/P Mean 89 05/15 2126 O2 Delivery Room air 05/15 2126 Temp 36.8 05/15 2126 Pulse 92 05/15 2126 Resp 23 05/15 2126 Last Documented: Result Date Time Pulse Ox 100 05/15 2126 B/P 141/64 05/15 2126 B/P Mean 89 05/15 2126 O2 Delivery Room air 05/15 2126 Temp 36.8 05/15 2126 Pulse 92 05/15 2126 Resp 05/15 Review of Vital Signs Reviewed Physical Exam General/Const General/Const Awake, Alert, No acute di stress, Well appearing, Well developed , Well hydrated, Well nourished, Cooperative, No t toxic appearing MS Head Head Normocephalic Eyes Eyes PERRL Ears/Nose/Throat Ears/Nose/Throat Airway patent, Mucous membrane s moist, Pharynx NL MS Neck Neck Supple, No meningismus, Full range of ced on, No swelling, Non-tender, No masses Resp/Chest Respiratory/Chest Breath sounds NL, Breath soun ds = bilat, No respiratory distress, No rales, No rhonchi, No wheezing Cardiovascular Cardiovascular Heart rate NL, Regular r hythm, Heart sounds NL, Cap refill not delayed, Peripheral circulation NL Abdomen/GI Abdomen/GI Soft, Non-tender, No guarding, No re bound MS Back Back Inspection NL, Painless range of motion, N on-tender, No CVA tenderness Lymphatic Lymphatic No gross adenopathy MS Upper Extrem Upper Extremity/MS Inspection NL, No swelling, Non-tender, No erythema, No deformity, Neurologic intact, Vascular intact, N o clubbing/cyanosis MS Wrist/Hand Wrist/Hand Inspection NL, No swelling, No erythema, Non-tender, No deformity, Neurologic intact, Vascular intact, No clubbing/ cyanosis MS Lower Extrem Lower Ext/Pelvis/MS Inspection NL, No swelling, Non-tender, No erythema, No deformity, Neurologic intact, Vascular intact, N o edema MS Ankle/Foot Ankle/Foot Inspection NL, No swelling, No erythema, Non-tender, No deformity, Neurologic intact, Vascular intact, No edema Skin Skin Color NL, Warm, Dry, Turgor NL Neurologic Neurologic Oriented X3, Speech NL, No motor def icits, No sensory deficits Psychiatric Psychiatric Affect NL, Mood NL, Thought content NL Interpretation Diagnostics Lab Results Interpretation Results Laboratory Tests: 05/15 2143 Miscellaneous Maternal Serum HCG 237 Recent Impressions: ULTRASOUND - DUP AB/PEL/SC/LTD 05/15 2225 Report Impression - Status: SIGNED Entered: 05/15/20222312 IMPRESSION: 1. There is no sonographic evidence of an intrau terine . In the setting of a positive test, the absence of an intrauterine gestation could be explained by pre gnancy too early to visualize sonographically, miscarriage or ectopi c . Close correlation with clinical findings and quantitat chino serum beta HCG level is recommended with follow-up ultrasound a s needed. 2. No sonographic abnormalities of the ovaries o r adnexa are detected. SL: 131. Impression By: Tanna Dukes ULTRASOUND - US PREG UT TRANSVAGINAL 05/15 2225 Report Impression - Status: SIGNED Entered: 05/15/20222312 IMPRESSION: 1. There is no sonographic evidence of an intrau terine . In the setting of a positive test, the absence of an intrauterine gestation could be explained by pre gnancy too early to visualize sonographically, miscarriage or ectopi c . Close correlation with clinical findings and quantitat chino serum beta HCG level is recommended with follow-up ultrasound a s needed. 2. No sonographic abnormalities of the ovaries o r adnexa are detected. SL: 131. Impression By: Tanna Dukes ULTRASOUND - US PREG EVAL 1ST TRIMTR 05/15 2225 Report Impression - Status: SIGNED Entered: 05/15/20222312 IMPRESSION: 1. There is no sonographic evidence of an intrau terine . In the setting of a positive test, the absence of an intrauterine gestation could be explained by pre gnancy too early to visualize sonographically, miscarriage or ectopi c . Close correlation with clinical findings and quantitat chino serum beta HCG level is recommended with follow-up ultrasound a s needed. 2. No sonographic abnormalities of the ovaries o r adnexa are detected. SL: 131. Impression By: Haider - Tanna Whalen Re-Evaluation MDM Re-Evaluation/Progress #1 Text/Dict Note GIVNEOPIOID DISCLAIMER, RISKS/BENE, DEMNADING PA IN MEDS Time of Re-Eval 2245 Re-Eval Status Improved Eval Following Treatment Pt. feels better, Condi tion improved ED Course Medication(s) Ordered Medication(s) Ordered: Central Nervous System Agents Sig/Jessica Start time Last Medication Dose Route Stop Time Status Admin Hydrocodone Bitart/ 2 TAB X1ED STA 05/15 2120 D Cr 05/15 Acetaminophen PO 05/15 Acetaminophen 1,000 MG X1ED STA 05/15 2107 CANr PO 05/15 2108 Skin And Mucous Membrane Agent Sig/Jessica Start time Last Medication Dose Route Stop Time Status Admin Lidocaine 1 PATCH X1ED STA 05/15 2245 DC TRANSDERM 05/15 2246 Patient Discharge Departure Vital Signs/Condition Vital Signs First Documented: Result Date Time Pulse Ox 100 05/15 2126 B/P 141/64 05/15 2126 B/P Mean 89 05/15 2126 O2 Delivery Room air 05/15 2126 Temp 36.8 05/15 2126 Pulse 92 05/15 2126 Resp 05/15 Last Documented: Result Date Time Pulse Ox 100 05/15 2126 B/P 141/64 05/15 2126 B/P Mean 89 05/15 2126 O2 Delivery Room air 05/15 2126 Temp 36.8 05/15 2126 Pulse 92 05/15 2126 Resp 05/15 All vital signs available at the time of this en try have been reviewed. Condition Stable, Improved Clinical Impression Clinical Impression Primary Impression: Back pain affecting pregnanc y in first trimester Time of Impression 2329 Disposition Decision Discharge )( Discharged to Home Yes )( Time 2329 )( Date 05/15/22 Discharge/Care Plan Counseled Regarding Diagnosis, Lab resul ts, Prescriptions, Need for follow-up, When to return to ED (Auto) Prescriptions Current Visit Scripts LIDOCAINE (LIDODERM 5%) 1 PATCH TRANSDERM DAILY LIDOCAINE (LIDODERM 5%) 1 PATCH TRANSDERM DAILY #30 PATCHES Patient Instructions Comfort Tips During Pregnan cy, ED Back and Neck Pain, General, ED Back Care Tips, ED Back Pain (Acute or Chronic), ED Sciatica Referrals Provider Group: [facility] Provider Group: [facility] Provider Group: [facility] Provider Group: [facility] Departure Forms ABNORMAL LABS ABNORMAL RADIOLOGY READING Discharge Note I have spoken with the patie nt and/or caregivers. I have explained the patient's condition, diagnoses and sabrina atment plan based on the information available to me at this time. I have answered the patient's and/ or caregiver's questions and addressed any concerns. The patient and/or careg ingrid have as good an understanding of the patient 's diagnosis, condition and treatment plan as can be expected at this point. The vital signs have bee n stable. The patient's condition is stable and appr opriate for discharge from the emergency department. The patient will pursue further outpatient evalu ation with the primary care physician or other designated or consulting phys ician as outlined in the discharge instructions. The patient and/or caregivers are agreeable to this plan of care and follow-up instructions have been exp lained in detail. The patient and/or caregivers have received these instructio ns in written format and have expressed an understanding of the discharge inst ructions. The patient and/or caregivers are aware that any significant change in condition or worsening of symptoms should prompt an immediate return to [facility] or the closest emergency department or a call to 911. Electronically Signed by Simone Nolasco DO on at 0053 RPT #:[id number] END OF REPORT 2022-01-20 05:49:00-00:00 [facility] ([facility]) EMERGENCY PROVIDER REPORT REPORT#:[id number] REPORT STATUS: Signed DATE:01/20/22 TIME: 05 PATIENT: SIMONE MATRÍNEZ UNIT #: [id number] ROOM/BED: AGE: 26 SEX: F PCP PHYS: Olga Mora MD SERVICE AUTHOR: Liss Macais MD * ALL edits or amendments must be made on the [employer]/computer document * Liss Macias 01/20/22 0549: HPI-Dental/Mouth Prob Free Text HPI Notes Free Text HPI Notes 26 year old woman presenting with Jaw pain and d ifficulty swallowing. Patient reports that she had her wis dom tooth pulled yesterday under sedation; when she woke up she sneezed and her face and neck swelle d up. She says the swelling decreased but she has been unable to open her mo uth properly and has not been able to eat. She states that she feels like the swelling has gone into her neck area and that it feels like she is choking. Her dentist told her to go to [facility] where th ere is an Oral Surgeon but they have a 12 hour wait, so she came here. General Confirmed Patient Yes Patient Type New patient Initial Greet Date/Time 01/20/22 05 Presentation Chief Complaint Jaw swelling, Mouth pain, Neck p ain Hx Obtained From Patient Onset Occurred Yesterday Symptom Duration Since onset Review of Systems ROS Statements Complete sys rev neg except as marked. Focused Review of Systems Ears/Nose/Throat Reports: Mouth pain, Throat pain, Throat swellin g, Toothache. Past Medical History - Adult Stated Complaint FACE SWELLING AFTER WISDOME TOO TH REMOVAL. NO PREG Allergies Coded Allergies: Penicillins (Severe, ANAPHYLACTIC SHOCK 11/08/19 ) PT UNSURE OF REACTION; STATES SWELLING/RASH OCCURED NOW Sulfa (Sulfonamide Antibiotics) (Mild, RASH 10/20 05/11) morphine (Mild, Redness near injection site. Itc gene. 11/08/19) Home Medications Active Scripts NITROFURANTOIN/NITROFURAN MAC (MACROBID) 100 MG PO Q12HR NITROFURANTOIN/NITROFURAN MAC (MACROBID) 100 MG PO Q12HR #8 CAP Prov: 10/05/20 CYCLOBENZAPRINE HCL (FLEXERIL) 5 MG PO TID PRN P RN MUSCLE SPASMS CYCLOBENZAPRINE HCL (FLEXERIL) 5 MG PO TID PRN PRN MUSCLE SPASMS #12 TAB Prov: 10/05/20 IBUPROFEN (MOTRIN) 600 MG PO Q6H PRN PRN MILD PA IN (SCALE 1-3) IBUPROFEN (MOTRIN) 600 MG PO Q6H PRN PRN MILD P AIN (SCALE 1-3) #30 TAB Prov: 10/05/20 DOCUSATE SODIUM (COLACE) 200 MG PO BEDTIME DOCUSATE SODIUM (COLACE) 200 MG PO BEDTIME #60 CAP Prov: 10/05/20 ONDANSETRON (ZOFRAN) 4 MG PO Q8H PRN PRN NAUSEA+ VOMITING ONDANSETRON (ZOFRAN) 4 MG PO Q8H PRN PRN NAUSEA +VOMITING #12 TAB Prov: 10/05/20 Reported Medications PNV WITH FE FUMARATE/FA () 1 TAB PO EDWARDO Y FERROUS SULFATE (FEOSOL) Review of Nursing Notes Rev avail, and agree Physical Exam Vital Signs Vital Signs First Documented: Result Date Time Pulse Ox 97 06/ 0501 B/P 120/68 06/ 0501 B/P Mean 85 / 0501 O2 Delivery Room air 01/20 0501 Temp 37.5 / 0501 Pulse 75 06/ 0501 Resp 17 01/20 0501 Last Documented: Result Date Time Pulse Ox 99 / 0745 B/P 133/86 06/ 0745 B/P Mean 101 06/ 0745 O2 Delivery Room air 06/ 0745 Temp 36.7 06/ 0745 Pulse 74 06/ 0745 Resp 18 06/ 0745 Review of Vital Signs Reviewed, Vital signs norm al Focused PE General/Const General/Const Awake, Alert, No acute distress, Well appearing Text/Dict Notes talking in full sentences Ears/Nose/Throat Text/Dict Notes Unable to open mouth wide Mouth Mucous membranes dry. Dental/Gums Gum swelling, Gum tenderness. Negative: Gum ble eding present. MS Neck Neck Supple, No meningismus Soft Tissue Neck Swelling present. Negative: Crepitus present. Resp/Chest Respiratory/Chest Breath sounds NL, Breath soun ds = bilat, No respiratory distress Cardiovascular Cardiovascular Heart rate NL, Regular rhythm, H eart sounds NL Neurologic Neurologic Oriented X3, Speech NL, No m otor deficits, No sensory deficits, CN II - XII intact Interpretation Diagnostics Lab Results Interpretation Results Laboratory Tests 01/20/22 0549: [Embedded Image Not Available] Laboratory Tests: 01/20 01/20 0752 0549 Chemistry Sodium (135 - 145 mEq/L) 142 Potassium (3.5 - 5.0 mEq/L) 3.4 L Chloride (100 - 115 mEq/L) 105 Carbon Dioxide (22 - 31 mEq/L) 28 Anion Gap (10 - 20) 12.50 BUN (7 - 18 mg/dL) 7 Creatinine (0.5 - 1.0 mg/dL) 0.9 Glomerular Filtr Rate (>60 ml/min) 75 Glucose (65 - 110 mg/dL) 100 Calcium (8.4 - 10.2 mg/dL) 8.7 Hematology WBC (6.5 - 12.3 K/mm3) 6.9 RBC (3.51 - 4.69 M/mm3) 4.85 H Hgb (10.1 - 13.8 g/dL) 12.8 Hct (32.5 - 41.8 %) 40.6 MCV (84.6 - 96.6 fL) 83.7 L MCH (27.3 - 33.9 pg) 26.4 L MCHC (32.0 - 34.2 gm/dL) 31.5 L RDW (12.2 - 16.3 %) 13.7 Plt Count (134 - 363 K/mm3) 285 MPV (9.2 - 12.7 fL) 9.5 Neut % (Auto) (57.9 - 77.3 %) 59.2 Lymph % (Auto) (14.5 - 29.7 %) 32.5 H [place] % (Auto) (3.6 - 10.2 %) 6.0 Eos % (Auto) (0.0 - 3.0 %) 1.9 Baso % (Auto) (0.1 - 0.9 %) 0.3 Neut # (Auto) (K/mm3) 4.1 Lymph # (Auto) (K/mm3) 2.2 [place] # (Auto) (K/mm3) 0.4 Eos # (Auto) (K/mm3) 0.13 Baso # (Auto) (K/mm3) 0.0 Serology SARS-CoV-2 Ag (Rapid) (NEGATIVE) NEGATIVE Recent Impressions: CAT SCAN - CT NECK W/CONTRAST 01/20 603 Report Impression - Status: SIGNED Entered: 01/20/2022 0655 IMPRESSION: 1. Empty right mandibular tooth socket containin g low-attenuation and a tiny focus of gas posteriorly in the right side of the mandible consistent with reported recent wisdom tooth resection. Mild low-attenuation thickening of the soft tiss ues medially and inferiorly to the empty right mandibular wisdom tooth socket suggests inflammation or infection. No definite low-attenuation collection is seen to suggest an abscess with ce rtainty. 2. Extensive subcutaneous emphysema extending fr om the periorbital and facial soft tissues along both sides the nec k and submandibular/submental regions contiguous with incompletely visualized pneumomediastinum. Clinical correlati on and follow-up are required as findings may represent infection and mediastinitis. 3. Multiple scattered small to mildly enlarged b ilateral cervical lymph nodes are likely reactive in nature. 4. Complete opacification of the left maxillary sinus, ethmoid sinus, left frontal sinus consistent with chroni c sinusitis. An obstructing process is suspected at the left ost iomeatal unit. Follow-up ENT consultation and direct visualizat ion may be helpful. THIS REPORT CONTAINS FINDINGS THAT MAY BE CRITIC AL TO PATIENT CARE. The findings were verbally communicated via tele phone conference with Dr. Amato at 6:57 AM CDT on 01/20/2022. Th e findings were acknowledged and understood. Impression By: [email or web address] - Ankush Vega MD RADIOLOGY - XR CHEST 1 V 01/20 0730 Report Impression - Status: SIGNED Entered: 01/20/2022 0746 IMPRESSION: No acute abnormality in the chest. Impression By: [email or web address] - Tanna Lee Re-Evaluation [facility] ED Course Medication(s) Ordered Medication(s) Ordered: Anti-Infective Agents Sig/Jessica Start time Last Medication Dose Route Stop Time Status Admin Clindamycin Phosphate 50 ML X1ED STA 01/20 1013 DC 01/20 IV 01/20 1112 1025 Central Nervous System Agents Sig/Jessica Start time Last Medication Dose Route Stop Time Status Admin Ketorolac 30 MG X1ED STA 01/20 1220 DC 01/20 Tromethamine IV 01/20 1221 1246 Ketorolac 30 MG X1ED STA 01/20 0542 DC 01/20 Tromethamine IV 01/20 0543 0627 Ketorolac 60 MG X1ED STA 01/20 0531 CANr Tromethamine IM 01/20 0532 Diagnostic Agents Sig/Jessica Start time Last Medication Dose Route Stop Time Status Admin Iopamidol 100 ML .STK-MED ONE 01/20 0618 DC IV 01/20 0619 0618 Electrolytic, Caloric, And Bernie Sig/Jessica Start time Last Medication Dose Route Stop Time Status Admin Sodium Chloride 50 ML .STK-MED ONE 01/20 0618 D C 01/20 IV 01/20 0619 0618 Sodium Chloride 1,000 ML X1ED STA 01/20 0542 DC 01/20 IV 01/20 0543 0626 Eye, Ear, Nose And Throat (Een Sig/Jessica Start time Last Medication Dose Route Stop Time Status Admin Oxymetazoline HCl 1 SPRAY X1ED STA 01/20 1018 D C 01/20 NASAL 01/20 1019 1024 Patient Discharge Departure Vital Signs/Condition Vital Signs First Documented: Result Date Time Pulse Ox 97 / 0501 B/P 120/68 06/ 0501 B/P Mean 85 / 0501 O2 Delivery Room air 01/20 0501 Temp 37.5 06/ 0501 Pulse 75 06/ 0501 Resp 17 01/20 0501 Last Documented: Result Date Time Pulse Ox 99 / 0745 B/P 133/86 06/ 0745 B/P Mean 101 06/ 0745 O2 Delivery Room air 06/ 0745 Temp 36.7 06/ 0745 Pulse 74 06/ 0745 Resp 18 / 0745 All vital signs available at the time of this en try have been reviewed. Pt/Provider Handoff Shift Change Note This patient's care has been transferred to the incoming physician. We discussed : the patient's chief complaint; labs an d imaging that have been completed and those that are still pending; procedures that ramirez ve been completed and those remaining to be done; any treatment provided and the patient's response to treatment; input from consultants (if any); the remaining treatment plan. The incoming physician will follow up on all pending labs and imaging, make any necessary changes to the cur rent impression and/or treatment plan and provide a final disposition. Care Transferred to Latoya Amato Care Transferred at 0627 Discussed Complaint(s) Yes [facility] A[facility]o 01/20/22 0740: Re-Evaluation MDM Free Text MDM Notes Free Text MDM Notes 26 yo female 1 d s/p R mandibular wisdom tooth extraction now with facial swelling, subcut emphysema extre nding from face to neck with pneumomediastinum pt requires oral surgery evaluation for further mgmt cllinda x1 in ED Free Text MDM Notes Free Text MDM Notes 1047 Denied at [facility], [facility], [facility]ef[facility] nd [facility] 1400 Pt has opted to leave AMA and check into [facility], unable to find an accepting facility in [facility] or anyt hwere in between Patient Discharge Departure Clinical Impression Clinical Impression Primary Impression: Jaw pain Secondary Impressions: Pneumomediastinum, S/P DE NTAL EXTRACTION, Subcutaneous emphysema Disposition Decision Transfer )( Request Time 724 )( Request Date 01/20/22 Other )( Time 140 )( Date 01/20/22 Against Medical Advice Yes Discharge/Care Plan Counseled Regarding Diagnosis, Lab resul ts, Imaging studies, Need for transfer Against Medical Advice AMA Note 1 Simone Martínez has decided to leave our facility against medical advice. I have assessed the patient's abili ty to make an informed decision and it is my opinion at this time that the patient has the medical de cision-making capacity to comprehend information regarding current medical condition and appreciates the impact of the disease or condition and t he consequences of various options for treatment, including foregoing treatment . The patient possesses the ability to evaluate all treatment options, compare the risks and benefits of each option, communicate choice in a consistent manner over t sue, and is able to make rational choices. I have explained to the patien t further testing, treatment, and evaluation I would like to perform d uring the current emergency department visit as well as any possible alternatives that could be accomplished in a timely manner. I have outlined the possible risk s of foregoing any or all of these interventions and the patient understands and acknowledges that the decision to leave may result in undesirable cons equences such as , permanent disability, and/or loss of current lifestyle. Even though leaving AMA is not ideal, I have instruc ming the patient to follow any discharge instructions given, take any medications prescribed, and resume care as soon as possible with another provider. Additional ly, we clearly stated that the patient is welcome to return at any time to continue care at our [facility]. Electronically Signed by Liss Macias MD 01/20/22 at 0627 at 1410 [facility] #:[id number] END OF REPORT 2020-10-13 21:58:00-00:00 [id number] [facility] [address] [place], [place] [address] PATIENT NAME: SIMONE MARTÍNEZ ADMIT DATE: ACCOUNT NO: [id number] ROOM NO: AGE: 25 SEX: F ADMITTING PHYSICIAN: ATTENDING PHYSICIAN: Olga Mora ADMISSION DATE: 09/29/2020 TRIAGE EVALUATION: 09/29/2020 For evaluation in OB ED on 0 09/29/2020, by Ethel Merlos MD, triage hospitalist per agreement with [facility] group, Dr. Mora's patient. HISTORY OF PRESENT ILLNESS: The patient is a 25- year-old G6, P2-0-3-2, with last menstrual period 2019, and estimated date of confinement 10/15/2020. She presented at 37 and 5/7th weeks complaining of contractions, which began about 6:30 a.m. They were irregular. She came in complaining of leakage of fluid, but no spontaneous rupture of membranes w as found. Her cervix did not change after an hour and she was discharged. She now returns complaining of increased contractions. She denies vaginal bleed ing and reports good movement. No further leakage of fluid. She denie s headache, vision changes, and other preeclampsia symptoms. She denies feve r, chills, diarrhea, constipation, but reports occasional nausea with out vomiting; however, she states she did eat a burger at [employer]. Sh e also reports some burning with void. No workup was done; however, she was not ed to have a small laceration near the vulva on evaluation in OB ED today. She denies cough, sore throat, shortness of breath, loss of taste and smell, fever, diarrhea, or other COVID symptoms. She last tested negative in July. She denies nader or infection and has been observing stay-home and social distancing recomm endations. Her care has been with Dr. Mora beginning at approximately 5 weeks' gestation. Her next visit is scheduled for September h. Ultrasound has been significant for polyhydramnios, which has im proved recently. She also reports occasional reflux symptoms and anemia. She has been on twice daily iron, but has not received iron transfusion or blood transfusion. She also reports that perhaps her platelets have been low, but more recently are n ormal. PAST MEDICAL HISTORY: Asthma. The patient denies prior overnight hospital stays, intubations, or long-term steroid use. He r last flare was in 2011 and her last inhaler use was greater than 1 year ago . PAST SURGICAL HISTORY: Laparoscopic cholecystect scooby in 2019 and obstetrical D and C in 2013 and 2018. ALLERGIES: PENICILLIN, WHICH CAUSES ANAPHYLAXIS; HOWEVER, SHE STATES SHE HAS TAKEN CEPHALOSPORINS. SHE IS ALSO ALLERGIC TO ASTORGA LFA, WHICH CAUSES A RASH AND MORPHINE, WHICH CAUSES ITCHING AT THE SITE OF IN JECTION. CURRENT MEDICATIONS: vitamins, twice da zayda iron, Fioricet as needed for headache and pantoprazole as needed for refl ux symptoms. PATIENT NAME: SIMONE MARTÍNEZ [id number] OBSTETRICAL HISTORY: In 2013, first trimester, s pontaneous , not requiring D and C. Later in the same year 2013, first trimester spontaneous at approximately 14 weeks and she did require D and C at that time. In 2019, first trimester spontaneous for m issed AB with trisomy 21. She required D and C in that pre gnancy as well. In 2018, full-term vaginal delivery of a female weighing 6 pounds 10 ounces. was remarkable for recurrent urinary tract infections. In 2019, ful l-term vaginal delivery of a female infant weighing 6 pounds 6 ounces, diagno sed with gestational hypertension. Otherwise, no complications. GYNECOLOGIC HISTORY: Menarche at age 11 with reg ular monthly cycles lasting 3 to 5 days, light with minimal cramping. The adriana ent denies prior history of STDs and reports all Pap smears normal. SOCIAL HISTORY: The patient denies tobacco or il licit drug use. She reports rare prepregnancy alcohol us e. She lives with her spouse, a 26-year-old healthy male and her 2 children as well as her in-laws. 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 Her job does not require chemical expos ures. She is not currently taking any lab classes, but she does occ asionally lift her children. The older weighs 27 pounds and the younger 20 pounds. FAMILY HISTORY: Mother with diabetes. Father wit h hypertension, precancer in the GI tract and diabetes. Maternal grandmother with breast cancer. Maternal grandfather with OK at age 36. Paternal grandmother with diabetes and Alzheimer's. Paternal grandfather with an MRSA infection following heart surgery. He also had hypertension and renal disease due to diabetes. The patient has one brother juve douglas and healthy and her 2 daughters are healthy. She reports uncle with megacephaly. Otherwise, no me ntal retardation or defects in her family or her spouse's family. REVIEW OF SYSTEMS: A 10-point review of systems is negative except as stated above. PHYSICAL EXAMINATION: GENERAL: The patient is a well-nourished, well-d eveloped female, in no acute distress, lying on triage stretcher in OB ED. VITAL SIGNS: Height 5 feet 5 inches, weight prio r to the 250 pounds and at most recent visit to clinic 256 pounds. Blood pressure 129/60, pulse 91, respirations 18, and temperature 99.0. HEAD AND NECK: Within normal limits without lymp hadenopathy or thyromegaly. CHEST: Clear to auscultation bilaterally. HEART: With regular rate and rhythm. BREASTS: Deferred. ABDOMEN: Soft, nontender, gravid with a fundal h eight of 38 cm. PELVIC: 4 cm, 50%, and -3. She has had no cervic al change and appears to be in latent labor. EXTREMITIES: No edema, bilateral 2+ patellar ref lexes. NEUROLOGIC: Nonfocal; awake, alert,and oriented x3. ASSESSMENT/PLAN: The patient is a 25 year old, G 6 P2032 at 37 5/7weeks. She is again discharged home in stable condi tion in latent labor, reassuring status. She is to call or return for vaginal ble eding, leakage of fluid, decreased movement, contractions with incr eased force and frequency, or other concerns. All instructions given verbally by after questions PATIENT NAME: SIMONE MARTÍNEZ [id number] answered. Dictated By: Ethel Merlos MD WT: HP:FKRISTIAN/MARCELLO/ANNELISE Conf#: [id number]/DID#: [id number] Authenticated and Edited by Ethel Merlos MD On 10/14/20 11:06:28 AM Electronically Signed by Ethel Merlos MD on at 1541 PATIENT NAME: SIMONE MARTÍNEZ [id number] 2020-10-05 14:09:00-00:00 [facility] ([facility]) OB Disch REPORT#:[id number] REPORT STATUS: Signed DATE:10/05/20 TIME: 1409 PATIENT: SIMONE MARTÍNEZ UNIT #: [id number] ROOM/BED: [address] : 94 AGE: 25 SEX: F ATTEND: Olga Mora MD ADM AUTHOR: Duane Carey * ALL edits or amendments must be made on the Le[employer]/computer document * Subjective Subjective Admission EGA: Weeks: 38 Days: 1 EGA at delivery (wks/days): 38 weeks (2 days) Status/day: post (day 2) Patient reports: Patient reports: Yes: normal lochia, tolerating po well, voiding well, voiding without pain, tolerating ambulation, flatu s. No: bowel movement, vomiting, excessive bleeding , abdominal pain, perineal pain, difficu lty nursing, headache, blurred vision. Comments: Pt reports cramping is now b jason with Flexeril. Was on ibuprofen and Assumption but not helpful this morning. Tomas wemerly, pt appeared comfortable and able to ambulate around room during interview without difficulty this morning. Objective General VS: Vital Signs Date Temp Pulse Resp B/P B/P Mean Pulse Ox FiO2 10/04-10/05 98.5-98.8 73-93 18-19 102-108/63-74 Last Documented: Result Date Time B/P 106/72 10/05 0836 Temp 98.8 10/05 0836 Pulse 93 10/05 0836 Resp 19 10/05 0836 Pulse Ox 97 02/12 1818 B/P Mean 77.0 10/03 1043 PATIENT WEIGHT: Weight (lb): 259 Weight (oz): Weight (kg): 117.48 Physical Exam Breasts: Breasts: filling, non-tender Cardiac: regular rate Lungs: unlabored breathing Neuro: Exam: alert, oriented x3, normal speech Abdomen: soft, no abnormal tenderness, no guardi ng, no rebound tenderness Uterus: non-tender Fundus: below the umbilicus, non-tender Lochia: normal Vulva/Perineum: normal CVA tenderness: none Lower extremities: Edema: none (Right leg trace edema), trace Results Findings/Data: Recent Impressions: ULTRASOUND - DUP VEIN UNI RT 10/05 1130 Report Impression - Status: SIGNED Entered: 10/05/2020 1416 IMPRESSION: No right lower extremity deep venous thrombus. Impression By: [email or web address] - Hadley Anthony MD Discharge Summary General Free Text A P: 25 yo now s/p TSVD @ 38 weeks. 1. PPD#2 -s/p TSVD on 10/03 @ 0854 -Baby girl 'Evelina' at bedside, bonding appropr iate -Pain: Reports pelvic crampi ng that is not completely alleviated with Ibuprofen, Tylenol, and Assumption. Pain improved when switched to Flexeril. Physical exam completely benign. 2. UTI -C/o difficulty voiding/decreased urge t o void that started on 10/03 @ 1900 but resolved after catheterization yesterday morning . -Bladder scan yesterday AM per RN: 900 cc. Patie nt able to spontaneously void 200 cc, followed by catheterization with appx 30 cc. -Comprehensive physical exam performed yesterday . No suprapubic or uterine tenderess. Pelvic exam unremarkable, no lacerati ons, hematomas, swelling, or edema. Normal uretheral meatus. -Patient with no visual deformities preventing o utflow of urine -UA on admit + for WBCs and Leuks. Patient with c/o dysuria for several days prior to admit. Urine culture pending. G iven overall symptoms and UA findings, empirically started tx with Nitrofurantoin.Will continue tx upon dc. -Suspect sxs related to UTI and dehydration. Low suspicion for bladder injury or obstructive outflow. 3. Right leg pain: reports hip and thigh pain th at is intermittent. No difficulty ambulating. R ank le and foot with trace edema compared to left leg so Dopplers was performed which r/o DVT. Rec monito ring swelling and pain, leg elevation when resting at home. Suspect musculos keletal etiology for pain. 4. PMH: asthma 5. PSH: D C x 3 6. PNLs: Rh+, RI/RBNI --> needs MMR PP/ /GBS n eg/ COVID: Negative Dispo: D/c home with abx for UTI tx, f/u in 6 wk s for PP visit or sooner prn. Date of admission: Date of admission: 10/02/20 Admission diagnosis: labor-spontaneous, obesity Hospital course: augmentation of labor, spontane ous vag delivery, epidural anesthesia, nml postop/postpart care Procedures: epidural anesthesia, spontaneous vag inal deliv Discharge condition: stable Discharge to: Home/Self Care Discharge diagnosis: full-term uncomp delivery, obesity Discharge management: greater than 30 mins Baby A: Vaginal delivery: spontaneous status: live born Gender: female (Evelina) 1 minute: 8 5 minutes: 9 Plan: routine care Vaginal packing at delivery: No Discharge Instructions Instructions: routine instr sheet given Diet: Resume Home Diet/Feeds Activity: No Palomas for 6 Wks, No L ifting >10lbs, No Swimming, Nothing in vagina pre f/u, Shower Only Additional discharge routine s: Attending Follow-Up (6 weeks or sooner if needed) Contraception discussed: abstinence for 4-6 week s, will discuss at PP visit Discharge meds: Continue taking these medications: PNV WITH FE FUMARATE/FA () 1 EACH TAB 1 TABLET ORAL DAILY. FERROUS SULFATE (FEOSOL) 325 MG TAB Start taking the following new medications: NITROFURANTOIN/NITROFURAN MAC (MACROBID) 100 MG CAP 100 MILLIGRAM ORAL EVERY 12 HOURS. Qty = 8 No Refills CYCLOBENZAPRINE HCL (FLEXERIL) 5 MG TAB 5 MILLIGRAM ORAL THREE TIMES DAILY NEEDED. a s needed for MUSCLE SPASMS Qty = 12 No Refills IBUPROFEN (MOTRIN) 600 MG TAB 600 MILLIGRAM ORAL EVERY 6 HOURS NEEDED. as needed for MILD PAIN (SCALE 1 -3) Qty = 30 No Refills DOCUSATE SODIUM (COLACE) 100 MG CAP 200 MILLIGRAM ORAL BEDTIME. Qty = 60 No Refills ONDANSETRON (ZOFRAN) 4 MG TAB 4 MILLIGRAM ORAL EVERY 8 HR NEEDED. as neede d for NAUSEA+VOMITING Qty = 12 No Refills Prescriptions: e-prescribe Add'l Follow-up Appointments Attending Physician: Attending Physician: Olga Mora MD Special instructions: 6 weeks for visit or sooner if needed . at 1453 RPT #:[id number] END OF REPORT 2020-10-04 11:00:00-00:00 [facility] ([facility]) OB Postpart Progr Note REPORT#:[id number] REPORT STATUS: Signed DATE:10/04/20 TIME: 1100 PATIENT: SIMONE MARTÍNEZ UNIT #: [id number] ROOM/BED: [address] : 94 AGE: 25 SEX: F ATTEND: Olga Mora MD ADM AUTHOR: Negrita Mckeon MD * ALL edits or amendments must be made on the [employer] document * Subjective Subjective Admission EGA: Weeks: 38 Days: 1 EGA at delivery (wks/days): 38 weeks (2 days) Status/Day: post (day 1) Patient reports: Patient reports: Yes normal lochia, Yes tolerating po we ll, Yes tolerating ambulation, No pain management effective, No voiding well, No nausea , No vomiting, No excessive bleeding, No perineal pain Comments: C/o difficulty voiding. S/p TSVD on 10/03 @ 0854. Following delivery, patient was voiding spontenously wit hout any difficulty. However reports decreased urge to void that started last night at appx 1900. Vo ided 200 cc this morning ( spontaneously). Does report dysuria for multiple days prior to delivery. Also c /o uterine cramping. Objective Nursing Documentation Review Nursing Data: The data set between the solid lines has been im ported from nursing documentation. Any exceptions have been noted be low under Provider comments. Feeding preference: Post hemorrhage risk score: Medium Risk f or Hemorrhage. Provider comments on imported nursing data: [] General VS: Vital Signs: Date Time Temp Pulse Resp B/P B/P Pulse O2 O2 F low FiO2 Mean Ox Delivery Rate 10/04 0800 97.7 72 18 104/70 10/04 0000 97.9 80 17 117/78 10/03 1818 97.7 73 16 117/77 97 10/03 1113 98.0 62 109/59 99 PATIENT WEIGHT: Weight (lb): 259 Weight (oz): Weight (kg): 117.48 Physical Exam Lungs: unlabored breathing Neuro: Exam: alert, oriented x3, normal speech Abdomen: soft, no abnormal tenderness, no guardi ng, no rebound tenderness Incision site: none Uterus: firm, involution appropriate Fundus: firm, at the umbilicus Lochia: normal Lacerations: Perineal laceration(s): None Episiotomy or laceration: none Vulva/Perineum: normal, no hematoma, no swelling /edema Lower extremities: Edema: none Result Results: no new labs, vitl signs stable Diagnosis, Assessment Plan Diagnosis, Assessment Plan Free text A P: 25 yo now s/p TSVD @ 38 weeks. 1. PPD#1 -s/p TSVD on 10/03 @ 0854 -Baby girl 'Evelina' at bedside, bonding appropr iate -Pain: Reports pelvic crampi ng that is not completely alleviated with Ibuprofen, Tylenol, and Assumption. Suspect pain could be attrib uted to bladder spasms. Will continue to monitor and will alter pain medicati on as needed. Physical exam completely benign. 2. Voiding/ Dirty UA -C/o difficulty voiding/decreased urge to void t hat started on 10/03 @ 1900. -Bladder scan this AM per RN : 900 cc. Patient able to spontaneously void 200 cc , followed by catheterization with appx 30 cc. -Comprehensive physical exam performed. No supra pubic or uterine tenderess. Pelvic exam unremarkable, no lacerations, hematomas, swelling, or edema. Normal uretheral meatus. -Patient with no visual deformities preventing o utflow of urine -Recommend continued PO hydr ation and strict I Os. Will f/u on voiding this PM. If difficulty persist, will plan for bladder tish ging. -UA on admit + for WBCs and Leuks. Patient with c/o dysuria for several days prior to admit. Urine culture pending. G iven overall symptoms and UA findings, will empirically start tx with Nitrofurantoin. 3. PMH: asthma 4. PSH: D C x 3 5. PNLs: Rh+, RI/RBNI --> needs MMR PP/ /GBS n eg/ COVID: Negative 6. Baby girl "Evelina" Dispo: Continue to closely monitor voiding statu s. Benign physical exam. Will empirically start on Nitrofurantoin pend ing results of urine culture. Possible d/c home on PPD#2 pending improvement of symptom s. Plan: routine care Plan discussed with: patient, spouse/partner, nu rse Electronically Signed by Negrita Mckeon MD on at 1120 RPT #:[id number] END OF REPORT 2020-10-04 11:00:00-00:00 [facility] ([facility]) OB Postpart Progr Note REPORT#:[id number] REPORT STATUS: Signed DATE:10/04/20 TIME: 1100 PATIENT: SIMONE MARTÍNEZ UNIT #: [id number] ROOM/BED: [address]: 94 AGE: 25 SEX: F ATTEND: Olga Mora MD ADM AUTHOR: Negrita Mckeon MD * ALL edits or amendments must be made on the el [employer]/computer document * See Addendum Subjective Subjective Admission EGA: Weeks: 38 Days: 1 EGA at delivery (wks/days): 38 weeks (2 days) Status/Day: post (day 1) Patient reports: Patient reports: Yes normal lochia, Yes tolerating po we ll, Yes tolerating ambulation, No pain management effective, No voiding well, No nausea , No vomiting, No excessive bleeding, No perineal pain Comments: C/o difficulty voiding. S/p TSVD on 10/03 @ 0854. Following delivery, patient was voiding spontenously wit hout any difficulty. However reports decreased urge to void that started last night at appx 1900. Vo ided 200 cc this morning ( spontaneously). Does report dysuria for multiple days prior to delivery. Also c /o uterine cramping. Objective Nursing Documentation Review Nursing Data: The data set between the solid lines has been im ported from nursing documentation. Any exceptions have been noted be low under Provider comments. Feeding preference: Post hemorrhage risk score: Medium Risk f or Hemorrhage. Provider comments on imported nursing data: [] General VS: Vital Signs: Date Time Temp Pulse Resp B/P B/P Pulse O2 O2 F low FiO2 Mean Ox Delivery Rate 10/04 0800 97.7 72 18 104/70 10/04 0000 97.9 80 17 117/78 10/03 1818 97.7 73 16 117/77 97 10/03 1113 98.0 62 109/59 99 PATIENT WEIGHT: Weight (lb): 259 Weight (oz): Weight (kg): 117.48 Physical Exam Lungs: unlabored breathing Neuro: Exam: alert, oriented x3, normal speech Abdomen: soft, no abnormal tenderness, no guardi ng, no rebound tenderness Incision site: none Uterus: firm, involution appropriate Fundus: firm, at the umbilicus Lochia: normal Lacerations: Perineal laceration(s): None Episiotomy or laceration: none Vulva/Perineum: normal, no hematoma, no swelling /edema Lower extremities: Edema: none Result Results: no new labs, vitl signs stable Diagnosis, Assessment Plan Diagnosis, Assessment Plan Free text A P: 25 yo now s/p TSVD @ 38 weeks. 1. PPD#1 -s/p TSVD on 10/03 @ 0854 -Baby girl 'Evelina' at bedside, bonding appropr iate -Pain: Reports pelvic crampi ng that is not completely alleviated with Ibuprofen, Tylenol, and Assumption. Suspect pain could be attrib uted to bladder spasms. Will continue to monitor and will alter pain medicati on as needed. Physical exam completely benign. 2. Voiding/ Dirty UA -C/o difficulty voiding/decreased urge to void t hat started on 10/03 @ 1900. -Bladder scan this AM per RN : 900 cc. Patient able to spontaneously void 200 cc , followed by catheterization with appx 30 cc. -Comprehensive physical exam performed. No supra pubic or uterine tenderess. Pelvic exam unremarkable, no lacerations, hematomas, swelling, or edema. Normal uretheral meatus. -Patient with no visual deformities preventing o utflow of urine -Recommend continued PO hydr ation and strict I Os. Will f/u on voiding this PM. If difficulty persist, will plan for bladder tish ging. -UA on admit + for WBCs and Leuks. Patient with c/o dysuria for several days prior to admit. Urine culture pending. Nancy diaz overall symptoms and UA findings, will empirically start tx with Nitrofurantoin. 3. PMH: asthma 4. PSH: D C x 3 5. PNLs: Rh+, RI/RBNI --> needs MMR PP/ /GBS n eg/ COVID: Negative 6. Baby girl "Evelina" Dispo: Continue to closely monitor voiding statu s. Benign physical exam. Will empirically start on Nitrofurantoin pend ing results of urine culture. Possible d/c home on PPD#2 pending improvement of symptom s. Plan: routine care Plan discussed with: patient, spouse/partner, nu rse Electronically Signed by Negrita Mckeon MD on at 1120 Addendum 1: 10/04/20 1604 by Negrita Mckeon MD Went to bedside to perform PM evaluation. Patien t comfortably lying in bed in NAD. Following catheter abhilash queta at 0930, patient voided 75 cc (spontaneously) at 1430. Reports that urine was initially " dark" at home and yesterday, but urine is now becoming more clear. Exam: benign physical exam (unchanged from AM ev aluation) Plan: -Suspect element of dehydrat ion based off + ketones on admission UA and reports of concentrated urine early in admission. Recomm end increased PO hydration. -Benign physical exam, thus no abnormalities pre venting outflow of urine. Continue strict I Os. -Continue empiric tx with Macrobid for UTI sympt oms -Pyridium TID x 2 days ordered to help alleviate bladder symptoms Plan of care discussed with patient, spouse, and nurse. Patient amenable to stated plan. Instructed to alert team if worseni ng symptoms or pain. All questions answered. Electronically Signed by Negrita Mckeon MD on at 1614 RPT #:[id number] END OF REPORT 2020-10-04 08:07:00-00:00 [facility] ([facility]) Clinical Note REPORT#:[id number] REPORT STATUS: Signed DATE:10/04/20 TIME: 806 PATIENT: SIMONE MARTÍNEZ UNIT #: [id number] ROOM/BED: 4668-[address] : 94 AGE: 25 SEX: F ATTEND: Olga Mora MD ADM AUTHOR: Duane Carey * ALL edits or amendments must be made on the [employer] document * Clinical Note Note: Called by RN at 7:30. Pt c/o cramping pain despi te ibuprofen and Assumption. Pt voided late evening and nothing since. She did n ot feel the urge to void. Instructed RN to perform bladder scan which show ed approx 900 cc urine in bladder. Pt then felt need to void. She voided a pprox 200 cc. RN notified me of above info rmation at 8 AM. Instruct RN to cath bladder now and see if pt voids within next 6 hrs. Check out given to Dr. Mckeon, on coming staff, who will evaluate pt this morning. Duane Carey MD at 0811 RPT #:[id number] END OF REPORT 2020-10-03 09:12:00-00:00 [facility] ([facility]) OB Delivery Note REPORT#:[id number] REPORT STATUS: Signed DATE:10/03/20 TIME: 911 PATIENT: SIMONE MARTÍNEZ UNIT #: [id number] ROOM/BED: 034-A : 94 AGE: 25 SEX: F ATTEND: Olga Mora MD ADM AUTHOR: Colette Kraft MD * ALL edits or amendments must be made on the [employer] document * OB Delivery Pre-delivery Admission EGA: Weeks: 38 Days: 1 EGA at delivery (wks/days): 38 weeks (2 days) Baby A Information Baby A information Delivery date: 10/03/20 Delivery time: 08 status: live born Wt of baby: not yet available Gender: female (Evelina) 1 minute: 8 5 minutes: 9 Presentation: vertex ABG details Baby A Cord blood gases: not collected Nuchal cord Baby A Nuchal cord: no Vaginal Delivery Vaginal delivery: Labor: augmented Medications/Devices used: oxytocin Vaginal delivery: spontaneous Amniotic fluid: clear Anesthesia type: epidural anesthesia Laceration repair: no Placenta: spontaneous, expressed, intact Post delivery meds used: oxytocin Count: correct, vag exam neg for sponges Vaginal packing: No Mother's condition: mother stable 's condition: infant stable in room Lacerations: Perineal laceration(s): None Extraction details OVD performed: no Shoulder dystocia present: no Additional comments: As the head crowned and delivered, the p erineum was protected with blue towel. The anterior shoulder delivered with gentle down david traction and posterior shoulder with gentle upward traction. A nuchal c ord was not noted. The infant was bulb suctioned, the cord clamped and cut after sixty seconds of delayed cord clamping, then handed to the waiting mother. Cord blood banking for MD Moralez was collected. Placenta deli bren spontaneously and intact. Hemostasis achieved with fundal massage and IV pitocin. A laceration was not noted. Sponge and lap counts correct x 2, lap scan negativ e. Good maternal-infant bonding noted. Blood Loss/Details Blood loss at delivery: <1000 ml, no more than e xpected Cause of bleeding: uterine atony w/o hemorr Management: uterotonic agent(s) (oxytocin), fund al massage EBL at delivery (ml's): 150 Electronically Signed by Colette Kraft MD on 0 10/03/20 at 0916 RPT #:[id number] END OF REPORT 2020-10-02 14:24:00-00:00 [facility] ([facility]) OB Admission / H P REPORT#:[id number] REPORT STATUS: Signed DATE:10/02/20 TIME: 1424 PATIENT: SIMONE MARTÍNEZ UNIT #: [id number] ROOM/BED: [facility] : 94 AGE: 25 SEX: F ATTEND: Olga Mora MD ADM AUTHOR: Josie Ravi MD * ALL edits or amendments must be made on the el ectronic/computer document * OB History Chief complaint: uterine contractions, dizziness HPI: 25yo at 38w0d who presents with complain t of contractions. States has been feeling contractions for 1 week, worse toda y. Denies leakage of fluid, vaginal bleeding. Notes decr eased movement today. Also endorses dizziness today. No PIH symptoms. history: : 5 Term: 2 : 0 Abortus: 3 Living children: 2 Previous : none Current : Admission EGA (weeks) 38 Admission EGA (days) 1 Labs: Blood type: A Rh: positive Rubella: immune Hepatitis B: negative HIV: negative STD: negative Syphilis: currently negative GBS: negative Past medical history: asthma Past surgical history: D C Social history: no alcohol use, no tobacco use, no drug use Family history Relation not specified for: Deep venous thrombosis Family History: Diabetes FH: HTN (hypertension) Renal stone Medications: Home Medications: PNV WITH FE FUMARATE/FA () 1 TAB PO EDWARDO Y FERROUS SULFATE (FEOSOL) Allergies Coded Allergies: Penicillins (Severe, ANAPHYLACTIC SHOCK 11/08/19 ) PT UNSURE OF REACTION; STATES SWELLING/RASH OCCURED NOW Sulfa (Sulfonamide Antibiotics) (Mild, RASH 10/20 05/11) morphine (Mild, Redness near injection site. Itc gene. 11/08/19) Review of Systems Constitutional: fatigue. Denies: chills, fever. Eyes: Denies: visual loss/blurred. Respiratory: Denies: non productive cough, productive cough ( sputum), SOB. Cardiovascular: Denies: chest pain, edema. GI: Denies: nausea, vomiting. : Denies: dysuria, vaginal bleeding. Neuro: dizziness. Denies: headache, vision change. Objective General VS: PATIENT WEIGHT: Weight (lb): 259 Weight (oz): Weight (kg): 117.48 Physical Exam HEENT: normocephalic w/o injury Lungs: unlabored breathing Neuro: Exam: alert, oriented x3, normal speech Abdomen: gravid, soft, no abnormal tenderness, n o guarding, no rebound tenderness Uterine activity: Monitor: toco Frequency (description): irregular Frequency (minutes): 6 Cervical/ exam: Dilatation (cm): 4 Effacement (%): 70 Est wt (gms): 3200 Suspected macrosomia: No Suspected > 5000 grams: No station: - 3 presentation: cephalic Membranes: Membranes: Intact Lower extremities: Edema: none Baby A: Baby A baseline: 140 bpm Baby A variability: moderate 6-25 bpm Baby A accelerations: 15 X 15 Baby A decelerations: none Baby A FHR category: category 1 Diagnosis, Assessment Plan Diagnosis, Assessment Plan Free Text A P: 25yo at 38w0d who presents with complain t of contractions. 1. Latent labor: Pt endorses uncomfortable contractions, SVE 4/70/-3. Admit to L D, plan for amniotomy when feasible. Augement w ith pitocin as needed. Pelvis adequate for delivery, EFW 3200g. 2. PMH: asthma 3. PSH: D C x2 4. PNLs: Rh+, RI/RBNI --> needs MMR PP. , GBS neg 5. Baby girl, status reassuring Dispo: Admit for delivery Electronically Signed by Josie Ravi MD on at 1436 RPT #:[id number] END OF REPORT 2020-08-15 21:27:00-00:00 [facility] ([facility]) EMERGENCY PROVIDER REPORT REPORT#:[id number] REPORT STATUS: Signed DATE:08/15/20 TIME: 2126 PATIENT: SIMONE MARTÍNEZ UNIT #: [id number] ROOM/BED: AGE: 25 SEX: F PCP PHYS: Olga Mora MD SERVICE AUTHOR: Hermelinda Zavala M D * ALL edits or amendments must be made on the el [employer]/computer document * [facility] History Chief complaint: low back pain and pubic pain HPI: patient at 31.2wk presents to the [facility] w ith compliant of lower back pain and lower abdomen pain radiiating to the pubic pain , denies any bleeding , no contraction ,no vaginal discharge ,FM present she took some tylenol and also goes to chiroprac ter and has bruises from the massage in lower back she get her care with Dr Mora history: : 6 Term: 2 : 0 Abortus: 3 Living children: 2 Complications (prev preg): none Previous : none Current : EDC: 10/15/20 EGA (weeks/days): 34.2wk Conditions of : anemia Past medical history: asthma, hypertension, migr aines, GERD Past surgical history: cholecystectomy, D C Social history: no alcohol use, no tobacco use, no drug use Family history Relation not specified for: Deep venous thrombosis Family History: Diabetes FH: HTN (hypertension) Renal stone Medications: Home Medications: Medication Dose/Rte/Freq Days Qty Entered Last Max Daily Dose Reviewed PYRIDOXINE (VITAMIN B-6) 25 MG PO DAILY 0 Strength: 25 MG TAB 0157 DOCUSATE SODIUM 100 MG PO BEDTIME 30 11/10/19 (COLACE) 1048 Strength: 100 MG CAP Allergies Coded Allergies: Penicillins (Severe, ANAPHYLACTIC SHOCK 11/08/19 ) PT UNSURE OF REACTION; STATES SWELLING/RASH OCCURED NOW Sulfa (Sulfonamide Antibiotics) (Mild, RASH 10/20 05/11) morphine (Mild, Redness near injection site. Itc gene. 11/08/19) Review of Systems Constitutional: Denies: fever, malaise. Skin: bruising (bruises on lower back). Respiratory: Denies: pneumonia, SOB. Cardiovascular: Denies: chest pain, palpitations. GI: Reports: GERD. Denies: nausea, vomiting. : Reports: pelvic pain, . Denies: dysuria, frequency, vaginal bleeding, vaginal discharge. Musculoskeletal: lumbar pain. Psych: Denies: anxiety, depression, stress. All systems rev neg: except as marked Objective General VS: PATIENT WEIGHT: Weight (lb): 252 Weight (oz): Weight (kg): 114.305 Vs 132/62, 70, 20 Physical Exam HEENT: normocephalic w/o injury Cardiac: regular rate and rhythm Lungs: clear to auscultation Abdomen: gravid, no guarding Uterine activity: Monitor: toco Frequency (description): none Pelvic exam: Pelvis clinically adequate: yes Cervical/ exam: Dilatation (cm): 0 - closed Effacement (%): 0 FHR evaluation: Baseline: 150 bpm Variability: moderate 6-25 bpm Accelerations: 15 X 15 Decelerations: none FHR category: category 1 Membranes: Membranes: Intact Lower extremities: Edema: none Results Findings/Data: Laboratory Tests: 08/15 Hematology WBC (6.6 - 12.1 K/mm3) 10.1 RBC (3.45 - 5.01 M/mm3) 3.92 Hgb (10.7 - 13.9 g/dL) 10.7 Hct (32.1 - 42.1 %) 34.0 MCV (84.1 - 94.8 fL) 87 MCH (27 - 35 pg) 27.3 MCHC (32.2 - 34.1 gm/dL) 31.5 L RDW (12.4 - 16.5 %) 13.5 Plt Count (133 - 385 K/mm3) 311 MPV (9.1 - 12.7 fl) 9.4 Neut % (Auto) (56.5 - 79.4 %) 72.2 Lymph % (Auto) (14.3 - 34.3 %) 21.7 [place] % (Auto) (5.1 - 10.4 %) 4.5 L Eos % (Auto) (0.1 - 3.0 %) 1.1 Baso % (Auto) (0.1 - 1.0 %) 0.2 Neut # (Auto) (K/mm3) 7.3 Lymph # (Auto) (K/mm3) 2.2 [place] # (Auto) (K/mm3) 0.5 Eos # (Auto) (K/mm3) 0.11 Baso # (Auto) (K/mm3) 0.0 Urines Urine Color (YELLOW) YELLOW Urine Appearance (CLEAR) Slightly-Cloudy Urine pH (5 - 9) 6.0 Ur Specific [place] (1.001 - 1.035) 1.027 Urine Protein (NEG) 1+ H Urine Glucose (UA) (NEG) NEGATIVE Urine Ketones (NEG) TRACE H Urine Blood (NEG) NEG Urine Nitrite (NEG) NEG Urine Bilirubin (NEG) NEGATIVE Urine Urobilinogen (NEG mg/dL) NEGATIVE Ur Leukocyte Esterase (NEG) NEG Urine RBC (NONE SEEN #/hpf) 3-5 H Urine WBC (NONE SEEN #/hpf) 0-2 Ur Epithelial Cells (RARE - FEW #/HPF) MODERATE H Urine Bacteria (RARE - FEW /HPF) MODERATE H Urine Mucus (NONE SEEN) 2+ Results: labs reviewed, vital signs stable Diagnosis, Assessment Plan Diagnosis, Assessment Plan Free Text A P: patient 25 y old at 31.2wk with lower back pain with bruising and pubic pain, ruled out UTI,pain due relaxatio n secondary SPdisfucntion Plan: Observation Hydration Tylenol for pain Follow up with primary OB this tuesday Ice pack to back Avoid chiropracter massage at 1122 RPT #:[id number] END OF REPORT 2020-04-22 21:45:00-00:00 [facility] ([facility]) EMERGENCY PROVIDER REPORT REPORT#:[id number] REPORT STATUS: Signed DATE:04/22/20 TIME: 2144 PATIENT: SIMONE MARTÍNEZ UNIT #: [id number] ROOM/BED: AGE: 25 SEX: F PCP PHYS: Olga Mora MD SERVICE AUTHOR: Ronal Villagran MD * ALL edits or amendments must be made on the Leap/computer document * Ronal Villagran 04/22/202144: HPI-General Illness Free Text HPI Notes Free Text HPI Notes 25-year-old who is at 25 wee ks gestation presenting with migraine which started yesterday per the patient. Patient's had dizzine ss, headache, nausea, loss of appetite. She has a history of migraines for whi ch she takes Fioricet, today she taken Fioricet 2 times without any relief. P atient is also taken Tylenol today. Patient also tried tramadol earlier today but did not get any relief. Denies any fever, vomiting, cough. Provider in Triage Greet Note I have greeted and performed a focused rapid initial assessment of this patient. A comprehensive ED assessment and evaluation of the patient, analysis of all test results, and completion of the medical deci gerardo-making process will be conducted by additional ED providers. Past Medical History - Adult Stated Complaint 15WKS-RAMIREZ/ DIZZY Allergies Coded Allergies: Penicillins (Severe, ANAPHYLACTIC SHOCK 11/08/19 ) PT UNSURE OF REACTION; STATES SWELLING/RASH OCCURED NOW Sulfa (Sulfonamide Antibiotics) (Mild, RASH 10/20 05/11) morphine (Mild, Redness near injection site. Itc gene. 11/08/19) Past Surgical History: Reports: D C. Physical Exam Vital Signs Vital Signs First Documented: Result Date Time Pulse Ox 100 04/22 2143 B/P 138/70 04/223 B/P Mean 92 04/22 2143 O2 Delivery Room air 04/22 2143 Temp 37.1 04/22 2143 Pulse 88 04/22 2143 Resp 04/22 Last Documented: Result Date Time Pulse Ox 100 04/23 0130 B/P 123/57 04/23 0130 B/P Mean 79 04/230 O2 Delivery Room air 04/23 130 Temp 36.7 04/23 130 Pulse 80 04/23 130 Resp 04/23 013 Re-Evaluation MDM ED Course Medication(s) Ordered Medication(s) Ordered: Electrolytic, Caloric, And Bernie Sig/Jessica Start time Last Medication Dose Route Stop Time Status Admin Sodium Chloride 1,000 ML X1ED STA 04/22 2153 DC D 04/22 IV 04/23 0432 2202 Gastrointestinal Drugs Sig/Jessica Start time Last Medication Dose Route Stop Time Status Admin Metoclopramide HCl 10 MG X1ED STA 04/22 2203 DC 04/22 IV 04/22 2204 220 Ondansetron Base 8 MG X1ED STA 04/22 2153 DC PO 04/22 215 220 Patient Discharge Departure Vital Signs/Condition Vital Signs First Documented: Result Date Time Pulse Ox 100 04/22 2143 B/P 138/70 04/22 2143 B/P Mean 92 04/22 2143 O2 Delivery Room air 04/22 2143 Temp 37.1 04/22 2143 Pulse 88 04/22 2143 Resp 04/22 Last Documented: Result Date Time Pulse Ox 100 04/23 0130 B/P 123/57 04/23 0130 B/P Mean 79 04/23 0130 O2 Delivery Room air 04/23 013 Temp 36.7 04/23 013 Pulse 80 04/23 0130 Resp 17 04/23 0130 All vital signs available at the time of this en try have been reviewed. Discharge/Care Plan Referrals Olga Mora MD (PCP/Family) Latoya Amato 04/23/20 0122: HPI-General Illness General Initial Greet Date/Time 04/22/203 Presentation Chief Complaint __ (headache) Hx Obtained From Patient Onset Occurred Yesterday Symptom Duration Since onset Progression since Onset Waxes and wanes Context of Onset heat exposure (summer weather) Location frontal Severity: Onset Pain level 7 out of 10 Severity: Current Pain level 7 out of 10 Review of Systems ROS Statements Complete sys rev neg except as marked. Review of Systems Constitutional Denies: Chills, Fatigue, Fever, Lethargy, Malais e, Recent wt loss, Weakness - generalized. Neurologic Reports: Dizziness, Headache, Lightheaded. Past Medical History - Adult Home Medications Active Scripts DOCUSATE SODIUM (COLACE) 100 MG PO BEDTIME DOCUSATE SODIUM (COLACE) 100 MG PO BEDTIME #30 CAP Ref 1 Prov: 11/10/19 Discontinued Scripts IBUPROFEN (MOTRIN) 600 MG PO Q6H PRN PRN PAIN SC MARSHALL 1-3 (USE 1ST) IBUPROFEN (MOTRIN) 600 MG PO Q6H PRN PRN PAIN S QUINTON 1-3 (USE 1ST) #30 TAB Ref 1 Prov: 11/10/19 DC: 04/23/20 0158 Patient stopped taking HYDROcodone/APAP (NORCO 5/32 5) 1 TAB PO Q4H PRN PRN MODERATE PAIN (SCORE 4 - 6) HYDROcodone/APAP (NORCO 5/325) 1 TAB PO Q4H PRN PRN MODERATE PAIN (SCORE 4 - 6) #14 TAB Prov: 11/11/19 DC: 04/23/20 0158 Patient stopped taking Reported Medications PYRIDOXINE (VITAMIN B-6) 25 MG PO DAILY Discontinued Reported Medications PNV/FE FUM/FA ( MULTIVITAMIN) 1 TAB PO D AILY Physical Exam Vital Signs Review of Vital Signs Reviewed Physical Exam Neurologic Neurologic Oriented X3, Speech NL, No motor def icits, CN II - XII intact, Cerebellar NL, Memory NL, Gait NL Free Text PE Notes Free Text PE Notes GEN: Well appearing/NAD HEAD: Atraumatic/NC EYES: PERRL, conj clear, +photophobia ENT: Membranes moist, airway patent NECK: Supple, no stridor RESP: No resp distress, normal RR CV: warm, well perfused ABD: Soft/non-tender, no rebound/guarding EXT: No gross abnormality, FROM SKIN: No rashes, warm/dry PSYCH: NL thought content, normal affect Interpretation Diagnostics Lab Results Interpretation Results Laboratory Tests 04/22/202147: [Embedded Image Not Available] Laboratory Tests: 04/22 2148 Chemistry Sodium (135 - 145 mEq/L) 138 Potassium (3.5 - 5.0 mEq/L) 3.8 Chloride (100 - 115 mEq/L) 103 Carbon Dioxide (22 - 31 mEq/L) 27 Anion Gap (10 - 20) 12.30 BUN (7 - 18 mg/dL) 10 Creatinine (0.5 - 1.0 mg/dL) 0.8 Glomerular Filtr Rate (>60 ml/min) 87 Glucose (65 - 110 mg/dL) 109 Calcium (8.4 - 10.2 mg/dL) 9.0 Total Bilirubin (0.2 - 1.0 mg/dL) 0.4 AST (15 - 37 units/L) 25 ALT (12 - 78 units/L) 30 Total Alk Phosphatase (46 - 116 units/L) 66 Total Protein (6.3 - 8.2 gm/dL) 6.9 Albumin (3.4 - 4.8 gm/dL) 3.0 L Hematology WBC (6.6 - 12.1 K/mm3) 9.6 RBC (3.45 - 5.01 M/mm3) 4.14 Hgb (10.7 - 13.9 g/dL) 11.3 Hct (32.1 - 42.1 %) 35.5 MCV (84.1 - 94.8 fL) 86 MCH (27 - 35 pg) 27.3 MCHC (32.2 - 34.1 gm/dL) 31.8 L RDW (12.4 - 16.5 %) 14.5 Plt Count (133 - 385 K/mm3) 289 MPV (9.1 - 12.7 fl) 9.9 Neut % (Auto) (56.5 - 79.4 %) 67.2 Lymph % (Auto) (14.3 - 34.3 %) 26.2 [place] % (Auto) (5.1 - 10.4 %) 4.2 L Eos % (Auto) (0.1 - 3.0 %) 1.9 Baso % (Auto) (0.1 - 1.0 %) 0.2 Neut # (Auto) (K/mm3) 6.4 Lymph # (Auto) (K/mm3) 2.5 [place] # (Auto) (K/mm3) 0.4 Eos # (Auto) (K/mm3) 0.18 Baso # (Auto) (K/mm3) 0.0 Urines Urine Color (YELLOW) YELLOW Urine Appearance (CLEAR) Slightly-Cloudy Urine pH (5 - 9) 5.0 Ur Specific [place] (1.001 - 1.035) 1.029 Urine Protein (NEG) NEGATIVE Urine Glucose (UA) (NEG) NEGATIVE Urine Ketones (NEG) NEGATIVE Urine Blood (NEG) NEG Urine Nitrite (NEG) NEG Urine Bilirubin (NEG) NEGATIVE Urine Urobilinogen (NEG mg/dL) NEGATIVE Ur Leukocyte Esterase (NEG) NEG Urine RBC (NONE SEEN #/hpf) 6-10 H Urine WBC (NONE SEEN #/hpf) 3-5 H Ur Epithelial Cells (RARE - FEW #/HPF) RARE Urine Bacteria (RARE - FEW /HPF) RARE Hyaline Casts (#/hpf) NONE SEEN Urine Mucus (NONE SEEN) 4+ Re-Evaluation MDM Free Text MDM Notes Free Text MDM Notes 25-year-old at 15 weeks gestation with 14-y ear history of headaches, presents with a frontal headache. Patien t reports headache has waxed and waned since yesterday, started after exposure to the o utdoor heat. She reports persistence of headache despite usual medication s. She states this is not the worst headache of her life. She had no vomiting but does report some lightheadedness. Patient has no family history of aneurysm or int racranial hemorrhage. She improved following usual ED therapies and was sleeping on reassessment. She will be discharged to follow-up with her OB and neurology as per her request. Return precautions given. Neuro intact, neck supple at time of discharge. Re-Evaluation/Progress #1 Text/Dict Note Patient feels better and is comfortable with trini n for discharge. She is requesting a neurology referral. Time of Re-Eval 0122 Patient Discharge Departure Clinical Impression Clinical Impression Primary Impression: Headache Disposition Decision Discharge )( Discharged to Home Yes )( Time 012 )( Date 04/23/20 Discharge/Care Plan Counseled Regarding Diagnosis, Lab resul ts, Need for follow-up, When to return to ED Prescriptions Reglan at 0515 RPT #:[id number] END OF REPORT 2020-04-22 21:45:00-00:00 [facility] ([facility]) EMERGENCY PROVIDER REPORT REPORT#:[id number] REPORT STATUS: Signed DATE:04/22/20 TIME: 2144 PATIENT: SIMONE MARTÍNEZ UNIT #: [id number] ROOM/BED: AGE: 25 SEX: F PCP PHYS: Olga Mora MD SERVICE AUTHOR: Ronal Villagran MD * ALL edits or amendments must be made on the Leap/computer document * Ronal Villagran 04/22/202144: HPI-General Illness Free Text HPI Notes Free Text HPI Notes 25-year-old who is at 25 wee ks gestation presenting with migraine which started yesterday per the patient. Patient's had dizzine ss, headache, nausea, loss of appetite. She has a history of migraines for whi ch she takes Fioricet, today she taken Fioricet 2 times without any relief. P atient is also taken Tylenol today. Patient also tried tramadol earlier today but did not get any relief. Denies any fever, vomiting, cough. General Initial Greet Date/Time 04/22/202143 Provider in Triage Greet Note I have greeted and performed a focused rapid initial assessment of this patient. A comprehensive ED assessment and evaluation of the patient, analysis of all test results, and completion of the medical deci gerardo-making process will be conducted by additional ED providers. Past Medical History - Adult Stated Complaint 15WKS-RAMIREZ/ DIZZY Allergies Coded Allergies: Penicillins (Severe, ANAPHYLACTIC SHOCK 11/08/19 ) PT UNSURE OF REACTION; STATES SWELLING/RASH OCCURED NOW Sulfa (Sulfonamide Antibiotics) (Mild, RASH 10/20 05/11) morphine (Mild, Redness near injection site. Itc gene. 11/08/19) Past Surgical History: Reports: D C. Re-Evaluation MDM ED Course Medication(s) Ordered Medication(s) Ordered: Electrolytic, Caloric, And Bernie Sig/Jessica Start time Last Medication Dose Route Stop Time Status Admin Sodium Chloride 1,000 ML X1ED STA 04/22 2153 DC D 04/22 IV 04/23 Gastrointestinal Drugs Sig/Jessica Start time Last Medication Dose Route Stop Time Status Admin Metoclopramide HCl 10 MG X1ED STA 04/22 2203 DC 04/22 IV 04/22 Ondansetron Base 8 MG X1ED STA 04/22 2153 DC PO 04/22 Patient Discharge Departure Discharge/Care Plan Referrals Olga Mora MD (PCP/Family) Latoya Amato 04/23/20 0122: HPI-General Illness Presentation Chief Complaint __ (headache) Hx Obtained From Patient Onset Occurred Yesterday Symptom Duration Since onset Progression since Onset Waxes and wanes Context of Onset heat exposure (summer weather) Location frontal Severity: Onset Pain level 7 out of 10 Severity: Current Pain level 7 out of 10 Review of Systems ROS Statements Complete sys rev neg except as marked. Review of Systems Constitutional Denies: Chills, Fatigue, Fever, Lethargy, Malais e, Recent wt loss, Weakness - generalized. Neurologic Reports: Dizziness, Headache, Lightheaded. Past Medical History - Adult Home Medications Active Scripts DOCUSATE SODIUM (COLACE) 100 MG PO BEDTIME DOCUSATE SODIUM (COLACE) 100 MG PO BEDTIME #30 CAP Ref 1 Prov: 11/10/19 Discontinued Scripts IBUPROFEN (MOTRIN) 600 MG PO Q6H PRN PRN PAIN SC MARSHALL 1-3 (USE 1ST) IBUPROFEN (MOTRIN) 600 MG PO Q6H PRN PRN PAIN S QUINTON 1-3 (USE 1ST) #30 TAB Ref 1 Prov: 11/10/19 DC: 04/23/20 0158 Patient stopped taking HYDROcodone/APAP (NORCO 5/32 5) 1 TAB PO Q4H PRN PRN MODERATE PAIN (SCORE 4 - 6) HYDROcodone/APAP (NORCO 5/325) 1 TAB PO Q4H PRN PRN MODERATE PAIN (SCORE 4 - 6) #14 TAB Prov: 11/11/19 DC: 04/23/20 0158 Patient stopped taking Reported Medications PYRIDOXINE (VITAMIN B-6) 25 MG PO DAILY Discontinued Reported Medications PNV/FE FUM/FA ( MULTIVITAMIN) 1 TAB PO D AILY Physical Exam Vital Signs Vital Signs First Documented: Result Date Time Pulse Ox 100 04/22 2143 B/P 138/70 04/22 2143 B/P Mean 92 04/22 2143 O2 Delivery Room air 04/22 2143 Temp 37.1 04/22 2143 Pulse 88 04/22 2143 Resp 18 04/22 2143 Last Documented: Result Date Time Pulse Ox 100 04/23 130 B/P 123/57 04/23 130 B/P Mean 79 04/23 130 O2 Delivery Room air 04/23 130 Temp 36.7 04/23 130 Pulse 80 04/23 130 Resp 17 04/23 130 Review of Vital Signs Reviewed Physical Exam Neurologic Neurologic Oriented X3, Speech NL, No motor def icits, CN II - XII intact, Cerebellar NL, Memory NL, Gait NL Free Text PE Notes Free Text PE Notes GEN: Well appearing/NAD HEAD: Atraumatic/NC EYES: PERRL, conj clear, +photophobia ENT: Membranes moist, airway patent NECK: Supple, no stridor RESP: No resp distress, normal RR CV: warm, well perfused ABD: Soft/non-tender, no rebound/guarding EXT: No gross abnormality, FROM SKIN: No rashes, warm/dry PSYCH: NL thought content, normal affect Interpretation Diagnostics Lab Results Interpretation Results Laboratory Tests 04/22/202147: [Embedded Image Not Available] Laboratory Tests: 04/22 2148 Chemistry Sodium (135 - 145 mEq/L) 138 Potassium (3.5 - 5.0 mEq/L) 3.8 Chloride (100 - 115 mEq/L) 103 Carbon Dioxide (22 - 31 mEq/L) 27 Anion Gap (10 - 20) 12.30 BUN (7 - 18 mg/dL) 10 Creatinine (0.5 - 1.0 mg/dL) 0.8 Glomerular Filtr Rate (>60 ml/min) 87 Glucose (65 - 110 mg/dL) 109 Calcium (8.4 - 10.2 mg/dL) 9.0 Total Bilirubin (0.2 - 1.0 mg/dL) 0.4 AST (15 - 37 units/L) 25 ALT (12 - 78 units/L) 30 Total Alk Phosphatase (46 - 116 units/L) 66 Total Protein (6.3 - 8.2 gm/dL) 6.9 Albumin (3.4 - 4.8 gm/dL) 3.0 L Hematology WBC (6.6 - 12.1 K/mm3) 9.6 RBC (3.45 - 5.01 M/mm3) 4.14 Hgb (10.7 - 13.9 g/dL) 11.3 Hct (32.1 - 42.1 %) 35.5 MCV (84.1 - 94.8 fL) 86 MCH (27 - 35 pg) 27.3 MCHC (32.2 - 34.1 gm/dL) 31.8 L RDW (12.4 - 16.5 %) 14.5 Plt Count (133 - 385 K/mm3) 289 MPV (9.1 - 12.7 fl) 9.9 Neut % (Auto) (56.5 - 79.4 %) 67.2 Lymph % (Auto) (14.3 - 34.3 %) 26.2 [place] % (Auto) (5.1 - 10.4 %) 4.2 L Eos % (Auto) (0.1 - 3.0 %) 1.9 Baso % (Auto) (0.1 - 1.0 %) 0.2 Neut # (Auto) (K/mm3) 6.4 Lymph # (Auto) (K/mm3) 2.5 [place] # (Auto) (K/mm3) 0.4 Eos # (Auto) (K/mm3) 0.18 Baso # (Auto) (K/mm3) 0.0 Urines Urine Color (YELLOW) YELLOW Urine Appearance (CLEAR) Slightly-Cloudy Urine pH (5 - 9) 5.0 Ur Specific [place] (1.001 - 1.035) 1.029 Urine Protein (NEG) NEGATIVE Urine Glucose (UA) (NEG) NEGATIVE Urine Ketones (NEG) NEGATIVE Urine Blood (NEG) NEG Urine Nitrite (NEG) NEG Urine Bilirubin (NEG) NEGATIVE Urine Urobilinogen (NEG mg/dL) NEGATIVE Ur Leukocyte Esterase (NEG) NEG Urine RBC (NONE SEEN #/hpf) 6-10 H Urine WBC (NONE SEEN #/hpf) 3-5 H Ur Epithelial Cells (RARE - FEW #/HPF) RARE Urine Bacteria (RARE - FEW /HPF) RARE Hyaline Casts (#/hpf) NONE SEEN Urine Mucus (NONE SEEN) 4+ Re-Evaluation MDM Free Text MDM Notes Free Text MDM Notes 25-year-old at 15 weeks gestation with 14-y ear history of headaches, presents with a frontal headache. Patien t reports headache has waxed and waned since yesterday, started after exposure to the o utdoor heat. She reports persistence of headache despite usual medication s. She states this is not the worst headache of her life. She had no vomiting but does report some lightheadedness. Patient has no family history of aneurysm or int racranial hemorrhage. She improved following usual ED therapies and was sleeping on reassessment. She will be discharged to follow-up with her OB and neurology as per her request. Return precautions given. Neuro intact, neck supple at time of discharge. Re-Evaluation/Progress #1 Text/Dict Note Patient feels better and is comfortable with trini n for discharge. She is requesting a neurology referral. Time of Re-Eval 121 Patient Discharge Departure Vital Signs/Condition Vital Signs First Documented: Result Date Time Pulse Ox 100 04/22 2143 B/P 138/70 04/22 2143 B/P Mean 92 04/22 2143 O2 Delivery Room air 04/22 2143 Temp 37.1 04/22 2143 Pulse 88 04/22 2143 Resp 18 04/22 2143 Last Documented: Result Date Time Pulse Ox 100 04/23 0130 B/P 123/57 04/23 0130 B/P Mean 79 04/23 0130 O2 Delivery Room air 04/23 013 Temp 36.7 04/23 130 Pulse 80 04/23 0130 Resp 17 04/23 0130 All vital signs available at the time of this en try have been reviewed. Clinical Impression Clinical Impression Primary Impression: Headache Disposition Decision Discharge )( Discharged to Home Yes )( Time 0125 )( Date 04/23/20 Discharge/Care Plan Counseled Regarding Diagnosis, Lab resul ts, Need for follow-up, When to return to ED Prescriptions Reglan at 0515 Electronically Signed by Ronal Villagran MD on at 1606 RPT #:[id number] END OF REPORT 2019-11-10 10:50:00-00:00 [facility] ([facility]) OB Disch REPORT#:[id number] REPORT STATUS: Signed DATE:11/10/19 TIME: 1050 PATIENT: SIMONE MARTÍNEZ UNIT #: [id number] ROOM/BED: [address] : 94 AGE: 24 SEX: F ATTEND: Olga Mora MD ADM AUTHOR: Archana Celeste MS N * ALL edits or amendments must be made on the Leap/computer document * Subjective Subjective Admission EGA (wks/days): 39 weeks EGA at delivery (wks/days): 39 weeks Status/day: post (day 1) Patient reports: Patient reports: Yes: normal lochia, pain management effective, tolerating po well, voiding well, voiding without pain, tolerating ambulatio n, flatus. No: complaints, bowel movement, nausea, vomiting, excess chino bleeding, abdominal pain, perineal pain, difficulty nursing, headache, blurred visi on. Objective General VS: Vital Signs Date Temp Pulse Resp B/P B/P Mean Pulse Ox FiO2 11/08 98.8 78 18 Last Documented: Result Date Time B/P 69 11/08 1613 Temp 98.8 11/08 1613 Pulse 78 11/08 1613 Resp 18 11/08 1613 B/P Mean 76.0 11/08 0622 Patient Weight Weight (lb): 254 Weight (oz): Weight (kg): 115.212 Physical Exam Breasts: Feeding: breast Cardiac: normal rhythm Lungs: no distress Neuro: Exam: alert, oriented x3, normal speech Abdomen: post gravid, soft, no abnormal tenderne ss, no guarding, no rebound tenderness Uterus: tender, involution appropriate Fundus: firm, below the umbilicus Lochia: normal Episiotomy or laceration: well approximated edge s Vulva/Perineum: normal Lower extremities: Edema: trace Discharge Summary Discharge Summary Free Text A P: Assessment:24yo s/p @ 39.1 wks for elect chino induction of labor TSVD. PPD # 1 -ID: Afebrile. No signs or symptoms of infection -Heme: pre-delivery hgb 10.2 -CV/Pulm: hemodynamically stable -GI/: tolerating regular diet, voiding spontan eously -Mother/Baby: patient is breast feeding her infa nt -Pain control: well controlled with motrin, tyle nol -Rubella immune /Rh + -PMH:s/p robotic cholecystectomy this @ 20wk, asthma, migraines -PSH:D C, robotic tj Meds: reglan ALL: PCN, Sulfa -Dispo: anticipate discharge home on tomorrow Date of admission: Date of admission: 11/08/19 Admission diagnosis: labor-spontaneous, labor-te Hospital course: spontaneous labor, spontaneous vag delivery Procedures: spontaneous vaginal deliv Baby A: Vaginal delivery: spontaneous status: live born Gender: female (Piper) 1 minute: 8 5 minutes: 9 Plan: routine care, circumcision toda y, circumcision tomorrow, discharge today, discharge tomorrow Instructions: routine instr sheet given, instr a nd warnings rev'd, specific instr as noted Diet: regular Activity and restrictions: up ad rambo, may shower , pelvic rest, no intercourse for 6 wks, no driving Contraception discussed: abstinence for 4-6 week s, will discuss at PP visit Discharge meds: Continue taking these medications: PNV/FE FUM/FA ( MULTIVITAMIN) 1 TAB TAB 1 TABLET ORAL DAILY. Start taking the following new medications: IBUPROFEN (MOTRIN) 600 MG TAB 600 MILLIGRAM ORAL EVERY 6 HOURS NEEDED. as needed for PAIN SCALE 1-3 ( USE 1ST) Qty = 30 Refills = 1 DOCUSATE SODIUM (COLACE) 100 MG CAP 100 MILLIGRAM ORAL BEDTIME. Qty = 30 Refills = 1 Prescriptions: e-prescribe Rx drug database reviewed: yes Discharge condition: stable Discharge to: home Follow up in: 6 weeks Discharge diagnosis: full-term uncomp delivery Discharge management: less than 30 mins at 1057 RPT #:[id number] END OF REPORT 2019-11-09 06:12:00-00:00 [facility] ([facility]) OB Delivery Note REPORT#:[id number] REPORT STATUS: Signed DATE:11/09/19 TIME: 06 PATIENT: SIMONE MARTÍNEZ UNIT #: [id number] ROOM/BED: [address] : 94 AGE: 24 SEX: F ATTEND: Olga Mora MD ADM AUTHOR: Olga Mora MD * ALL edits or amendments must be made on the el ectronic/computer document * OB Delivery Nursing Documentation Review Nursing data: The data set between the solid lines has been im ported from nursing documentation. Any exceptions have been noted be low under Provider comments. _ ROM date: 11/08/19 ROM time: 1843 Membranes rupture method: AROM Amniotic fluid color: Clear Amniotic fluid amount: EGA (weeks/days): 39.0 EGA at admit (weeks): EGA at delivery (weeks): 39 Steroids prior to arrival: Antibiotic prophylaxis given: [place] evaluation at delivery: Delivery date A: 11/09/19 Delivery time i nfant A: 0417 Birthweight (gm) A: Weight (lb) A: Weight (oz) A: Gender A: Female 1 minute A: 8 5 minutes A: 9 10 minutes A: Cord pH obtained infant A: Vacuum time infant A: Vacuum # pulls A: Vacuum # popoffs A: QBL at delivery: __ Provider comments on imported nursing data: [] Pre-delivery GBS status: GBS status: negative evaluation at delivery: NRP certified pe rsonnel Admission EGA (wks/days): 39 weeks Baby A Information Baby A information Delivery date: 11/09/19 Delivery time: 416 status: live born Wt of baby: not yet available Gender: female (Bernarda) 1 minute: 8 5 minutes: 9 Presentation: vertex ABG details Baby A Cord blood gases: not collected Nuchal cord Baby A Nuchal cord: yes (tight,deliv.through) Additional comments: As the head crowned and delivered, the p erineum was protected with blue towel. The anterior shoulder delivered with gentle down david traction and posterior shoulder with gentle upward traction. A nuchal c ord [tight] was noted and delivered through. The infant was bulb suctioned , the cord clamped and cut, then handed to the waiting other. Placenta delivered spontaneously and intact. Hemostasis achieved with fundal massage and IV pitocin. A laceration was not noted. Sponge, lap, and needle counts correct x 2, lap scan negative. Good maternal- bonding noted Vaginal Delivery Vaginal delivery: Labor: induced Medications/Devices used: oxytocin Vaginal delivery: spontaneous Amniotic fluid: clear Anesthesia type: epidural anesthesia Episiotomy: none Episiotomy repair: no Laceration repair: no Blood Loss/Details Blood loss at delivery: <1000 ml at 0614 RPT #:[id number] END OF REPORT 2019-11-09 03:55:00-00:00 [facility] ([facility]) Clinical Note REPORT#:[id number] REPORT STATUS: Signed DATE:11/09/19 TIME: 354 PATIENT: SIMONE MARTÍNEZ UNIT #: [id number] ROOM/BED: 032-A : 94 AGE: 24 SEX: F ATTEND: Olga Mora MD ADM AUTHOR: Olga Mora MD * ALL edits or amendments must be made on the el ectronic/computer document * Clinical Note Note: 24yo @ 39.1 wks for elective induction o f labor. 1. IOL: pt induction started 7pm, pitocin and ar om. CAT 1 tracing 2. OB: Rh pos, rubella immune, GBS neg 3. PMH: s/p robotic cholecystectomy this pregnan cy @ 20wk, asthma, migraines 4. PSH: D C, robotic tj 5. Meds: reglan 6. ALL: PCN, Sulfa at 0357 [facility] #:[id number] END OF REPORT 2019-11-05 03:01:00-00:00 [id number] [facility] [address] [address] PATIENT NAME: SIMONE MARTÍNEZ ADMIT DATE: ACCOUNT NO: [id number] ROOM NO: AGE: 24 SEX: F ADMITTING PHYSICIAN: ATTENDING PHYSICIAN: Olga Mora TRIAGE EVALUATION: 10/22/2019 Patient seen on 10/22/2019 in OB ED with evaluation completed on 10/23/2019 by Ethel Merlos MD, triage hospitalist per [facility] ent with [facility] group, Dr. Mora's patient. HISTORY OF PRESENT ILLNESS: The patient is a 24-year-old G5, P1-0-3-1 with last menstrual period 02/08/2019, and estimat ed date of confinement 11/14/2019. She presented at 35 and 5/7 weeks complaining of [place] kage of fluid. No vaginal bleeding. Good movement and rare contracti ons, approximately 2 to 3 per hour. She states leakage of fluid began at approximately 2:30 p.m. She arrived at 10:30 p.m. She reports nausea without vomitin g, also diarrhea 3 to 4 times earlier in the day with loose stool. No unusual odor. Last diarrhea stool was at approximately 7:30 p.m. after she ate at 2:30 . She denies history of IBS. She denies constipation, dysuria, fever, or, chills. She does have a headache, which she rates 7/10 with a history of migraines, for which she uses Fioricet as needed. She states the last Fioricet was 2 weeks ago. She did not take medications on the day of evaluation for her george juárez. She denies vision changes or other preeclampsia symptoms. She has no history of elevated blood pressures. Her care has been with Dr. Mora since approximately 4 weeks' gestation. Her next visit is scheduled fo 10/25. The has been remarkable for the migraines, for gallbladd er surgery at 20 weeks' gestation, for transiently e levated blood pressures earlier, and for right lower extremity edema with lymph node swelling and rig ht sciatica. PAST MEDICAL HISTORY: Migraines diagnosed in 200 4 with medications on and off since that time. PAST SURGICAL HISTORY: Laparoscopic cholecystect scooby in June of 2019, also obstetrical D and C x2. ALLERGIES: TO PENICILLIN, WH ICH CAUSES ANAPHYLAXIS, SULFA, WHICH CAUSES A RASH, AND MORPHINE, WHICH CAUSES A RASH. CURRENT MEDICATIONS: Include vitamins, Fioricet as needed, and metoclopramide as needed. She was on baby aspiri n earlier, but stopped approximately 2 to 3 months ago. OBSTETRICAL HISTORY: In December of 2014, fir st trimester spontaneous , not requiring D and C. In April of 2015, early s econd trimester spontaneous PATIENT NAME: SIMONE MARTÍNEZ [id number] , requiring D and C. In 2017, full-term vaginal delivery of female infant weighing 6 pounds 6 ounces, diagnosed wit h prehypertension. In 2019, spontaneous in the first trimester requ iring D and C. GYNECOLOGIC HISTORY: Menarche at age 11 with reg ular monthly cycles lasting 4 days, moderate in amount, with minimal cramping. All Pap smears normal. No history of STDs. SOCIAL HISTORY: The patient denies tobacco or il licit drug use. She reports occasional prepregnancy alcohol use. She lives w ith her spouse, a 25-year-old male with hypertension and her daughter. Her in- laws also live in the home. She does not work. 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 At this time; however, she does report she is lifting her daug hter, who weighs 23 pounds frequently. FAMILY HISTORY: Mother with diabetes and known t o be BRACA negative. Father with diabetes and hypertension. Maternal grandmo ther with history of breast cancer, known to be BRACA po sitive. Maternal grandfather is with heart arrhythmia at age 36. Paternal grandmother with Alzheimer's, hypertension, history of stroke and [place]. Paternal grandfather d eceased from MRSA infection. He also had heart disease. Brother with ADHD. Too ahuja reported as healthy. The patient reports uncle with hydrocephaly and Asperger's. Otherwise, she denies history of mental retardation or de fects in her family or her spouse's family. REVIEW OF SYSTEMS: A 10-point review of systems is negative except as stated above. PHYSICAL EXAMINATION: GENERAL: The patient is a well-nourished, well-d eveloped female, in no acute distress, lying on triage stretcher in OB ED. VITAL SIGNS: Height 5 feet 5 inches, weight prio r to the 250 pounds and at most recent visit to clinic 253 pounds. B lood pressure 124/62, pulse 100, respirations 18, and temperature 98.4. HEAD AND NECK: Within normal limits without lymp hadenopathy or thyromegaly. CHEST: Clear to auscultation bilaterally. HEART: With regular rate and rhythm. BREASTS: Deferred. ABDOMEN: Soft, nontender, gravid with a fundal h eight of 34 cm. PELVIC: Sterile speculum exam, AmniSure was nega tive x2. Then, sterile speculum exam by MD showed a watery discharge mi xed with white curdy material consistent with yeast vaginitis. EXTREMITIES: Without edema. Bilateral patellar r eflexes, 2+. NEUROLOGIC: Nonfocal. The patient is awake, aler t, and oriented x3. ASSESSMENT/PLAN: Thus, on assessment, this is a 24-year-old G5, P1-0-3-1 at 36 and 5/7th weeks at the time of presentation, progressing to 36 and 6 at discharge. She is an obese female with poor weig ht gain in the , who presented complaining of leakage of fluid, but n o evidence of spontaneous rupture of membranes. Instead, she is diagnosed with yeast vaginitis. She is given a script for Terazol. She is to follow up with Dr. Mora as scheduled on the . She is to drink greater th an 100 ounces of water daily and eat frequent small meals. She is also given labor precautions. She is to call or return for vaginal bleeding, leakage of fluid, decreased PATIENT NAME: SIMONE MARTÍNEZ [id number] movement, worsening cramps or other concerns. Pr ecautions given verbally by MD. Dictated By: Ethel Merlos MD WT: HP:F.HIM/DUFDI/NTS Conf#: [id number]#: [id number] Authenticated and Edited by Ethel Merlos MD On 11/09/19 9:44:58 AM Electronically Signed by Ethel Merlos MD on at 0947 PATIENT NAME: SIMONE MARTÍNEZ [id number] 2019-09-08 02:05:00-00:00 [facility] ([facility]) EMERGENCY PROVIDER REPORT REPORT#:[id number] REPORT STATUS: Signed DATE:09/08/19 TIME: 0205 PATIENT: SIMONE MARTÍNEZ UNIT #: [id number] ROOM/BED: AGE: 24 SEX: F PCP PHYS: Olga Mora MD SERVICE AUTHOR: Cordelia Deal MD * ALL edits or amendments must be made on the el [employer]/computer document * BERNIE History Chief complaint: elevated blood pressure HPI: 24y/o EDC: 11/14/19 @ 30weeks 3 day sGA p resents to BERNIE with elevated bp. pt states notices leg an d hand swelling took bp 117/90 then 5 min later 112/ 88. +RAMIREZ and visual changes +RUQ pain. no CP/SOB/ N/V/Leg pain. no reg ctx states been having some elizabeth li no lof/vb/ +FM Past medical history: asthma Past surgical history: cholecystectomy, D C Social history: no alcohol use, no tobacco use, no drug use Family history Relation not specified for: Deep venous thrombosis Family History: Diabetes FH: HTN (hypertension) Renal stone Medications: Home Medications: Medication Dose/Rte/Freq Days Qty Entered Last Max Daily Dose Reviewed PNV/FE FUM/FA 1 TAB PO DAILY 03/22/19 ( MULTIVITAMIN) 1946 Strength: 1 TAB TAB Allergies Coded Allergies: Penicillins (Severe, ANAPHYLACTIC SHOCK 08/11/19 ) PT UNSURE OF REACTION; STATES SWELLING/RASH OCCURED NOW Sulfa (Sulfonamide Antibiotics) (Mild, RASH 07/23 09/09) morphine (Mild, Redness near injection site. Itc gene. 08/11/19) Review of Systems Constitutional: fatigue, lethargy. Denies: c hills, fever, generalized weakness, malaise, recent wt loss, other. Eyes: visual loss/blurred. Denies: diplopia. ENT: Denies: nasal congestion. Respiratory: Denies: SOB, wheezing. Cardiovascular: Denies: chest pain, palpitations. GI: Reports: abdominal pain. Denies: anorexia, const ipation, diarrhea, dysphagia, GERD, hematemesis, hematochezia, hiatal hernia, melena, nausea, rectal pain, vomiting, other. : Reports: . Denies: d ysuria, flank pain, frequency, hematuria, nocturia, pelvic pain, urgency, urinary retention, vaginal bleeding, vaginal discharge, other. Musculoskeletal: extremity swelling. Denies: extremity pain. Neuro: headache, lightheaded, vision change, weakness. Denies: bladder dysfunction, bowel dysfunction, change in LOC, confusion, diz ziness, focal weakness, gait problem, numbness, seizure, slurred speech, spinning sensation, syncope, unable to speak, other. All systems rev neg: except as marked Objective General VS: Last Documented: Result Date Time B/P Mean 82.0 09/08 0326 B/P 118/60 09/08 0326 Pulse 80 09/08 0326 Temp 98.5 09/08 0156 Resp 17 09/08 0156 Vital Signs Date Temp Pulse Resp B/P B/P Mean Pulse Ox FiO2 09/08 98.5 75-109 17 105-150/51-69 73.0-97.0 Patient Weight Weight (lb): Weight (oz): Weight (kg): 112.050587 Physical Exam HEENT: normocephalic w/o injury Cardiac: normal rhythm Lungs: clear to auscultation Breasts: deferred Neuro: Exam: alert, oriented x3, normal speech DTR's (lower extr): normal 1-2+, no clonus Abdomen: gravid, soft, no abnormal tenderness, n ormoactive bowel sounds Uterine activity: Monitor: toco Frequency (description): none Lower extremities: Edema: 1+ pitting Calf tenderness: negative Result Findings/Data: Laboratory Tests: 09/08 021 Chemistry Sodium (135 - 145 mEq/L) 140 Potassium (3.5 - 5.0 mEq/L) 4.1 Chloride (100 - 115 mEq/L) 105 Carbon Dioxide (22 - 31 mEq/L) 26 Anion Gap (10 - 20) 13.50 BUN (7 - 18 mg/dL) 11 Creatinine (0.5 - 1.0 mg/dL) 0.6 Glomerular Filtr Rate (>60 ml/min) 122 Glucose (65 - 110 mg/dL) 86 Uric Acid (2.6 - 6.0 mg/dL) 3.2 Calcium (8.4 - 10.2 mg/dL) 8.8 Total Bilirubin (0.2 - 1.0 mg/dL) 0.2 AST (15 - 37 units/L) 42 H ALT (12 - 78 units/L) 73 Total Alk Phosphatase (46 - 116 units/L) 101 Lactate Dehydrogenase (81 - 234 units/L) 170 Total Protein (6.3 - 8.2 gm/dL) 6.5 Albumin (3.4 - 4.8 gm/dL) 2.9 L Hematology WBC (6.6 - 12.1 K/mm3) 10.9 RBC (3.45 - 5.01 M/mm3) 4.03 Hgb (10.7 - 13.9 g/dL) 11.1 Hct (32.1 - 42.1 %) 35.8 MCV (84.1 - 94.8 fL) 89 MCH (27 - 35 pg) 27.5 MCHC (32.2 - 34.1 gm/dL) 31.0 L RDW (12.4 - 16.5 %) 13.6 Plt Count (133 - 385 K/mm3) 302 MPV (9.1 - 12.7 fl) 9.4 Neut % (Auto) (56.5 - 79.4 %) 69.8 Lymph % (Auto) (14.3 - 34.3 %) 23.3 [place] % (Auto) (5.1 - 10.4 %) 5.2 Eos % (Auto) (0.1 - 3.0 %) 1.0 Baso % (Auto) (0.1 - 1.0 %) 0.2 Neut # (Auto) (K/mm3) 7.6 Lymph # (Auto) (K/mm3) 2.5 [place] # (Auto) (K/mm3) 0.6 Eos # (Auto) (K/mm3) 0.11 Baso # (Auto) (K/mm3) 0.0 Urines Urine Color (YELLOW) YELLOW Urine Appearance (CLEAR) Slightly-Cloudy Urine pH (5 - 9) 5.0 Ur Specific [place] (1.001 - 1.035) 1.031 Urine Protein (NEG) NEGATIVE Urine Glucose (UA) (NEG) NEGATIVE Urine Ketones (NEG) NEGATIVE Urine Blood (NEG) NEG Urine Nitrite (NEG) NEG Urine Bilirubin (NEG) NEGATIVE Urine Urobilinogen (NEG mg/dL) 2.0 Ur Leukocyte Esterase (NEG) TRACE H Urine RBC (NONE SEEN #/hpf) 6-10 H Urine WBC (NONE SEEN #/hpf) 6-10 H Ur Epithelial Cells (RARE - FEW #/HPF) FEW Urine Bacteria (RARE - FEW /HPF) RARE Urine Mucus (NONE SEEN) 4+ Ur Random Creatinine (mg/dL) 300.2 U Random Total Protein (mg/dL) 33.3 Protein/Creatinin Ratio (<200 mg/gcrea) 110.0 Diagnosis, Assessment Plan Diagnosis, Assessment Plan Free Text A P: IUP @ 30 weeks 3 days GA no evidence of GHTN or preeclampsia .bp stable. fhr reactive Plan: discharge home ptl preeclampsia warnings given f/u primary ob at 0612 RPT #:[id number] END OF REPORT 2019-08-11 12:36:00-00:00 [facility] ([facility]) EMERGENCY PROVIDER REPORT REPORT#:[id number] REPORT STATUS: Signed DATE:08/11/19 TIME: 1236 PATIENT: SIMONE MARTÍNEZ UNIT #: [id number] ROOM/BED: AGE: 24 SEX: F PCP PHYS: Olga Mora MD SERVICE AUTHOR: Reid Barry * ALL edits or amendments must be made on the Leap/computer document * BERNIE History Chief complaint: Abdominal pain. Back pain PV di doretha HPI: 24yo -0-3-1 at 26 3/7 w eeks gestation presenting with a 3 day hx/o cramping pains across the lower abdomen; Peaks at 7/10 in tensity now at 6/10. This is distinct from brief episodes of very loc alized, abdo pain which may occur in any of the 4 abdo quandrants. Associated with yellow, non-itchy, non-o dorous pv discharge. No fever, chills, diaphoresis. Denies STD hx. Associated with 3 day hx/o, non-radiating, low b ack pains which peak at 6/10 intensity. This is different from old bilateral sciatica of 2018. Ambulation wnl. No knee weakness. FM+ history: : 5 Term: 1 (G3. 2018. HTN. @ 38wk. A W) : 0 Abortus: 3 (Sab 8wk 2013 14wk 2015 10wk ) Living children: 1 Past medical history: asthma (Last exacerbation or Rx 2016), migraines, UTI ( Multiple UTIs), Pyelonephritis in 2015 and 2011. Past surgical history: cholecystectomy (For dysf unction 06/2019) Social history: no alcohol use, no tobacco use, no drug use Family history Relation not specified for: Deep venous thrombosis Family History: Diabetes FH: HTN (hypertension) Renal stone Medications: Home Medications: Medication Dose/Rte/Freq Days Qty Entered Last Max Daily Dose Reviewed PNV/FE FUM/FA 1 TAB PO DAILY 03/22/19 08/11/19 ( MULTIVITAMIN) 194 1154 Strength: 1 TAB TAB BUTALBITAL/APAP/CAFF 1 TAB PO 08/11/19 08/11/19 50/325/40 MG Q4H PRN PRN 1153 1154 (FIORICET) MIGRAINE Strength: 1 TAB TAB METOCLOPRAMIDE 10 MG PO DAILY 08/11/19 08/11/19 (REGLAN) 1154 1154 Strength: 10 MG TAB ONDANSETRON (ZOFRAN) 4 MG PO 11 07/01/19 Strength: 4 MG TAB Q8H PRN PRN nausea 1456 1154 Allergies Coded Allergies: Penicillins (Severe, ANAPHYLACTIC SHOCK 08/11/19 ) PT UNSURE OF REACTION; STATES SWELLING/RASH OCCURED NOW Sulfa (Sulfonamide Antibiotics) (Mild, RASH 07/23 09/09) morphine (Mild, Redness near injection site. Itc gene. 08/11/19) Review of Systems Constitutional: Denies: chills, fever, generalized weakness. Skin: Denies: rash. Respiratory: Denies: PACHECO (dyspnea on exertion), pleurisy, pro ductive cough (sputum), SOB. Cardiovascular: Denies: chest pain, PACHECO (dyspnea on exertion), p alpitations. GI: Denies: constipation, diarrhea, vomiting. : Denies: dysuria, frequency, vaginal bleeding. Musculoskeletal: Denies: arthritis, extremity pain. Endocrine: Denies: cold intolerance. Neuro: headache (Chronic migraines). Denies: dizziness, seizure, syncope, weakness. Objective General VS: Last Documented: Result Date Time B/P Mean 88.0 08/11 1146 B/P 128/61 08/11 1146 Temp 97.8 08/11 1146 Pulse 93 08/11 1146 Resp 18 08/11 1146 Vital Signs Date Temp Pulse Resp B/P B/P Mean Pulse Ox FiO2 08/11 97.8 93 18 128/61 88.0 Patient Weight Weight (lb): Weight (oz): Weight (kg): Notes: Not toxic. Physical Exam HEENT: no scleral icterus Cardiac: normal rhythm, no clinically sig murmur Lungs: clear to auscultation Neuro: Exam: alert, oriented x3, normal speech DTR's (lower extr): normal 1-2+ Abdomen: gravid, soft, no abnormal tenderness Uterine activity: Monitor: toco Frequency (description): none Pelvic exam: Vulvar lesions: none Vagina: non-septated Exam: soft, non-tender Cervical/ exam: Dilatation (cm): 0 - closed Effacement (%): 0 station: - 4 FHR evaluation: Baseline: 145 bpm Variability: moderate 6-25 bpm Accelerations: 15 X 15 FHR category: category 1 (WNL: for this gestati on) Membranes: Membranes: Intact Lower extremities: Edema: none Calf tenderness: negative Result Findings/Data: Laboratory Tests: 08/11 08/11 1245 1140 Miscellaneous Fibronectin NEGATIVE Urines Urine Color (YELLOW) YELLOW Urine Appearance (CLEAR) Slightly-Cloudy Urine pH (5 - 9) 6.0 Ur Specific [place] (1.001 - 1.035) 1.028 Urine Protein (NEG) 1+ H Urine Glucose (UA) (NEG) NEGATIVE Urine Ketones (NEG) NEGATIVE Urine Blood (NEG) NEG Urine Nitrite (NEG) NEG Urine Bilirubin (NEG) NEGATIVE Urine Urobilinogen (NEG mg/dL) NEGATIVE Ur Leukocyte Esterase (NEG) NEG Urine RBC (NONE SEEN #/hpf) 3-5 H Urine WBC (NONE SEEN #/hpf) 3-5 H Ur Epithelial Cells (RARE - FEW #/HPF) FEW Urine Bacteria (RARE - FEW /HPF) FEW Urine Mucus (NONE SEEN) 3+ Microbiology: Date/Time Procedure - Status Source Growth 08/11 1140 Urine Culture - RECD URINE 08/11 1140 GC DNA Probe - RECD URINE 08/11 1140 Chlamydia DNA Probe (FAROOQ) - RECD URINE Diagnosis, Assessment Plan Diagnosis, Assessment Plan Free Text A P: 24yo -0-3-1 at 26 3/7 w eeks gestaion with numerous symptoms. Diff diagnoses includes UTI vs Cervicitis v s Irritable bowel syndrome (IBS) vs Musculoskeletal pains. Labs pending. Reviewed at 2pm FFN wnl UA equivocal Impression: Likely IBS vs Musculoskeletal pains. Diet reviewed. Pt to call OBGYN office in 3 days for UC GC/chla mydia results at 1402 RPT #:[id number] END OF REPORT 2019-07-08 00:02:00-00:00 [id number] [facility] [address], [place] [address] PATIENT NAME: SIMONE MARTÍNEZ ADMIT DATE: ACCOUNT NO: [id number] ROOM NO: AGE: 24 SEX: F ADMITTING PHYSICIAN: ATTENDING PHYSICIAN: Kristen Maldonado MD Order: [id number] Test Reason : SOB - / 1 WEEK POST- OP Test Date/Time Stamp: TueJul 08 2019 00:02:21 Blood Pressure : / mmHG Vent. Rate : 082 BPM Atrial Rate : 082 BPM P-R Int : 130 ms QRS Dur : 088 ms QT Int : 380 ms P-R-T Axes : 035 020 002 degree s QTc Int : 443 ms Normal sinus rhythm Cannot rule out Anterior infarct , age undetermi zion Abnormal ECG When compared with ECG of 22-MAR-2019 21:43, No significant change was found Confirmed by MARIA C BENITES MD ([id number]) on 019 9:19:10 AM Referred By: Doc No Confirmed by:MARIA C BENITES MD at 0919 PATIENT NAME: SIMONE MARTÍNEZ [id number] 2019-07-07 23:44:00-00:00 [facility] ([facility]) EMERGENCY PROVIDER REPORT REPORT#:[id number] REPORT STATUS: Signed DATE:07/07/19 TIME: 2343 PATIENT: SIMONE MARTÍNEZ UNIT #: [id number] ROOM/BED: AGE: 24 SEX: F PCP PHYS: Olga Mora MD SERVICE AUTHOR: Kristen Maldonado * ALL edits or amendments must be made on the Leap/computer document * HPI-Dyspnea/Wheezing General Initial Greet Date/Time 07/07/193 Presentation Chief Complaint Shortness of breath Hx Obtained From Patient )( Sudden in Onset? Yes Onset Occurred Today Free Text HPI Notes Free Text HPI Notes 24 yr old female at 21 weeks gestation status post cholecystectomy last week recovering well but today felt incresed dyspnea with activity no chest pain, no leg swelling no OB complaints Risk-Dyspnea/Wheezing Risk Stratification Coronary Artery Disease Risk factors reviewed Review of Systems ROS Statements Complete sys rev neg except as marked. Basic Review of Systems Basic ROS EYES: No redness, GI: No abd pain/vomiting, : No dysuria/frequency, HEM: No bleeding/bruising, N EURO: No change MS, NEURO: No focal deficit, PSYCH: NL thought content Past Medical History - Adult Stated Complaint 21WEEKS WITH SOB Allergies Coded Allergies: Penicillins (Severe, ANAPHYLACTIC SHOCK 07/08/19 ) PT UNSURE OF REACTION; STATES SWELLING/RASH OCCURED NOW Sulfa (Sulfonamide Antibiotics) (Mild, RASH 06/22 03/09) morphine (Mild, Redness near injection site. Itc gene. 07/08/19) Home Medications Active Scripts HYDROcodone/APAP (NORCO 10/325) 1 TAB PO Q6H PRN PRN SEVERE PAIN (SCALE 7-10) HYDROcodone/APAP (NORCO 10/325) 1 TAB PO Q6H MD N PRN SEVERE PAIN (SCALE 7- 10) #21 TAB Prov: 07/01/19 traMADol (ULTRAM) 50 MG PO Q3H PRN PRN MODERATE PAIN (SCALE 4-6) traMADol (ULTRAM) 50 MG PO Q3H PRN PRN MODERATE PAIN (SCALE 4-6) #21 TAB Prov: 07/01/19 ONDANSETRON (ZOFRAN) 4 MG PO Q8H PRN PRN nausea ONDANSETRON (ZOFRAN) 4 MG PO Q8H PRN PRN nausea #11 TABS Prov: 07/01/19 Discontinued Scripts HYDROcodone/APAP (NORCO 10/325) 1 TAB PO Q6H PRN PRN SEVERE PAIN (SCALE 7-10) HYDROcodone/APAP (NORCO 10/325) 1 TAB PO Q6H MD N PRN SEVERE PAIN (SCALE 7- 10) #20 TAB Prov: 07/01/19 DC: 07/01/19 1336 traMADol (ULTRAM) 50 MG PO Q3H PRN PRN MODERATE PAIN (SCALE 4-6) traMADol (ULTRAM) 50 MG PO Q3H PRN PRN MODERATE PAIN (SCALE 4-6) #20 TAB Prov: 07/01/19 DC: 07/01/19 1336 ONDANSETRON (ZOFRAN) 4 MG PO Q8H PRN PRN nausea ONDANSETRON (ZOFRAN) 4 MG PO Q8H PRN PRN nausea #10 TABS Prov: 07/01/19 DC: 07/01/19 1456 Reported Medications PNV/FE FUM/FA ( MULTIVITAMIN) 1 TAB PO D AILY FOLIC ACID 0.4 MG PO DAILY PYRIDOXINE (VITAMIN B-6) (Unknown Dose) PO DAILY diphenhydrAMINE (BENADRYL) 25 MG PO Q4H PRN PRN SLEEP Discontinued Reported Medications PROMETHAZINE (PHENERGAN) 25 MG PO Q6H PRN PRN NA USEA Review of Nursing Notes Rev avail, and agree Past Surgical History: Reports: D C. Physical Exam Vital Signs Vital Signs First Documented: Result Date Time Pulse Ox 99 07/07 2338 B/P 134/77 07/07 2338 B/P Mean 96 07/07 2338 O2 Delivery Room air 07/07 2338 Temp 36.8 07/07 2338 Pulse 87 07/07 2338 Resp 17 07/07 2338 Last Documented: Result Date Time Pulse Ox 99 07/08 445 B/P 114/55 07/08 445 B/P Mean 74 07/08 445 O2 Delivery Room air 07/08 445 Temp 36.7 07/08 445 Pulse 74 07/08 445 Resp 07/08 Review of Vital Signs Reviewed, Vital signs norm al Basic Physical Exam Basic PE HEAD: Atraumatic/NC , EYES: PERRL, conj clear, ENT: Membranes moist, ABD : Soft/non-tender, EXT: No g ross abnormality, SKIN: No rashes, warm/dry, NEURO: alert oriented, NEURO: gross movement NL, PSYCH: NL thought content Focused PE General/Const General/Const Awake, Alert, No acute di stress, Well appearing, Well developed , Well hydrated, Well nourished, Cooperative, No t toxic appearing MS Neck Neck Supple Resp/Chest Respiratory/Chest Breath sounds NL, Breath soun ds = bilat, No respiratory distress, No rales, No rhonchi, No wheezing, No retractions, No stridor Cardiovascular Cardiovascular Heart rate NL, Regular rhythm, H eart sounds NL Interpretation Diagnostics Lab Results Interpretation Results Laboratory Tests 07/07/192350: [Embedded Image Not Available] Laboratory Tests: 07/07 2351 Chemistry Sodium (135 - 145 mEq/L) 138 Potassium (3.5 - 5.0 mEq/L) 3.5 Chloride (100 - 115 mEq/L) 102 Carbon Dioxide (22 - 31 mEq/L) 25 Anion Gap (10 - 20) 14.80 BUN (7 - 18 mg/dL) 11 Creatinine (0.5 - 1.0 mg/dL) 0.6 Glomerular Filtr Rate (>60 ml/min) 122 Glucose (65 - 110 mg/dL) 116 H Calcium (8.4 - 10.2 mg/dL) 9.5 Total Bilirubin (0.2 - 1.0 mg/dL) 0.3 AST (15 - 37 units/L) 142 H ALT (12 - 78 units/L) 194 H Total Alk Phosphatase (46 - 116 units/L) 156 H Troponin I (<0.056 ng/mL) <0.017 Total Protein (6.3 - 8.2 gm/dL) 7.6 Albumin (3.4 - 4.8 gm/dL) 3.1 L Hematology WBC (6.6 - 12.1 K/mm3) 12.0 RBC (3.45 - 5.01 M/mm3) 4.14 Hgb (10.7 - 13.9 g/dL) 11.6 Hct (32.1 - 42.1 %) 36.7 MCV (84.1 - 94.8 fL) 89 MCH (27 - 35 pg) 28.0 MCHC (32.2 - 34.1 gm/dL) 31.6 L RDW (12.4 - 16.5 %) 14.5 Plt Count (133 - 385 K/mm3) 316 MPV (9.1 - 12.7 fl) 9.4 Neut % (Auto) (56.5 - 79.4 %) 76.9 Lymph % (Auto) (14.3 - 34.3 %) 18.2 [place] % (Auto) (5.1 - 10.4 %) 3.5 L Eos % (Auto) (0.1 - 3.0 %) 0.7 Baso % (Auto) (0.1 - 1.0 %) 0.3 Neut # (Auto) (K/mm3) 9.2 Lymph # (Auto) (K/mm3) 2.2 [place] # (Auto) (K/mm3) 0.4 Eos # (Auto) (K/mm3) 0.08 Baso # (Auto) (K/mm3) 0.0 Immature Plt Fraction (0.0 - 10.8 %) 0.0 Recent Impressions: RADIOLOGY - XR CHEST 1 V 07/08 0017 Report Impression - Status: SIGNED Entered: 07/08/2019 0048 IMPRESSION: 1. No radiographic evidence of acute cardiopulmo nary disease. SL: 131 Impression By: Tanna Dukes NUCLEAR MEDICINE - NM PULM PERF PARTIC 07/08 031 0 Report Impression - Status: SIGNED Entered: 07/08/2019 0433 IMPRESSION: 1. Normal pulmonary perfusion. The examination i s very low probability for pulmonary embolism. SL: 131 Impression By: Tanna Dukes Point of Care Testing Pulse Oximetry Pulse Ox % 99 On: Room air Interpretation Interpreted by me, Pulse oximetr y normal ECG #1 Interpretation Date 07/08/19 Time 022 Interpreted by ED physician NL ECG Interpretation Normal rate, Normal sinus rhythm, No acute ischemic changes, No STEMI Rate 82 Re-Evaluation MDM )( Re-Evaluation/Progress #1 )( Re-Eval Status Improved ED Course Medication(s) Ordered Medication(s) Ordered: Gastrointestinal Drugs Sig/Jessica Start time Last Medication Dose Route Stop Time Status Admin Ondansetron HCl 4 MG X1ED STA 07/08 0009 DC IV 07/08 0010 0029 Patient Discharge Departure Vital Signs/Condition Vital Signs First Documented: Result Date Time Pulse Ox 99 07/07 2338 B/P 134/77 07/07 2338 B/P Mean 96 07/07 2338 O2 Delivery Room air 07/07 2338 Temp 36.8 07/07 2338 Pulse 87 07/07 233 Resp 17 07/07 2338 Last Documented: Result Date Time Pulse Ox 99 07/08 0445 B/P 114/55 07/08 044 B/P Mean 74 07/08 044 O2 Delivery Room air 07/08 044 Temp 36.7 07/08 044 Pulse 74 07/08 0445 Resp 17 07/08 044 All vital signs available at the time of this en try have been reviewed. Condition Stable Clinical Impression Clinical Impression Primary Impression: Status post cholecystectomy Secondary Impressions: Dyspnea, Disposition Decision Discharge )( Discharged to Home Yes )( Time 0442 )( Date 07/08/19 Discharge/Care Plan Counseled Regarding Diagnosi s, Lab results, Imaging studies, Need for follow-up, When to return to ED Discharge Note I have spoken with the patie nt and/or caregivers. I have explained the patient's condition, diagnoses and sabrina atment plan based on the information available to me at this time. I have answered the patient's and/ or caregiver's questions and addressed any concerns. The patient and/or careg ingrid have as good an understanding of the patient 's diagnosis, condition and treatment plan as can be expected at this point. The vital signs have bee n stable. The patient's condition is stable and appr opriate for discharge from the emergency department. The patient will pursue further outpatient evalu ation with the primary care physician or other designated or consulting phys ician as outlined in the discharge instructions. The patient and/or caregivers are agreeable to this plan of care and follow-up instructions have been exp lained in detail. The patient and/or caregivers have received these instructio ns in written format and have expressed an understanding of the discharge inst ructions. The patient and/or caregivers are aware that any significant change in condition or worsening of symptoms should prompt an immediate return to [facility] or the closest emergency department or a call to 911. at 0513 RPT #:[id number] END OF REPORT 2019-07-01 11:40:00-00:00 [facility] ([facility]) OB Disch Undelivered REPORT#:[id number] REPORT STATUS: Signed DATE:07/01/19 TIME: 1140 PATIENT: SIMONE MARTÍNEZ UNIT #: [id number] ROOM/BED: [address] : [address] AGE: 24 SEX: F ATTEND: Olga Mora MD ADM AUTHOR: Sharifa Bassett MD * ALL edits or amendments must be made on the el ectronic/computer document * Subjective Subjective Admission EGA (wks/days): 20 weeks Patient reports: Comments: Pt reports incisional discomfort but rep orts eating, urinating, and ambulating without difficulty. She denies VB, LOF, CTX, dec reased FM. Objective General VS: Last Documented: Result Date Time Resp 16 07/01 858 Pulse 86 07/01 858 Temp 98.5 11/10 0858 B/P Mean 79.0 07/01 0858 B/P 108/57 07/01 0858 Pulse Ox 90 07/01 0858 O2 Delivery Room air 06/29 1615 O2 Flow Rate 10.063987 06/29 1553 Vital Signs Date Temp Pulse Resp B/P B/P Mean Pulse Ox FiO 2 06/30-07/01 98.0-98.5 75-87 16-18 108-115/57-61 79.0-82.0 90-98 Patient Weight Weight (lb): 252 Weight (oz): 13.92 Weight (kg): 114.700 Physical Exam FHR evaluation: Baby A baseline: 150 bpm Uterine activity: Monitor: toco Frequency (description): none HEENT: normocephalic w/o injury Cardiac: regular rate and rhythm Lungs: unlabored breathing Neuro: Exam: alert, oriented x3, normal speech Abdomen: gravid, soft, no abnormal tenderness, n o guarding, no rebound tenderness, well approximated laparoscop ic sites, appropriately tender bedside ultrasound done and confirmed heart tones 140s. Lower extremities: Edema: none Calf tenderness: negative Treatments Procedures Treatments Procedures: Laboratory Tests: 06/30 0614 Hematology WBC (6.6 - 12.1 K/mm3) 14.0 H RBC (3.45 - 5.01 M/mm3) 3.57 Hgb (10.7 - 13.9 g/dL) 10.0 L Hct (32.1 - 42.1 %) 31.4 L MCV (84.1 - 94.8 fL) 88 MCH (27 - 35 pg) 28.0 MCHC (32.2 - 34.1 gm/dL) 31.8 L RDW (12.4 - 16.5 %) 14.1 Plt Count (133 - 385 K/mm3) 266 MPV (9.1 - 12.7 fl) 10.3 Neut % (Auto) (56.5 - 79.4 %) 81.1 H Lymph % (Auto) (14.3 - 34.3 %) 14.0 L [place] % (Auto) (5.1 - 10.4 %) 4.3 L Eos % (Auto) (0.1 - 3.0 %) 0.1 Baso % (Auto) (0.1 - 1.0 %) 0.1 Neut # (Auto) (K/mm3) 11.3 Lymph # (Auto) (K/mm3) 2.0 [place] # (Auto) (K/mm3) 0.6 Eos # (Auto) (K/mm3) 0.01 Baso # (Auto) (K/mm3) 0.0 Immature Plt Fraction (0.0 - 10.8 %) 0.0 Discharge Undelivered Discharge Undelivered Free Text A P: 24 yo at 20w1d gestation admitted for na usea/vomiting/RUQ pain: POD2 from RA-cholecystectomy, HD4, 20 weeks 4 da ys 1) POD2 s/p RA cholecystecto my, doing well, pain managed on oral meds (norco 5/ 325 1 tab q3hrs, tramadol since patient cannot t tammy ibuprofen). encouraged continued ambulation for VTE ppx. Meeting all po stop goals. D/c to home today with scripts. 2) FWB- + dop tones q shift 3) Morbid obesity- BMI 40 4) Recurrent loss- on baby ASA 5) Dispo - home today Diet: regular Activity and restrictions: normal - up ad rambo Discharge meds: Stop taking the following medications: PROMETHAZINE (PHENERGAN) 25 MG TAB 25 MILLIGRAM ORAL EVERY 6 HOURS NEEDED. as n eeded for NAUSEA Continue taking these medications: PNV/FE FUM/FA ( MULTIVITAMIN) 1 TAB TAB 1 TABLET ORAL DAILY. FOLIC ACID (FOLIC ACID) 0.4 MG TAB 0.4 MILLIGRAM ORAL DAILY. PYRIDOXINE (VITAMIN B-6) (Unknown Strength) TAB Unknown Dose ORAL DAILY. Start taking the following new medications: HYDROcodone/APAP (NORCO 10/325) 10 MG-325 MG TAB 1 TABLET ORAL EVERY 6 HOURS NEEDED. as neede d for SEVERE PAIN (SCALE 7-10 ) Qty = 21 No Refills traMADol (ULTRAM) 50 MG TAB 50 MILLIGRAM ORAL EVERY 3 HOURS NEEDED. as n eeded for MODERATE PAIN ( SCALE 4-6) Qty = 21 No Refills ONDANSETRON (ZOFRAN) 4 MG TAB 4 MILLIGRAM ORAL EVERY 8 HR NEEDED. as neede d for nausea Qty = 10 No Refills Prescriptions: on chart, e-prescribe Discharge condition: stable Discharge to: home Follow up with: manager pmo (on 07/12 as schedu led) Discharge management: less than 30 mins Time spent: Time spent with patient (minutes): 30 >50% spent on counseling/coordination of care: yes at 1346 RPT #:[id number] END OF REPORT 2019-07-01 10:12:00-00:00 [facility] ([facility]) Clinical Note REPORT#:[id number] REPORT STATUS: Signed DATE:07/01/19 TIME: 1012 PATIENT: SIMONE MARTÍNEZ UNIT #: [id number] ROOM/BED: [address] : 94 AGE: 24 SEX: F ATTEND: Olga Mora MD ADM AUTHOR: Josie Carvalho MD * ALL edits or amendments must be made on the [employer] document * Clinical Note Note: Pt doing well; still with mild right sided pain with breathing. AVSS abd soft, incisions c/d/i A/P: POD 2 s/p lap tj -ok to d/c from my standpoint -precautions discussed -f/u in 2 weeks at 1013 RPT #:[id number] END OF REPORT 2019-06-30 10:47:00-00:00 [facility] ([facility]) OB Antepartum Prog Note REPORT#:[id number] REPORT STATUS: Signed DATE:06/30/19 TIME: 1047 PATIENT: SIMONE MARTÍNEZ UNIT #: [id number] ROOM/BED: [address] : 94 AGE: 24 SEX: F ATTEND: Olga Mora MD ADM AUTHOR: Yuri Hewitt MD * ALL edits or amendments must be made on the [employer] document * Subjective Subjective Admission EGA (wks/days): 20 weeks Patient reports: Patient reports: Yes abdominal pain (postsurgical pain), Yes normal movement, No vaginal bleeding, No leaking fluid, No contractions, No decreased movement, No no movement, No headache, No blurred vision, No scotomata, No fever, No chills, No shortness of breath Comments: tolerating bagel and liquids this morning Objective General VS: Last Documented: Result Date Time Pulse 72 06/30 835 B/P Mean 71.0 06/30 835 B/P 97/57 06/30 835 Resp 18 06/29 2039 Temp 98.5 06/29 2039 Pulse Ox 98 06/29 2039 O2 Delivery Room air 06/29 1615 O2 Flow Rate 10.590807 06/29 1553 Vital Signs Date Temp Pulse Resp B/P B/P Mean Pulse Ox FiO2 06/29-06/30 97.2-98.5 62-82 12-22 97-121/50-70 71.0-82.0 91-100 Patient Weight Weight (lb): 252 Weight (oz): 13.92 Weight (kg): 114.700 Physical Exam HEENT: normocephalic w/o injury Cardiac: regular rate and rhythm Lungs: aerating well, normal rate Breasts: deferred Neuro: Exam: alert, oriented x3 Abdomen: gravid, soft, no abnormal tenderness, w ell approximated laparoscopic sites, appropriately tender, bedside ult rasound done and confirmed heart tones 140s. Uterine activity: Monitor: toco Frequency (description): none Membranes: Membranes: Intact Lower extremities: Edema: trace Donnie's sign: negative Calf tenderness: negative Baby A: Baby A baseline: 140 bpm Result Findings/Data: Laboratory Tests: 06/30 614 Hematology WBC (6.6 - 12.1 K/mm3) 14.0 H RBC (3.45 - 5.01 M/mm3) 3.57 Hgb (10.7 - 13.9 g/dL) 10.0 L Hct (32.1 - 42.1 %) 31.4 L MCV (84.1 - 94.8 fL) 88 MCH (27 - 35 pg) 28.0 MCHC (32.2 - 34.1 gm/dL) 31.8 L RDW (12.4 - 16.5 %) 14.1 Plt Count (133 - 385 K/mm3) 266 MPV (9.1 - 12.7 fl) 10.3 Neut % (Auto) (56.5 - 79.4 %) 81.1 H Lymph % (Auto) (14.3 - 34.3 %) 14.0 L [place] % (Auto) (5.1 - 10.4 %) 4.3 L Eos % (Auto) (0.1 - 3.0 %) 0.1 Baso % (Auto) (0.1 - 1.0 %) 0.1 Neut # (Auto) (K/mm3) 11.3 Lymph # (Auto) (K/mm3) 2.0 [place] # (Auto) (K/mm3) 0.6 Eos # (Auto) (K/mm3) 0.01 Baso # (Auto) (K/mm3) 0.0 Immature Plt Fraction (0.0 - 10.8 %) 0.0 Results: labs reviewed, vital signs stable Diagnosis, Assessment Plan Diagnosis, Assessment Plan Free Text A P: 24 yo at 20 w1d gestation admitted for n ausea/vomiting/RUQ pain: POD1 from RA-cholecystectomy, HD3 20 weeks 3 day s 1) POD1 s/p RA cholecystectomy, doing we ll except pain and gas pains, not well controlled with norco 5/325 1 tab q3hrs, will add tramadol since patient cannot take ibuprofen. encourage increase ambul ation. FHT+ by ultrasound since unable to get by doptones due to obesity. Goal for home tomorrow. 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 5) Dispo - home tomorrow Assessment: cholelitiasis Plan: continue current managmnt Consultation(s): Consultation performed: general surgeon Electronically Signed by Yuri Hewitt MD on 06/30 at 1101 RPT #:[id number] END OF REPORT 2019-06-30 09:23:00-00:00 [facility] ([facility]) Clinical Note REPORT#:[id number] REPORT STATUS: Signed DATE:06/30/19 TIME: 922 PATIENT: SIMONE MARTÍNEZ UNIT #: [id number] ROOM/BED: [address] : 94 AGE: 24 SEX: F ATTEND: Olga Mora MD ADM AUTHOR: Josie Carvalho MD * ALL edits or amendments must be made on the [employer] document * Clinical Note Note: Pt having RUQ pain and pain with deep breathing. Per pt and RN, baby is doing well. AVSS abd soft, gravid, incisions c/d/i labs reviewed POD 1 s/p lap tj -doing well -reg diet -anticipate d/c home tomorrow -encouraged to ambulate, she probably has some r etained CO2 at 0924 RPT #:[id number] END OF REPORT 2019-06-29 13:41:00-00:00 [facility] ([facility]) Full Op Note REPORT#:[id number] REPORT STATUS: Signed DATE:06/29/19 TIME: 1341 PATIENT: SIMONE MARTÍNEZ UNIT #: [id number] ROOM/BED: [address] : 94 AGE: 24 SEX: F ATTEND: Olga Mora MD ADM AUTHOR: Josie Carvalho MD * ALL edits or amendments must be made on the [employer] document * Operative Report Start date: 06/29/19 Start time: 1230 (time approximate) Pre-procedure diagnosis: Biliary dyskinesia Post-procedure diagnosis: Biliary dyskinesia Procedures performed: Laparoscopic cholecystectomy Technique/Procedure: Laparoscopic Primary Surgeon: Dr. Josie Carvalho Accounting Clerk(s): Jarred Mckeon Anesthesia: general anesthesia Operative findings: normal biliary anatomy Complications: none Estimated blood loss in ml's: 10 cc Specimens removed/altered: none Implant(s): none Fluids: 1L Free Text Op Notes Free Text Op Notes: After the risks, benefits, a nd alternatives were explained to her. She was given the opportunity to ask quest ions and she signed consent. heart tones were assessed in the preoperative area. She was brought to the operating room and placed in supine position and intubated by the anesthesia team. Ancef was admi nistered intravenously. The abdomen was then prepped and draped in the usual sterile fashion. A time-out procedure was then carried out among the members of the operating team. Using an 11 blade scalpel, a vertical, midline, supraaumbilical incision was made. Blunt dissection was c arried down to the fascia, which was grasped with a Dominique and retracted upwards. The fascia was div ided with an 11 blade and the abdomen, thus entered. A Zee trocar was place d into the abdomen, which was then insufflated to 15 mmHg. Under direct vision, a 5-mm port was placed in the epigastric area. Also under direct vision, two 5 -mm ports were placed: one in the right subcostal midclavicular line a nd one in the right subcostal anterior axillary line. The patient w as then placed in Reverse Trendelenburg and rotated towards the left. The gallbladder was identified underneath the liver in the right upper quadrant. The gallbladder wa s grasped with a retractor and brought over the top of the liver to wards the patient's right shoulder. The infundibulum was grasped and retracted laterally. Using a com bination of the [place] dissector and electrocautery , the cystic duct and artery were skeletonized. Once the critical view was obtain ed, these structures were doubly clipped proximally, singly clipped distally, and divided between the double and single clips. The gallbladder was then removed from the fossa with electrocautery and deposited in an EndoCatch bag. The right upper quadrant was i rrigated and suctioned. The abdomen was then desufflated. All of the ports were removed, and the EndoCatch bag was also removed from the abdomen. The fascia at the supraumbil ical incision was closed with 0 Vicryl; and at this incision, a layer of 3-0 Vicryl deep sut ures were then placed and the skin was closed with 4-0 Monocryl. Th e 5-mm trocar sites were closed with interrupted 4-0 Monocryl only. Approximately 30 mL of 0.25% Leonides jey was infiltrated into the local tissue for local a nesthesia around the incisions. The patient was then extubated and brought from [facility] operating room in stable condition. Of note, all the sponge, lap, and instrument counts were shun ect at the conclusion of the procedure. at 1343 RPT #:[id number] END OF REPORT 2019-06-29 10:11:00-00:00 [facility] ([facility]) OB Antepartum Prog Note REPORT#:[id number] REPORT STATUS: Signed DATE:06/29/19 TIME: 1011 PATIENT: SIMONE MARTÍNEZ UNIT #: [id number] ROOM/BED: [address] : 94 AGE: 24 SEX: F ATTEND: Olga Mora MD ADM AUTHOR: Amanda Carrasco MD * ALL edits or amendments must be made on the [employer] document * Subjective Subjective Admission EGA (wks/days): 20 weeks Patient reports: Patient reports: Yes no complaints, Yes abdominal pain, No vaginal bleeding, No leaking fluid, No contractions Comments: Patient reports she had episode of emesis last n ight as well as RUQ pain that improved s/p [place]. Currently no complaints. NPO for lap choly at noon today Objective General VS: Last Documented: Result Date Time Pulse 73 06/29 0921 Pulse Ox 97 06/29 0921 B/P Mean 85.0 06/29 0917 B/P 117/66 06/29 0917 Resp 20 06/28 1933 Temp 98.2 06/28 193 O2 Delivery Room air 06/27 2313 Vital Signs Date Temp Pulse Resp B/P B/P Mean Pulse Ox FiO2 06/28-06/29 98.2 69-73 20 91-117/46-66 66.0-85. 0 97 Patient Weight Weight (lb): 253 Weight (oz): Weight (kg): 114.759 Physical Exam Lungs: aerating well, normal rate Neuro: Exam: alert, oriented x3 Abdomen: gravid, soft, no abnormal tenderness Diagnosis, Assessment Plan Diagnosis, Assessment Plan Free Text A P: 24 yo at 20 w1d gestation admitted for n ausea/vomiting/RUQ pain: 1) Nausea/vomiting- 2/2 to biliary dyski nesia, which was recently diagnosed by Dr. Rodarte. Dr. Rodarte recommended surgery at that time (robotic tj) but she declined until July. She presented to ER on 06/28 with RUQ pain and N/V, unable to tolerate PO. All labs WNL, afebrile an d VSS. - s/p consult by Gen Manish lewis and counseled on options, and dispositioned for Lap choly today. Pt is NPO, IVF, scheduled a t noon 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 Assessment: cholelitiasis Plan: lap cholecystectomy today Consultation(s): Consultation performed: general surgeon Plan discussed with: patient Electronically Signed by Amanda Carrasco MD o n 06/29/19 at 1041 RPT #:[id number] END OF REPORT 2019-06-28 12:17:00-00:00 [facility] ([facility]) Clinical Note REPORT#:[id number] REPORT STATUS: Signed DATE:06/28/19 TIME: 121 PATIENT: SIMONE MARTÍNEZ UNIT #: [id number] ROOM/BED: [address] : 94 AGE: 24 SEX: F ATTEND: Olga Mora MD ADM AUTHOR: Josie Carvalho MD * ALL edits or amendments must be made on the el ectronic/computer document * Clinical Note Note: Full consultation dictated: [id number]. Briefly, 24yF at 20 weeks wh o presents with biliary dyskinesia. She has seen Dr. Rodarte as an outpatient and the plan was for a ro botic tj Jul 25. She presented to the ER with severe abd pain, N/V. S he desires cholecystectomy on this admission. On exam: abd gravid, TTP in the RUQ, fundus at t he umbilicus Plan for lap tj tomorrow NPO after midnight Consent ordered Discussed risks/benefits/alternatives, pt wishes to proceed Dr. Bhakta aware at 1219 RPT #:[id number] END OF REPORT 2019-06-28 12:16:00-00:00 [id number] [facility] [address] [place], [place] [address] PATIENT NAME: SIMONE MARTÍNEZ ADMIT DATE: ACCOUNT NO: [id number] ROOM NO: F.[id number] AGE: 24 SEX: F ADMITTING PHYSICIAN: Olga Mora ATTENDING PHYSICIAN: Olga Mora CONSULTATION DATE: 06/28/2019 CONSULTING PHYSICIAN: Josie Carvalho MD REASON FOR CONSULTATION: Biliary dyskinesia. HISTORY OF PRESENT ILLNESS: Ms. Martínez is a 24-y ear-old female at 20 weeks' gestation, who presented to the Emergency Room complaining of nausea, vomiting, and right upper quadrant pain. In speaking with the patient, she has had this pain ongoing during her preg carlota. She reports severe right upper quadrant pain associated with nausea and vomiting afte r eating. The pain radiates around the right side to the back. The pain is sharp and so metimes severe in nature. She has seen Dr. Izaiah Rodarte as an outpatient and plans were made to do a cholecystectomy in July for biliary dyskines ia. The patient reports that the pain was so severe last night, she could not wait and presented to the Emergency Room. She also endorses some y ellowing of her stool as well as loose bowel movements. She denies any jaundice or feve r. She has undergone a right upper quadrant ultrasound, which is normal. Ther efore, the presumptive diagnosis is biliary dyskinesia. PAST MEDICAL HISTORY: 1. Asthma. 2. Anemia. 3. ADD. PAST SURGICAL HISTORY: 1. D and C. ALLERGIES: INCLUDE PENICILLIN AND SULFA. MEDICATIONS: 1. vitamins. 2. Folic acid. 3. Vitamin B6. 4. Phenergan as needed. FAMILY HISTORY: Significant for diabetes and nash brianda. SOCIAL HISTORY: This is her second . Esme bhatia and her have a girl at home and this current is a girl. She denies any tobacco, alcohol, or drug use. REVIEW OF SYSTEMS: Positive for headache . Otherwise, all systems were reviewed and are negative. PATIENT NAME: SIMONE MARTÍNEZ [id number] PHYSICAL EXAMINATION: VITAL SIGNS: Temperature 97.9, pulse 65, and blo od pressure 107/55. GENERAL: She is awake, alert, oriented x3, in no acute distress. HEENT: Normocephalic and atraumatic. Eyes: Scler ae are clear. No jaundice. ENT: Mucous membranes are moist. NECK: No jugular venous distention. LUNGS: Clear to auscultation bilaterally. CARDIOVASCULAR: Heart is regular rate and rhythm . ABDOMEN: Soft, gravid with t he uterine fundus approximately at the level of the umbilicus. She is tender to deep palpation in th e right upper quadrant area only. She has no organomegaly. She has no perito kathy signs. EXTREMITIES: Without clubbing, cyanosis, or meagan a. PSYCHIATRIC: She has normal affect and judgment. LABORATORY DATA: WBC 11.4, h emoglobin 10.6, hematocrit 34.5, and platelets 268. Sodium 138, potassium 3.9, chloride 106, carbon dioxide 22, BUN 13, creatinine 0.6, glucose 89, calcium 8.6, total bilirubin 0. 2, AST 15, ALT 35, alkaline phosphatase 67, total protein 6.9, albumin 2.9. Urinalysis is positive for 11 to 15 rbc's. Imaging studies and abdominal ultra sound from June 07 shows the gallbladder to contain no stones. The wall w as normal in thickness. The common bile duct measured 4 mm in diameter. ASSESSMENT AND PLAN: Ms. Kaushik mena is a 24-year-old female at 20 weeks' gestation, who presents with biliary dyskinesia. Her ultras ound is normal and there is hesitancy to do a HIDA scan due to her ; however, her symptoms are classic. She was counseled on a laparoscopic cho lecystectomy, the risks, benefits, and alternatives. After speaking with her mom and other family, she desires a laparoscopic cholecystectomy on this a dmission. We also discussed options including management with Bentyl until July versus surgery right now and as previously stated the patient prefers to proceed with surgery on this admission. She will be posted for tomorrow. She should be n.p.o. after midnight and verified consent was ordered. Dictated By: Josie Carvalho MD WT: AMOS:[id number]/NTS Conf#: [id number]/DID#: [id number] Authenticated and Edited by Josie tinoco MD On 06/29/19 10:39:53 AM Electronically Signed by Josie Carvalho MD o n 06/29/19 at 1041 PATIENT NAME: SIMONE MARTÍNEZ [id number] 2019-06-28 02:09:00-00:00 [facility] ([facility]) OB Admission / H P REPORT#:[id number] REPORT STATUS: Signed DATE:06/28/19 TIME: 0209 PATIENT: SIMONE MARTÍNEZ UNIT #: [id number] ROOM/BED: [place] [address] : 94 AGE: 24 SEX: F ATTEND: Olga Mora MD ADM AUTHOR: Marlee Lou MD * ALL edits or amendments must be made on the Leap/computer document * OB Admission H P Hx Chief complaint: nausea and vomiting HPI: 24 yo at 20 weeks gestation presents c/o nausea/vomiting/RUQ pain and unable to tolerate PO history: : 5 Term: 1 : 0 Abortus: 3 Living children: 1 Current : LMP: 02/08/19 EDC: 11/15/19 Admission EGA (wks/days): 20 weeks EGA based on: LMP, ultrasound, 1st trimester Conditions of : biliary dyskinesia Labs: Blood type: A Rh: positive Rubella: immune Past medical history: asthma, migraines, obesity , biliary dyskinesia Past surgical history: D C Social history: no alcohol use, no tobacco use, no drug use Medications: Home Medications: PNV/FE FUM/FA ( MULTIVITAMIN) 1 TAB PO D AILY FOLIC ACID 0.4 MG PO DAILY PYRIDOXINE (VITAMIN B-6) (Unknown Dose) PO DAILY PROMETHAZINE (PHENERGAN) 25 MG PO Q6H PRN PRN NA USEA Allergies Coded Allergies: Penicillins (Severe, ANAPHYLACTIC SHOCK 03/29/19 ) PT UNSURE OF REACTION; STATES SWELLING/RASH OCCURED NOW Sulfa (Sulfonamide Antibiotics) (Mild, RASH 04/09) Objective General VS: Vital Signs: Date Time Temp Pulse Resp B/P B/P Pulse O2 O2 F low FiO2 Mean Ox Delivery Rate 06/27 2313 98.4 88 18 115/83 93 100 Room air Last Documented: Result Date Time Pulse Ox 100 06/27 2313 B/P 115/83 06/27 2313 B/P Mean 93 06/27 2313 O2 Delivery Room air 06/27 2313 Temp 98.4 06/27 2313 Pulse 88 06/27 2313 Resp 18 06/27 2313 Vital Signs Date Temp Pulse Resp B/P B/P Mean Pulse Ox FiO2 06/27 98.4 88 18 115/ 93 100 Patient Weight Weight (lb): Weight (oz): Weight (kg): 114.400 Physical Exam Abdomen: gravid, soft, no abnormal tenderness Result Findings/Data: Laboratory Tests: 06/286 2333 Chemistry Sodium (135 - 145 mEq/L) 138 Potassium (3.5 - 5.0 mEq/L) 3.9 Chloride (100 - 115 mEq/L) 106 Carbon Dioxide (22 - 31 mEq/L) 22 Anion Gap (10 - 20) 13.50 BUN (7 - 18 mg/dL) 13 Creatinine (0.5 - 1.0 mg/dL) 0.6 Glomerular Filtr Rate (>60 ml/min) 122 Glucose (65 - 110 mg/dL) 89 Calcium (8.4 - 10.2 mg/dL) 8.6 Total Bilirubin (0.2 - 1.0 mg/dL) 0.2 AST (15 - 37 units/L) 15 ALT (12 - 78 units/L) 35 Total Alk Phosphatase (46 - 116 units/L) 67 Total Protein (6.3 - 8.2 gm/dL) 6.9 Albumin (3.4 - 4.8 gm/dL) 2.9 L Urines Urine Color (YELLOW) YELLOW Urine Appearance (CLEAR) CLOUDY Urine pH (5 - 9) 5.0 Ur Specific [place] (1.001 - 1.035) 1.030 Urine Protein (NEG) NEGATIVE Urine Glucose (UA) (NEG) NEGATIVE Urine Ketones (NEG) NEGATIVE Urine Blood (NEG) NEG Urine Nitrite (NEG) NEG Urine Bilirubin (NEG) NEGATIVE Urine Urobilinogen (NEG mg/dL) NEGATIVE Ur Leukocyte Esterase (NEG) NEG Urine RBC (NONE SEEN #/hpf) 11-15 H Urine WBC (NONE SEEN #/hpf) 0-2 Ur Epithelial Cells (RARE - FEW #/HPF) FEW Calcium Oxalate Crystal (#/LPF) 15-20 Urine Bacteria (RARE - FEW /HPF) MODERATE Hyaline Casts (#/hpf) 0-2 H Urine Mucus (NONE SEEN) RARE Urine Yeast (NONE SEEN #/hpf) RARE H Diagnosis, Assessment Plan Diagnosis, Assessment Plan Free Text A P: 24 yo at 20 weeks gestation admitted for nausea/vomiting/RUQ pain: 1) Nausea/vomiting- likely 2/2 to biliary dyskin esia, which was recently diagnosed by Dr. Rodarte. Dr. Rodarte recommended astorga rgery at that time (robotic tj) but she declined until July. She pres ented to [facility] with RUQ pain and N/V, unable to tolerate PO. All labs WNL, afebrile and VSS. Admit for antiemetics, IVF, and consul t with Dr. Rodarte in AM (per Dr. Reyes a consult to Dr. Carvalho was placed this evening). 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 at 0215 RPT #:[id number] END OF REPORT 2019-06-28 02:09:00-00:00 [facility] ([facility]) OB Admission / H P REPORT#:[id number] REPORT STATUS: Signed DATE:06/28/19 TIME: 020 PATIENT: SIMONE MARTÍNEZ UNIT #: [id number] ROOM/BED: [address] : 94 AGE: 24 SEX: F ATTEND: Olga Mora MD ADM AUTHOR: Marlee Lou MD * ALL edits or amendments must be made on the el [employer]/computer document * See Addendum OB Admission H P Hx Chief complaint: nausea and vomiting HPI: 24 yo at 20 weeks gestation presents c/o nausea/vomiting/RUQ pain and unable to tolerate PO history: : 5 Term: 1 : 0 Abortus: 3 Living children: 1 Current : LMP: 02/08/19 EDC: 11/15/19 Admission EGA (wks/days): 20 weeks EGA based on: LMP, ultrasound, 1st trimester Conditions of : biliary dyskinesia Labs: Blood type: A Rh: positive Rubella: immune Past medical history: asthma, migraines, obesity , biliary dyskinesia Past surgical history: D C Social history: no alcohol use, no tobacco use, no drug use Medications: Home Medications: PNV/FE FUM/FA ( MULTIVITAMIN) 1 TAB PO D AILY FOLIC ACID 0.4 MG PO DAILY PYRIDOXINE (VITAMIN B-6) (Unknown Dose) PO DAILY PROMETHAZINE (PHENERGAN) 25 MG PO Q6H PRN PRN NA USEA Allergies Coded Allergies: Penicillins (Severe, ANAPHYLACTIC SHOCK 03/29/19 ) PT UNSURE OF REACTION; STATES SWELLING/RASH OCCURED NOW Sulfa (Sulfonamide Antibiotics) (Mild, RASH 04/09) Objective General VS: Vital Signs: Date Time Temp Pulse Resp B/P B/P Pulse O2 O2 F low FiO2 Mean Ox Delivery Rate 06/27 2313 98.4 88 18 115/83 93 100 Room air Last Documented: Result Date Time Pulse Ox 100 06/27 2313 B/P 115/83 06/27 2313 B/P Mean 93 06/27 2313 O2 Delivery Room air 06/27 2313 Temp 98.4 06/27 2313 Pulse 88 06/27 2313 Resp 18 06/27 2313 Vital Signs Date Temp Pulse Resp B/P B/P Mean Pulse Ox FiO2 06/27 98.4 88 18 115/83 93 100 Patient Weight Weight (lb): Weight (oz): Weight (kg): 114.400 Physical Exam Abdomen: gravid, soft, no abnormal tenderness Result Findings/Data: Laboratory Tests: 06/28 06/27 0026 2333 Chemistry Sodium (135 - 145 mEq/L) 138 Potassium (3.5 - 5.0 mEq/L) 3.9 Chloride (100 - 115 mEq/L) 106 Carbon Dioxide (22 - 31 mEq/L) 22 Anion Gap (10 - 20) 13.50 BUN (7 - 18 mg/dL) 13 Creatinine (0.5 - 1.0 mg/dL) 0.6 Glomerular Filtr Rate (>60 ml/min) 122 Glucose (65 - 110 mg/dL) 89 Calcium (8.4 - 10.2 mg/dL) 8.6 Total Bilirubin (0.2 - 1.0 mg/dL) 0.2 AST (15 - 37 units/L) 15 ALT (12 - 78 units/L) 35 Total Alk Phosphatase (46 - 116 units/L) 67 Total Protein (6.3 - 8.2 gm/dL) 6.9 Albumin (3.4 - 4.8 gm/dL) 2.9 L Urines Urine Color (YELLOW) YELLOW Urine Appearance (CLEAR) CLOUDY Urine pH (5 - 9) 5.0 Ur Specific [place] (1.001 - 1.035) 1.030 Urine Protein (NEG) NEGATIVE Urine Glucose (UA) (NEG) NEGATIVE Urine Ketones (NEG) NEGATIVE Urine Blood (NEG) NEG Urine Nitrite (NEG) NEG Urine Bilirubin (NEG) NEGATIVE Urine Urobilinogen (NEG mg/dL) NEGATIVE Ur Leukocyte Esterase (NEG) NEG Urine RBC (NONE SEEN #/hpf) 11-15 H Urine WBC (NONE SEEN #/hpf) 0-2 Ur Epithelial Cells (RARE - FEW #/HPF) FEW Calcium Oxalate Crystal (#/LPF) 15-20 Urine Bacteria (RARE - FEW /HPF) MODERATE Hyaline Casts (#/hpf) 0-2 H Urine Mucus (NONE SEEN) RARE Urine Yeast (NONE SEEN #/hpf) RARE H Diagnosis, Assessment Plan Diagnosis, Assessment Plan Free Text A P: 24 yo at 20 weeks gestation admitted for nausea/vomiting/RUQ pain: 1) Nausea/vomiting- likely 2/2 to biliary dyskin esia, which was recently diagnosed by Dr. Rodarte. Dr. Rodarte recommended astorga daphney at that time (robotic tj) but she declined until July. She pres ented to [facility] with RUQ pain and N/V, unable to tolerate PO. All labs WNL, afebrile and VSS. Admit for antiemetics, IVF, and consul t with Dr. Rodarte in AM (per Dr. Reyes a consult to Dr. Carvalho was placed this evening). 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 Carvalho, General Surgeon and pa ner of Dr. Rodarte. She recommended proceeding with cholecystectomy sinc e this is patient's 3rd presentation for cholelithiasis and her symptoms have not improved despite dietary modification. Patient admits this was the worst episode she ramirez s had yet. She ate 90/10 beef yesterday with spaghetti and had horribl e bloating, pain, watery diarrhea, and nausea/vomiting. She has had nothing to eat sinc e lunch yesterday. Pain and diarrhea have improved but she still feels tende r all over her abdomen. She asks about the safety of cholecystectomy in . We discussed that her baby is not viable yet, so no katie toring will need to take place before/ after her surgery should she need to proceed. We would recommend observation after her surgery to ensure adequate manolo n control, which for signs or symptoms of infection, and ensure she is not havi ng any signs of labor. She and her will discuss their options and discu ss with Dr. Carvalho. at 1036 RPT #:[id number] END OF REPORT 2019-06-28 01:24:00-00:00 [facility] ([facility]) EMERGENCY PROVIDER REPORT REPORT#:[id number] REPORT STATUS: Signed DATE:06/28/19 TIME: 0124 PATIENT: SIMONE MARTÍNEZ UNIT #: [id number] ROOM/BED: [address] AGE: 24 SEX: F PCP PHYS: Olga Mora MD SERVICE AUTHOR: Izaiah Reyes MD * ALL edits or amendments must be made on the el [employer]/computer document * HPI-General Illness Free Text HPI Notes Free Text HPI Notes 24 yrs old female with h/o b iliary dyskenisia, today c/o nausea, vomiting, cant keep anything down. P was se en here on last visit, admitted for epigastric pain, saw dr. rodarte, plan for sugery in July. Toda y pain got worse. General Initial Greet Date/Time 06/27/192311 Presentation Chief Complaint Abdominal pain Review of Systems ROS Statements All systems rev neg except as marked. Complete sys rev neg except as marked. Past Medical History - Adult Stated Complaint ,RIGHT UPPER QUADRANT P AIN,NAUSEA,VOMI Allergies Coded Allergies: Penicillins (Severe, ANAPHYLACTIC SHOCK 07/08/19 ) PT UNSURE OF REACTION; STATES SWELLING/RASH OCCURED NOW Sulfa (Sulfonamide Antibiotics) (Mild, RASH 06/22 03/09) morphine (Mild, Redness near injection site. Itc gene. 07/08/19) Home Medications Reported Medications PNV/FE FUM/FA ( MULTIVITAMIN) 1 TAB PO D AILY FOLIC ACID 0.4 MG PO DAILY PYRIDOXINE (VITAMIN B-6) (Unknown Dose) PO DAILY diphenhydrAMINE (BENADRYL) 25 MG PO Q4H PRN PRN SLEEP Review of Nursing Notes Rev avail, and agree Past Surgical History: Reports: D C. Smoking status for patients 13 years old or olde r: Never Smoker Physical Exam Vital Signs Vital Signs First Documented: Result Date Time Pulse Ox 100 06/27 2313 B/P 115/83 06/27 2313 B/P Mean 93 06/27 2313 O2 Delivery Room air 06/27 2313 Temp 36.9 06/27 2313 Pulse 88 06/27 2313 Resp 18 06/27 2313 Last Documented: Result Date Time Pulse Ox 100 06/27 2313 B/P 115/83 06/27 2313 B/P Mean 93 06/27 2313 O2 Delivery Room air 06/27 2313 Temp 36.9 06/27 2313 Pulse 88 06/27 2313 Resp 18 06/27 2313 Review of Vital Signs Reviewed Physical Exam General/Const General/Const Awake, Alert, Well appearing MS Head Head Normocephalic Eyes Eyes PERRL Ears/Nose/Throat Ears/Nose/Throat Airway patent, Mucous membrane s moist, Pharynx NL MS Neck Neck Supple, No meningismus, Full range of ced on, No swelling, Non-tender, No masses Resp/Chest Respiratory/Chest Breath sounds NL, Breath soun ds = bilat, No respiratory distress, No rales, No rhonchi, No wheezing Cardiovascular Cardiovascular Heart rate NL, Regular r hythm, Heart sounds NL, Cap refill not delayed, Peripheral circulation NL Abdomen/GI Abdomen/GI Soft, Non-tender, No guarding, No re bound Tenderness/Guarding/Rebound Tender RUQ, Tender epigastric. MS Back Back Inspection NL, Painless range of motion, N on-tender, No CVA tenderness Lymphatic Lymphatic No gross adenopathy MS Upper Extrem Upper Extremity/MS Inspection NL, No swelling, Non-tender, No erythema, No deformity, Neurologic intact, Vascular intact, N o clubbing/cyanosis MS Wrist/Hand Wrist/Hand Inspection NL, No swelling, No erythema, Non-tender, No deformity, Neurologic intact, Vascular intact, No clubbing/ cyanosis MS Lower Extrem Lower Ext/Pelvis/MS Inspection NL, No swelling, Non-tender, No erythema, No deformity, Neurologic intact, Vascular intact, N o edema MS Ankle/Foot Ankle/Foot Inspection NL, No swelling, No erythema, Non-tender, No deformity, Neurologic intact, Vascular intact, No edema Skin Skin Color NL, Warm, Dry, Turgor NL Neurologic Neurologic Oriented X3, Speech NL, No motor def icits, No sensory deficits Psychiatric Psychiatric Affect NL, Mood NL, Thought content NL Interpretation Diagnostics Lab Results Interpretation Results Laboratory Tests 06/28/19 002: [Embedded Image Not Available] 06/27/19 002: [Embedded Image Not Available] Laboratory Tests: 06/28 06/27 06/27 0026 2333 0026 Chemistry Sodium (135 - 145 mEq/L) 138 Potassium (3.5 - 5.0 mEq/L) 3.9 Chloride (100 - 115 mEq/L) 106 Carbon Dioxide (22 - 31 mEq/L) 22 Anion Gap (10 - 20) 13.50 BUN (7 - 18 mg/dL) 13 Creatinine (0.5 - 1.0 mg/dL) 0.6 Glomerular Filtr Rate (>60 ml/min) 122 Glucose (65 - 110 mg/dL) 89 Calcium (8.4 - 10.2 mg/dL) 8.6 Total Bilirubin (0.2 - 1.0 mg/dL) 0.2 AST (15 - 37 units/L) 15 ALT (12 - 78 units/L) 35 Total Alk Phosphatase (46 - 116 units/L) 67 Total Protein (6.3 - 8.2 gm/dL) 6.9 Albumin (3.4 - 4.8 gm/dL) 2.9 L Hematology WBC (6.6 - 12.1 K/mm3) 11.4 RBC (3.45 - 5.01 M/mm3) 3.86 Hgb (10.7 - 13.9 g/dL) 10.6 L Hct (32.1 - 42.1 %) 34.5 MCV (84.1 - 94.8 fL) 89 MCH (27 - 35 pg) 27.5 MCHC (32.2 - 34.1 gm/dL) 30.7 L RDW (12.4 - 16.5 %) 14.3 Plt Count (133 - 385 K/mm3) 268 MPV (9.1 - 12.7 fl) 9.6 Neut % (Auto) (56.5 - 79.4 %) 70.9 Lymph % (Auto) (14.3 - 34.3 %) 22.6 [place] % (Auto) (5.1 - 10.4 %) 4.1 L Eos % (Auto) (0.1 - 3.0 %) 1.6 Baso % (Auto) (0.1 - 1.0 %) 0.4 Neut # (Auto) (K/mm3) 8.0 Lymph # (Auto) (K/mm3) 2.6 [place] # (Auto) (K/mm3) 0.5 Eos # (Auto) (K/mm3) 0.18 Baso # (Auto) (K/mm3) 0.0 Immature Plt Fraction (0.0 - 10.8 %) 0.0 Urines Urine Color (YELLOW) YELLOW Urine Appearance (CLEAR) CLOUDY Urine pH (5 - 9) 5.0 Ur Specific [place] (1.001 - 1.035) 1.030 Urine Protein (NEG) NEGATIVE Urine Glucose (UA) (NEG) NEGATIVE Urine Ketones (NEG) NEGATIVE Urine Blood (NEG) NEG Urine Nitrite (NEG) NEG Urine Bilirubin (NEG) NEGATIVE Urine Urobilinogen (NEG mg/dL) NEGATIVE Ur Leukocyte Esterase (NEG) NEG Urine RBC (NONE SEEN #/hpf) 11-15 H Urine WBC (NONE SEEN #/hpf) 0-2 Ur Epithelial Cells (RARE - FEW #/HPF) FEW Calcium Oxalate Crystal (#/LPF) 15-20 Urine Bacteria (RARE - FEW /HPF) MODERATE Hyaline Casts (#/hpf) 0-2 H Urine Mucus (NONE SEEN) RARE Urine Yeast (NONE SEEN #/hpf) RARE H Lab Imaging Statement Laboratory radiographic studies reviewed and con sidered in the medical decision-making. Point of Care Testing Pulse Oximetry Pulse Ox % 99 On: Room air Interpretation Interpreted by me, Pulse oximetr y normal Time 0354 Re-Evaluation MDM Free Text MDM Notes Free Text MDM Notes 24 yrs old female with h/o b iliary dyskenisia, today c/o nausea, vomiting, cant keep anything down. P was se en here on last visit, admitted for epigastric pain, saw dr. rodarte, plan for sugery in July. Toda y pain got worse. Bilary dyskenisia, nausea, vomiting, epigastric pain, not tolerating po. Normal cbc, cmp, ua, lipase. Pt received pain medicine and still have pain. Admit pt for pain control. Pending call back from dr. Quintero Consulted dr. Rodarte. ED Course Medication(s) Ordered Medication(s) Ordered: Antihistamine Drugs Sig/Jessica Start time Last Medication Dose Route Stop Time Status Admin Diphenhydramine HCl 25 MG X1ED STA 06/27 2336 D C 06/28 IV 06/27 2337 0002 Central Nervous System Agents Sig/Jessica Start time Last Medication Dose Route Stop Time Status Admin Morphine Sulfate 4 MG X1ED STA 06/27 2336 DC IV 06/27 233 0002 Electrolytic, Caloric, And Bernie Sig/Jessica Start time Last Medication Dose Route Stop Time Status Admin Sodium Chloride 1,000 ML X1ED STA 06/28 0041 AC IV 06/28 1040 Sodium Chloride 1,000 ML X1ED STA 06/27 2336 DC 06/28 IV 06/27 2337 0003 Gastrointestinal Drugs Sig/Jessica Start time Last Medication Dose Route Stop Time Status Admin Ondansetron HCl 4 MG Q6H PRN PRN 06/28 0045 AC IV 06/29 0041 Ondansetron HCl 4 MG ONCE ONE 06/27 2345 DC IV 06/27 2346 0002 Consultation Consultation Referral/Consult Name Marlee Lou MD Marketing Strategy Lead Called SCREEN PR[employer]ING [employer] SPREADER, On-call physician Requested Call Time 014 Requested Call Date 06/28/19 Call Returned Call returned Call Returned Time 0141 Call Returned Date 06/28/19 Marketing Strategy Lead Will see patient, Will see in office , Agrees with eval, Agrees with plan Free Text Consult Notes accepted pt to the floor. Patient Discharge Departure Vital Signs/Condition Vital Signs First Documented: Result Date Time Pulse Ox 100 06/27 2313 B/P 115/83 06/27 2313 B/P Mean 93 06/27 2313 O2 Delivery Room air 06/27 2313 Temp 36.9 06/27 2313 Pulse 88 06/27 2313 Resp 18 06/27 2313 Last Documented: Result Date Time Pulse Ox 100 06/27 2313 B/P 115/83 06/27 2313 B/P Mean 93 06/27 2313 O2 Delivery Room air 06/27 2313 Temp 36.9 06/27 2313 Pulse 88 06/27 2313 Resp 18 06/27 2313 All vital signs available at the time of this en try have been reviewed. Condition Improved, Stable Clinical Impression Clinical Impression Primary Impression: Biliary dyskinesia Secondary Impressions: Epigastric pain Time of Impression 013 Disposition Decision Admit Admit Physician Name Olga Mora MD Admit Physician [employer] SPREADER, Switchboard Mechanic Physician Request Time 013 Request Date 06/28/19 )( Admission Accepts Yes )( Accepted Time 136 )( Accepted Date 06/28/19 Call Information will see patient, agrees with eval, agrees with plan Discharge/Care Plan Counseled Regarding Diagnosis, Lab resul ts, Prescriptions, Need for follow-up, When to return to ED Admit Note I have spoken with the patie nt and/or caregivers. I have explained the patient's condition, diagnoses and sabrina atment plan based on the information available to me at this time. I have answered the patient's and/ or caregiver's questions and addressed any concerns. The patient and/or careg ingrid have as good an understanding of the patient 's diagnosis, condition and treatment plan as can be expected at this point. The patient has been stabilized within the capability of the emergency department. The patient wi ll be transported for further care and management or will be moved to an observation or inpatient service. I have communicated with the staff or medical p ractitioner taking over this patient's care. Quality Measures Rx Drug Database Rev Yes BP F/U for HTN F/u with PCP/other doc at 0355 [facility] #:[id number] END OF REPORT 2019-03-29 21:53:00-00:00 [facility] ([facility]) EMERGENCY PROVIDER REPORT REPORT#:[id number] REPORT STATUS: Signed DATE:03/29/19 TIME: 2152 PATIENT: SIMONE MARTÍNEZ UNIT #: [id number] ROOM/BED: AGE: 23 SEX: F PCP PHYS: Olga Mora MD SERVICE AUTHOR: Tayla Rubi MD * ALL edits or amendments must be made on the [employer] document * HPI-Abd Pain F Under 40 General Confirmed Patient Yes Patient Type New patient Initial Greet Date/Time 03/29/192134 Presentation Chief Complaint Abdominal pain Free Text HPI Notes Free Text HPI Notes 23 yo lady PMH migraines and asthma presenting t o the ed for bloating with flatulence yesterday having "floaty BM" int decreased po intake + n 4 toast today Review of Systems ROS Statements All systems rev neg except as marked. Free Text ROS Notes Free Text ROS Notes -Constitutional Denies: Fever. Chills. -GI Denies: Nausea, Vomiting. Diarrhea constipation +Abdominal pain. - Denies: Dysuria, Hematuria, -Musculoskeletal Denies: Extremity pain, Ext Swelling -Skin Denies: Rash, Swelling. -Neurologic Denies: Numbness, Tingling. -Eyes Denies:visual loss, blurred vision -Respiratory Denies: Shortness of breath. dyspnea on exertion -Cardiovascular Denies: Chest pain, Dyspnea on exertion, Edema. -Allergy: Denies Hives, Itching Past Medical History - Adult Stated Complaint DIARRHEA, NAUSEA, BLOATING Allergies Coded Allergies: Penicillins (Severe, ANAPHYLACTIC SHOCK 03/29/19 ) PT UNSURE OF REACTION; STATES SWELLING/RASH OCCURED NOW Sulfa (Sulfonamide Antibiotics) (Mild, RASH 04/09) Home Medications Reported Medications PNV/FE FUM/FA ( MULTIVITAMIN) 1 TAB PO D AILY FOLIC ACID 0.4 MG PO DAILY PYRIDOXINE (VITAMIN B-6) (Unknown Dose) PO DAILY PROMETHAZINE (PHENERGAN) 25 MG PO Q6H PRN PRN NA USEA Discontinued Reported Medications ASPIRIN EC (ECOTRIN) 81 MG PO DAILY ACETAMINOPHEN (TYLENOL) 1,000 MG PO Q4H PRN PRN HEADACHE Past Surgical History: Reports: D C. Physical Exam Vital Signs Vital Signs First Documented: Result Date Time Pulse Ox 100 03/29 2140 B/P 140/74 03/29 2140 B/P Mean 96 03/29 2140 O2 Delivery Room air 03/29 2140 Temp 36.8 03/29 2140 Pulse 110 03/29 2140 Resp 18 03/29 2140 Last Documented: Result Date Time Pulse Ox 100 03/29 2314 B/P 126/87 03/29 2314 B/P Mean 100 03/29 2314 Temp 36.9 03/29 2314 Pulse 86 03/29 2314 Resp 18 03/29 2314 O2 Delivery Room air 03/29 2140 Review of Vital Signs Reviewed Focused PE Abdomen/GI Abdomen/GI Soft, Non-tender, No guarding, No re bound Free Text PE Notes Free Text PE Notes General/Const General/Const Awake, Alert MS Head Head Atraumatic, Normocephalic Eyes Eyes Atraumatic, No scleral icterus MS Neck Neck Atraumatic, No meningismus, Full range of motion neck easily mobile Resp/Chest no labored bs, no audible wheezing Cardiovascular Cardiovascular no cyanosis, Ext: moving all 4 ext, no swelling/ cyanosis not ed on UE Bl Skin Skin no apparent rashes, Dry, Intact Neurologic Neurologic Oriented X3, Speech NL, Gait NL ENT Atraumatic, Airway patent, Mucous membranes mois t, Ext aud canal NL, Gums/ dentition NL, Interpretation Diagnostics Lab Results Interpretation Results Laboratory Tests 03/29/192201: [Embedded Image Not Available] Laboratory Tests: 03/29 Chemistry Sodium (135 - 145 mEq/L) 138 Potassium (3.5 - 5.0 mEq/L) 4.2 Chloride (100 - 115 mEq/L) 104 Carbon Dioxide (22 - 31 mEq/L) 27 Anion Gap (10 - 20) 11.10 BUN (7 - 18 mg/dL) 12 Creatinine (0.5 - 1.0 mg/dL) 0.8 Glomerular Filtr Rate (>60 ml/min) 88 Glucose (65 - 110 mg/dL) 114 H Calcium (8.4 - 10.2 mg/dL) 9.5 Total Bilirubin (0.2 - 1.0 mg/dL) 0.3 Direct Bilirubin (<0.2 mg/dL) <0.1 AST (15 - 37 units/L) 19 ALT (12 - 78 units/L) 30 Total Alk Phosphatase (46 - 116 units/L) 74 Total Protein (6.3 - 8.2 gm/dL) 7.8 Albumin (3.4 - 4.8 gm/dL) 3.6 Lipase (73 - 393 units/L) 92 Hematology WBC (6.6 - 12.1 K/mm3) 10.0 RBC (3.45 - 5.01 M/mm3) 4.63 Hgb (10.7 - 13.9 g/dL) 12.6 Hct (32.1 - 42.1 %) 40.5 MCV (84.1 - 94.8 fL) 88 MCH (27 - 35 pg) 27.2 MCHC (32.2 - 34.1 gm/dL) 31.1 L RDW (12.4 - 16.5 %) 14.5 Plt Count (133 - 385 K/mm3) 317 MPV (9.1 - 12.7 fl) 10.0 Neut % (Auto) (56.5 - 79.4 %) 70.6 Lymph % (Auto) (14.3 - 34.3 %) 22.3 [place] % (Auto) (5.1 - 10.4 %) 4.8 L Eos % (Auto) (0.1 - 3.0 %) 1.8 Baso % (Auto) (0.1 - 1.0 %) 0.3 Neut # (Auto) (K/mm3) 7.0 Lymph # (Auto) (K/mm3) 2.2 [place] # (Auto) (K/mm3) 0.5 Eos # (Auto) (K/mm3) 0.18 Baso # (Auto) (K/mm3) 0.0 Immature Plt Fraction (0.0 - 10.8 %) 0.0 Miscellaneous Maternal Serum [place] 29622 Urines Urine Color (YELLOW) YELLOW Urine Appearance (CLEAR) TURBID Urine pH (5 - 9) 5.0 Ur Specific [place] (1.001 - 1.035) 1.034 Urine Protein (NEG) 1+ H Urine Glucose (UA) (NEG) NEGATIVE Urine Ketones (NEG) NEGATIVE Urine Blood (NEG) NEG Urine Nitrite (NEG) NEG Urine Bilirubin (NEG) NEGATIVE Urine Urobilinogen (NEG mg/dL) NEGATIVE Ur Leukocyte Esterase (NEG) NEG Urine WBC (NONE SEEN #/hpf) 11-15 H Ur Epithelial Cells (RARE - FEW #/HPF) FEW Amorphous Sediment 2+ Urine Mucus (NONE SEEN) 1+ Urine HCG, Qual POSITIVE Microbiology: Date/Time Procedure - Status Source Growth 03/29 2212 Urine Culture - RES URINE Recent Impressions: ULTRASOUND - US ABDOMEN LTD 03/29 2216 Report Impression - Status: SIGNED Entered: 03/29/20192305 IMPRESSION: 1. No sonographic evidence of cholelithiasis or acute cholecystitis. SL:131 Impression By: Tanna Dukes Point of Care Testing Pulse Oximetry Pulse Ox % 100 On: Room air Interpretation Interpreted by nv Time 2139 Re-Evaluation MDM Free Text MDM Notes Free Text MDM Notes 23 yo lady HPI P E as above vs tachy initially 1. US 2. labs 3. meds 4. reasses ED Course Medication(s) Ordered Medication(s) Ordered: Electrolytic, Caloric, And Bernie Sig/Jessica Start time Last Medication Dose Route Stop Time Status Admin Sodium Chloride 1,000 ML X1ED STA 03/29 2152 DC 03/29 IV 03/29 2153 221 Eye, Ear, Nose And Throat (Een Sig/Jessica Start time Last Medication Dose Route Stop Time Status Admin Lidocaine HCl 10 ML STAT STA 03/29 2257 DC 8 MM 03/29 2258 2307 Gastrointestinal Drugs Sig/Jessica Start time Last Medication Dose Route Stop Time Status Admin Al Hydrox/Mg Hydrox/ 20 ML STAT STA 03/29 225 DC 03/29 Simethicone PO 03/29 2257 230 Ondansetron HCl 4 MG X1ED STA 03/29 2152 DC IV 03/29 2153 221 Ondansetron Base 4 MG X1ED STA 03/29 213 CAN PO 03/29 2136 Patient Discharge Departure Vital Signs/Condition Vital Signs First Documented: Result Date Time Pulse Ox 100 03/29 2140 B/P 140/74 08/08 2140 B/P Mean 96 03/29 2140 O2 Delivery Room air 03/29 2140 Temp 36.8 03/29 2140 Pulse 110 03/29 2140 Resp 18 03/29 2140 Last Documented: Result Date Time Pulse Ox 100 03/29 2314 B/P 126/87 03/29 2314 B/P Mean 100 03/29 2314 Temp 36.9 03/29 2314 Pulse 86 03/29 2314 Resp 18 03/29 2314 O2 Delivery Room air 03/29 2140 All vital signs available at the time of this en try have been reviewed. Clinical Impression Clinical Impression Primary Impression: Nausea vomiting Disposition Decision Discharge )( Discharged to Home Yes )( Time 2312 )( Date 03/29/19 Quality Measures Tobacco Screening/Cessation Denies tobacco use Electronically Signed by Tayla Rubi MD on at 1740 RPT #:[id number] END OF REPORT 2019-03-22 21:43:00-00:00 [id number] [facility] [address], [place] [address] PATIENT NAME: SIMONE MARTÍNEZ ADMIT DATE: ACCOUNT NO: [id number] ROOM NO: AGE: 23 SEX: F ADMITTING PHYSICIAN: ATTENDING PHYSICIAN: Izaiah Reyes MD Order: [id number] Test Reason : HEADACHE,LIGHT-HEADE Test Date/Time Stamp: TueMar 22 2019 21:43:17 Blood Pressure : / mmHG Vent. Rate : 085 BPM Atrial Rate : 085 BPM P-R Int : 140 ms QRS Dur : 088 ms QT Int : 372 ms P-R-T Axes : 047 030 009 degree s QTc Int : 442 ms Normal sinus rhythm Nonspecific T wave abnormality No previous ECGs available Confirmed by MARIA C BENITES MD ([id number]) on 9 9:16:28 AM Referred By: Izaiah Reyes Confirmed by:MARIA C ASHRAF MD Electronically Signed by Maria C Benites MD on 0 03/24/19 at 0916 PATIENT NAME: SIMONE MARTÍNEZ [id number] 2019-03-22 19:29:00-00:00 [facility] ([facility]) EMERGENCY PROVIDER REPORT REPORT#:[id number] REPORT STATUS: Signed DATE:03/22/19 TIME: 1928 PATIENT: SIMONE MARTÍNEZ UNIT #: [id number] ROOM/BED: AGE: 23 SEX: F PCP PHYS: Olga Mora MD SERVICE AUTHOR: Izaiah Reyes MD * ALL edits or amendments must be made on the el [employer]/computer document * HPI-General Illness Free Text HPI Notes Free Text HPI Notes 23 yrs old female 6 wks c/o headac hes, dizziness, blurry vision and feeling weak. No recent fall, no sick contac t. No rcent travel. No fever. Low appetite. General Initial Greet Date/Time 03/22/191914 Presentation Chief Complaint Dizziness Review of Systems ROS Statements All systems rev neg except as marked. Complete sys rev neg except as marked. Past Medical History - Adult Stated Complaint HEADACHE,DIZZINESS AND LIGHT-HE ADED Allergies Coded Allergies: Penicillins (Severe, ANAPHYLACTIC SHOCK 03/22/19 ) PT UNSURE OF REACTION; STATES SWELLING/RASH OCCURED NOW Sulfa (Sulfonamide Antibiotics) (Mild, RASH 09/09) Home Medications Reported Medications PNV/FE FUM/FA ( MULTIVITAMIN) 1 TAB PO D AILY FOLIC ACID 0.4 MG PO DAILY ASPIRIN EC (ECOTRIN) 81 MG PO DAILY PYRIDOXINE (VITAMIN B-6) (Unknown Dose) PO DAILY PROMETHAZINE (PHENERGAN) 25 MG PO Q6H PRN PRN NA USEA ACETAMINOPHEN (TYLENOL) 1,000 MG PO Q4H PRN PRN HEADACHE Review of Nursing Notes Rev avail, and agree Past Surgical History: Reports: D C. Physical Exam Vital Signs Vital Signs First Documented: Result Date Time Pulse Ox 100 03/22 1922 B/P 137/70 03/22 1922 B/P Mean 92 03/22 1922 O2 Delivery Room air 03/22 1922 Temp 36.9 03/22 1922 Pulse 95 03/22 1922 Resp 20 03/22 1922 Last Documented: Result Date Time Pulse Ox 99 03/23 0003 B/P 134/60 03/23 0003 B/P Mean 84 08/02 0003 O2 Delivery Room air 03/23 3 Temp 37.1 03/23 3 Pulse 83 03/23 3 Resp 16 03/23 3 Review of Vital Signs Reviewed Physical Exam General/Const General/Const Awake, Alert, Well appearing MS Head Head Normocephalic Eyes Eyes PERRL Ears/Nose/Throat Ears/Nose/Throat Airway patent, Mucous membrane s moist, Pharynx NL MS Neck Neck Supple, No meningismus, Full range of ced on, No swelling, Non-tender, No masses Resp/Chest Respiratory/Chest Breath sounds NL, Breath soun ds = bilat, No respiratory distress, No rales, No rhonchi, No wheezing Cardiovascular Cardiovascular Heart rate NL, Regular r hythm, Heart sounds NL, Cap refill not delayed, Peripheral circulation NL Abdomen/GI Abdomen/GI Soft, Non-tender, No guarding, No re bound MS Back Back Inspection NL, Painless range of motion, N on-tender, No CVA tenderness Lymphatic Lymphatic No gross adenopathy MS Upper Extrem Upper Extremity/MS Inspection NL, No swelling, Non-tender, No erythema, No deformity, Neurologic intact, Vascular intact, N o clubbing/cyanosis MS Wrist/Hand Wrist/Hand Inspection NL, No swelling, No erythema, Non-tender, No deformity, Neurologic intact, Vascular intact, No clubbing/ cyanosis MS Lower Extrem Lower Ext/Pelvis/MS Inspection NL, No swelling, Non-tender, No erythema, No deformity, Neurologic intact, Vascular intact, N o edema MS Ankle/Foot Ankle/Foot Inspection NL, No swelling, No erythema, Non-tender, No deformity, Neurologic intact, Vascular intact, No edema Skin Skin Color NL, Warm, Dry, Turgor NL Neurologic Neurologic Oriented X3, Speech NL, No motor def icits, No sensory deficits Psychiatric Psychiatric Affect NL, Mood NL, Thought content NL Interpretation Diagnostics Lab Results Interpretation Results Laboratory Tests 03/22/191944: [Embedded Image Not Available] Laboratory Tests: 03/22 Chemistry Sodium (135 - 145 mEq/L) 142 Potassium (3.5 - 5.0 mEq/L) 3.9 Chloride (100 - 115 mEq/L) 105 Carbon Dioxide (22 - 31 mEq/L) 28 Anion Gap (10 - 20) 12.90 BUN (7 - 18 mg/dL) 14 Creatinine (0.5 - 1.0 mg/dL) 0.7 Glomerular Filtr Rate (>60 ml/min) 103 Glucose (65 - 110 mg/dL) 97 Calcium (8.4 - 10.2 mg/dL) 9.0 Total Bilirubin (0.2 - 1.0 mg/dL) 0.2 AST (15 - 37 units/L) 22 ALT (12 - 78 units/L) 36 Total Alk Phosphatase (46 - 116 units/L) 69 Total Protein (6.3 - 8.2 gm/dL) 7.0 Albumin (3.4 - 4.8 gm/dL) 3.3 L Coagulation PT (10.4 - 12.4 secs) 10.3 L PTT (Maura) (22 - 38 secs) 28.3 Fibrinogen (309 - 518 mg/dL) 332 Hematology WBC (6.6 - 12.1 K/mm3) 11.1 RBC (3.45 - 5.01 M/mm3) 4.38 Hgb (10.7 - 13.9 g/dL) 11.9 Hct (32.1 - 42.1 %) 38.4 MCV (84.1 - 94.8 fL) 88 MCH (27 - 35 pg) 27.2 MCHC (32.2 - 34.1 gm/dL) 31.0 L RDW (12.4 - 16.5 %) 14.7 Plt Count (133 - 385 K/mm3) 314 MPV (9.1 - 12.7 fl) 9.6 Neut % (Auto) (56.5 - 79.4 %) 63.7 Lymph % (Auto) (14.3 - 34.3 %) 27.3 [place] % (Auto) (5.1 - 10.4 %) 5.9 Eos % (Auto) (0.1 - 3.0 %) 2.4 Baso % (Auto) (0.1 - 1.0 %) 0.4 Neut # (Auto) (K/mm3) 7.1 Lymph # (Auto) (K/mm3) 3.0 [place] # (Auto) (K/mm3) 0.7 Eos # (Auto) (K/mm3) 0.27 Baso # (Auto) (K/mm3) 0.0 Immature Plt Fraction (0.0 - 10.8 %) 0.0 Miscellaneous Maternal Serum HCG 49868 Urines Urine Color (YELLOW) YELLOW Urine Appearance (CLEAR) Slightly-Cloudy Urine pH (5 - 9) 6.0 Ur Specific [place] (1.001 - 1.035) 1.030 Urine Protein (NEG) NEGATIVE Urine Glucose (UA) (NEG) NEGATIVE Urine Ketones (NEG) NEGATIVE Urine Blood (NEG) NEG Urine Nitrite (NEG) NEG Urine Bilirubin (NEG) NEGATIVE Urine Urobilinogen (NEG mg/dL) 4.0 H Ur Leukocyte Esterase (NEG) NEG Urine RBC (NONE SEEN #/hpf) NONE SEEN Urine WBC (NONE SEEN #/hpf) 0-2 Ur Epithelial Cells (RARE - FEW #/HPF) RARE Urine Bacteria (RARE - FEW /HPF) NEGATIVE Urine Mucus (NONE SEEN) RARE Recent Impressions: ULTRASOUND - US PREG UT TRANSVAGINAL 03/22 1951 Report Impression - Status: SIGNED Entered: 03/22/20192117 IMPRESSION: 1. Single viable intrauterine gestation, approxi mate gestational age by crown-rump length measurement is 6 weeks 1 da y. 2. Normal sonographic appearance of the ovaries. No free pelvic fluid. SL: JANINE Impression By: Boo Colón MD ULTRASOUND - US PREG EVAL 1ST TRIMTR 03/22 1951 Report Impression - Status: SIGNED Entered: 03/22/20192117 IMPRESSION: 1. Single viable intrauterine gestation, approxi mate gestational age by crown-rump length measurement is 6 weeks 1 da y. 2. Normal sonographic appearance of the ovaries. No free pelvic fluid. SL: JANINE Impression By: Boo Colón MD Point of Care Testing Pulse Oximetry Pulse Ox % 99 On: Room air Interpretation Interpreted by me, Pulse oximetr y normal Time 1214 Re-Evaluation MDM Free Text MDM Notes Free Text MDM Notes 23 yrs old female 6 wks c/o headac hes, dizziness, blurry vision and feeling weak. Normal chest xray Normal cbc, cmp, ua, lipase. Normal cardiac enzymes and ekg. Iv fluid x 2 liters, zofran, morpine given. Pt dizziness resolved. discussed pt with oncall ob team, ok to go home, follow up in the office ED Course Medication(s) Ordered Medication(s) Ordered: Antihistamine Drugs Sig/Jessica Start time Last Medication Dose Route Stop Time Status Admin Diphenhydramine HCl 50 MG X1ED STA 03/22 2217 D C 03/22 IV 03/22 2218 2241 Central Nervous System Agents Sig/Jessica Start time Last Medication Dose Route Stop Time Status Admin Morphine Sulfate 4 MG X1ED STA 03/226 DC IV 03/22 Electrolytic, Caloric, And Bernie Sig/Jessica Start time Last Medication Dose Route Stop Time Status Admin Sodium Chloride 1,000 ML X1ED STA 03/226 DC 03/22 IV 03/22 Sodium Chloride 1,000 ML X1ED STA 03/22 1930 DC 03/22 IV 03/22 193 194 Gastrointestinal Drugs Sig/Jessica Start time Last Medication Dose Route Stop Time Status Admin Ondansetron HCl 4 MG ONCE ONE 03/22 2230 DC IV 03/22 Consultation Consultation Referral/Consult Name Olga Mora MD Marketing Strategy Lead Called [employer], On-call physician Requested Call Time 001 Requested Call Date 03/23/19 Call Returned Call returned Call Returned Time 001 Call Returned Date 03/23/19 Marketing Strategy Lead Will see patient, Will see in office , Agrees with eval, Agrees with plan Free Text Consult Notes Discussed pt with the oncall dr. sloan to go home, follow up in the office. Patient Discharge Departure Vital Signs/Condition Vital Signs First Documented: Result Date Time Pulse Ox 100 03/22 1922 B/P 137/70 03/22 1922 B/P Mean 92 03/22 1922 O2 Delivery Room air 03/22 1922 Temp 36.9 03/22 1922 Pulse 95 03/22 1922 Resp 20 03/22 1922 Last Documented: Result Date Time Pulse Ox 99 03/23 0003 B/P 134/60 03/23 0003 B/P Mean 84 03/23 0003 O2 Delivery Room air 03/23 0003 Temp 37.1 03/23 0003 Pulse 83 03/23 0003 Resp 16 03/23 0003 All vital signs available at the time of this en try have been reviewed. Condition Improved, Stable Clinical Impression Clinical Impression Primary Impression: Dizziness Secondary Impressions: Dehydration, Generalized headaches, Time of Impression 2354 Disposition Decision Discharge )( Discharged to Home Yes )( Time 235 )( Date 08/01/19 Discharge/Care Plan Counseled Regarding Diagnosi s, Lab results, Imaging studies, Prescriptions, Need for follow-up, When to return to ED Prescriptions tylenol 3 phenergan Prescriptions Reviewed Risks, Benefits, Alternat chino treatment Discharge Note I have spoken with the patie nt and/or caregivers. I have explained the patient's condition, diagnoses and sabrina atment plan based on the information available to me at this time. I have answered the patient's and/ or caregiver's questions and addressed any concerns. The patient and/or careg ingrid have as good an understanding of the patient 's diagnosis, condition and treatment plan as can be expected at this point. The vital signs have bee n stable. The patient's condition is stable and appr opriate for discharge from the emergency department. The patient will pursue further outpatient evalu ation with the primary care physician or other designated or consulting phys ician as outlined in the discharge instructions. The patient and/or caregivers are agreeable to this plan of care and follow-up instructions have been exp lained in detail. The patient and/or caregivers have received these instructio ns in written format and have expressed an understanding of the discharge inst ructions. The patient and/or caregivers are aware that any significant change in condition or worsening of symptoms should prompt an immediate return to [facility] or the closest emergency department or a call to 911. Quality Measures BP F/U for HTN F/u with PCP/other doc RH- Risk Fet Bld Exposure No risk blood ex pos Preg Test for Women w/Abd Pain Female age 14-50 Smoking Cessation Screened, non user Tobacco Screening/Cessation 18 years or older, D enies tobacco use at 1215 RPT #:[id number] END OF REPORT 2018-10-14 16:14:00-00:00 [facility] ([facility]) EMERGENCY PROVIDER REPORT REPORT#:[id number] REPORT STATUS: Signed DATE:10/14/18 TIME: 1614 PATIENT: SIMONE MARTÍNEZ UNIT #: [id number] ROOM/BED: AGE: 23 SEX: F PCP PHYS: Sharifa Bassett MD SERVICE AUTHOR: Twin Bocanegra MD * ALL edits or amendments must be made on the [employer]/computer document * HPI-Abd Pain F Under 40 General Confirmed Patient Yes Initial Greet Date/Time 10/14/[address] Bassett Presentation Chief Complaint Abdominal pain, Nausea Hx Obtained From Patient Sudden in Onset? Yes Onset Occurred Hours ago Symptom Duration Since onset Progression since Onset Waxes and wanes Context of Onset After vomiting Caused by No trauma by history Location Epigastric, RUQ Quality Same as prior, Fullness, Heaviness, Pain ful Radiation No: Does not radiate. Migration/Movement None Severity: Onset Mild Severity: Current Moderate Associated with Denies: Chills, Constipation, Fever, Nausea. Free Text HPI Notes Free Text HPI Notes Pt is a 23 yo s/p D C on 09/23 09/09 who presents now with 2 hour history of RUQ and midepigastric pain which is constant. Pt states she has not eated since 10 am and now having some pain. La st BM was 30 minutes prior to arrival. Pt denies any fevers or chills. Pt states she is having normal vaginal bleeding 'like a period '. Risk-Abd Pain F Under 40 )( Ectopic Risk factors reviewed, Risk factors N/A, No risk factors Review of Systems ROS Statements All systems rev neg except as marked. Complete sys rev neg except as marked. Basic Review of Systems Basic ROS EYES: No redness, ENT: No sore throat, HEM: No bleeding/bruising, SKIN : No rash, NEURO: No change MS, NEURO: No focal deficit, PSYCH: NL thought content Focused Review of Systems Constitutional Denies: Chills, Fatigue, Fever, Malaise. Respiratory Denies: Cough, non-productiv e, Cough, productive, Dyspnea on exertion, Shortness of breath, Wheezing. Cardiovascular Denies: Chest pain, Dyspnea on exertion, Syncope . GI Reports: Abdominal pain, Nausea. Denies: Vomitin g. Female Denies: Pelvic pain, , Vaginal bleeding - abnl. Musculoskeletal Denies: Myalgia, Neck pain, Thoracic pain. Past Medical History - Adult Stated Complaint POST OP PAIN SINCE TUESDAY Allergies Coded Allergies: Penicillins (Severe, SWELLING 01/05/18) PT UNSURE OF REACTION; STATES SWELLING/RASH OCCURED NOW Sulfa (Sulfonamide Antibiotics) (Mild, RASH 11/20 10/09) Home Medications Reported Medications No Known Home Medications Discontinued Reported Medications [DEPO SHOT] (Unknown Dose) Review of Nursing Notes Rev avail, and agree Past Surgical History: Reports: D C. Smoking status for patients 13 years old or olde r: Never Smoker Physical Exam Vital Signs Vital Signs First Documented: Result Date Time Pulse Ox 100 10/14 1605 B/P 125/70 10/14 1605 B/P Mean 88 10/14 1605 O2 Delivery Room air 10/14 1605 Temp 36.5 10/14 1605 Pulse 84 10/14 1605 Resp 16 10/14 1605 Last Documented: Result Date Time Pulse Ox 100 10/14 1736 B/P 118/64 10/14 1736 B/P Mean 82 10/14 1736 O2 Delivery Room air 10/14 173 Temp 36.8 10/14 173 Pulse 80 10/14 1736 Resp 16 10/14 1736 Review of Vital Signs Reviewed, Vital signs norm al Basic Physical Exam Basic PE HEAD: Atraumatic/NC , EYES: PERRL, conj clear, EXT: No gross abnormality , SKIN: No rashes, warm/dry, NEURO: alert orient ed, NEURO: gross movement NL, PSYCH: NL thought content Focused PE General/Const General/Const Awake, Alert, No acute distress, Cooperative MS Head Head Atraumatic Eyes Eyes Atraumatic, PERRL Ears/Nose/Throat Ears/Nose/Throat Atraumatic, Airway patent, Muc ous membranes moist, Pharynx NL, Tympanic membs NL Resp/Chest Respiratory/Chest Atraumatic, Breath sounds NL, No respiratory distress, No wheezing Cardiovascular Cardiovascular Heart rate NL, Heart sounds NL Abdomen/GI Abdomen/GI Atraumatic, Soft, No guarding MS Back Back Atraumatic, Inspection NL, Painless range of motion Skin Skin Atraumatic, Color NL, Turgor NL Genitourinary General Exam deferred Neurologic Neurologic Oriented X3, Speech NL, CN II - XII intact, Memory NL Interpretation Diagnostics Lab Results Interpretation Results Laboratory Tests 10/14/18 1620: [Embedded Image Not Available] Laboratory Tests: 10/14 10/14 1620 1620 Chemistry Sodium (135 - 145 mEq/L) 139 Potassium (3.5 - 5.0 mEq/L) 3.8 Chloride (100 - 115 mEq/L) 104 Carbon Dioxide (22 - 31 mEq/L) 27 Anion Gap (10 - 20) 12.10 BUN (7 - 18 mg/dL) 15 Creatinine (0.5 - 1.0 mg/dL) 1.0 Glomerular Filtr Rate (>60 ml/min) 68 Glucose (65 - 110 mg/dL) 83 Calcium (8.4 - 10.2 mg/dL) 9.1 Total Bilirubin (0.2 - 1.0 mg/dL) 0.2 AST (15 - 37 units/L) 13 L ALT (12 - 78 units/L) 18 Total Alk Phosphatase (46 - 116 units/L) 68 Total Protein (6.3 - 8.2 gm/dL) 7.2 Albumin (3.4 - 4.8 gm/dL) 3.2 L Amylase (30 - 110 units/L) 34 Lipase (73 - 393 units/L) 88 Hematology WBC (6.6 - 12.1 K/mm3) 11.3 RBC (3.45 - 5.01 M/mm3) 4.57 Hgb (10.7 - 13.9 g/dL) 12.1 Hct (32.1 - 42.1 %) 39.3 MCV (84.1 - 94.8 fL) 86 MCH (27 - 35 pg) 26.5 L MCHC (32.2 - 34.1 gm/dL) 30.8 L RDW (12.4 - 16.5 %) 14.8 Plt Count (133 - 385 K/mm3) 339 MPV (9.1 - 12.7 fl) 9.3 Neut % (Auto) (56.5 - 79.4 %) 68.3 Lymph % (Auto) (14.3 - 34.3 %) 25.3 [place] % (Auto) (5.1 - 10.4 %) 4.5 L Eos % (Auto) (0.1 - 3.0 %) 1.2 Baso % (Auto) (0.1 - 1.0 %) 0.3 Neut # (Auto) (K/mm3) 7.7 Lymph # (Auto) (K/mm3) 2.9 [place] # (Auto) (K/mm3) 0.5 Eos # (Auto) (K/mm3) 0.13 Baso # (Auto) (K/mm3) 0.0 Immature Plt Fraction (0.0 - 10.8 %) 0.0 Urines Urine Color (YELLOW) YELLOW Urine Appearance (CLEAR) CLEAR Urine pH (5 - 9) 6.0 Ur Specific [place] (1.001 - 1.035) 1.025 Urine Protein (NEGATIVE) NEGATIVE Urine Glucose (UA) (NEGATIVE) NEGATIVE Urine Ketones (NEGATIVE) NEGATIVE Urine Blood (NEGATIVE) 3+ H Urine Nitrite (NEGATIVE) NEGATIVE Urine Bilirubin (NEGATIVE) NEGATIVE Urine Urobilinogen (<=1.0 EU/dL) 0.2 Ur Leukocyte Esterase (NEGATIVE) NEG Urine RBC (NONE SEEN #/hpf) TOO NUMEROUS TO CN T H Urine WBC (NONE SEEN #/hpf) 0-2 Ur Epithelial Cells (NONE SEEN #/hpf) RARE Urine Bacteria (NONE SEEN #/hpf) RARE Recent Impressions: ULTRASOUND - US ABDOMEN [facility] 10/14 1630 Report Impression - Status: SIGNED Entered: 10/14/2018 1712 IMPRESSION: No significant abnormalities identif ied (nonvisualization of pancreas secondary to overlying bowel gas). Impression By: Jose C Boateng MD Point of Care Testing Urinalysis Interpretation Urinalysis NL Pulse Oximetry Pulse Ox % 100 On: Room air Interpretation Interpreted by nv Time 1623 Lab Studies CBC Interpretation CBC NL BMP/CMP Interpretation BMP/CMP NL Sonography US Focused OB Exam Type Diagnostic Text/Dict Note IMPRESSION: No significant abnormalities identif ied (nonvisualization of pancreas secondary to overlying bowel gas). Re-Evaluation MDM )( Re-Evaluation/Progress #1 Text/Dict Note Pt states she feels better and discussed all lab s and imaging. Pt states she does not want to get the CT just yet and try a b owel regimen today to see if pain improves. If pain does not or worsens, valentine mmend follow up in the ED. Time of Re-Eval 1725 )( Re-Eval Status Improved Re-Eval Abdomen Soft Plan Post Re-Eval Plan discharge ED Course Medication(s) Ordered Medication(s) Ordered: Central Nervous System Agents Sig/Jessica Start time Last Medication Dose Route Stop Time Status Admin Ketorolac 30 MG X1ED STA 10/14 1615 DC 10/14 Tromethamine IV 10/14 1616 1631 Electrolytic, Caloric, And Bernie Sig/Jessica Start time Last Medication Dose Route Stop Time Status Admin Sodium Chloride 1,000 ML X1ED STA 10/14 1613 DC 10/14 IV 10/14 1614 1632 Gastrointestinal Drugs Sig/Jessica Start time Last Medication Dose Route Stop Time Status Admin Ondansetron HCl 4 MG X1ED STA 10/14 1613 DC IV 10/14 1614 1631 Patient Discharge Departure Vital Signs/Condition Vital Signs First Documented: Result Date Time Pulse Ox 100 10/14 1605 B/P 125/70 10/14 1605 B/P Mean 88 10/14 1605 O2 Delivery Room air 10/14 1605 Temp 36.5 10/14 1605 Pulse 84 10/14 1605 Resp 16 10/14 1605 Last Documented: Result Date Time Pulse Ox 100 10/14 1736 B/P 118/64 10/14 1736 B/P Mean 82 10/14 1736 O2 Delivery Room air 10/14 1736 Temp 36.8 10/14 1736 Pulse 80 10/14 1736 Resp 16 10/14 1736 All vital signs available at the time of this en try have been reviewed. Condition Stable Clinical Impression Clinical Impression Primary Impression: Constipation Secondary Impressions: Nause a, RUQ abdominal pain, Yeast infection of the vagina Time of Impression 1620 Disposition Decision Discharge )( Discharged to Home Yes )( Time 1728 )( Date 10/14/18 Discharge/Care Plan Counseled Regarding Diagnosi s, Lab results, Imaging studies, Need for follow-up, When to return to ED Prescriptions diflucan bentyl miralax strict return precaution Prescriptions Reviewed Risks, Benefits, Alternat chino treatment Discharge Note I have spoken with the patie nt and/or caregivers. I have explained the patient's condition, diagnoses and sabrina atment plan based on the information available to me at this time. I have answered the patient's and/ or caregiver's questions and addressed any concerns. The patient and/or careg ingrid have as good an understanding of the patient 's diagnosis, condition and treatment plan as can be expected at this point. The vital signs have bee n stable. The patient's condition is stable and appr opriate for discharge from the emergency department. The patient will pursue further outpatient evalu ation with the primary care physician or other designated or consulting phys ician as outlined in the discharge instructions. The patient and/or caregivers are agreeable to this plan of care and follow-up instructions have been exp lained in detail. The patient and/or caregivers have received these instructio ns in written format and have expressed an understanding of the discharge inst ructions. The patient and/or caregivers are aware that any significant change in condition or worsening of symptoms should prompt an immediate return to [facility] or the closest emergency department or a call to 911. Quality Measures Preg Test for Women w/Abd Pain Any preg test ord ered Smoking Cessation Screened, non user Free Text Depart Notes Free Text Depart Notes Pt is a 23 yo s/p D C here with vaginal burning and cramping CARLOS pain with no adequate bowel movement discharged home on diflu can, miralax and bentyl. Recomemnd follow up with PCP. Electronically Signed by Twin Bocanegra MD on at 5451 RPT #:[id number] END OF REPORT
[2023-01-19] MEDS ORDERED: METOCLOPRAMIDE 10 MG/2mL INJ ONE (09:25)
[2023-01-19] MEDS ORDERED: DIPHENHYDRAMINE 50 MG/ML VIAL ONE (09:25)
[2023-01-19] MEDS ORDERED: NA CHLORIDE 0.9% 1,000 ML ONE (09:26)
[2023-01-19] MEDS ORDERED: KETOROLAC 30 MG/ML INJ ONE (09:26)
--- NOTE | 2023-01-19 10:53 | EDPHYS ---
Physician Documentation [facility] Name: Caitlin Sloan Age: 27 yrs Sex: Female : 1995 Arrival Date: 01/19/2023 Time: 08:36 Bed 16 Private MD: Willem Willingham ED Physician Sebas Day HPI: 01/19 09:15 This 27 yrs old Female presents to ER via Ambulatory with complaints of Headache. kb 09:15 The patient complains of pain to the left eye and left congregational. The patient describes kb the headache as throbbing. Onset: The symptoms/episode began/occurred yesterday. Associated signs and symptoms: Pertinent positives: nausea, Photophobia. Severity of symptoms: At its worst the pain was moderate, in the emergency department the pain is unchanged. Headache History: The patient has had previous headaches and this one is similar to previous episodes, and this one is more severe than previous episodes. The symptoms are alleviated by nothing. the symptoms are aggravated by lights. The patient has not experienced similar symptoms in the past. The patient has not recently seen a physician. 10:40 Pt reports migraine that started yesterday and is similar to previous, but more kb intense. States she is out of her normal medications that she takes for migraines. Has been taking tylenol and motrin for this pain but it is not working. Historical: - Allergies: 08:49 Morphine; iw 08:49 PENICILLINS; iw 08:49 Sulfa (Sulfonamide Antibiotics); iw - PMHx: 08:49 ADD/ADHD; Asthma; depressive disorder; iw - PSHx: 08:49 Cholecystectomy; D\T\C; iw - Immunization history:: Adult Immunizations up to date. - Social history:: Smoking status: Patient denies any tobacco usage or history of. ROS: 09:14 Constitutional: Negative for fever, chills, and weight loss. kb 09:14 Neuro: Positive for headache. 09:14 All other systems are negative. Exam: 09:14 Constitutional: This is a well developed, well nourished patient who is awake, alert, kb and in no acute distress. Head/Face: Normocephalic, atraumatic. Eyes: Pupils equal round and reactive to light, extra-ocular motions intact. Lids and lashes normal. Conjunctiva and sclera are non-icteric and not injected. Cornea within normal limits. Periorbital areas with no swelling, redness, or edema. ENT: Moist Mucous membranes Cardiovascular: Regular rate and rhythm with a normal S1 and S2. No gallops, murmurs, or rubs. No pulse deficits. Respiratory: Respirations even and unlabored. No increased work of breathing. Talking in full sentences Skin: Warm, dry with normal turgor. Normal color. MS/ Extremity: Pulses equal, no cyanosis. Neurovascular intact. Full, normal range of motion. Neuro: Awake and alert, GCS 15, oriented to person, place, time, and situation. Moves all extremities. Normal gait. 10:50 ENT: TM's: fluid levels, on the left. kb Vital Signs: 08:47 BP 125 / 81; Pulse 77; Resp 16; Temp 97.7; Pulse Ox 100% on R/A; Weight 117.93 kg; iw Height 5 ft. 5 in. ; Pain 9/10; 10:24 BP 118 / 78; Pulse 74; Resp 16; Pulse Ox 99% ; ko1 08:47 Body Mass Index 43.27 (117.93 kg, 165.1 cm) iw 08:47 Pain Scale: Adult iw [place] Coma Score: 09:15 Eye Response: spontaneous(4). Motor Response: obeys commands(6). Verbal Response: kb oriented(5). Total: 15. MDM: 08:54 Patient medically screened. kb 09:15 Differential diagnosis: cluster headache, migraine, sinusitis, tension headache. Data kb reviewed: vital signs, nurses notes. 10:41 ED course: Pt reports marked decrease in pain. . kb 10:51 Counseling: I had a detailed discussion with the patient and/or guardian regarding: the kb historical points, exam findings, and any diagnostic results supporting the discharge/admit diagnosis, the need for outpatient follow up, a family practitioner, a neurologist, to return to the emergency department if symptoms worsen or persist or if there are any questions or concerns that arise at home. Response to treatment: the patient's symptoms have markedly improved after treatment. ED course: Pt sleeping comfortably when I went in for second re-evaluation. . 01/19 08:54 Order name: IV Start; Complete Time: 09:29 kb Administered Medications: 09:29 Drug: NS 0.9% IV 1000 ml Route: IV; Rate: 1000 ml; Site: left antecubital; ko1 11:13 Follow up: IV Status: Completed infusion; IV Intake: 1000ml ko1 09:29 Drug: Ketorolac IVP 15 mg Route: IVP; Site: left antecubital; ko1 11:13 Follow up: Response: No adverse reaction; Pain is decreased ko1 09:29 Drug: metoCLOPramide IVP 10 mg Route: IVP; Site: left antecubital; ko1 11:12 Follow up: Response: No adverse reaction ko1 09:29 Drug: diphenhydrAMINE IVP 12.5 mg Route: IVP; Site: left antecubital; ko1 11:12 Follow up: Response: No adverse reaction ko1 10:48 CANCELLED (Physician Discretion): Gabapentin PO 600 mg PO once kb 10:53 Drug: fentaNYL (PF) IVP 25 mcg Route: IVP; Site: left antecubital; ko1 11:12 Follow up: Response: No adverse reaction; Pain is decreased ko1 10:53 Drug: Decadron - Dexamethasone IVP 10 mg Route: IVP; Site: left antecubital; ko1 11:12 Follow up: Response: No adverse reaction ko1 Disposition: 16:29 Co-signature as Attending Physician, Sebas Day MD I reviewed the patient's care rn provided by the Advanced Practice Provider and agree with the diagnosis and treatment plan. Disposition Summary: 01/19/23 10:53 Discharge Ordered Location: Home kb Condition: Stable kb Diagnosis - Migraine without aura, not intractable kb - Other acute sinusitis kb Followup: kb - With: Emergency Department - When: As needed - Reason: Worsening of condition Followup: kb - With: Private Physician - When: 2 - 3 days - Reason: Recheck today's complaints, Continuance of care, Re-evaluation by your physician Discharge Instructions: - Discharge Summary Sheet kb - Sinusitis, Adult, [id number] kb - Migraine Headache, [id number] kb Forms: - Medication Reconciliation Form kb - Thank You Letter kb - Antibiotic Education kb - Prescription Opioid Use kb Prescriptions: - Prednisone 20 mg Oral Tablet - take 1 tablet by ORAL route once daily for 5 days; 5 tablet; Refills: 0, kb Product Selection Permitted Signatures: Windy Torre FNP-C FNP-Deborah Gaytanne, Sebas Rodney RN, MD MD rn Oliver, Kathy, RN RN ko1 Corrections: (The following items were deleted from the chart) 10:48 10:28 Gabapentin PO 600 mg PO once ordered. kb kb 10:48 10:46 Gabapentin PO 600 mg PO once given. ko1 kb 10:48 10:48 Gabapentin PO 600 mg PO once ordered. ko1 kb
--- NOTE | 2023-01-19 10:53 | ER ---
Nurse's Notes [facility] Name: Caitlin Sloan Age: 27 yrs Sex: Female : 1995 Arrival Date: 01/19/2023 Time: 08:36 Bed 16 Private MD: Willem Willingham Diagnosis: Migraine without aura, not intractable;Other acute sinusitis Presentation: 01/19 08:47 Chief complaint: Patient states: having uncontrolled migraine , started yesterday , iw takes sumatriptan and topiramate , not helping, pain is behind my left eye. Coronavirus screen: At this time, the client does not indicate any symptoms associated with coronavirus-19. Ebola Screen: Patient negative for fever greater than or equal to 101.5 degrees Fahrenheit, and additional compatible Ebola Virus Disease symptoms Patient denies exposure to infectious person. Patient denies travel to an Ebola-affected area in the 21 days before illness onset. No symptoms or risks identified at this time. Initial Sepsis Screen: Does the patient meet any 2 criteria? No. Patient's initial sepsis screen is negative. Does the patient have a suspected source of infection? No. Patient's initial sepsis screen is negative. Risk Assessment: Do you want to hurt yourself or someone else? Patient reports no desire to harm self or others. Onset of symptoms was January 18, 2023. 08:47 Method Of Arrival: Ambulatory iw 08:47 Acuity: TANESHA 3 iw Historical: - Allergies: 08:49 Morphine; iw 08:49 PENICILLINS; iw 08:49 Sulfa (Sulfonamide Antibiotics); iw - PMHx: 08:49 ADD/ADHD; Asthma; depressive disorder; iw - PSHx: 08:49 Cholecystectomy; D\T\C; iw - Immunization history:: Adult Immunizations up to date. - Social history:: Smoking status: Patient denies any tobacco usage or history of. Screenin:32 [facility] ED Fall Risk Assessment (Adult) History of falling in the last 3 months, ko1 including since admission No falls in past 3 months (0 pts) Confusion or Disorientation No (0 pts) Intoxicated or Sedated No (0 pts) Impaired Gait No (0 pts) Mobility Assist Device Used No (0 pt) Altered Elimination No (0 pt) Score/Fall Risk Level 0 - 2 = Low Risk Oriented to surroundings, Maintained a safe environment, Educated pt \T\ family on fall prevention, incl call for assistance when getting out of bed, Assessed \T\ reinforced patient's understanding of fall precautions, Provided non-skid footwear, Hourly rounding (assess needs \T\ fall precautionary measures) done, Used ambulatory aids as needed (educated on \T\ assisted with), Used gait belt as appropriate. Abuse screen: Denies threats or abuse. Denies injuries from another. Nutritional screening: No deficits noted. Tuberculosis screening: No symptoms or risk factors identified. Assessment: 09:32 General: Appears distressed, uncomfortable, Behavior is cooperative, appropriate for ko1 age, anxious. Pain: Complains of pain in left latter-day and left eye. Neuro: Reports headache in left behind left eye. Cardiovascular: No deficits noted. Respiratory: No deficits noted. GI: No deficits noted. : No deficits noted. EENT: No deficits noted. Derm: No deficits noted. Musculoskeletal: No deficits noted. Vital Signs: 08:47 BP 125 / 81; Pulse 77; Resp 16; Temp 97.7; Pulse Ox 100% on R/A; Weight 117.93 kg; iw Height 5 ft. 5 in. ; Pain 9/10; 10:24 BP 118 / 78; Pulse 74; Resp 16; Pulse Ox 99% ; ko1 08:47 Body Mass Index 43.27 (117.93 kg, 165.1 cm) iw 08:47 Pain Scale: Adult iw [place] Coma Score: 09:15 Eye Response: spontaneous(4). Motor Response: obeys commands(6). Verbal Response: kb oriented(5). Total: 15. ED Course: 08:41 Patient arrived in ED. im 08:41 Willem Willingham MD is Private Physician. im 08:48 Windy Torre [facility]C [facility] kb 08:48 Sebas Day MD is Attending Physician. kb 08:49 Triage completed. iw 08:49 Arm band placed on. iw 09:15 Jovita Breaux, JOSE MARIA is Primary Nurse. ko1 09:15 Inserted saline lock: 20 gauge in left antecubital area, using aseptic technique. ko1 09:32 Patient has correct armband on for positive identification. Bed in low position. Call ko1 light in reach. Side rails up X 1. Pulse ox on. NIBP on. 09:32 No provider procedures requiring assistance completed. ko1 11:11 IV discontinued, intact, bleeding controlled, No redness/swelling at site. Pressure ko1 dressing applied. Administered Medications: :29 Drug: NS 0.9% IV 1000 ml Route: IV; Rate: 1000 ml; Site: left antecubital; ko1 11:13 Follow up: IV Status: Completed infusion; IV Intake: 1000ml ko1 09:29 Drug: Ketorolac IVP 15 mg Route: IVP; Site: left antecubital; ko1 11:13 Follow up: Response: No adverse reaction; Pain is decreased ko1 09:29 Drug: metoCLOPramide IVP 10 mg Route: IVP; Site: left antecubital; ko1 11:12 Follow up: Response: No adverse reaction ko1 09:29 Drug: diphenhydrAMINE IVP 12.5 mg Route: IVP; Site: left antecubital; ko1 11:12 Follow up: Response: No adverse reaction ko1 10:48 CANCELLED (Physician Discretion): Gabapentin PO 600 mg PO once kb 10:53 Drug: fentaNYL (PF) IVP 25 mcg Route: IVP; Site: left antecubital; ko1 11:12 Follow up: Response: No adverse reaction; Pain is decreased ko1 10:53 Drug: Decadron - Dexamethasone IVP 10 mg Route: IVP; Site: left antecubital; ko1 11:12 Follow up: Response: No adverse reaction ko1 Medication: 09:32 VIS not applicable for this client. ko1 Intake: 11:13 IV: 1000ml; Total: 1000ml. ko1 Outcome: 10:53 Discharge ordered by . kb 11:13 Discharged to home ambulatory. ko1 11:13 Condition: improved 11:13 Discharge instructions given to patient, Instructed on discharge instructions, follow up and referral plans. medication usage, Demonstrated understanding of instructions, follow-up care, medications, Prescriptions given X 1. 11:14 Patient left the ED. ko1 Signatures: Windy Torre, ABDIRAHMAN-C UNDERGROUND PRODUCTION FOREPERSON-CkCarolyn Fermin RN RN iw Jovita Breaux RN RN ko1 Cathie Dave Corrections: (The following items were deleted from the chart) 10:48 10:46 Gabapentin PO 600 mg PO ko1 ko1
[2023-01-19] MEDS ORDERED: FENTANYL CITR 100 MCG/2 ML ONE (10:57)
[2023-01-19] MEDS ORDERED: dexAMETHasone 10 MG/ML VIAL ONE (10:58)
[2023-01-19 11:20] VITALS: TEMP 97.7
[2023-01-19 11:22] VITALS: BP 118/78; O2SAT 99
== END 2023-01-19 11:14 | disposition home or self-care (01) ==
LOC: ER 08:36
DX: G43.009 Migraine without aura, not intractable, without status migrainosus (principal); J01.80 Other acute sinusitis; Z88.0 Allergy status to penicillin; Z88.2 Allergy status to sulfonamides; Z88.5 Allergy status to narcotic agent
CPT/HCPCS: 96361; 96375; 96374; 99284; J2765; J1200; J3010; J1100; J7030